=== PATIENT | male | born 1975 | race Hispanic/Latino ===

== ENCOUNTER 2018-12-03 20:07 | Emergency (ER) | payer SELFPAY ==
[2018-12-03 21:04] LABS: Absolute Lymphocytes (CBC) 2.7 K/uL (0.7-4.9); Absolute Monocytes 0.7 K/uL (0.1-1.3); Absolute Neutrophil 2.7 K/uL (1.8-8.0); Basophils % 0.9 % (0-1.3); Eosinophils % 2.9 % (0-4.4); Hematocrit 40.9 % (39.6-49.0); Lymphocytes % 42.3 % (15.3-44.8); MPV 9.8 fL (7.6-11.3); Monocytes % 11.7 % (3.3-12.3); RBC Red Blood Cell Count 4.83 M/uL (4.33-5.43)
[2018-12-03 21:14] LABS: Protime INR 0.94
[2018-12-03 21:22] LABS: ALT/SGPT 93 U/L (12-78); AST/SGOT 44 U/L (15-37); Albumin 3.7 g/dL (3.4-5.0); Alkaline Phosphatase 86 U/L (45-117); BUN Blood Urea Nitrogen 12 mg/dL (7-18); Bicarbonate 27 mmol/L (21-32); Bilirubin Direct < 0.1 mg/dL (0-0.2); Bilirubin Total 0.3 mg/dL (0.2-1.0); Glucose Level 180 mg/dL (74-106); Magnesium 1.7 mg/dL (1.8-2.4); NT PRO-BNP 49 pg/mL (<125); Potassium 4.2 mmol/L (3.5-5.1); Protein, Total 7.3 g/dL (6.4-8.2); Sodium Level 138 mmol/L (136-145); Troponin (Emerg Dept Use Only) < 0.02 ng/mL (0.0-0.045)
--- NOTE | 2018-12-03 22:36 | RAD REPORT ---
EXAM DESCRIPTION: RAD - Chest Single View - 12/03/2018 9:18 pm CLINICAL HISTORY: CHEST PAIN Chest pain. COMPARISON: <Comparisons> FINDINGS: Portable technique limits examination quality. The lungs are grossly clear. The heart is normal in size. No displaced fractures. IMPRESSION: No acute intrathoracic process suspected.
[2018-12-03 23:04] LABS: Troponin (Emerg Dept Use Only) < 0.02 ng/mL (0.0-0.045)
--- NOTE | 2018-12-04 01:54 | EDPHYS ---
Physician Documentation [facility] Name: Brayden Henderson Age: 43 yrs Sex: Male : 1975 Arrival Date: 12/03/2018 Time: 20:12 Bed 17 Private MD: ED Physician Moiz Bustillo HPI: 12/04 01:47 This 43 yrs old Male presents to ER via EMS with complaints of Palpitations. gs 01:47 The patient presents with a history of heart racing. Onset: The symptoms/episode gs began/occurred yesterday. Duration: The patient or guardian reports a single episode, that is now resolved. Modifying factors: The symptoms are aggravated by anxiety, The symptoms are alleviated by nothing. Associated signs and symptoms: Pertinent positives: chest pain, leg pain(left), Pertinent negatives: SOB. Associated signs and symptoms: Pertinent positives: headache, hx same headaches past year no change onset or intensity. Severity of symptoms: At their worst the symptoms were moderate in the emergency department the symptoms have improved moderately. The patient has experienced similar episodes in the past, a few times. Historical: - Allergies: 12/03 20:00 No Known Allergies; cc3 - Home Meds: 21:00 lisinopril 10 mg Oral tab 1 tab once daily [Active]; pioglitazone 30 mg oral tab 1 tab cc3 once daily [Active]; Tradjenta 5 mg oral tab 1 tab once daily [Active]; levothyroxine 50 mcg tab 1 tab once daily [Active]; amitriptyline 10 mg oral tab 1 tab [Active]; cyclobenzaprine 10 mg Oral tab [Active]; - PMHx: 20:00 Hypertension; Diabetes - NIDDM; blood clot right eye; cc3 - PSHx: 20:00 left eye surgery; cc3 - Immunization history:: Adult Immunizations up to date. - Social history:: Smoking status: Patient/guardian denies using tobacco, the patient reports quitting approximately 1 years ago. - Ebola Screening: : No symptoms or risks identified at this time. ROS: 12/04 03:18 Abdomen/GI: Positive for vomiting, diarrhea. gs All other systems are negative. Exam: 01:47 Head/Face: Normocephalic, atraumatic. Eyes: Pupils equal round and reactive to light, gs extra-ocular motions intact. Lids and lashes normal. Conjunctiva and sclera are non-icteric and not injected. Cornea within normal limits. Periorbital areas with no swelling, redness, or edema. ENT: Nares patent. No nasal discharge, no septal abnormalities noted. Tympanic membranes are normal and external auditory canals are clear. Oropharynx with no redness, swelling, or masses, exudates, or evidence of obstruction, uvula midline. Mucous membranes moist. Neck: Trachea midline, no thyromegaly or masses palpated, and no cervical lymphadenopathy. Supple, full range of motion without nuchal rigidity, or vertebral point tenderness. No Meningismus. Chest/axilla: Normal chest wall appearance and motion. Nontender with no deformity. No lesions are appreciated. Cardiovascular: Regular rate and rhythm with a normal S1 and S2. No gallops, murmurs, or rubs. Normal PMI, no JVD. No pulse deficits. Respiratory: Lungs have equal breath sounds bilaterally, clear to auscultation and percussion. No rales, rhonchi or wheezes noted. No increased work of breathing, no retractions or nasal flaring. Abdomen/GI: Soft, non-tender, with normal bowel sounds. No distension or tympany. No guarding or rebound. No evidence of tenderness throughout. Back: No spinal tenderness. No costovertebral tenderness. Full range of motion. Skin: Warm, dry with normal turgor. Normal color with no rashes, no lesions, and no evidence of cellulitis. MS/ Extremity: Pulses equal, no cyanosis. Neurovascular intact. Full, normal range of motion. Neuro: Awake and alert, GCS 15, oriented to person, place, time, and situation. Cranial nerves II-XII grossly intact. Motor strength 5/5 in all extremities. Sensory grossly intact. Cerebellar exam normal. Normal gait. 01:47 Constitutional: The patient appears alert, awake. 01:47 ECG was reviewed by the Attending Physician. Vital Signs: 12/03 20:00 BP 189 / 93; Pulse 112; Resp 20 S; Temp 98.1(O); Pulse Ox 97% on R/A; Weight 90.72 kg cc3 (R); Height 5 ft. 5 in. (165.10 cm) (R); Pain 7/10; 21:01 BP 177 / 93; Pulse 98; Resp 15 S; Temp 98.1(O); Pulse Ox 100% on R/A; cc3 22:22 BP 150 / 83; Pulse 106; Resp 16 S; Temp 98.3(O); Pulse Ox 100% on R/A; cc3 22:45 BP 149 / 85; Pulse 102; Resp 18 S; Pulse Ox 99% on R/A; cc3 23:11 BP 160 / 84; Pulse 113; Resp 24 S; Temp 99.1(O); Pulse Ox 100% on 2 lpm NC; cc3 23:37 BP 147 / 82; Pulse 110; Resp 19 S; Temp 99.1(O); Pulse Ox 100% on 2 lpm NC; cc3 23:45 BP 134 / 91; Pulse 109; Resp 14; Pulse Ox 100% on 2 lpm NC; cc3 12/04 00:45 BP 124 / 85; Pulse 99; Resp 16 S; Pulse Ox 100% on R/A; cc3 01:00 BP 122 / 81; Pulse 99; Resp 20; Pulse Ox 100% on 2 lpm NC; lp1 02:00 BP 121 / 79; Pulse 106; Resp 14; Pulse Ox 100% on R/A; lp1 02:20 BP 133 / 98; Pulse 124; Resp 16; Pulse Ox 100% on R/A; lp1 02:40 BP 132 / 86 Supine; Pulse 116; lp1 02:40 BP 143 / 92 Sitting; Pulse 124; lp1 02:40 BP 114 / 88 Standing; Pulse 130; lp1 03:15 BP 117 / 83; Pulse 114; Resp 16 S; Temp 98.5(O); Pulse Ox 99% on R/A; cc3 04:19 BP 128 / 85; Pulse 109; Resp 18 S; Temp 98.5(O); Pulse Ox 99% on R/A; cc3 12/03 20:00 Body Mass Index 33.28 (90.72 kg, 165.10 cm) cc3 02:40 Patient began vomiting at this time lp1 MDM: 12/03 22:20 Patient medically screened. 12/04 01:47 Differential diagnosis: arrythmia, dehydration, stress disorder, mi,tad,pe. Data reviewed: vital signs, nurses notes, lab test result(s), EKG, radiologic studies. Counseling: I had a detailed discussion with the patient and/or guardian regarding: the historical points, exam findings, and any diagnostic results supporting the discharge/admit diagnosis, lab results, radiology results, the need for outpatient follow up. Response to treatment: the patient's symptoms have markedly improved after treatment, the patient's condition has returned to base line, and as a result, I will discharge patient. 12/03 20:43 Order name: Basic Metabolic Panel; Complete Time: 21:25 12/03 20:43 Order name: CBC with Diff; Complete Time: 21:25 12/03 20:43 Order name: LFT's; Complete Time: 21:25 12/03 20:43 Order name: Magnesium; Complete Time: :25 12/03 20:43 Order name: NT PRO-BNP; Complete Time: :12/03 20:43 Order name: PT-INR; Complete Time: 21:25 12/03 20:43 Order name: Troponin (emerg Dept Use Only); Complete Time: 21:25 12/03 20:43 Order name: XRAY Chest (1 view); Complete Time: 23:12 12/03 20:43 Order name: EKG; Complete Time: 20:46 12/03 20:43 Order name: Cardiac monitoring; Complete Time: 20:50 12/03 22:21 Order name: TSH; Complete Time: 23:12 12/03 22:21 Order name: Troponin (emerg Dept Use Only); Complete Time: 23:12 12/03 23:18 Order name: CT Aorta for Dissection 12/03 20:43 Order name: EKG - Nurse/Tech; Complete Time: 20:50 12/03 20:43 Order name: IV Saline Lock; Complete Time: 20:58 12/03 20:43 Order name: Labs collected and sent; Complete Time: 20:58 12/03 20:43 Order name: O2 Per Protocol; Complete Time: 20:50 12/03 20:43 Order name: O2 Sat Monitoring; Complete Time: 20:50 12/03 23:02 Order name: EKG - Nurse/Tech; Complete Time: 23:10 gs EC:47 Rate is 103 beats/min. Rhythm is regular. OH interval is normal. QRS interval is gs normal. No Q waves. T waves are Normal. No ST changes noted. Clinical impression: Sinus tachycardia. Interpreted by me. Administered Medications: 02:50 Drug: NS 0.9% 1000 ml Route: IV; Rate: 1 bolus; Site: left antecubital; cc3 04:00 Follow up: Response: No adverse reaction; IV Status: Completed infusion; IV Intake: cc3 1000ml Point of Care Testing: Blood Glucose: 02:35 Blood Glucose: 157 mg/dL; lp1 Ranges: Critical Glucose Levels:Adult <50 mg/dl or >400 mg/dl <40 mg/dl or >180 mg/dl Disposition: 12/04/18 04:13 Discharged to Home. Impression: Chest pain, unspecified, Generalized abdominal pain, Palpitations, Pain in left leg, Vomiting, Diarrhea, unspecified. - Condition is Stable. - Discharge Instructions: Nonspecific Chest Pain, Diarrhea, Adult, Nausea and Vomiting, Adult, Palpitations. - Prescriptions for Zofran 4 mg Oral Tablet - take 1 tablet by ORAL route every 12 hours As needed; 6 tablet. - Medication Reconciliation Form, Thank You Letter, Antibiotic Education, Prescription Opioid Use form. - Follow up: Private Physician; When: 1 - 2 days; Reason: Re-evaluation by your physician. Signatures: Dispatcher [employer] EDMS Ashley Dumont RN RN Moiz Campos MD MD gs Cordel, Charlene cc3 Corrections: (The following items were deleted from the chart) 02:57 01:53 12/04/2018 01:53 Discharged to Home. Impression: Tachycardia, unspecified; gs Essential (primary) hypertension; Palpitations. Condition is Stable. Forms are Medication Reconciliation Form, Thank You Letter, Antibiotic Education, Prescription Opioid Use. Follow up: Private Physician; When: 1 - 2 days; Reason: Re-evaluation by your physician. gs 03:18 01:47 All other systems are negative, gs gs 04:35 04:13 12/04/2018 04:13 Discharged to Home. Impression: Chest pain, unspecified; cc3 Generalized abdominal pain; Palpitations; Pain in left leg; Vomiting; Diarrhea, unspecified. Condition is Stable. Forms are Medication Reconciliation Form, Thank You Letter, Antibiotic Education, Prescription Opioid Use. Follow up: Private Physician; When: 1 - 2 days; Reason: Re-evaluation by your physician. gs
--- NOTE | 2018-12-04 01:54 | ER ---
Nurse's Notes [facility] Name: Brayden Henderson Age: 43 yrs Sex: Male : 1975 Arrival Date: 12/03/2018 Time: 20:12 Bed 17 Private MD: Diagnosis: Chest pain, unspecified;Generalized abdominal pain;Palpitations;Pain in left leg;Vomiting;Diarrhea, unspecified Presentation: 12/03 20:00 Presenting complaint: EMS states: "We were toned for palpitations that started an hour cc3 ago, high blood pressure reading, and headache" Patient stated that "I had pain on my left toe first then the pain radiated upwards to my left chest like an electricity then that's when I felt fast heart beat and headache" Patient denies chest pain now but said headache is NRS 7/10. Transition of care: patient was not received from another setting of care. Onset of symptoms was December 03, 2018. Risk Assessment: Do you want to hurt yourself or someone else? Patient reports no desire to harm self or others. Initial Sepsis Screen: Does the patient meet any 2 criteria? HR > 90 bpm. No. Patient's initial sepsis screen is negative. Does the patient have a suspected source of infection? No. Patient's initial sepsis screen is negative. Care prior to arrival: None. 20:00 Method Of Arrival: EMS: [facility] cc3 20:00 Acuity: MARIA E 3 cc3 Triage Assessment: 20:00 General: Appears in no apparent distress. comfortable, Behavior is calm, cooperative, cc3 appropriate for age. Pain: Complains of pain in head Pain currently is 7 out of 10 on a pain scale. Quality of pain is described as aching, Pain began 1 hour ago. EENT: No signs and/or symptoms were reported regarding the EENT system. Neuro: Level of Consciousness is awake, alert, obeys commands, Oriented to person, place, time, situation, Appropriate for age. Cardiovascular: Reports palpitations, since an hour ago Denies chest pain, Patient's skin is warm and dry. Respiratory: Airway is patent Respiratory effort is even, unlabored, Respiratory pattern is regular, symmetrical. GI: Abdomen is round. : No signs and/or symptoms were reported regarding the genitourinary system. Derm: dry wounds all over his bilateral upper and lower extremities, trunk and back. Musculoskeletal: Circulation, motion, and sensation intact. Range of motion: intact in all extremities. Historical: - Allergies: 20:00 No Known Allergies; cc3 - Home Meds: 21:00 lisinopril 10 mg Oral tab 1 tab once daily [Active]; pioglitazone 30 mg oral tab 1 tab cc3 once daily [Active]; Tradjenta 5 mg oral tab 1 tab once daily [Active]; levothyroxine 50 mcg tab 1 tab once daily [Active]; amitriptyline 10 mg oral tab 1 tab [Active]; cyclobenzaprine 10 mg Oral tab [Active]; - PMHx: 20:00 Hypertension; Diabetes - NIDDM; blood clot right eye; cc3 - PSHx: 20:00 left eye surgery; cc3 - Immunization history:: Adult Immunizations up to date. - Social history:: Smoking status: Patient/guardian denies using tobacco, the patient reports quitting approximately 1 years ago. - Ebola Screening: : No symptoms or risks identified at this time. Screenin:00 Abuse screen: Denies threats or abuse. Denies injuries from another. Nutritional cc3 screening: No deficits noted. Tuberculosis screening: No symptoms or risk factors identified. Fall Risk Ambulatory Aid- None/Bed Rest/Nurse Assist (0 pts). Gait- Normal/Bed Rest/Wheelchair (0 pts) Mental Status- Oriented to own ability (0 pts). Assessment: 20:00 General: see triage assessment. cc3 21:18 Reassessment: Patient appears in no apparent distress at this time. Patient and/or cc3 family updated on plan of care and expected duration. Pain level reassessed. Patient is alert, oriented x 3, equal unlabored respirations, skin warm/dry/pink. 22:30 Reassessment: Patient appears in no apparent distress at this time. Patient and/or cc3 family updated on plan of care and expected duration. Pain level reassessed. Patient is alert, oriented x 3, equal unlabored respirations, skin warm/dry/pink. Repeat Troponin taken and sent to laboratory by radiographic technologist Blanca. 22:50 Reassessment: Patient and/or family updated on plan of care and expected duration. Pain cc3 level reassessed. Patient is alert, oriented x 3, equal unlabored respirations, skin warm/dry/pink. Patient said he started to have left sided chest pain now and that he doesn't feel right, informed Dr. Bustillo and he ordered for an ECG. ECG done with sinus tachycardia rhythm and shown to Dr. Bustillo. 23:18 Reassessment: Patient and/or family updated on plan of care and expected duration. Pain cc3 level reassessed. Patient is alert, oriented x 3, equal unlabored respirations, skin warm/dry/pink. Dr. Bustillo ordered for CT aorta for dissection, patient informed. 23:47 Reassessment: Patient appears in no apparent distress at this time. Patient and/or cc3 family updated on plan of care and expected duration. Pain level reassessed. Patient is alert, oriented x 3, equal unlabored respirations, skin warm/dry/pink. Patient verbalized that he feels better now. Patient denies pain at this time. Patient states feeling better. Patient states symptoms have improved. 12/04 00:00 Reassessment: Patient appears in no apparent distress at this time. Patient and/or cc3 family updated on plan of care and expected duration. Pain level reassessed. Patient is alert, oriented x 3, equal unlabored respirations, skin warm/dry/pink. Patient taken to CT scan department by the application technician by nathan. 00:30 Reassessment: Patient appears in no apparent distress at this time. Patient and/or cc3 family updated on plan of care and expected duration. Pain level reassessed. Patient is alert, oriented x 3, equal unlabored respirations, skin warm/dry/pink. Patient came back from CT scan department, awaiting result. 01:12 Reassessment: Patient appears in no apparent distress at this time. Patient and/or cc3 family updated on plan of care and expected duration. Pain level reassessed. Patient is alert, oriented x 3, equal unlabored respirations, skin warm/dry/pink. 02:15 Reassessment: Spoke with Malgorzata, patient's , aware of discharge and will picking machine operator helper lp1 patient for ride home Patient states feeling better. 02:20 Reassessment: On discharge of patient, complaint of heartburn, assisted to sitting up lp1 at side of bed, states burping relieves symptoms; HR to 120's at this time; Patient denies any pain, discomfort to chest. 02:49 Reassessment: Provider notified of orthostatic results. lp1 03:20 Reassessment: Patient and/or family updated on plan of care and expected duration. Pain cc3 level reassessed. Patient is alert, oriented x 3, equal unlabored respirations, skin warm/dry/pink. 04:30 Reassessment: Patient appears in no apparent distress at this time. Patient and/or cc3 family updated on plan of care and expected duration. Pain level reassessed. Patient is alert, oriented x 3, equal unlabored respirations, skin warm/dry/pink. After the IV fluid bolus, patient managed to sit and walk around without headache nor dizziness, informed Dr. Bustillo and he discharged the patient home with prescription given. IV cannula removed and patient left ER vitally stable by wheelchair escorted by radiographic technologist Blanca and the patient's . Patient denies pain at this time. Patient states feeling better. Patient states symptoms have improved. Vital Signs: 12/03 20:00 BP 189 / 93; Pulse 112; Resp 20 S; Temp 98.1(O); Pulse Ox 97% on R/A; Weight 90.72 kg cc3 (R); Height 5 ft. 5 in. (165.10 cm) (R); Pain 7/10; 21:01 BP 177 / 93; Pulse 98; Resp 15 S; Temp 98.1(O); Pulse Ox 100% on R/A; cc3 22:22 BP 150 / 83; Pulse 106; Resp 16 S; Temp 98.3(O); Pulse Ox 100% on R/A; cc3 22:45 BP 149 / 85; Pulse 102; Resp 18 S; Pulse Ox 99% on R/A; cc3 23:11 BP 160 / 84; Pulse 113; Resp 24 S; Temp 99.1(O); Pulse Ox 100% on 2 lpm NC; cc3 23:37 BP 147 / 82; Pulse 110; Resp 19 S; Temp 99.1(O); Pulse Ox 100% on 2 lpm NC; cc3 23:45 BP 134 / 91; Pulse 109; Resp 14; Pulse Ox 100% on 2 lpm NC; cc3 12/04 00:45 BP 124 / 85; Pulse 99; Resp 16 S; Pulse Ox 100% on R/A; cc3 01:00 BP 122 / 81; Pulse 99; Resp 20; Pulse Ox 100% on 2 lpm NC; lp1 02:00 BP 121 / 79; Pulse 106; Resp 14; Pulse Ox 100% on R/A; lp1 02:20 BP 133 / 98; Pulse 124; Resp 16; Pulse Ox 100% on R/A; lp1 02:40 BP 132 / 86 Supine; Pulse 116; lp1 02:40 BP 143 / 92 Sitting; Pulse 124; lp1 02:40 BP 114 / 88 Standing; Pulse 130; lp1 03:15 BP 117 / 83; Pulse 114; Resp 16 S; Temp 98.5(O); Pulse Ox 99% on R/A; cc3 04:19 BP 128 / 85; Pulse 109; Resp 18 S; Temp 98.5(O); Pulse Ox 99% on R/A; cc3 12/03 20:00 Body Mass Index 33.28 (90.72 kg, 165.10 cm) cc3 02:40 Patient began vomiting at this time lp1 ED Course: 12/03 20:00 Patient has correct armband on for positive identification. Placed in gown. Bed in low cc3 position. Call light in reach. Side rails up X2. quality assurance monitor chassis on. Pulse ox on. NIBP on. 20:00 Arm band placed on right wrist. Patient notified of wait time. EKG completed in triage. cc3 Results shown to MD. 20:00 Maintain EMS IV. Dressing intact. Good blood return noted. Site clean \\T\\ dry. Gauge \\T\\ cc 3 site: left ACV gauge 20. 20:12 Patient arrived in ED. ds1 20:12 Blanca Quintero is Primary Nurse. cc3 20:22 Triage completed. cc3 21:19 XRAY Chest (1 view) In Process Unspecified. EDMS 21:25 Moiz Bustillo MD is Attending Physician. gs 06 00:41 CT Aorta for Dissection In Process Unspecified. EDMS 00:46 CT completed. Patient tolerated procedure well. Patient moved to CT via stretcher. Patient moved back from CT. 02:24 No provider procedures requiring assistance completed. lp1 04:30 IV discontinued, intact, bleeding controlled, No redness/swelling at site. Pressure cc3 dressing applied. Administered Medications: 02:50 Drug: NS 0.9% 1000 ml Route: IV; Rate: 1 bolus; Site: left antecubital; cc3 04:00 Follow up: Response: No adverse reaction; IV Status: Completed infusion; IV Intake: cc3 1000ml Point of Care Testing: Blood Glucose: 02:35 Blood Glucose: 157 mg/dL; lp1 Ranges: Intake: 04:00 IV: 1000ml; Total: 1000ml. cc3 Outcome: 01:53 Discharge ordered by . 04:13 Discharge ordered by . 04:30 Discharged to home via wheelchair, with family. cc3 04:30 Condition: stable 04:30 Discharge instructions given to patient, family, Instructed on discharge instructions, follow up and referral plans. medication usage, Demonstrated understanding of instructions, follow-up care, medications, Prescriptions given X 1. 04:35 Patient left the ED. cc3 Signatures: Dispatcher [employer] EDMS Reinier Toscano Demi ds1 Gracy Wesley RN RN lp1 Moiz Bustillo MD MD gs Cordel, Charlene cc3 Corrections: (The following items were deleted from the chart) 12/03 23:21 23:11 BP 160 / 84; Pulse 113bpm; Resp 24bpm; Spontaneous; Pulse Ox 99% RA; cc3 cc3 23:37 23:18 Reassessment: Dr. Bustillo ordered for CT aorta for dissection, patient informed. cc3cc3 23:46 23:11 BP 160 / 84; Pulse 113bpm; Resp 24bpm; Spontaneous; Pulse Ox 99% RA; Temp 99.1F cc3 Oral; cc3 23:46 23:37 BP 147 / 82; Pulse 110bpm; Resp 19bpm; Spontaneous; Pulse Ox 100% RA; Temp 99.1F cc3 Oral; cc3 12/04 02:49 02:00 BP 121 / 79; Pulse 106bpm; Resp 14bpm; Pulse Ox 100% RA; Temp 97.7F Temporal; lp1 lp1 04:42 04:19 BP 128 / 85; Pulse 109bpm; Resp 18bpm; Spontaneous; Pulse Ox 99% RA; cc3 cc3 04:42 03:15 BP 117 / 83; Pulse 114bpm; Resp 16bpm; Spontaneous; Pulse Ox 99% RA; cc3 cc3
[2018-12-04] MEDS ORDERED: NA CHLORIDE 0.9% 1,000 ML ONE (03:09)
--- NOTE | 2018-12-04 07:37 | EKG ---
Test Date: 2018-12-03 Test Time: 20:12:59 Garment Liner: CARMEN MEASUREMENT RESULTS: Intervals: Rate: 103 PA: 134 QRSD: 98 QT: 336 QTc: 440 [place]: P: 34 PA: 134 QRS: -31 T: 32 INTERPRETIVE STATEMENTS: Sinus tachycardia Left axis deviation Abnormal ECG No previous ECG available for comparison Electronically Signed On 12-04-18 07:36:40 CDT by Philipp Veras
--- NOTE | 2018-12-04 09:45 | RAD REPORT ---
EXAM DESCRIPTION: CT Angiography Chest With Intravenous Contrast CT Angiography Abdomen and Pelvis With Intravenous Contrast CLINICAL HISTORY: The patient is 43 years old and is Male; CHEST PAIN TECHNIQUE: Axial computed tomographic angiography images of the chest, abdomen and pelvis with intra venous contrast using CT angiography protocol. Sagittal and coronal reformatted images were created and reviewed. This CT exam was performed using one or more of the following dose reduction techniq ues: automated exposure control, adjustment of the mA and/or kV according to patient size, and/or u se of iterative reconstruction technique. MIP reconstructed images were created and reviewed. COMPARISON: No relevant prior studies available. FINDINGS: VASCULATURE: AORTA: No acute findings. No aortic aneurysm. No dissection. PULMONARY ARTERIES: Unremarkable as visualized. No pulmonary embolism is identified. GREAT VESSELS OF AORTIC ARCH: No acute findings. No dissection. No arterial occlusion or sig nificant stenosis. CELIAC TRUNK AND MESENTERIC ARTERIES: No acute findings. No occlusion or significant stenosis. RENAL ARTERIES: No acute findings. No occlusion or significant stenosis. ILIAC ARTERIES: No acute findings. No occlusion or significant stenosis. CHEST: LUNGS: Minimal dependent densities in the lung bases are present. PLEURAL SPACE: Unremarkable. No significant effusion. No pneumothorax. HEART: Unremarkable. No cardiomegaly. No significant pericardial effusion. ABDOMEN: LIVER: There is a diffuse decrease in hepatic parenchymal density, consistent with fatty infiltr ation. GALLBLADDER AND BILE DUCTS: Unremarkable. No calcified stones. No ductal dilation. PANCREAS: Unremarkable. No ductal dilation. No mass. SPLEEN: Unremarkable. No splenomegaly. ADRENALS: Unremarkable. No mass. KIDNEYS AND URETERS: Unremarkable. No hydronephrosis. No solid mass. STOMACH AND BOWEL: The stomach is minimally distended with food contents. A few small bowel loop s within left upper quadrant are fluid-filled with suggestion of very minimal mucosal thickening. The remainder the small bowel is normal in appearance. Mild to moderate amount stool is present througho ut the colon. There is no bowel obstruction. PELVIS: APPENDIX: No findings to suggest acute appendicitis. BLADDER: The bladder is well distended. REPRODUCTIVE: Unremarkable as visualized. CHEST, ABDOMEN and PELVIS: INTRAPERITONEAL SPACE: Unremarkable. No significant fluid collection. No free air. BONES/JOINTS: No acute fracture. No dislocation. SOFT TISSUES: Unremarkable. LYMPH NODES: Unremarkable. No enlarged lymph nodes. IMPRESSION: 1. No evidence of aortic aneurysm or dissection. 2. Nonspecific fluid-filled small bowel loops with suggestion of minimal mucosal thickening in the left abdomen. Findings may be secondary to a very mild enteritis. No bowel obstruction. Electronically signed by: Regla Baeza MD 12/04/2018 12:53 AM CDT Due to temporary technical issues with the PACS/Fluency reporting system, reports are being signed by the in house radiologist as a courtesy to ensure prompt reporting. The interpreting radiologist is f ully responsible for the content of the report.
--- NOTE | 2018-12-04 15:57 | EKG ---
Test Date: 2018-12-03 Test Time: 23:08:27 Gas Compressor Turbine Operator: JOSUE MEASUREMENT RESULTS: Intervals: Rate: 114 MT: 136 QRSD: 90 QT: 330 QTc: 454 Elsa: P: 30 MT: 136 QRS: -28 T: 35 INTERPRETIVE STATEMENTS: Sinus tachycardia Otherwise normal ECG Compared to ECG 12/03/2018 20:12:59 Left-axis deviation no longer present Electronically Signed On 12-04-18 15:56:20 CDT by Philipp Veras
== END 2018-12-04 04:35 | disposition home or self-care (01) ==
LOC: ER 20:07
DX: R00.2 Palpitations (principal); R10.84 Generalized abdominal pain; R11.10 Vomiting, unspecified; R19.7 Diarrhea, unspecified; M79.605 Pain in left leg; I10 Essential (primary) hypertension; E11.9 Type 2 diabetes mellitus without complications
CPT/HCPCS: 36415; 71045; 71275; 74175; 80048; 80076; 83735; 83880; 84443; 84484; 85025; 85610; 93005; 96360; 99285; J7030; Q9967

== ENCOUNTER 2018-12-11 18:34 | Emergency (ER) | payer SELFPAY ==
--- OUTSIDE RECORDS SUMMARY | 2018-12-11 18:37 | XMS REPORT ---
:1975 [facility] Address [address] [place] [address] Care Team Providers Name Role Phone Unavailable Unavailable Unavailable Problems This patient has no known problems. Allergies, Adverse Reactions, Alerts This patient has no known allergies or adverse reactions. Medications This patient has no known medications.
--- NOTE | 2018-12-11 19:41 | RAD REPORT ---
EXAM DESCRIPTION: CT - Head Brain Wo Cont - 12/11/2018 7:29 pm CLINICAL HISTORY: Headache COMPARISON: None. TECHNIQUE: Axial 5 mm thick images of the head were obtained without IV contrast. All CT scans are performed using dose optimization technique as appropriate and may include automated exposure control or mA/KV adjustment according to patient size. FINDINGS: No intracranial hemorrhage, mass, edema or shift of mid-line structures. No acute infarcti on changes seen. No abnormal extra-axial fluid collections. Ventricles are normal. Mastoid air cells and visualized portions of the paranasal sinuses are clear. No acute bony findings. IMPRESSION: Negative non-contrast CT head examination.
[2018-12-11 19:59] LABS: Absolute Lymphocytes (CBC) 1.4 K/uL (0.7-4.9); Absolute Monocytes 0.7 K/uL (0.1-1.3); Absolute Neutrophil 5.3 K/uL (1.8-8.0); Basophils % 0.4 % (0-1.3); Eosinophils % 0.4 % (0-4.4); Hematocrit 41.3 % (39.6-49.0); Lymphocytes % 18.8 % (15.3-44.8); Monocytes % 9.5 % (3.3-12.3); RBC Red Blood Cell Count 4.88 M/uL (4.33-5.43)
[2018-12-11 20:13] LABS: BUN Blood Urea Nitrogen 8 mg/dL (7-18); Bicarbonate 25 mmol/L (21-32); Glucose Level 140 mg/dL (74-106); Potassium 3.7 mmol/L (3.5-5.1); Sodium Level 139 mmol/L (136-145); Troponin (Emerg Dept Use Only) < 0.02 ng/mL (0.0-0.045)
[2018-12-11] MEDS ORDERED: NA CHLORIDE 0.9% 1,000 ML ONE (21:00)
--- NOTE | 2018-12-11 21:18 | ER ---
Nurse's Notes [facility] Name: Brayden Henderson Age: 43 yrs Sex: Male : 1975 Arrival Date: 12/11/2018 Time: 18:42 Bed 16 Private MD: Diagnosis: Headache;Hypertension;Anxiety disorder, unspecified;Chronic pain, not elsewhere classified Presentation: 12/11 18:45 Presenting complaint: Patient states: Patient states his head feels like someone is [facility] "pushing on it" from behind. Transition of care: patient was not received from another setting of care. Onset of symptoms is unknown. Risk Assessment: Do you want to hurt yourself or someone else? Patient reports no desire to harm self or others. Initial Sepsis Screen: Does the patient meet any 2 criteria? HR > 90 bpm. Does the patient have a suspected source of infection? No. Patient's initial sepsis screen is negative. 18:45 Acuity: MARIA E 3 ae4 18:45 Method Of Arrival: EMS: [facility] 18:49 Care prior to arrival: V/S 160/80 at residence of patient, and upon arrival at [address], 119/70. Triage Assessment: 18:50 Headache History: The patient has had previous headaches and this one is similar to 4 previous episodes. General: Appears uncomfortable, Behavior is cooperative, agitated, anxious, restless. Pain: Complains of pain in head and back of head Pain currently is 9 out of 10 on a pain scale. Pain began gradually, Also complains of inability to concentrate. Neuro: Level of Consciousness is awake, alert, obeys commands, Oriented to person, place, situation. Historical: - Allergies: 18:49 No Known Allergies; ae4 - Home Meds: 18:49 lisinopril 10 mg Oral tab 1 tab once daily [Active]; ae4 - PMHx: 18:49 blood clot right eye; Diabetes - NIDDM; Hypertension; ae4 - PSHx: 22:31 None; ae4 - Immunization history:: Adult Immunizations Patient states he doesn't know if his vaccines are up to date. . - Social history:: Smoking status: Patient/guardian denies using tobacco. - Ebola Screening: : Patient denies travel to an Ebola-affected area in the 21 days before illness onset. - Family history:: not pertinent. - Hospitalizations: : No recent hospitalization is reported. Screenin:49 Abuse screen: Denies threats or abuse. Nutritional screening: No deficits noted. ae4 Tuberculosis screening: No symptoms or risk factors identified. Fall Risk None identified. No fall in past 12 months (0 pts). Assessment: 18:45 General: Appears in no apparent distress. uncomfortable, Behavior is cooperative, ae4 anxious, restless. Neuro: Level of Consciousness is awake, alert, obeys commands, Oriented to person, place, time. Neuro: Reports headache. Cardiovascular: Heart tones S1 S2 present Patient's skin is warm and dry. Rhythm is regular. Respiratory: Airway is patent Respiratory effort is even, unlabored, Respiratory pattern is regular, symmetrical, Breath sounds are clear bilaterally. GI: Abdomen is round Bowel sounds present X 4 quads. : No signs and/or symptoms were reported regarding the genitourinary system. Urine is clear. EENT: No signs and/or symptoms were reported regarding the EENT system. Derm: Skin is pale. Musculoskeletal: No signs and/or symptoms reported regarding the musculoskeletal system. 21:33 Reassessment: No changes from previously documented assessment. Patient and/or family ae4 updated on plan of care and expected duration. Pain level reassessed. Pain: Complains of pain in left leg. 21:50 Reassessment: Provider at bedside discussing plan of care, new orders received for pain ae4 medication. 21:50 Reassessment: Patient taken by wheelchair to use phone in triage to secure ride home. ae4 22:20 Reassessment: Patient's arrived to provide transportation home. ae4 Vital Signs: 18:43 BP 140 / 89; Pulse 99; Resp 21; Temp 99.5(O); Pulse Ox 98% on R/A; Weight 92.08 kg (R); ae4 Pain 9/10; 18:46 BP 141 / 81; Pulse 99; Resp 17; Pulse Ox 99% on R/A; ae4 19:02 BP 138 / 79; Pulse 95; Resp 14; Pulse Ox 100% on R/A; ae4 20:57 BP 174 / 83; Pulse 86; Resp 18; Pulse Ox 100% on R/A; ae4 21:26 BP 162 / 90; Pulse 86; Resp 15; Pulse Ox 100% on R/A; ae4 22:30 BP 144 / 80; Pulse 81; Resp 16; Pulse Ox 100% on R/A; ae4 Octavia Coma Score: 21:15 Eye Response: spontaneous(4). Verbal Response: oriented(5). Motor Response: obeys rn commands(6). Total: 15. ED Course: 18:42 Patient arrived in ED. ae4 18:43 Arm band placed on left wrist. ae4 18:46 Triage completed. ae4 18:48 Placed in gown. Bed in low position. Call light in reach. Side rails up X 1. Cardiac ae4 monitor on. Pulse ox on. NIBP on. 18:59 Fantasma Nieves MD is Attending Physician. rn 19:02 Seth Hurtado RN is Primary Nurse. ae4 19:[address] via wheelchair. nj 19:29 CT completed. Patient tolerated procedure well. Patient moved back from CT. nj 19:30 CT Head Brain wo Cont In Process Unspecified. EDMS 22:31 No provider procedures requiring assistance completed. ae4 22:36 IV discontinued, intact, bleeding controlled, No redness/swelling at site. Pressure ae4 dressing applied. Administered Medications: 20:56 Drug: NS 0.9% 1000 ml Route: IV; Rate: 1000 ml; Site: left antecubital; ae4 22:33 Follow up: IV Status: Completed infusion ae4 21:33 Drug: TORadol 30 mg Route: IVP; Site: left antecubital; ae4 22:00 Follow up: Response: Pain is unchanged, physician notified ae4 21:33 Drug: cloNIDine 0.1 mg Route: PO; ae4 22:28 Follow up: Response: Pain is decreased ae4 22:22 Drug: Zofran 4 mg Route: IVP; Site: left antecubital; ae4 22:32 Follow up: Response: No adverse reaction ae4 22:30 Drug: morphine 4 mg Route: IVP; Site: left antecubital; ae4 22:33 Follow up: Response: Pain is decreased ae4 Outcome: 21:18 Discharge ordered by . rn 22:36 Discharged to home via wheelchair. ae4 22:36 Condition: stable 22:36 Discharge instructions given to patient, significant other, Instructed on discharge instructions, follow up and referral plans. medication usage, Demonstrated understanding of instructions. 22:41 Patient left the ED. ae4 Signatures: Dispatcher [employer] EDFantasma Jiménez MD MD rn Jordan, Nathan nj Elliott, Andrea, RN RN ae4 Corrections: (The following items were deleted from the chart) 22:05 22:01 Reassessment: Provider at bedside discussing plan of care, new orders received ae4 for pain medication. ae4
--- NOTE | 2018-12-11 21:19 | EDPHYS ---
Physician Documentation [facility] Name: Brayden Henderson Age: 43 yrs Sex: Male : 1975 Arrival Date: 12/11/2018 Time: 18:42 Bed 16 Private MD: ED Physician Fantasma Nieves HPI: 12/11 19:52 This 43 yrs old Male presents to ER via EMS with complaints of Headache. rn 19:52 The patient complains of pain to the back of head. The patient describes the headache rn as aching. Onset: The symptoms/episode began/occurred at an unknown time. Associated signs and symptoms: Pertinent positives: dizziness, nausea, vomiting, chest pain, abd pain, leg pain. Severity of symptoms: At its worst the pain was moderate, in the emergency department the pain has improved. The patient has experienced similar episodes in the past. Reports "months" of headaches, chest pain, abd pain, leg pain, fatigue, intermittent, reports worse with BP high, takes his BP med, symptoms improve when BP goes back down. Reports chronic right shoulder pain after arm injury and unable to lift above his head. No new injury. Reports seen here a few days ago, diagnosed with stomach bug, was vomiting at the time, still feels nauseated and weak. . Historical: - Allergies: 18:49 No Known Allergies; ae4 - Home Meds: 18:49 lisinopril 10 mg Oral tab 1 tab once daily [Active]; ae4 - PMHx: 18:49 blood clot right eye; Diabetes - NIDDM; Hypertension; ae4 - PSHx: 22:31 None; ae4 - Immunization history:: Adult Immunizations Patient states he doesn't know if his vaccines are up to date. . - Social history:: Smoking status: Patient/guardian denies using tobacco. - Ebola Screening: : Patient denies travel to an Ebola-affected area in the 21 days before illness onset. - Family history:: not pertinent. - Hospitalizations: : No recent hospitalization is reported. ROS: 19:52 Constitutional: Negative for fever, chills, and weight loss, Eyes: Negative for injury, rn pain, redness, and discharge, Neck: Negative for injury,and swelling, Cardiovascular: Negative for edema, Respiratory: Negative for shortness of breath, wheezing, and pleuritic chest pain, Abdomen/GI: Negative for diarrhea, and constipation, Back: Negative for injury and pain, : Negative for injury, bleeding, discharge, and swelling, MS/Extremity: Negative for injury and deformity, Skin: Negative for injury, rash, and discoloration, Neuro: Negative for numbness, tingling, and seizure. Exam: 19:52 Constitutional: This is a well developed, well nourished patient who is awake, alert, rn appears anxious, barely opens eyes during exam. Head/Face: Normocephalic, atraumatic. Eyes: Pupils equal round and reactive to light, extra-ocular motions intact. Lids and lashes normal. Conjunctiva and sclera are non-icteric and not injected. Cornea within normal limits. Periorbital areas with no swelling, redness, or edema. ENT: MMM Neck: Trachea midline, no thyromegaly or masses palpated, and no cervical lymphadenopathy. Supple, full range of motion without nuchal rigidity, or vertebral point tenderness. No Meningismus. Cardiovascular: Regular rate and rhythm. No pulse deficits. Respiratory: Lungs have equal breath sounds bilaterally, clear to auscultation. No increased work of breathing, no retractions or nasal flaring. Abdomen/GI: Soft, non-tender MS/ Extremity: Pulses equal, no cyanosis. Neurovascular intact. Full, normal range of motion. Equal circumference. Neuro: Awake and alert, GCS 15, oriented to person, place, time, and situation. Cranial nerves II-XII grossly intact. Motor strength 5/5 in all extremities. Sensory grossly intact. Cerebellar exam normal. Vital Signs: 18:43 BP 140 / 89; Pulse 99; Resp 21; Temp 99.5(O); Pulse Ox 98% on R/A; Weight 92.08 kg (R); ae4 Pain 9/10; 18:46 BP 141 / 81; Pulse 99; Resp 17; Pulse Ox 99% on R/A; ae4 19:02 BP 138 / 79; Pulse 95; Resp 14; Pulse Ox 100% on R/A; ae4 20:57 BP 174 / 83; Pulse 86; Resp 18; Pulse Ox 100% on R/A; ae4 21:26 BP 162 / 90; Pulse 86; Resp 15; Pulse Ox 100% on R/A; ae4 22:30 BP 144 / 80; Pulse 81; Resp 16; Pulse Ox 100% on R/A; ae4 Dix Coma Score: 21:15 Eye Response: spontaneous(4). Verbal Response: oriented(5). Motor Response: obeys rn commands(6). Total: 15. MDM: 18:59 Patient medically screened. rn 21:15 Differential diagnosis: hypertensive headache, migraine, tension headache, vasomotor rn headache. Data reviewed: vital signs, nurses notes, lab test result(s), EKG, radiologic studies, CT scan, and as a result, I will discharge patient. Counseling: I had a detailed discussion with the patient and/or guardian regarding: the historical points, exam findings, and any diagnostic results supporting the discharge/admit diagnosis, lab results, radiology results, the need for outpatient follow up, to return to the emergency department if symptoms worsen or persist or if there are any questions or concerns that arise at home. Response to treatment: the patient's symptoms have mildly improved after treatment, and as a result, I will discharge patient. Special discussion: I discussed with the patient/guardian in detail that at this point there is no indication for admission to the hospital. It is understood, however, that if the symptoms persist or worsen the patient needs to return immediately for re-evaluation. ED course: Patient with another negative workup, has been going on for sometime, most likely attributed to hypertension, possible component of stress/anxiety, recommend outpt f/u with pcp, continuation of BP meds, and return precautions. Hd negative w/u last week with neg ct aorta. . 12/11 19:15 Order name: CBC with Diff; Complete Time: 20:10 rn 12/11 19:15 Order name: Basic Metabolic Panel; Complete Time: 20:49 rn 12/11 19:15 Order name: Flu; Complete Time: 20:49 rn 12/11 19:15 Order name: Strep; Complete Time: 20:10 rn 12/11 19:15 Order name: [place] Screen Profile; Complete Time: 21:15 rn 12/11 19:16 Order name: Troponin (emerg Dept Use Only); Complete Time: 20:49 rn 12/11 19:15 Order name: EKG; Complete Time: 19:16 rn 12/11 19:15 Order name: CT Head Brain wo Cont; Complete Time: 20:10 rn 06/12 20:10 Order name: Throat Culture EDMS 12/11 19:15 Order name: IV Start; Complete Time: 20:43 rn 12/11 19:15 Order name: EKG - Nurse/Tech; Complete Time: 20:56 rn Administered Medications: 20:56 Drug: NS 0.9% 1000 ml Route: IV; Rate: 1000 ml; Site: left antecubital; ae4 22:33 Follow up: IV Status: Completed infusion ae4 21:33 Drug: TORadol 30 mg Route: IVP; Site: left antecubital; ae4 22:00 Follow up: Response: Pain is unchanged, physician notified ae4 21:33 Drug: cloNIDine 0.1 mg Route: PO; ae4 22:28 Follow up: Response: Pain is decreased ae4 22:22 Drug: Zofran 4 mg Route: IVP; Site: left antecubital; ae4 22:32 Follow up: Response: No adverse reaction ae4 22:30 Drug: morphine 4 mg Route: IVP; Site: left antecubital; ae4 22:33 Follow up: Response: Pain is decreased ae4 Disposition: 12/11/18 21:18 Discharged to Home. Impression: Headache, Hypertension, Anxiety disorder, unspecified, Chronic pain, not elsewhere classified. - Condition is Stable. - Discharge Instructions: General Headache Without Cause, Hypertension. - Medication Reconciliation Form, Thank You Letter, Antibiotic Education, Prescription Opioid Use form. - Follow up: Private Physician; When: As needed; Reason: Recheck today's complaints, Re-evaluation by your physician. - Problem is new. - Symptoms have improved. Signatures: Dispatcher [employer] [facility] Fantasma Nieves MD MD rn Elliott, Andrea, RN RN ae4 Corrections: (The following items were deleted from the chart) 19:55 19:52 Constitutional: Negative for fever, chills, and weight loss, Eyes: Negative for rn injury, pain, redness, and discharge, Neck: Negative for injury,and swelling, Cardiovascular: Negative for edema, Respiratory: Negative for shortness of breath, wheezing, and pleuritic chest pain, Abdomen/GI: Negative for diarrhea, and constipation, MS/Extremity: Negative for injury and deformity, Skin: Negative for injury, rash, and discoloration, Neuro: Negative for numbness, tingling, and seizure, rn 22:41 21:18 12/11/2018 21:18 Discharged to Home. Impression: Headache; Hypertension; Anxiety ae4 disorder, unspecified; Chronic pain, not elsewhere classified. Condition is Stable. Forms are Medication Reconciliation Form, Thank You Letter, Antibiotic Education, Prescription Opioid Use. Follow up: Private Physician; When: As needed; Reason: Recheck today's complaints, Re-evaluation by your physician. Problem is new. Symptoms have improved. rn
[2018-12-11] MEDS ORDERED: KETOROLAC 30 MG/ML INJ ONE (21:46)
[2018-12-11] MEDS ORDERED: cloNIDine HCl 0.1 MG TAB ONE (21:46)
[2018-12-11] MEDS ORDERED: ONDANSETRON 4 MG/2 ML VIAL ONE (22:42)
[2018-12-11] MEDS ORDERED: MORPHINE 4 MG/ML SYR ONE (22:42)
--- NOTE | 2018-12-12 06:54 | EKG ---
Test Date: 2018-12-11 Test Time: 20:59:09 Lead Housekeeper: JOSE MEASUREMENT RESULTS: Intervals: Rate: 90 MI: 126 QRSD: 100 QT: 366 QTc: 447 [place]: P: 41 MI: 126 QRS: -15 T: 45 INTERPRETIVE STATEMENTS: Normal sinus rhythm Normal ECG Compared to ECG 12/03/2018 23:08:27 Sinus tachycardia no longer present Electronically Signed On 12-12-18 06:53:22 CDT by Philipp Veras
== END 2018-12-11 22:41 | disposition home or self-care (01) ==
LOC: ER 18:34
DX: I10 Essential (primary) hypertension (principal); F41.9 Anxiety disorder, unspecified; G89.29 Other chronic pain; E11.9 Type 2 diabetes mellitus without complications
CPT/HCPCS: 36415; 70450; 80048; 84484; 85025; 86308; 87070; 87081; 87804; 93005; 96361; 96374; 96375; 99285; J2405; J7030

== ENCOUNTER 2018-12-19 06:47 | Emergency (ER) | payer SELFPAY ==
--- OUTSIDE RECORDS SUMMARY | 2018-12-19 06:50 | XMS REPORT ---
:1975 [facility] [address] [place] [address] Care Team Providers Name Role Phone Unavailable Unavailable Unavailable Payers Payer Name Policy Type Policy Number Effective Date Expiration Date Problems This patient has no known problems. Allergies, Adverse Reactions, Alerts Allergy Allergy Status Severity Reaction(s) Onset Inactive Treating Comments Name Type Date Date Clinician No Known DA Active U 2018-11 Allergies -13 00:00:0 0 Medications This patient has no known medications. Results Test Description Test Time Test Comments Text Results Atomic Results Result Comments GLUBED 2018-12-17 06:10:00 Test Item Value Reference Range Comments GLUBED (test code=GLUBED) 157 mg/dL 70-110 [id number] 06:10:00 Test Item Value Reference Range Comments GLUBED (test code=GLUBED) 206 mg/dL 70-110 [id number] 06:10:00 Test Item Value Reference Range Comments GLUBED (test code=GLUBED) 177 mg/dL 70-110 [id number] 06:10:00 Test Item Value Reference Range Comments GLUBED (test code=GLUBED) 235 mg/dL 70-110 - CT ABD PELVIS [id number] 16:33:00 FAX: Jon Kay [place]: St: ADM FAX: Manuela Rhodes [phone] - Name: ANUEL CARR [facility] : 1975 Age/S: 43/M [address] [facility] [address] Unit: [id number] Loc: [address] [place], [place] Phys: Manuela Basurto [address] Acct: [id number] Dis Date: Status: ADM IN PHONE #: [phone] Exam Date: 12/14/2018 1617 FAX #: [phone] Reason: LUQ pain EXAMS: CPT CODE: [id number] CT ABD PELVIS W/CONT 66276 EXAM: CT abdomen and pelvis with contrast INDICATION: 43 years - old Male with LUQ pain LOCATION CODE: C3 TECHNIQUE: Contrast - IV contrast was given, no oral contrast was given . Portal venous phase - abdomen and pelvis Reconstructions - coronal and sagittal planes One or more of the following dose reduction techniques were used: Automated exposure control, adjustment of the mA and/or kV according to patient size, and/or utilization of iterative reconstruction technique. Total Exam DLP : 824 mGy/cm CTDI vol: 15.5 mGy COMPARISON: None FINDINGS: Quality of Exam: Acceptable. Thoracic: Bilateral pleural thickening are seen. The heart is of normal size. Hepatobiliary: The liver is diffusely hypoattenuated compatible with fatty infiltration. The gallbladder is normal. No biliary dilation. The stomach is moderately distended with large amount of food debris. Pancreas : Normal. Spleen: Normal. Adrenals: Normal. Genitourinary: Right kidney : The kidneys are normal. No hydronephrosis. no nephrolithiasis PAGE 1 Signed Report (CONTINUED) FAX: Jon Kay [phone] [place]: St: [facility] FAX: Manuela Rhodes [phone] Name: ANUEL CARR : 1974 Age/S: 43/M [address] [id number] Loc: [address] [place] [address] Phys: Manuela Basurto [address] Acct: [id number] Dis Date: Status:ADM IN PHONE #: [phone] Exam Date: 12/14/2018 1617 FAX #: [phone] Reason : LUQ pain EXAMS: CPT CODE: [id number] CT ABD PELVIS W/CONT 16992 <Continued> Left kidney: The kidneys are normal. No hydronephrosis no nephrolithiasis . Urinary bladder is moderate severely enlarged. Normal wall thickness is seen. No stone or masses seen. Organs of Reproduction: Prostate gland measure approximately 4.5 x 3.1 x 4.5 cm. Gastrointestinal: The majority of the enteric contrast is still in the small bowel. They demonstrate normal size and caliber. The large bowel reveal mild to moderate fecal retention within the ascending, transverse and descending colon. The appendix is normal. Vascular: No evidence of aneurysm or dissection. Lymphatics: No enlarged lymph nodes by CT size criteria. Bones/Soft Tissues: No concerning bony lesion identified. No ventral hernias. Peritoneum/Other: No extraluminal air. No extraluminal fluid. IMPRESSION: 1. Fatty liver. 2. No bowel obstruction. 3. No obstructive uropathy. 4. Severely distended urinary bladder, Champion catheter or urinary bladdercatheterization would be helpful. RECOMMENDATIONS: None. Internal Coding only:B3 PAGE 2 Signed Report (CONTINUED) FAX: Jon Kay [phone] [place]: St: ADM FAX: Manuela Rhodes [phone] -- Name: ANUEL CARR [facility] : 1974 Age/S: 43/M [address] [facility] Unit: [id number] Loc: [address] [place], [place] Phys: Manuela Basurto [address] Acct: [id number] Dis Date: Status: ADM IN PHONE #: [phone] Exam Date: 12/14/2018 1617 FAX #: Reason: LUQ pain EXAMS: CPT CODE: [id number] CT ABD PELVIS W/CONT 31533 <Continued> at 1633 Reported and signed by: Collin Gustafson M.D. CC:Jon Mcgregor MD; Manuela JACOB Technologist: SKYLER ESTRELLA Trnscrd Dt/Tm: (2173) t.[email or web address] Orig Print D/T: S: 12/14/2018 (5602 PAGE 3 Signed [id number] 16:20:00 Test Item Value Reference Range Comments GLUBED (test code=GLUBED) 195 mg/dL 70-110 COMPREHENSIVE METABOLIC [id number] 07:24:00 Test Item Value Reference Range Comments SODIUM (test code=NA) 142 mmol/l 134.0-147.0 POTASSIUM (test code=K) 3.7 mmol/L 3.6-5.2 CHLORIDE (test code=CL) 109 mmol/l 98.0-107.0 CARBON DIOXIDE (test code=CO2) 25.6 mmol/l 21.0-33.0 ANION GAP (test code=GAP) 11.1 0-20 GLUCOSE (test code=GLU) 206 mg/dl 70.0-110.0 BLOOD UREA NITROGEN (test code=BUN) 13 mg/dl 7.0-18.0 CREATININE (test code=CREAT) 0.96 mg/dL 0.60-1.30 GFR NON BLACK (test code=GFRNONBLACK) 91 mL/min 95-105 GFR BLACK (test code=GFRBLACK) 110 mL/min 115-127 TOTAL PROTEIN (test code=PROT) 5.7 GM/DL 6.0-8.1 ALBUMIN (test code=ALB) 2.7 gm/dL 3.2-4.7 CALCIUM (test code=CA) 8.0 mg/dl 8.0-10.5 BILIRUBIN TOTAL (test code=BILT) 0.2 mg/dl 0.0-1.0 SGOT/AST (test code=AST) 23 Units/L 15.0-37.0 SGPT/ALT (test code=ALT) 50 Units/L 12.0-78.0 ALKALINE PHOSPHATASE TOTAL (test code=ALKP) 57 Units/L 50.0-136.0 [id number] 07:24:00 Test Item Value Reference Range Comments MAGNESIUM (test code=MAG) 1.6 mg/dl 1.8-2.4 CBC W/AUTO [id number] 07:06:00 Test Item Value Reference Range Comments WHITE BLOOD CELL (test code=WBC) 7.4 K/mm3 4.5-11.0 RED BLOOD CELL (test code=RBC) 4.26 M/mm3 4.40-5.90 HEMOGLOBIN (test code=HGB) 12.1 gm/dL 13.0-17.0 HEMATOCRIT (test code=HCT) 36.8 % 36.0-48.0 MEAN CELL VOLUME (test code=MCV) 86.4 UM3 80.0-94.0 MEAN CELL HGB (test code=MCH) 28.4 UUG 25.5-32.5 MEAN CELL HGB CONCETRATION (test code=MCHC) 32.9 gm/dL 29.0-35.5 RED CELL DISTRIBUTION WIDTH (test code=RDW) 13.5 % 11.5-15.0 RED CELL DISTRIBUTION WIDTH SD (test 42.5 fL 34.8-50.2 code=RDW-SD) PLATELET COUNT (test code=PLT) 216 K/mm3 150-400 MEAN PLATELET VOLUME (test code=MPV) 11.5 fl 7.4-10.4 NEUTROPHIL % (test code=NT%) 45.1 % 49.0-76.0 IMMATURE GRANULOCYTE % (test code=IG%) 0.3 % 0.0-0.4 LYMPHOCYTE % (test code=LY%) 40.1 % 23.0-38.0 MONOCYTE % (test code=MO%) 9.5 % 1.0-10.0 EOSINOPHIL % (test code=EO%) 3.8 % 1.0-5.0 BASOPHIL % (test code=BA%) 1.2 % 0.0-1.0 NEUTROPHIL # (test code=NT#) 3.3 K/mm3 2.4-6.3 IMMATURE GRANULOCYTE # (test code=IG#) 0.02 x10 3/uL 0.00-0.07 LYMPHOCYTE # (test code=LY#) 3.0 K/mm3 1.2-4.0 MONOCYTE # (test code=MO#) 0.7 K/mm3 0.0-0.6 EOSINOPHIL # (test code=EO#) 0.3 K/MM3 0.0-0.7 BASOPHIL # (test code=BA#) 0.1 K/mm3 0.0-0.2 VITAMIN [id number] 10:49:00 Test Item Value Reference Range Comments VITAMIN B12 (test code=VITB12) 409 pg/mL 193-986 [id number] 10:21:00 Test Item Value Reference Range Comments HGBA1C% (test code=HGBA1C%) 8.8 %A1C 4.8-6.0 ESTIMATED AVERAGE GLUCOSE (test code=EAG) 206 MG/DL [id number] 06:00:00 Test Item Value Reference Range Comments TROPONIN-I (test <0.02 NG/ML 0.00-0.06 REFERENCE RANGE TROPONIN I code=TROPI) HEALTHY INDIVIDUALS: <0.06 ng/mL R/O ISCHEMIA: 0.07 - 0.60 ng/mL CUT-OFF RANGE FOR AMI: 0.60 - 1.5 ng/mL [id number] 01:25:00 Test Item Value Reference Range Comments TROPONIN-I (test <0.02 NG/ML 0.00-0.06 REFERENCE RANGE TROPONIN I code=TROPI) HEALTHY INDIVIDUALS: <0.06 ng/mL R/O ISCHEMIA: 0.07 - 0.60 ng/mL CUT-OFF RANGE FOR AMI: 0.60 - 1.5 ng/mL - XR CHEST 1 [id number] 21:18:00 [place]: St: REG Name: ANUEL CARR [facility] : 1975 Age/S: 43/M [address] [facility] Unit#: [id number] Loc: [address] [place]: [place] [address] Acct: [id number] Dis Date: Status: REG ER PHONE #: [phone] Exam Date: 12/12/20182109 FAX #: [phone] Reason: SOB EXAMS: CPT CODE: [id number] XR CHEST 1 V 54340 REASON FOR EXAM: Shortness of breath and chest pain. COMPARISON: None. Chest, portable single frontal view. The lungs are well-inflated and clear. Heart size is normal. No effusion or pneumothorax can be seen. Osseous structures appear to be intact. IMPRESSION: No acute cardiopulmonary disease. Location: [facility] at 8 Reported and signed by: Humble Simpson M.D. CC: Technologist: NELA Maysrilisa Date/Time/By:12/12/2018 (2117) : By: [facility] PAGE 1 Signed Report [place]: St: REG Name: ANUEL CARR [facility] : 1975 Age/S: 43/M [address] [facility] Unit #: [id number] Loc: E.ERS[address] [place], [place]: [place] [address] Acct: [id number] Dis Date: Status: REG ER PHONE #: [phone] Exam Date: 12/12/20182109 FAX #: [phone] Reason: SOB EXAMS: CPT CODE: [id number] XR CHEST 1V 31467 <Continued> Orig Print D/T: S: (2120) PAGE 2Signed ReportBASIC METABOLIC [id number] 21:03:00 Test Item Value Reference Range Comments SODIUM (test code=NA) 140 mmol/l 134.0-147.0 POTASSIUM (test code=K) 3.4 mmol/L 3.6-5.2 CHLORIDE (test code=CL) 106 mmol/l 98.0-107.0 CARBON DIOXIDE (test code=CO2) 19.6 mmol/l 21.0-33.0 ANION GAP (test code=GAP) 17.8 0-20 GLUCOSE (test code=GLU) 221 mg/dl 70.0-110.0 BLOOD UREA NITROGEN (test code=BUN) 11 mg/dl 7.0-18.0 CREATININE (test code=CREAT) 1.11 mg/dL 0.60-1.30 GFR NON BLACK (test code=GFRNONBLACK) 77 mL/min 95-105 GFR BLACK (test code=GFRBLACK) 93 mL/min 115-127 CALCIUM (test code=CA) 9.0 mg/dl 8.0-10.5 CBC W/AUTO [id number] 21:01:00 Test Item Value Reference Range Comments WHITE BLOOD CELL (test code=WBC) 7.7 K/mm3 4.5-11.0 RED BLOOD CELL (test code=RBC) 4.58 M/mm3 4.40-5.90 HEMOGLOBIN (test code=HGB) 12.9 gm/dL 13.0-17.0 HEMATOCRIT (test code=HCT) 37.0 % 36.0-48.0 MEAN CELL VOLUME (test code=MCV) 80.8 UM3 80.0-94.0 MEAN CELL HGB (test code=MCH) 28.2 UUG 25.5-32.5 MEAN CELL HGB CONCETRATION (test code=MCHC) 34.9 gm/dL 29.0-35.5 RED CELL DISTRIBUTION WIDTH (test code=RDW) 13.2 % 11.5-15.0 RED CELL DISTRIBUTION WIDTH SD (test 38.2 fL 34.8-50.2 code=RDW-SD) PLATELET COUNT (test code=PLT) 273 K/mm3 150-400 MEAN PLATELET VOLUME (test code=MPV) 10.9 fl 7.4-10.4 NEUTROPHIL % (test code=NT%) 65.1 % 49.0-76.0 IMMATURE GRANULOCYTE % (test code=IG%) 0.3 % 0.0-0.4 LYMPHOCYTE % (test code=LY%) 22.8 % 23.0-38.0 MONOCYTE % (test code=MO%) 10.2 % 1.0-10.0 EOSINOPHIL % (test code=EO%) 0.7 % 1.0-5.0 BASOPHIL % (test code=BA%) 0.9 % 0.0-1.0 NEUTROPHIL # (test code=NT#) 5.0 K/mm3 2.4-6.3 IMMATURE GRANULOCYTE # (test code=IG#) 0.02 x10 3/uL 0.00-0.07 LYMPHOCYTE # (test code=LY#) 1.8 K/mm3 1.2-4.0 MONOCYTE # (test code=MO#) 0.8 K/mm3 0.0-0.6 EOSINOPHIL # (test code=EO#) 0.1 K/MM3 0.0-0.7 BASOPHIL # (test code=BA#) 0.1 K/mm3 0.0-0.2 BASIC METABOLIC [id number] 21:01:00 Test Item Value Reference Range Comments SODIUM (test code=NA) 140 mmol/l 134.0-147.0 POTASSIUM (test code=K) 3.4 mmol/L 3.6-5.2 CHLORIDE (test code=CL) 106 mmol/l 98.0-107.0 CARBON DIOXIDE (test code=CO2) 19.6 mmol/l 21.0-33.0 ANION GAP (test code=GAP) 17.8 0-20 GLUCOSE (test code=GLU) mg/dl 70.0-110.0 BLOOD UREA NITROGEN (test code=BUN) mg/dl 7.0-18.0 CREATININE (test code=CREAT) mg/dL 0.60-1.30 GFR NON BLACK (test code=GFRNONBLACK) mL/min 95-105 GFR BLACK (test code=GFRBLACK) mL/min 115-127 CALCIUM (test code=CA) mg/dl 8.0-10.5 TROPONIN I [id number] 20:58:00 Test Item Value Reference Range Comments TROPONIN I RAPID (test 0.01 0.00-0.08 Negative: <=0.08 code=TROPIRAP) Positive: >=0.09An elevated troponin value alone is not sufficient todiagnose a myocardial infarction. Rather, the patient'sclinical presentation (history, physical exam) and ECGshould be used in conjunction with troponin in thediagnostic evaluation of suspected myocardial infarction.A serial sampling protocol is recommended to facilitatethe identification of temporal changes in troponin levelscharacteristic of [place].
[2018-12-19 07:55] LABS: Absolute Lymphocytes (CBC) 2.1 K/uL (0.7-4.9); Eosinophils % 2.8 % (0-4.4); Hematocrit 41.7 % (39.6-49.0); Lymphocytes % 36.3 % (15.3-44.8); MPV 9.4 fL (7.6-11.3); RBC Red Blood Cell Count 4.93 M/uL (4.33-5.43)
[2018-12-19 08:15] LABS: Bilirubin Direct 0.1 mg/dL (0-0.2); Bilirubin Total 0.4 mg/dL (0.2-1.0); Potassium 3.9 mmol/L (3.5-5.1); Protein, Total 7.5 g/dL (6.4-8.2); Troponin (Emerg Dept Use Only) 0.02 ng/mL (0.0-0.045)
--- NOTE | 2018-12-19 08:43 | EDPHYS ---
Physician Documentation [facility] Name: Brayden Henderson Age: 43 yrs Sex: Male : 1975 Arrival Date: 12/19/2018 Time: 06:48 Bed 20 Private MD: ED Physician Satish Adams HPI: 12/19 07:33 This 43 yrs old Male presents to ER via Ambulatory with complaints of pm1 Breathing Difficulty. 07:33 The patient has shortness of breath at rest. Onset: The symptoms/episode began/occurred pm1 1 month(s) ago. Duration: The symptoms are continuous. The patient's shortness of breath has no apparent modifying factors, is aggravated by nothing, is alleviated by nothing. Associated signs and symptoms: Pertinent negatives: chest pain, non-productive cough, productive cough, fever, nausea, vomiting. Severity of symptoms: in the emergency department the symptoms are unchanged. The patient has been recently seen by a physician: the patient's primary care provider, yesterday, with similar presenting complaints, reports failing pulmonary function tests and was prescribed inhalers. Inhalers have not helped with his symptoms, The patient has been recently seen at the [facility] Emergency Department, Seen here on 12/03 and 12/11 for the same complaints. Historical: - Allergies: 07:10 No Known Allergies; bb - Home Meds: 07:10 amitriptyline 10 mg Oral tab 1 tab [Active]; cyclobenzaprine 10 mg Oral tab [Active]; bb levothyroxine 50 mcg tab 1 tab once daily [Active]; lisinopril 10 mg Oral tab 1 tab once daily [Active]; pioglitazone 30 mg Oral tab 1 tab once daily [Active]; Tradjenta 5 mg Oral tab 1 tab once daily [Active]; - PMHx: 07:10 blood clot right eye; Diabetes - NIDDM; Hypertension; bb - PSHx: 07:10 None; bb - Immunization history:: Adult Immunizations up to date. - Social history:: Smoking status: Patient/guardian denies using tobacco. - Ebola Screening: : No symptoms or risks identified at this time. ROS: 07:33 Constitutional: Negative for fever, chills, and weight loss, Eyes: Negative for injury, pm1 pain, redness, and discharge, ENT: Negative for injury, pain, and discharge, Neck: Negative for injury, pain, and swelling, Cardiovascular: Negative for chest pain, palpitations, and edema. 07:33 Abdomen/GI: Negative for abdominal pain, nausea, vomiting, diarrhea, and constipation, Back: Negative for injury and pain, : Negative for injury, bleeding, discharge, and swelling, MS/Extremity: Negative for injury and deformity, Skin: Negative for injury, rash, and discoloration, Neuro: Negative for headache, weakness, numbness, tingling, and seizure. 07:33 Respiratory: Positive for shortness of breath, Negative for cough, sputum production, wheezing. 07:33 MS/extremity: Positive for neuropathy bilateral lower extremities , Negative for decreased range of motion, deformity, swelling. Exam: 07:53 Constitutional: This is a well developed, well nourished patient who is awake, alert, pm1 and in no acute distress. Head/Face: Normocephalic, atraumatic. Eyes: Pupils equal round and reactive to light, extra-ocular motions intact. Lids and lashes normal. Conjunctiva and sclera are non-icteric and not injected. Cornea within normal limits. Periorbital areas with no swelling, redness, or edema. ENT: Nares patent. No nasal discharge, no septal abnormalities noted. Tympanic membranes are normal and external auditory canals are clear. Oropharynx with no redness, swelling, or masses, exudates, or evidence of obstruction, uvula midline. Mucous membranes moist. Neck: Trachea midline, no thyromegaly or masses palpated, and no cervical lymphadenopathy. Supple, full range of motion without nuchal rigidity, or vertebral point tenderness. No Meningismus. Chest/axilla: Normal chest wall appearance and motion. Nontender with no deformity. No lesions are appreciated. Cardiovascular: Regular rate and rhythm with a normal S1 and S2. No gallops, murmurs, or rubs. Normal PMI, no JVD. No pulse deficits. Respiratory: Lungs have equal breath sounds bilaterally, clear to auscultation and percussion. No rales, rhonchi or wheezes noted. No increased work of breathing, no retractions or nasal flaring. Abdomen/GI: Soft, non-tender, with normal bowel sounds. No distension or tympany. No guarding or rebound. No evidence of tenderness throughout. Back: No spinal tenderness. No costovertebral tenderness. Full range of motion. Skin: Warm, dry with normal turgor. Normal color with no rashes, no lesions, and no evidence of cellulitis. MS/ Extremity: Pulses equal, no cyanosis. Neurovascular intact. Full, normal range of motion. 07:53 Neuro: Orientation: is normal, Motor: is normal, Sensation: is normal, no obvious gross deficits. 07:53 Psych: Behavior/mood is anxious, Affect is animated, Oriented to person, place, time, Patient has no thoughts/intents to harm self or others. Delusions/hallucinations are not present. Vital Signs: 07:10 BP 174 / 83; Pulse 94; Resp 22 S; Temp 98.6(O); Pulse Ox 100% on R/A; Weight 88.9 kg bb (R); Height 5 ft. 5 in. (165.10 cm) (R); Pain 10/10; 08:00 BP 151 / 86; Pulse 95; Resp 22; Pulse Ox 100% on R/A; ph 09:14 BP 152 / 83; Pulse 84; Resp 18; Temp 97.9; Pulse Ox 100% on R/A; ph 07:10 Body Mass Index 32.62 (88.90 kg, 165.10 cm) bb MDM: 07:03 Patient medically screened. pm1 07:54 Data reviewed: vital signs. Data interpreted: Pulse oximetry: on room air is 100 %. pm1 Interpretation: normal. 08:39 ED course: Patient refused chest x-ray. He told me that he just wants pain medications pm1 for his bilateral leg pain. Leg pain is likely caused by diabetic neuropathy. 08:41 Counseling: I had a detailed discussion with the patient and/or guardian regarding: the pm1 historical points, exam findings, and any diagnostic results supporting the discharge/admit diagnosis, lab results, the need for outpatient follow up, a family practitioner. Special discussion: I have referred the patient to see his PCP for further evaluation of high blood pressure. 12/19 07:16 Order name: Basic Metabolic Panel pm1 12/19 07:16 Order name: CBC with Diff pm1 12/19 07:16 Order name: LFT's; Complete Time: 08:33 pm1 12/19 07:16 Order name: Troponin (emerg Dept Use Only); Complete Time: 08:33 pm1 12/19 07:16 Order name: Basic Metabolic Panel; Complete Time: 08:33 EDMS 12/19 07:16 Order name: CBC with Automated Diff; Complete Time: 08:07 EDMS 12/19 07:16 Order name: EKG; Complete Time: 07:17 pm1 12/19 07:16 Order name: Cardiac monitoring; Complete Time: 07:47 pm1 12/19 07:16 Order name: EKG - Nurse/Tech; Complete Time: 07:47 pm1 12/19 07:16 Order name: IV Saline Lock; Complete Time: 07:47 pm1 12/19 07:16 Order name: Labs collected and sent; Complete Time: 07:48 pm1 12/19 07:16 Order name: O2 Per Protocol; Complete Time: 07:48 pm1 12/19 07:16 Order name: O2 Sat Monitoring; Complete Time: 07:48 pm1 EC:48 Rate is 91 beats/min. Rhythm is regular. QRS [place] is Normal. No Q waves. T waves are pm1 Normal. No ST changes noted. Clinical impression: Normal ECG. Administered Medications: 08:50 Drug: [place] 10 mg-325 mg 1 tabs Route: PO; ph 08:52 Follow up: Response: No adverse reaction ph Disposition: 10:50 Co-signature as Attending Physician, Satish Adams MD I agree with the assessment and kdr plan of care. Disposition: 12/19/18 08:42 Discharged to Home. Impression: Other chronic pain, Anxiety disorder, unspecified. - Condition is Stable. - Discharge Instructions: Chronic Pain, Diabetic Neuropathy, Generalized Anxiety Disorder. - Medication Reconciliation Form, Thank You Letter, Antibiotic Education, Prescription Opioid Use form. - Follow up: Emergency Department; When: As needed; Reason: Worsening of condition. Follow up: Private Physician; When: 2 - 3 days; Reason: Recheck today's complaints, Continuance of care, Re-evaluation by your physician. - Problem is new. - Symptoms have improved. Signatures: Dispatcher [employer] Satish Brooks MD MD kdr Ballard, Brenda, RN RN bb Lynsey Fink RN RN ph Arian Richard, [facility] ATTENDANT pm1 Corrections: (The following items were deleted from the chart) 08:43 08:42 12/19/2018 08:42 Discharged to Home. Impression: Other chronic pain; Shortness of pm1 breath; Anxiety disorder, unspecified. Condition is Stable. Forms are Medication Reconciliation Form, Thank You Letter, Antibiotic Education, Prescription Opioid Use. Follow up: Emergency Department; When: As needed; Reason: Worsening of condition. Follow up: Private Physician; When: 2 - 3 days; Reason: Recheck today's complaints, Continuance of care, Re-evaluation by your physician. Problem is new. Symptoms have improved. pm1 08:45 07:17 Chest Single View+RAD.RAD.BRZ ordered. EDWI EDMS 09:16 08:43 12/19/2018 08:42 Discharged to Home. Impression: Other chronic pain; Anxiety ph disorder, unspecified. Condition is Stable. Forms are Medication Reconciliation Form, Thank You Letter, Antibiotic Education, Prescription Opioid Use. Follow up: Emergency Department; When: As needed; Reason: Worsening of condition. Follow up: Private Physician; When: 2 - 3 days; Reason: Recheck today's complaints, Continuance of care, Re-evaluation by your physician. Problem is new. Symptoms have improved. pm1
--- NOTE | 2018-12-19 08:43 | ER ---
Nurse's Notes [facility] Name: Brayden Henderson Age: 43 yrs Sex: Male : 1975 Arrival Date: 12/19/2018 Time: 06:48 Bed 20 Private MD: Diagnosis: Other chronic pain;Anxiety disorder, unspecified Presentation: 12/19 07:06 Presenting complaint: Patient states: he has been having difficulty breathing off and bb on for a month has been seen several times for the same symptoms yesterday he saw Devorah Mitchell NP but he has not received an official diagnosis. Transition of care: patient was not received from another setting of care. Onset of symptoms was October 2018. Risk Assessment: Do you want to hurt yourself or someone else? Patient reports no desire to harm self or others. Initial Sepsis Screen: Does the patient meet any 2 criteria? No. Patient's initial sepsis screen is negative. Does the patient have a suspected source of infection? No. Patient's initial sepsis screen is negative. Care prior to arrival: None. 07:06 Method Of Arrival: Ambulatory bb 07:06 Acuity: MARIA E 3 bb Historical: - Allergies: 07:10 No Known Allergies; bb - Home Meds: 07:10 amitriptyline 10 mg Oral tab 1 tab [Active]; cyclobenzaprine 10 mg Oral tab [Active]; bb levothyroxine 50 mcg tab 1 tab once daily [Active]; lisinopril 10 mg Oral tab 1 tab once daily [Active]; pioglitazone 30 mg Oral tab 1 tab once daily [Active]; Tradjenta 5 mg Oral tab 1 tab once daily [Active]; - PMHx: 07:10 blood clot right eye; Diabetes - NIDDM; Hypertension; bb - PSHx: 07:10 None; bb - Immunization history:: Adult Immunizations up to date. - Social history:: Smoking status: Patient/guardian denies using tobacco. - Ebola Screening: : No symptoms or risks identified at this time. Screenin:53 Abuse screen: Denies threats or abuse. Denies injuries from another. Nutritional ph screening: No deficits noted. Tuberculosis screening: No symptoms or risk factors identified. Fall Risk None identified. Assessment: 07:30 General: Appears in no apparent distress. uncomfortable, Behavior is cooperative, ph anxious, Denies fever, feeling ill. Pain: Complains of pain in right leg and left leg Quality of pain is described as sharp, shooting. Neuro: Level of Consciousness is awake, alert, obeys commands, Oriented to person, place, time, situation. Cardiovascular: Reports shortness of breath, Denies chest pain, nausea, vomiting, Capillary refill < 3 seconds in bilateral fingers Patient's skin is warm and dry. Rhythm is sinus rhythm. Respiratory: Reports shortness of breath at rest Airway is patent Respiratory effort is even, unlabored, Respiratory pattern is regular, symmetrical, Breath sounds are clear bilaterally. GI: Abdomen is round non-distended, Reports constipation, Patient currently denies abdominal pain, diarrhea, nausea, vomiting. Derm: Skin is intact, is healthy with good turgor, Skin is pink, warm \\T\\ dry. Musculoskeletal: Circulation, motion, and sensation intact. Range of motion: intact in all extremities. 08:40 Reassessment: Patient appears in no apparent distress at this time. Patient and/or ph family updated on plan of care and expected duration. Pain level reassessed. Patient is alert, oriented x 3, equal unlabored respirations, skin warm/dry/pink. Pt refusing CXR, states to RT, " I don't want that, I am just here for pain medication" ERP notified of pt refusal and request for pain medication. 09:10 Reassessment: Patient appears in no apparent distress at this time. Patient and/or ph family updated on plan of care and expected duration. Pain level reassessed. Patient is alert, oriented x 3, equal unlabored respirations, skin warm/dry/pink. Called pt's to pick him up, pt instructed to follow up w/ PCP and d/c to lobby. Vital Signs: 07:10 BP 174 / 83; Pulse 94; Resp 22 S; Temp 98.6(O); Pulse Ox 100% on R/A; Weight 88.9 kg bb (R); Height 5 ft. 5 in. (165.10 cm) (R); Pain 10/10; 08:00 BP 151 / 86; Pulse 95; Resp 22; Pulse Ox 100% on R/A; ph 09:14 BP 152 / 83; Pulse 84; Resp 18; Temp 97.9; Pulse Ox 100% on R/A; ph 07:10 Body Mass Index 32.62 (88.90 kg, 165.10 cm) bb ED Course: 06:48 Patient arrived in ED. ds1 07:02 Arian Richard NP is PHCP. pm1 07:02 Satish Adams MD is Attending Physician. pm1 07:08 Triage completed. bb 07:10 Arm band placed on Patient placed in an exam room, on a stretcher, on cane splicer, bb on pulse oximetry. Family accompanied patient. 07:16 Lynsey Fink, RN is Primary Nurse. ph 07:30 Inserted saline lock: 22 gauge in right antecubital area, using aseptic technique. ph Blood collected. 07:55 EKG done, by machine set up technician. reviewed by Arian Richard NP. sm3 07:59 Patient has correct armband on for positive identification. Placed in gown. Bed in low ph position. Call light in reach. Side rails up X 1. senior telecommunications engineer on. Pulse ox on. NIBP on. Door closed. Noise minimized. Warm blanket given. Head of bed elevated. 09:13 No provider procedures requiring assistance completed. IV discontinued, intact, ph bleeding controlled, No redness/swelling at site. Pressure dressing applied. Administered Medications: 08:50 Drug: [place] 10 mg-325 mg 1 tabs Route: PO; ph 08:52 Follow up: Response: No adverse reaction ph Outcome: 08:42 Discharge ordered by . pm1 09:13 Discharged to home via wheelchair. ph 09:13 Condition: good 09:13 Discharge instructions given to patient, Instructed on discharge instructions, follow up and referral plans. Demonstrated understanding of instructions, follow-up care. 09:16 Patient left the ED. ph Signatures: Gloria Whalen ds1 Ashley Dumont RN RN bb Lynsey Fink RN RN ph Arian Richard, DAVE MELT SUPERVISOR pm1 Aracelis Velazquez sm3
[2018-12-19] MEDS ORDERED: HYDROCODONE/APAP 10/325 TAB ONE (08:58)
--- NOTE | 2018-12-19 10:42 | EKG ---
Test Date: 2018-12-19 Test Time: 07:43:08 Director Of Housing: JENY MEASUREMENT RESULTS: Intervals: Rate: 91 ND: 132 QRSD: 94 QT: 366 QTc: 450 [place]: P: 31 ND: 132 QRS: -21 T: 34 INTERPRETIVE STATEMENTS: Normal sinus rhythm Normal ECG Compared to ECG 12/11/2018 20:59:09 No significant changes Electronically Signed On 12-19-18 10:41:21 CDT by Espinoza Valenzuela
== END 2018-12-19 09:16 | disposition home or self-care (01) ==
LOC: ER 06:47
DX: F41.9 Anxiety disorder, unspecified (principal); G89.29 Other chronic pain; I10 Essential (primary) hypertension; E11.9 Type 2 diabetes mellitus without complications
CPT/HCPCS: 36415; 80048; 80076; 84484; 85025; 93005; 99284

== ENCOUNTER 2018-12-19 19:43 | Emergency (ER) | payer SELFPAY ==
--- OUTSIDE RECORDS SUMMARY | 2018-12-19 19:46 | XMS REPORT ---
:1975 [facility] Address [address] [place] [address] Care Team Providers Name Role Phone Unavailable [...] Comments GLUBED (test code=GLUBED) 157 mg/dL 70-110 [id number] 06:10:00 Test Item Value Reference Range Comments GLUBED (test code=GLUBED) 206 mg/dL 70-110 [id number] 06:10:00 Test Item Value Reference Range Comments GLUBED (test code=GLUBED) 177 mg/dL 70-110 [id number] 06:10:00 Test Item Value Reference Range Comments GLUBED (test code=GLUBED) 235 mg/dL 70-110 - CT ABD PELVIS [id number] 16:33:00 FAX: Jon Kay [place]: St: ADM FAX: Manuela Rhodes [phone] - Name: ANUEL CARR [facility] : 1975 Age/S: 43/M [address] [facility] [address] Unit: [id number] Loc: [address] [place], [place] Phys: Manuela Basurto [address] Acct: [id number] Dis Date: Status: ADM IN PHONE #: [phone] Exam Date: 12/14/2018 1617 FAX #: [phone] Reason: LUQ pain EXAMS: CPT CODE: [id number] CT ABD PELVIS W/CONT 53740 EXAM: CT abdomen and pelvis with contrast [...] 1 Signed Report (CONTINUED) FAX: Jon Kay [phone] [place]: St: [facility] FAX: Manuela Rhodes [phone] Name: ANUEL CARR : 1974 Age/S: 43/M [address] [id number] Loc: [address] [place] [address] Phys: Manuela Basurto [address] Acct: [id number] Dis Date: Status:ADM IN PHONE #: [phone] Exam Date: 12/14/2018 1617 FAX #: [phone] Reason : LUQ pain EXAMS: CPT CODE: [id number] CT ABD PELVIS W/CONT 72095 <Continued> Left kidney: The kidneys are normal. [...] 2 Signed Report (CONTINUED) FAX: Jon Kay [place]: St: ADM FAX: Manuela Rhodes [phone] -- Name: ANUEL CARR [facility] : 1974 Age/S: 43/M [address] [place] [place] [employer] [facility] Unit: [id number] Loc: [address] [place], [place] Phys: Manuela Basurto [address] Acct: [id number] Dis Date: Status: ADM IN PHONE #: [phone] Exam Date: 12/14/2018 1617 FAX #: Reason: LUQ pain EXAMS: CPT CODE: [id number] CT ABD PELVIS W/CONT 53044 <Continued> at 1633 Reported and signed by: Collin Gustafson M.D. CC:Jon Mcgregor MD; Manuela JACOB Technologist: SKYLER ESTRELLA Trnscrd Dt/Tm: (5883) [email or web address] Orig Print D/T: S: 12/14/2018 (5189 PAGE 3 Signed [id number] 16:20:00 Test Item Value Reference Range Comments GLUBED (test code=GLUBED) 195 mg/dL 70-110 COMPREHENSIVE METABOLIC [id number] 07:24:00 Test Item Value Reference Range Comments [...] PHOSPHATASE TOTAL (test code=ALKP) 57 Units/L 50.0-136.0 [id number] 07:24:00 Test Item Value Reference Range Comments MAGNESIUM (test code=MAG) 1.6 mg/dl 1.8-2.4 CBC W/AUTO [id number] 07:06:00 Test Item Value Reference Range Comments [...] # (test code=BA#) 0.1 K/mm3 0.0-0.2 VITAMIN [id number] 10:49:00 Test Item Value Reference Range Comments VITAMIN B12 (test code=VITB12) 409 pg/mL 193-986 [id number] 10:21:00 Test Item Value Reference Range Comments HGBA1C% (test code=HGBA1C%) 8.8 %A1C 4.8-6.0 ESTIMATED AVERAGE GLUCOSE (test code=EAG) 206 MG/DL [id number] 06:00:00 Test Item Value Reference Range Comments TROPONIN-I (test <0.02 NG/ML 0.00-0.06 REFERENCE RANGE TROPONIN I code=TROPI) HEALTHY INDIVIDUALS: <0.06 ng/mL R/O ISCHEMIA: 0.07 - 0.60 ng/mL CUT-OFF RANGE FOR AMI: 0.60 - 1.5 ng/mL [id number] 01:25:00 Test Item Value Reference Range Comments TROPONIN-I (test <0.02 NG/ML 0.00-0.06 REFERENCE RANGE TROPONIN I code=TROPI) HEALTHY INDIVIDUALS: <0.06 ng/mL R/O ISCHEMIA: 0.07 - 0.60 ng/mL CUT-OFF RANGE FOR AMI: 0.60 - 1.5 ng/mL - XR CHEST 1 [id number] 21:18:00 [place]: St: REG Name: ANUEL CARR [facility] : 1975 Age/S: 43/M [address] [facility] [employer] Unit#: [id number] Loc: [address] Phys: [place] [address] Acct: [id number] Dis Date: Status: REG ER PHONE #: [phone] Exam Date: 12/12/20182109 FAX #: [phone] Reason: SOB EXAMS: CPT CODE: [id number] XR CHEST 1 V 75028 REASON FOR EXAM: Shortness of breath and chest pain. COMPARISON: None. Chest, portable single frontal view. The lungs are well-inflated and clear. Heart size is normal. No effusion or pneumothorax can be seen. Osseous structures appear to be intact. IMPRESSION: No acute cardiopulmonary disease. Location: [facility] at 8 Reported and signed by: Humble Simpson M.D. CC: Technologist: NELA Mayswalisa Date/Time/By:12/12/2018 (2117) : By: [facility] PAGE 1 Signed Report [place]: St: REG Name: ANUEL CARR [facility] : 1975 Age/S: 43/M [address] [facility] Unit #: [id number] Loc: [address] [place], [place]: [place] [address] Acct: [id number] Dis Date: Status: REG ER PHONE #: [phone] Exam Date: 12/12/20182109 FAX #: [phone] Reason: SOB EXAMS: CPT CODE: [id number] XR CHEST 1V 40826 <Continued> Orig Print D/T: S: (2120) PAGE 2Signed ReportBASIC METABOLIC [id number] 21:03:00 Test Item Value Reference Range Comments [...] (test code=CA) 9.0 mg/dl 8.0-10.5 CBC W/AUTO [id number] 21:01:00 Test Item Value Reference Range Comments [...] (test code=BA#) 0.1 K/mm3 0.0-0.2 BASIC METABOLIC [id number] 21:01:00 Test Item Value Reference Range Comments [...] CALCIUM (test code=CA) mg/dl 8.0-10.5 TROPONIN I [id number] 20:58:00 Test Item Value Reference Range Comments [...] of temporal changes in troponin levelscharacteristic of [place].
[2018-12-19] MEDS ORDERED: NA CHLORIDE 0.9% 1,000 ML ONE (20:50)
[2018-12-19 21:10] LABS: Absolute Lymphocytes (CBC) 1.4 K/uL (0.7-4.9); Basophils % 0.7 % (0-1.3); Eosinophils % 2.2 % (0-4.4); Hematocrit 40.9 % (39.6-49.0); Lymphocytes % 21.1 % (15.3-44.8); MPV 9.3 fL (7.6-11.3); Monocytes % 10.1 % (3.3-12.3); RBC Red Blood Cell Count 4.75 M/uL (4.33-5.43)
[2018-12-19 21:26] LABS: ALT/SGPT 55 U/L (12-78); AST/SGOT 31 U/L (15-37); Alkaline Phosphatase 55 U/L (45-117); BUN Blood Urea Nitrogen 12 mg/dL (7-18); Bicarbonate 24 mmol/L (21-32); Bilirubin Direct < 0.1 mg/dL (0-0.2); Bilirubin Total 0.3 mg/dL (0.2-1.0); Glucose Level 250 mg/dL (74-106); Magnesium 2.2 mg/dL (1.8-2.4); NT PRO-BNP 100 pg/mL (<125); Potassium 3.9 mmol/L (3.5-5.1); Protein, Total 7.2 g/dL (6.4-8.2); Sodium Level 143 mmol/L (136-145); Troponin (Emerg Dept Use Only) < 0.02 ng/mL (0.0-0.045)
--- NOTE | 2018-12-19 21:28 | RAD REPORT ---
EXAM DESCRIPTION: RAD - Chest Single View - 12/19/2018 9:14 pm CLINICAL HISTORY: DYSPNEA Chest pain. COMPARISON: Chest Single View dated 08/15/2018; CHEST PA AND LAT 2 VIEW dated 05/14/2015; CHEST PA AN D LAT 2 VIEW dated 05/27/2014; ABDOMEN ACUTE SERIES dated 03/31/2014Chest Single View dated 12/03/2018 FINDINGS: Portable technique limits examination quality. The lungs are grossly clear. The heart is normal in size. No displaced fractures. IMPRESSION: No acute intrathoracic process suspected.
[2018-12-19 21:40] LABS: Arterial Blood Carboxyhemoglob 0.7 % (0-1.5); Blood Gas Oxyhemoglobin 93.6 % (94-97); Blood O2 Saturation 95.2 % (92-98.5)
[2018-12-19 22:19] LABS: Protime INR 0.92
[2018-12-19 22:23] LABS: Urine Blood NEGATIVE (NEG); Urine Glucose 1+ (NEG); Urine Protein NEGATIVE (NEG); Urine pH 6.5 (5.0-7.0)
--- NOTE | 2018-12-19 22:26 | EDPHYS ---
Physician Documentation [facility] Name: Brayden Henderson Age: 43 yrs Sex: Male : 1975 Arrival Date: 12/19/2018 Time: 19:48 Bed 26 Private MD: ED Physician Lorenzo Logan HPI: 12/19 20:26 This 43 yrs old Male presents to ER via Wheelchair with complaints of arvind Shortness Of Breath. 20:26 The patient has shortness of breath at rest, with light activity. Onset: The arvind symptoms/episode began/occurred 3 day(s) ago. Duration: The symptoms are intermittent, with no pattern. The patient's shortness of breath has no apparent modifying factors. Associated signs and symptoms: Pertinent positives: non-productive cough. Severity of symptoms: At their worst the symptoms were moderate in the emergency department the symptoms are unchanged. The patient has not experienced similar symptoms in the past. Historical: - Allergies: 19:51 No Known Allergies; aj1 - Home Meds: 19:51 amitriptyline 10 mg Oral tab 1 tab [Active]; cyclobenzaprine 10 mg Oral tab [Active]; aj1 levothyroxine 50 mcg tab 1 tab once daily [Active]; lisinopril 10 mg Oral tab 1 tab once daily [Active]; pioglitazone 30 mg Oral tab 1 tab once daily [Active]; Tradjenta 5 mg Oral tab 1 tab once daily [Active]; - PMHx: 19:51 blood clot right eye; Diabetes - NIDDM; Hypertension; aj1 - Immunization history:: Flu vaccine is not up to date. - Social history:: Smoking status: Patient/guardian denies using tobacco. - Ebola Screening: : Patient denies travel to an Ebola-affected area in the 21 days before illness onset. - Family history:: not pertinent. ROS: 20:26 Constitutional: Negative for fever, chills, and weight loss, Eyes: Negative for injury, arvind pain, redness, and discharge, ENT: Negative for injury, pain, and discharge, Neck: Negative for injury, pain, and swelling, Cardiovascular: Negative for chest pain, palpitations, and edema, Abdomen/GI: Negative for abdominal pain, nausea, vomiting, diarrhea, and constipation, Back: Negative for injury and pain, : Negative for injury, bleeding, discharge, and swelling, MS/Extremity: Negative for injury and deformity, Skin: Negative for injury, rash, and discoloration, Neuro: Negative for headache, weakness, numbness, tingling, and seizure, Psych: Negative for depression, anxiety, suicide ideation, homicidal ideation, and hallucinations, Allergy/Immunology: Negative for hives, rash, and allergies, Endocrine: Negative for neck swelling, polydipsia, polyuria, polyphagia, and marked weight changes, Hematologic/Lymphatic: Negative for swollen nodes, abnormal bleeding, and unusual bruising. 20:26 Respiratory: Positive for cough, shortness of breath, at rest. Exam: 20:26 Constitutional: This is a well developed, well nourished patient who is awake, alert, arvind and in no acute distress. Head/Face: Normocephalic, atraumatic. Eyes: Pupils equal round and reactive to light, extra-ocular motions intact. Lids and lashes normal. Conjunctiva and sclera are non-icteric and not injected. Cornea within normal limits. Periorbital areas with no swelling, redness, or edema. ENT: Nares patent. No nasal discharge, no septal abnormalities noted. Tympanic membranes are normal and external auditory canals are clear. Oropharynx with no redness, swelling, or masses, exudates, or evidence of obstruction, uvula midline. Mucous membranes moist. Neck: Trachea midline, no thyromegaly or masses palpated, and no cervical lymphadenopathy. Supple, full range of motion without nuchal rigidity, or vertebral point tenderness. No Meningismus. Chest/axilla: Normal chest wall appearance and motion. Nontender with no deformity. No lesions are appreciated. Cardiovascular: Regular rate and rhythm with a normal S1 and S2. No gallops, murmurs, or rubs. Normal PMI, no JVD. No pulse deficits. Abdomen/GI: Soft, non-tender, with normal bowel sounds. No distension or tympany. No guarding or rebound. No evidence of tenderness throughout. Back: No spinal tenderness. No costovertebral tenderness. Full range of motion. Male : Normal genitalia with no discharge or lesions. Skin: Warm, dry with normal turgor. Normal color with no rashes, no lesions, and no evidence of cellulitis. MS/ Extremity: Pulses equal, no cyanosis. Neurovascular intact. Full, normal range of motion. Neuro: Awake and alert, GCS 15, oriented to person, place, time, and situation. Cranial nerves II-XII grossly intact. Motor strength 5/5 in all extremities. Sensory grossly intact. Cerebellar exam normal. Normal gait. Psych: Awake, alert, with orientation to person, place and time. Behavior, mood, and affect are within normal limits. 20:26 Respiratory: the patient does not display signs of respiratory distress, Respirations: normal, Breath sounds: are clear throughout, no bronchial sounds, no decreased breath sounds, no rales, rhonchi, no stridor, no wheezing. 20:27 Musculoskeletal/extremity: Exam is negative for acute changes, DVT Exam: No signs of [facility] deep vein thrombosis. no pain, no swelling, no tenderness, negative Homans' sign noted on exam, no appreciated bluish discoloration, no erythema, no increased warmth. Vital Signs: 19:51 BP 172 / 91; Pulse 100; Resp 20; Temp 98.0; Pulse Ox 99% on R/A; Weight 88.9 kg (R); aj1 Height 5 ft. 5 in. (165.10 cm) (R); Pain 0/10; 21:00 BP 120 / 70; Pulse 80; Resp 20; Temp 98; Pulse Ox 100% on R/A; Pain 0/10; mg2 22:11 BP 116 / 80; Pulse 88; Resp 20; Temp 98; Pulse Ox 100% on R/A; Pain 0/10; mg2 22:48 BP 121 / 70; Pulse 89; Resp 20; Temp 98; Pulse Ox 100% on R/A; Pain 0/10; mg2 19:51 Body Mass Index 32.62 (88.90 kg, 165.10 cm) aj1 MDM: 20:18 Patient medically screened. [facility] 20:27 Data reviewed: vital signs, nurses notes, lab test result(s), EKG, radiologic studies, [facility] CT scan, plain films. 12/19 20:26 Order name: Basic Metabolic Panel; Complete Time: 21:43 arvind 12/19 20:26 Order name: CBC with Diff; Complete Time: 21:23 [facility] 12/19 20:26 Order name: LFT's; Complete Time: 21:43 [facility] 12/19 20:26 Order name: Magnesium; Complete Time: :43 [facility] 12/19 20:26 Order name: NT PRO-BNP; Complete Time: 21:43 [facility] 12/19 20:26 Order name: PT-INR; Complete Time: 22:24 [facility] 12/19 20:26 Order name: Troponin (emerg Dept Use Only); Complete Time: 21:43 [facility] 12/19 20:26 Order name: XRAY Chest (1 view); Complete Time: 21:43 [facility] 12/19 20:26 Order name: EKG; Complete Time: 20:41 [facility] 12/19 20:26 Order name: D-Dimer; Complete Time: 22:24 [facility] 12/19 20:26 Order name: ABG: room air; Complete Time: 21:43 [facility] 12/19 22:10 Order name: Urine Dipstick--Ancillary (enter results); Complete Time: 22:24 [facility] 12/19 20:26 Order name: Cardiac monitoring; Complete Time: 21:18 [facility] 12/19 20:26 Order name: EKG - Nurse/Tech; Complete Time: 21:18 [facility] 12/19 20:26 Order name: IV Saline Lock; Complete Time: 21:19 [facility] 12/19 20:26 Order name: Labs collected and sent; Complete Time: 21:19 [facility] 12/19 20:26 Order name: O2 Per Protocol; Complete Time: 21:19 [facility] 12/19 20:26 Order name: O2 Sat Monitoring; Complete Time: 21:19 [facility] 12/19 20:26 Order name: Urine Dipstick-Ancillary (obtain specimen); Complete Time: 22:11 [facility] Administered Medications: 21:18 Drug: NS 0.9% 500 ml Route: IV; Rate: bolus; Site: right antecubital; mg2 22:46 Follow up: Response: No adverse reaction; IV Status: Completed infusion; IV Intake: mg2 500ml 22:11 Drug: NS 0.9% 1000 ml Route: IV; Rate: 125 ml/hr; Site: right antecubital; mg2 22:47 Follow up: Response: No adverse reaction; IV Status: Order to discontinue infusion; IV mg2 Intake: 150ml Disposition: 12/19/18 22:25 Discharged to Home. Impression: Dyspnea, Type 2 diabetes mellitus, Anxiety disorder, unspecified. - Condition is Stable. - Discharge Instructions: Type 2 Diabetes Mellitus, Diagnosis, Adult, Type 2 Diabetes Mellitus, Diagnosis, Adult, [id number], Generalized Anxiety Disorder. - Prescriptions for Benadryl 25 mg Oral Capsule - take 1 capsule by ORAL route every 6 hours As needed; 30 tablet. Xanax 0.5 mg Oral Tablet - take 1 tablet by ORAL route every 8 hours As needed; 20 tablet. - Medication Reconciliation Form, Thank You Letter, Antibiotic Education, Prescription Opioid Use form. - Follow up: Private Physician; When: 2 - 3 days; Reason: Recheck today's complaints, Continuance of care, Re-evaluation by your physician. Follow up: Chester Jameson MD; When: 2 - 3 days; Reason: Recheck today's complaints, Re-evaluation by your physician. - Problem is new. - Symptoms have improved. Signatures: Dispatcher [employer] EDMS Carmen Feliciano RN RN aj1 Lorenzo Logan MD MD cha Gardose, Michele, RN RN mg2 Corrections: (The following items were deleted from the chart) 22:25 22:25 12/19/2018 22:25 Discharged to Home. Impression: Dyspnea; Type 2 diabetes arvind mellitus; Anxiety disorder, unspecified. Condition is Stable. Discharge Instructions: Type 2 Diabetes Mellitus, Diagnosis, Adult, Type 2 Diabetes Mellitus, Diagnosis, Adult, [id number], Generalized Anxiety Disorder. Prescriptions for Benadryl 25 mg Oral Capsule - take 1 capsule by ORAL route every 6 hours As needed; 30 tablet, Xanax 0.5 mg Oral Tablet - take 1 tablet by ORAL route every 8 hours As needed; 20 tablet. and Forms are Medication Reconciliation Form, Thank You Letter, Antibiotic Education, Prescription Opioid Use. Follow up: Private Physician; When: 2 - 3 days; Reason: Recheck today's complaints, Continuance of care, Re-evaluation by your physician. Problem is new. Symptoms have improved. arvind 22:49 22:25 12/19/2018 22:25 Discharged to Home. Impression: Dyspnea; Type 2 diabetes mg2 mellitus; Anxiety disorder, unspecified. Condition is Stable. Discharge Instructions: Type 2 Diabetes Mellitus, Diagnosis, Adult, Type 2 Diabetes Mellitus, Diagnosis, Adult, [id number], Generalized Anxiety Disorder. Prescriptions for Benadryl 25 mg Oral Capsule - take 1 capsule by ORAL route every 6 hours As needed; 30 tablet, Xanax 0.5 mg Oral Tablet - take 1 tablet by ORAL route every 8 hours As needed; 20 tablet. and Forms are Medication Reconciliation Form, Thank You Letter, Antibiotic Education, Prescription Opioid Use. Follow up: Private Physician; When: 2 - 3 days; Reason: Recheck today's complaints, Continuance of care, Re-evaluation by your physician. Follow up: Chester aJmeson; When: 2 - 3 days; Reason: Recheck today's complaints, Re-evaluation by your physician. Problem is new. Symptoms have improved. arvind
--- NOTE | 2018-12-19 22:26 | ER ---
Nurse's Notes [facility] Name: Brayden Henderson Age: 43 yrs Sex: Male : 1975 Arrival Date: 12/19/2018 Time: 19:48 Bed 26 Private MD: Diagnosis: Dyspnea;Type 2 diabetes mellitus;Anxiety disorder, unspecified Presentation: 12/19 19:49 Presenting complaint: Patient states: Shortness of breath for the past 2 days, patient aj1 was seen in this ER this morning for the same complaint. CXR was ordered, but patient refused because he "has had many X-Rays at the other hospitals" Patient reports that this is the 4th time he has visited this ER for the same complaint. Transition of care: patient was not received from another setting of care. Onset of symptoms is unknown. Risk Assessment: Do you want to hurt yourself or someone else? Patient reports no desire to harm self or others. Initial Sepsis Screen: Does the patient meet any 2 criteria? No. Patient's initial sepsis screen is negative. Does the patient have a suspected source of infection? No. Patient's initial sepsis screen is negative. Care prior to arrival: None. 19:49 Method Of Arrival: Wheelchair aj 19:49 Acuity: MARIA E 3 aj1 Triage Assessment: 19:51 General: Appears in no apparent distress. comfortable, Behavior is calm, cooperative, aj1 appropriate for age. Pain: Denies pain. Neuro: Level of Consciousness is awake, alert, obeys commands, Oriented to person, place, time, situation. Cardiovascular: Patient's skin is warm and dry. Respiratory: Reports shortness of breath Airway is patent Respiratory effort is even, unlabored, Respiratory pattern is regular, symmetrical, Breath sounds are clear bilaterally. Onset: The symptoms/episode began/occurred at an unknown time. 21:20 Respiratory: the patient has mild shortness of breath. mg2 Historical: - Allergies: 19:51 No Known Allergies; aj1 - Home Meds: 19:51 amitriptyline 10 mg Oral tab 1 tab [Active]; cyclobenzaprine 10 mg Oral tab [Active]; aj1 levothyroxine 50 mcg tab 1 tab once daily [Active]; lisinopril 10 mg Oral tab 1 tab once daily [Active]; pioglitazone 30 mg Oral tab 1 tab once daily [Active]; Tradjenta 5 mg Oral tab 1 tab once daily [Active]; - PMHx: 19:51 blood clot right eye; Diabetes - NIDDM; Hypertension; aj1 - Immunization history:: Flu vaccine is not up to date. - Social history:: Smoking status: Patient/guardian denies using tobacco. - Ebola Screening: : Patient denies travel to an Ebola-affected area in the 21 days before illness onset. - Family history:: not pertinent. Screenin:20 Abuse screen: Denies threats or abuse. Denies injuries from another. Nutritional mg2 screening: No deficits noted. Tuberculosis screening: No symptoms or risk factors identified. Fall Risk IV access (20 points). Assessment: 21:19 General: Appears in no apparent distress. comfortable, Behavior is calm, cooperative. mg2 Pain: Denies pain. Neuro: Level of Consciousness is awake, alert, obeys commands, Oriented to person, place, time, situation. Cardiovascular: Rhythm is sinus rhythm. Respiratory: Reports shortness of breath at rest Airway is patent Respiratory effort is even, unlabored, Respiratory pattern is regular, symmetrical. GI: No signs and/or symptoms were reported involving the gastrointestinal system. : No signs and/or symptoms were reported regarding the genitourinary system. EENT: No signs and/or symptoms were reported regarding the EENT system. Derm: Skin is intact, is healthy with good turgor, Skin is pink, warm \\T\\ dry. normal. Musculoskeletal: Circulation, motion, and sensation intact. Capillary refill < 3 seconds. 22:12 Reassessment: Patient denies pain at this time. mg2 22:48 Reassessment: Patient appears in no apparent distress at this time. mg2 Vital Signs: 19:51 BP 172 / 91; Pulse 100; Resp 20; Temp 98.0; Pulse Ox 99% on R/A; Weight 88.9 kg (R); aj1 Height 5 ft. 5 in. (165.10 cm) (R); Pain 0/10; 21:00 BP 120 / 70; Pulse 80; Resp 20; Temp 98; Pulse Ox 100% on R/A; Pain 0/10; mg2 22:11 BP 116 / 80; Pulse 88; Resp 20; Temp 98; Pulse Ox 100% on R/A; Pain 0/10; mg2 22:48 BP 121 / 70; Pulse 89; Resp 20; Temp 98; Pulse Ox 100% on R/A; Pain 0/10; mg2 19:51 Body Mass Index 32.62 (88.90 kg, 165.10 cm) aj1 ED Course: 19:48 Patient arrived in ED. aj1 19:50 Triage completed. aj1 19:51 Arm band placed on Patient placed in waiting room, Patient notified of wait time. aj1 20:07 Terell Shi RN is Primary Nurse. mg2 20:18 Lorenzo Logan MD is Attending Physician. arvind 21:12 XRAY Chest (1 view) In Process Unspecified. EDMS 21:20 Patient has correct armband on for positive identification. mg2 21:20 No provider procedures requiring assistance completed. Inserted saline lock: 20 gauge mg2 in right antecubital area, using aseptic technique. Blood collected. 22:25 Chester Jameson MD is Referral Physician. arvind 22:47 IV discontinued, intact, bleeding controlled, No redness/swelling at site. Pressure mg2 dressing applied. Administered Medications: 21:18 Drug: NS 0.9% 500 ml Route: IV; Rate: bolus; Site: right antecubital; mg2 22:46 Follow up: Response: No adverse reaction; IV Status: Completed infusion; IV Intake: mg2 500ml 22:11 Drug: NS 0.9% 1000 ml Route: IV; Rate: 125 ml/hr; Site: right antecubital; mg2 22:47 Follow up: Response: No adverse reaction; IV Status: Order to discontinue infusion; IV mg2 Intake: 150ml Intake: 22:46 IV: 500ml; Total: 500ml. mg2 22:47 IV: 150ml; Total: 650ml. mg2 Outcome: 22:25 Discharge ordered by . arvind 22:48 Discharged to home via wheelchair. mg2 22:48 Condition: stable 22:48 Discharge instructions given to patient, Instructed on discharge instructions, follow up and referral plans. medication usage, Demonstrated understanding of instructions, follow-up care, medications, Prescriptions given X 2. 22:49 Patient left the ED. mg2 Signatures: Dispatcher [employer] EDMS Carmen Feliciano RN RN aj1 Lorenzo Logan MD MD cha Gardose, Michele, RN RN mg2
--- NOTE | 2018-12-20 10:49 | EKG ---
Test Date: 2018-12-19 Test Time: 21:09:41 Horticulture Worker: JOSE MEASUREMENT RESULTS: Intervals: Rate: 94 LA: 134 QRSD: 94 QT: 368 QTc: 460 [place]: P: 35 LA: 134 QRS: -25 T: 45 INTERPRETIVE STATEMENTS: Normal sinus rhythm Minimal voltage criteria for LVH, may be normal variant Borderline ECG Compared to ECG 12/19/2018 07:43:08 Left ventricular hypertrophy now present Electronically Signed On 12-20-18 10:49:04 CDT by Philipp Veras
== END 2018-12-19 22:49 | disposition home or self-care (01) ==
LOC: ER 19:43
DX: F41.9 Anxiety disorder, unspecified (principal); E11.9 Type 2 diabetes mellitus without complications; I10 Essential (primary) hypertension
CPT/HCPCS: 36415; 71045; 80048; 80076; 81003; 82805; 83735; 83880; 84484; 85025; 85379; 85610; 93005; 96360; 99284; J7030

== ENCOUNTER 2018-12-22 10:03 | Emergency (ER) | payer BC, SELFPAY ==
--- OUTSIDE RECORDS SUMMARY | 2018-12-22 10:06 | XMS REPORT ---
:1975 [facility] Address [address] [place] [address] Care Team Providers Name Role Phone Unavailable [...] Text Results Atomic Results Result Comments GLUBED 2018-12-20 00:41:00 Test Item Value Reference Range Comments GLUBED (test code=GLUBED) 197 mg/dL 70-110 [id number] 00:41:00 Test Item Value Reference Range Comments GLUBED (test code=GLUBED) 184 mg/dL 70-110 [id number] 00:41:00 Test Item Value Reference Range Comments GLUBED (test code=GLUBED) 170 mg/dL 70-110 [id number] 06:10:00 Test Item Value Reference Range Comments GLUBED (test code=GLUBED) 157 mg/dL 70-110 [id number] 06:10:00 Test Item Value Reference Range Comments GLUBED (test code=GLUBED) 206 mg/dL 70-110 [id number] 06:10:00 Test Item Value Reference Range Comments GLUBED (test code=GLUBED) 177 mg/dL 70-110 [id number] 06:10:00 Test Item Value Reference Range Comments GLUBED (test code=GLUBED) 235 mg/dL 70-110 - CT ABD PELVIS [id number] 16:33:00 FAX: Jon Kay [place]: St: [facility] FAX: Manuela Rhodes [phone] - Name: ANUEL CARR [facility] : 1975 Age/S: 43/M [address] [facility] Unit: [id number] Loc: [address] Phys: Manuela Basurto [address] Acct: [id number] Dis Date: Status: ADM IN PHONE #: [phone] Exam Date: 12/14/2018 1617 FAX #: [phone] Reason: LUQ pain EXAMS: CPT CODE: [id number] CT ABD PELVIS W/CONT 97068 EXAM: CT abdomen and pelvis with contrast [...] nephrolithiasis PAGE 1 Signed Report (CONTINUED) FAX: Mian Jon Mcgregorn [phone] [place]: St: [facility] FAX: Manuela Rhodes [phone] Name: ANUEL CARR [facility] : 1974 Age/S: 43/M [address] [facility] [id number] Loc: [address] Phys: Manuela Basurto [address] Acct: [id number] Dis Date: Status:ADM IN PHONE #: Exam Date: 12/14/2018 1617 FAX #: [phone] Reason : LUQ pain EXAMS: CPT CODE: [id number] CT ABD PELVIS W/CONT 46696 <Continued> Left kidney: The kidneys are normal. [...] 2 Signed Report (CONTINUED) FAX: Jon Kay [place]: St: ADM FAX: Manuela Rhodes [phone] -- Name: ANUEL CARR [facility] : 1974 Age/S: 43/M [address] [facility] Unit: [id number] Loc: [address] [place] [address] Phys: Manuela Basurto [address] Acct: [id number] Dis Date: Status: ADM IN PHONE #: Exam Date: 12/14/2018 1617 FAX #: [phone] Reason: LUQ pain EXAMS: CPT CODE: [id number] CT ABD PELVIS W/CONT 22093 <Continued> at 1633 Reported and signed by: Collin Gustafson M.D. CC:Jon Mcgregor MD; Manuela JACOB Technologist: SKYLER Kim Dt/Tm: (1633) t.HPD Orig Print D/T: S: 12/14/2018 (1636 PAGE 3 Signed [id number] 16:20:00 Test Item Value Reference Range Comments GLUBED (test code=GLUBED) 195 mg/dL 70-110 COMPREHENSIVE METABOLIC [id number] 07:24:00 Test Item Value Reference Range Comments [...] PHOSPHATASE TOTAL (test code=ALKP) 57 Units/L 50.0-136.0 [id number] 07:24:00 Test Item Value Reference Range Comments MAGNESIUM (test code=MAG) 1.6 mg/dl 1.8-2.4 CBC W/AUTO [id number] 07:06:00 Test Item Value Reference Range Comments [...] # (test code=BA#) 0.1 K/mm3 0.0-0.2 VITAMIN [id number] 10:49:00 Test Item Value Reference Range Comments VITAMIN B12 (test code=VITB12) 409 pg/mL 193-986 [id number] 10:21:00 Test Item Value Reference Range Comments HGBA1C% (test code=HGBA1C%) 8.8 %A1C 4.8-6.0 ESTIMATED AVERAGE GLUCOSE (test code=EAG) 206 MG/DL [id number] 06:00:00 Test Item Value Reference Range Comments TROPONIN-I (test <0.02 NG/ML 0.00-0.06 REFERENCE RANGE TROPONIN I code=TROPI) HEALTHY INDIVIDUALS: <0.06 ng/mL R/O ISCHEMIA: 0.07 - 0.60 ng/mL CUT-OFF RANGE FOR AMI: 0.60 - 1.5 ng/mL [id number] 01:25:00 Test Item Value Reference Range Comments TROPONIN-I (test <0.02 NG/ML 0.00-0.06 REFERENCE RANGE TROPONIN I code=TROPI) HEALTHY INDIVIDUALS: <0.06 ng/mL R/O ISCHEMIA: 0.07 - 0.60 ng/mL CUT-OFF RANGE FOR AMI: 0.60 - 1.5 ng/mL - XR CHEST 1 [id number] 21:18:00 [place]: St: REG Name: ANUEL CARR [facility] : 1975 Age/S: 43/M [address] [facility] Unit#: [id number] Loc: [address] Phys: [place] [address] Acct: [id number] Dis Date: Status: REG ER PHONE #: [phone] Exam Date: 12/12/20182109 FAX #: [phone] Reason: SOB EXAMS: CPT CODE: [id number] XR CHEST 1 V 41486 REASON FOR EXAM: Shortness of breath and chest pain. COMPARISON: None. Chest, portable single frontal view. The lungs are well-inflated and clear. Heart size is normal. No effusion or pneumothorax can be seen. Osseous structures appear to be intact. IMPRESSION: No acute cardiopulmonary disease. Location: 9 at 8 Reported and signed by: Humble Simpson M.D. CC: Technologist: NELA UREÑA Trnscrd Date/Time/By:12/12/2018 (2117) : By: [facility] PAGE 1 Signed Report [place]: EM St: REG Name: ANUEL CARR [facility] : 1975 Age/S: 43/M [address] [facility] Unit #: [id number] Loc: [address]ERS[address] [place], [place]: [place] [address] Acct: [id number] Dis Date: Status: REG ER PHONE #: [phone] Exam Date: 12/12/20182109 FAX #: [phone] Reason: SOB EXAMS: CPT CODE: [id number] XR CHEST 1V 92706 <Continued> Orig Print D/T: S: (7941) PAGE 2Signed ReportBASIC METABOLIC [id number] 21:03:00 Test Item Value Reference Range Comments [...] (test code=CA) 9.0 mg/dl 8.0-10.5 CBC W/AUTO [id number] 21:01:00 Test Item Value Reference Range Comments [...] (test code=BA#) 0.1 K/mm3 0.0-0.2 BASIC METABOLIC [id number] 21:01:00 Test Item Value Reference Range Comments [...] CALCIUM (test code=CA) mg/dl 8.0-10.5 TROPONIN I [id number] 20:58:00 Test Item Value Reference Range Comments [...] of temporal changes in troponin levelscharacteristic of [place].
[2018-12-22 11:16] LABS: Absolute Lymphocytes (CBC) 1.4 K/uL (0.7-4.9); Basophils % 1.5 % (0-1.3); Eosinophils % 0.8 % (0-4.4); Hematocrit 41.3 % (39.6-49.0); Lymphocytes % 21.3 % (15.3-44.8); MPV 9.5 fL (7.6-11.3); Monocytes % 7.7 % (3.3-12.3); RBC Red Blood Cell Count 4.89 M/uL (4.33-5.43)
[2018-12-22 11:29] LABS: ALT/SGPT 57 U/L (12-78); AST/SGOT 28 U/L (15-37); Albumin 3.8 g/dL (3.4-5.0); Alkaline Phosphatase 57 U/L (45-117); BUN Blood Urea Nitrogen 15 mg/dL (7-18); Bicarbonate 20 mmol/L (21-32); Bilirubin Direct < 0.1 mg/dL (0-0.2); Bilirubin Total 0.4 mg/dL (0.2-1.0); Glucose Level 216 mg/dL (74-106); Lipase 211 U/L (73-393); Potassium 3.8 mmol/L (3.5-5.1); Protein, Total 7.4 g/dL (6.4-8.2); Sodium Level 140 mmol/L (136-145)
[2018-12-22] MEDS ORDERED: LIDOCAINE VISCOUS 2% SOLN 15 ML UDC ONE (11:34)
[2018-12-22] MEDS ORDERED: MAGNE/ALUM HYDROXD 30 ML UCUP ONE (11:34)
--- NOTE | 2018-12-22 11:36 | ER ---
Nurse's Notes [facility] Name: Brayden Henderson Age: 43 yrs Sex: Male : 1975 Arrival Date: 12/22/2018 Time: 10:08 Bed 2 Private MD: Diagnosis: Epigastric pain;Gastritis, unspecified Presentation: 12/22 10:29 Presenting complaint: Patient states: has had a hard time breathing and has been having iw high BP at home for over a month, also c/o burning pain in stomach, was also told he had "lung problems". Transition of care: patient was not received from another setting of care. Onset of symptoms was October 2018. Risk Assessment: Do you want to hurt yourself or someone else? Patient reports no desire to harm self or others. Initial Sepsis Screen: Does the patient meet any 2 criteria? No. Patient's initial sepsis screen is negative. Does the patient have a suspected source of infection? No. Patient's initial sepsis screen is negative. Care prior to arrival: None. 10:29 Method Of Arrival: Wheelchair iw 10:29 Acuity: MARIA E 3 iw Historical: - Allergies: 10:32 NKA; iw - PMHx: 10:32 blood clot right eye; Diabetes - NIDDM; Hypertension; iw - PSHx: 10:32 left eye surgery; iw - Immunization history:: Adult Immunizations not up to date. - Social history:: Smoking status: Patient/guardian denies using tobacco. - Ebola Screening: : Patient negative for fever greater than or equal to 101.5 degrees Fahrenheit, and additional compatible Ebola Virus Disease symptoms Patient denies exposure to infectious person Patient denies travel to an Ebola-affected area in the 21 days before illness onset No symptoms or risks identified at this time. Screenin:00 Abuse screen: Denies threats or abuse. Denies injuries from another. Nutritional iw screening: No deficits noted. Tuberculosis screening: No symptoms or risk factors identified. Fall Risk None identified. Assessment: 10:35 General: Appears in no apparent distress. comfortable. Pain: Complains of pain in iw epigastric area. Neuro: Level of Consciousness is awake, alert, obeys commands, Moves all extremities. Cardiovascular: Denies chest pain, Rhythm is regular. Respiratory: Airway is patent Respiratory effort is even, unlabored, Breath sounds are clear bilaterally. Derm: Skin is intact, is healthy with good turgor. Musculoskeletal: Range of motion: intact in all extremities. Vital Signs: 10:32 BP 161 / 91; Pulse 91; Resp 20 S; Temp 98.9; Pulse Ox 97% on R/A; Pain 10/10; iw ED Course: 10:08 Patient arrived in ED. mr 10:22 Quan Sequeira PA is PHCP. jr8 10:22 Lorenzo Logan MD is Attending Physician. jr8 10:31 Triage completed. iw 10:32 Arm band placed on. iw 10:40 Amy Patino, RN is Primary Nurse. aj 11:34 Ankit Peter MD is Referral Physician. jr8 Administered Medications: 11:22 Drug: GI Cocktail without - (Maalox Suspension 30 ml, Lidocaine Liquid 2 % 15 iw ml) Route: PO; Outcome: 11:35 Discharge ordered by . jr8 12:00 Discharged to home via wheelchair, with family. iw 12:00 Condition: good 12:00 Discharge instructions given to patient, family, Instructed on discharge instructions, follow up and referral plans. Demonstrated understanding of instructions, follow-up care. 12:01 Patient left the ED. iw Signatures: Amy Patino, Ree Pozo RN mr Daniela Stout RN RN Quan Sequeira PA PA jr8
--- NOTE | 2018-12-22 11:36 | EDPHYS ---
Physician Documentation [facility] Name: Brayden Henderson Age: 43 yrs Sex: Male : 1975 Arrival Date: 12/22/2018 Time: 10:08 Bed 2 Private MD: ED Physician Lorenzo Logan HPI: 12/22 11:14 This 43 yrs old Male presents to ER via Wheelchair with complaints of Burning jr8 abdominal pain. 11:14 The patient presents with abdominal pain in the epigastric area, in the upper abdomen. jr8 Onset: The symptoms/episode began/occurred gradually, 1 month(s) ago. The symptoms do not radiate. Associated signs and symptoms: none. The symptoms are described as burning. Modifying factors: The symptoms are alleviated by nothing, the symptoms are aggravated by nothing. Severity of pain: At its worst the pain was moderate in the emergency department the pain is unchanged. The patient has not experienced similar symptoms in the past. The patient has been recently seen by a physician:. Patient has been evaluated extensively in the past month in the ED here for abdominal pain and shortness of breath. Has seen his PCP as well and is set to see GI this upcoming week. Stated that he continues to have burning sensation in stomach. Historical: - Allergies: 10:32 NKA; iw - PMHx: 10:32 blood clot right eye; Diabetes - NIDDM; Hypertension; iw - PSHx: 10:32 left eye surgery; iw - Immunization history:: Adult Immunizations not up to date. - Social history:: Smoking status: Patient/guardian denies using tobacco. - Ebola Screening: : Patient negative for fever greater than or equal to 101.5 degrees Fahrenheit, and additional compatible Ebola Virus Disease symptoms Patient denies exposure to infectious person Patient denies travel to an Ebola-affected area in the 21 days before illness onset No symptoms or risks identified at this time. ROS: 11:14 Eyes: Negative for injury, pain, redness, and discharge, ENT: Negative for injury, jr8 pain, and discharge, Neck: Negative for injury, pain, and swelling, Cardiovascular: Negative for chest pain, palpitations, and edema, Respiratory: Negative for shortness of breath, cough, wheezing, and pleuritic chest pain, Back: Negative for injury and pain, MS/Extremity: Negative for injury and deformity, Skin: Negative for injury, rash, and discoloration, Neuro: Negative for headache, weakness, numbness, tingling, and seizure. 11:14 Abdomen/GI: Positive for abdominal pain, Negative for nausea, vomiting, diarrhea, abdominal distension, anorexia, dysphagia, hematemesis, black/tarry stool, rectal pain, rectal bleeding, bowel incontinence, flatulence. Exam: 11:14 Eyes: Pupils equal round and reactive to light, extra-ocular motions intact. Lids and jr8 lashes normal. Conjunctiva and sclera are non-icteric and not injected. Cornea within normal limits. Periorbital areas with no swelling, redness, or edema. ENT: Nares patent. No nasal discharge, no septal abnormalities noted. Tympanic membranes are normal and external auditory canals are clear. Oropharynx with no redness, swelling, or masses, exudates, or evidence of obstruction, uvula midline. Mucous membranes moist. Neck: Trachea midline, no thyromegaly or masses palpated, and no cervical lymphadenopathy. Supple, full range of motion without nuchal rigidity, or vertebral point tenderness. No Meningismus. Cardiovascular: Regular rate and rhythm with a normal S1 and S2. No gallops, murmurs, or rubs. Normal PMI, no JVD. No pulse deficits. Respiratory: Lungs have equal breath sounds bilaterally, clear to auscultation and percussion. No rales, rhonchi or wheezes noted. No increased work of breathing, no retractions or nasal flaring. Back: No spinal tenderness. No costovertebral tenderness. Full range of motion. Skin: Warm, dry with normal turgor. Normal color with no rashes, no lesions, and no evidence of cellulitis. MS/ Extremity: Pulses equal, no cyanosis. Neurovascular intact. Full, normal range of motion. Neuro: Awake and alert, GCS 15, oriented to person, place, time, and situation. Cranial nerves II-XII grossly intact. Motor strength 5/5 in all extremities. Sensory grossly intact. Cerebellar exam normal. Normal gait. 11:14 Abdomen/GI: Inspection: abdomen appears normal, Bowel sounds: active, all quadrants, Palpation: soft, in all quadrants, mild abdominal tenderness, in the epigastric area, mass, is not appreciated, rebound tenderness, is not appreciated, voluntary guarding, is not appreciated, involuntary guarding, is not appreciated, no appreciated organomegaly, Indicators: McBurney's point is not tender, Chawla's sign is negative, Rovsing's sign is negative, Liver: tenderness, is not appreciated. Vital Signs: 10:32 BP 161 / 91; Pulse 91; Resp 20 S; Temp 98.9; Pulse Ox 97% on R/A; Pain 10/10; iw MDM: 10:22 Patient medically screened. [facility] 11:33 Data reviewed: vital signs, nurses notes, old medical records, lab test result(s), and jr8 as a result, I will discharge patient. Data interpreted: Pulse oximetry: on room air is 97 %. Interpretation: normal. Counseling: I had a detailed discussion with the patient and/or guardian regarding: the historical points, exam findings, and any diagnostic results supporting the discharge/admit diagnosis, lab results, the need for outpatient follow up, a environmental planner, to return to the emergency department if symptoms worsen or persist or if there are any questions or concerns that arise at home. ED course: Counseled patient on need to f/u with GI for definitive care. No acute findings or substantial change since last visits . 12/22 10:49 Order name: Basic Metabolic Panel [facility] 12/22 10:49 Order name: CBC with Diff; Complete Time: 11:18 [facility] 12/22 10:49 Order name: Creatinine for Radiology; Complete Time: 11:29 [facility] 12/22 10:49 Order name: Hepatic Function; Complete Time: 11:33 [facility] 12/22 10:49 Order name: Lipase; Complete Time: 11:33 [facility] 12/22 11:02 Order name: Basic Metabolic Panel; Complete Time: 11:33 [facility] 12/22 10:49 Order name: IV Saline Lock; Complete Time: 11:05 [facility] 12/22 10:49 Order name: Labs collected and sent; Complete Time: 11: Administered Medications: 11:22 Drug: GI Cocktail without - (Maalox Suspension 30 ml, Lidocaine Liquid 2 % 15 iw ml) Route: PO; Disposition: 12/23 09:44 Co-signature as Attending Physician, Lorenzo Logan MD I agree with the assessment and arvind plan of care. Disposition: 12/22/18 11:35 Discharged to Home. Impression: Epigastric pain, Gastritis, unspecified. - Condition is Stable. - Discharge Instructions: Abdominal Pain, Adult, Gastritis, Adult, Peptic Ulcer. - Medication Reconciliation Form, Thank You Letter, Antibiotic Education, Prescription Opioid Use form. - Follow up: Ankit Peter MD; When: 2 - 3 days; Reason: Recheck today's complaints, Continuance of care, Re-evaluation by your physician. - Problem is new. - Symptoms have improved. Signatures: Dispatcher [employer] EDLorenzo Avila MD MD cha Williams, Irene, RN RN iw Quan Sequeira PA PA jr8 Corrections: (The following items were deleted from the chart) 12/22 12:01 11:35 12/22/2018 11:35 Discharged to Home. Impression: Epigastric pain; Gastritis, iw unspecified. Condition is Stable. Forms are Medication Reconciliation Form, Thank You Letter, Antibiotic Education, Prescription Opioid Use. Follow up: Ankit Peter; When: 2 - 3 days; Reason: Recheck today's complaints, Continuance of care, Re-evaluation by your physician. Problem is new. Symptoms have improved. jr8
== END 2018-12-22 12:01 | disposition home or self-care (01) ==
LOC: ER 10:03
DX: K29.70 Gastritis, unspecified, without bleeding (principal); I10 Essential (primary) hypertension
CPT/HCPCS: 36415; 80048; 80076; 83690; 85025; 99283

== ENCOUNTER 2019-08-20 23:36 | Inpatient (IN) | payer BC ==
--- OUTSIDE RECORDS SUMMARY | 2019-08-20 23:38 | XMS REPORT ---
:1975 [facility] Address [address] [place] [address] Care Team Providers Name Role Phone Unavailable [...] Comments GLUBED (test code=GLUBED) 197 mg/dL 70-110 [id number] 00:41:00 Test Item Value Reference Range Comments GLUBED (test code=GLUBED) 184 mg/dL 70-110 [id number] 00:41:00 Test Item Value Reference Range Comments GLUBED (test code=GLUBED) 170 mg/dL 70-110 [id number] 06:10:00 Test Item Value Reference Range Comments GLUBED (test code=GLUBED) 157 mg/dL 70-110 [id number] 06:10:00 Test Item Value Reference Range Comments GLUBED (test code=GLUBED) 206 mg/dL 70-110 [id number] 06:10:00 Test Item Value Reference Range Comments GLUBED (test code=GLUBED) 177 mg/dL 70-110 [id number] 06:10:00 Test Item Value Reference Range Comments REBECCA (test code=GLUBED) 235 mg/dL 70-110 - CT ABD PELVIS [id number] 16:33:00 FAX: Jon Kay [place]: St: ADM FAX: Manuela Rhodes [phone] - Name: AUNEL CARR [facility] : 1975 Age/S: 43/M [address] [facility] Unit: [id number] Loc: [address] Phys: Manuela Basurto [address] Acct: [id number] Dis Date: Status: ADM IN PHONE #: [phone] Exam Date: 12/14/2018 1617 FAX #: [phone] Reason: LUQ pain EXAMS: CPT CODE: [id number] CT ABD PELVIS W/CONT 59784 EXAM: CT abdomen and pelvis with contrast [...] PAGE 1 Signed Report (CONTINUED) FAX: Mian SáncheztessJon Kamila [phone] [place]: St: [facility] FAX: Manuela Rhodes [phone] Name: ANUEL CARR [facility] : 1974 Age/S: 43/M [id number] Loc: [address] Phys: Manuela Basurto [address] Acct: [id number] Dis Date: Status:ADM IN PHONE #: Exam Date: 12/14/2018 1617 FAX #: [phone] Reason : LUQ pain EXAMS: CPT CODE: [id number] CT ABD PELVIS W/CONT 51163 <Continued> Left kidney: The kidneys are normal. [...] 2 Signed Report (CONTINUED) FAX: Jon Kay [place]: St: ADM FAX: Manuela Rhodes [phone] -- Name: ANUEL CARR [facility] : 1974 Age/S: 43/M [address] [email or web address] Unit: [id number] Loc: [address] Phys: Manuela Basurto [address] Acct: [id number] Dis Date: Status: ADM IN PHONE #: Exam Date: 12/14/2018 1617 FAX #: [phone] Reason: LUQ pain EXAMS: CPT CODE: [id number] CT ABD PELVIS W/CONT 52555 <Continued> at 1633 Reported and signed by: Collin Gustafson M.D. CC:Jon Mcgregor MD; Manuela JACOB Technologist: SKYLER Kim Dt/Tm: (1633) tBRIANAHPToni Orig Print D/T: S: 12/14/2018 (1636 PAGE 3 Signed [id number] 16:20:00 Test Item Value Reference Range Comments GLUBED (test code=GLUBED) 195 mg/dL 70-110 COMPREHENSIVE METABOLIC [id number] 07:24:00 Test Item Value Reference Range Comments [...] PHOSPHATASE TOTAL (test code=ALKP) 57 Units/L 50.0-136.0 [id number] 07:24:00 Test Item Value Reference Range Comments MAGNESIUM (test code=MAG) 1.6 mg/dl 1.8-2.4 CBC W/AUTO [id number] 07:06:00 Test Item Value Reference Range Comments [...] # (test code=BA#) 0.1 K/mm3 0.0-0.2 VITAMIN [id number] 10:49:00 Test Item Value Reference Range Comments VITAMIN B12 (test code=VITB12) 409 pg/mL 193-986 [id number] 10:21:00 Test Item Value Reference Range Comments HGBA1C% (test code=HGBA1C%) 8.8 %A1C 4.8-6.0 ESTIMATED AVERAGE GLUCOSE (test code=EAG) 206 MG/DL [id number] 06:00:00 Test Item Value Reference Range Comments TROPONIN-I (test <0.02 NG/ML 0.00-0.06 REFERENCE RANGE TROPONIN I code=TROPI) HEALTHY INDIVIDUALS: <0.06 ng/mL R/O ISCHEMIA: 0.07 - 0.60 ng/mL CUT-OFF RANGE FOR AMI: 0.60 - 1.5 ng/mL [id number] 01:25:00 Test Item Value Reference Range Comments TROPONIN-I (test <0.02 NG/ML 0.00-0.06 REFERENCE RANGE TROPONIN I code=TROPI) HEALTHY INDIVIDUALS: <0.06 ng/mL R/O ISCHEMIA: 0.07 - 0.60 ng/mL CUT-OFF RANGE FOR AMI: 0.60 - 1.5 ng/mL - XR CHEST 1 [id number] 21:18:00 [place]: St: REG Name: ANUEL CARR [facility] : 1975 Age/S: 43/M [address] [facility] Unit#: [id number] Loc: [address] [place], [place]: [place] [address] Acct: [id number] Dis Date: Status: REG ER PHONE #: [phone] Exam Date: 12/12/20182109 FAX #: [phone] Reason: SOB EXAMS: CPT CODE: [id number] XR CHEST 1 V 31543 REASON FOR EXAM: Shortness of breath and chest pain. COMPARISON: None. Chest, portable single frontal view. The lungs are well-inflated and clear. Heart size is normal. No effusion or pneumothorax can be seen. Osseous structures appear to be intact. IMPRESSION: No acute cardiopulmonary disease. Location: [facility] Reported and signed by: Humble Simpson M.D. CC: Technologist: NELA UREÑA Trnscrd Date/Time/By:12/12/2018 (2117) : By: Mary PAGE 1 Signed Report [place]: EM St: REG Name: ANUEL CARR [facility] : 1975 Age/S: 43/M [address] [facility] Unit #: [id number] Loc: [address] [place], [place]: [place] [address] Acct: [id number] Dis Date: Status: REG ER PHONE #: [phone] Exam Date: 12/12/20182109 FAX #: [phone] Reason: SOB EXAMS: CPT CODE: [id number] XR CHEST 1V 29969 <Continued> Orig Print D/T: S: (2120) PAGE 2Signed ReportBASIC METABOLIC [id number] 21:03:00 Test Item Value Reference Range Comments [...] (test code=CA) 9.0 mg/dl 8.0-10.5 CBC W/AUTO [id number] 21:01:00 Test Item Value Reference Range Comments [...] (test code=BA#) 0.1 K/mm3 0.0-0.2 BASIC METABOLIC [id number] 21:01:00 Test Item Value Reference Range Comments [...] CALCIUM (test code=CA) mg/dl 8.0-10.5 TROPONIN I [id number] 20:58:00 Test Item Value Reference Range Comments [...] of temporal changes in troponin levelscharacteristic of MA.
[2019-08-21] MEDS ORDERED: NA CHLORIDE 0.9% 1,000 ML ONE ×2 (00:54→14:28)
[2019-08-21] MEDS ORDERED: PIPER/TAZO/NS 3.375gm 3.375 GM/100 ML BAG ONE (00:55)
[2019-08-21 01:24] LABS: Absolute Lymphocytes (CBC) 2.3 K/uL (0.7-4.9); Basophils % 1.1 % (0-1.3); Hematocrit 37.2 % (39.6-49.0); Lymphocytes % 20.5 % (15.3-44.8); MPV 9.1 fL (7.6-11.3); RBC Red Blood Cell Count 4.31 M/uL (4.33-5.43)
[2019-08-21 01:35] LABS: ALT/SGPT 101 U/L (12-78); AST/SGOT 70 U/L (15-37); Albumin 2.9 g/dL (3.4-5.0); Alkaline Phosphatase 81 U/L (45-117); BUN Blood Urea Nitrogen 12 mg/dL (7-18); Bicarbonate 27 mmol/L (21-32); Bilirubin Direct < 0.1 mg/dL (0-0.2); Bilirubin Total 0.2 mg/dL (0.2-1.0); Glucose Level 288 mg/dL (74-106); Lipase 172 U/L (73-393); Potassium 4.8 mmol/L (3.5-5.1); Protein, Total 7.7 g/dL (6.4-8.2); Sodium Level 132 mmol/L (136-145)
--- NOTE | 2019-08-21 02:38 | ER ---
Nurse's Notes [facility] Name: Brayden Henderson Age: 44 yrs Sex: Male : 1975 Arrival Date: 08/20/2019 Time: 23:40 Bed 20 Private MD: Diagnosis: Acute appendicitis;Diabetes mellitus due to underlying condition with hyperglycemia Presentation: 08/20 23:58 Presenting complaint: Patient states: Abdominal pain with diarrhea for 1 week. Pt tl1 states he is scheduled to have his gallbladder removed next week by Dr Christian. Transition of care: patient was not received from another setting of care. Onset of symptoms is unknown. Risk Assessment: Do you want to hurt yourself or someone else? Patient reports no desire to harm self or others. Initial Sepsis Screen: Does the patient meet any 2 criteria? No. Patient's initial sepsis screen is negative. Does the patient have a suspected source of infection? No. Patient's initial sepsis screen is negative. Care prior to arrival: None. 23:58 Method Of Arrival: Ambulatory tl1 23:58 Acuity: MARIA E 3 tl1 Historical: - Allergies: 08/21 00:03 NKA; tl1 - Home Meds: 00:03 levothyroxine 50 mcg tab 1 tab once daily [Active]; cyclobenzaprine 10 mg Oral tab tl1 [Active]; amitriptyline 10 mg Oral tab 1 tab [Active]; Tradjenta 5 mg Oral tab 1 tab once daily [Active]; pioglitazone 30 mg Oral tab 1 tab once daily [Active]; - PMHx: 00:03 blood clot right eye; Diabetes - NIDDM; Hypertension; Hypothyroidism; tl1 - Immunization history:: Adult Immunizations up to date. - Coronavirus screen:: The patient has NOT traveled to [place] in the past 14 days. The patient has NOT had contact with known/suspected case of Coronavirus?. - Social history:: Smoking status: Patient denies any tobacco usage or history of. - Ebola Screening: : Patient negative for fever greater than or equal to 101.5 degrees Fahrenheit, and additional compatible Ebola Virus Disease symptoms Patient denies exposure to infectious person Patient denies travel to an Ebola-affected area in the 21 days before illness onset. Screenin:00 Abuse screen: Denies threats or abuse. Denies injuries from another. Nutritional wh screening: No deficits noted. Tuberculosis screening: No symptoms or risk factors identified. Fall Risk None identified. Assessment: 00:05 General: Appears in no apparent distress. Behavior is calm, cooperative, appropriate wh for age. Pain: Complains of pain in right upper quadrant Pain does not radiate. Pain currently is 5 out of 10 on a pain scale. Quality of pain is described as sharp, Pain began 2-3 days ago. Neuro: Level of Consciousness is awake, alert, obeys commands, Oriented to person, place, time, situation, Appropriate for age. Cardiovascular: Heart tones S1 S2. Respiratory: Airway is patent Respiratory effort is even, unlabored, Respiratory pattern is regular, symmetrical, Breath sounds are clear bilaterally. GI: Abdomen is distended, Bowel sounds Abd is soft Abdomen is tender to palpation Reports diarrhea, nausea, vomiting. : No signs and/or symptoms were reported regarding the genitourinary system. EENT: No signs and/or symptoms were reported regarding the EENT system. Derm: Skin is intact, is healthy with good turgor, Skin is pink, warm \T\ dry. normal. Musculoskeletal: Circulation, motion, and sensation intact. 01:10 Reassessment: Patient appears in no apparent distress at this time. No changes from previously documented assessment. Patient and/or family updated on plan of care and expected duration. Pain level reassessed. Patient is alert, oriented x 3, equal unlabored respirations, skin warm/dry/pink. 02:19 Reassessment: Patient appears in no apparent distress at this time. No changes from previously documented assessment. Patient and/or family updated on plan of care and expected duration. Pain level reassessed. Patient is alert, oriented x 3, equal unlabored respirations, skin warm/dry/pink. Provider at bedside explaining POC. 03:25 Reassessment: Patient appears in no apparent distress at this time. No changes from previously documented assessment. Patient and/or family updated on plan of care and expected duration. Pain level reassessed. Patient is alert, oriented x 3, equal unlabored respirations, skin warm/dry/pink. 04:27 Reassessment: Patient appears in no apparent distress at this time. No changes from previously documented assessment. Patient and/or family updated on plan of care and expected duration. Pain level reassessed. Patient is alert, oriented x 3, equal unlabored respirations, skin warm/dry/pink. Vital Signs: 00:00 BP 151 / 88; Pulse 88; Resp 16; Temp 98(O); Pulse Ox 99% ; Weight 99.79 kg; Height 5 tl1 ft. 5 in. (165.10 cm); Pain 7/10; 01:00 BP 133 / 90; Pulse 84; Resp 16; Pulse Ox 100% on R/A; wh 02:20 BP 117 / 77; Pulse 86; Resp 16; Pulse Ox 99% on R/A; wh 04:25 BP 117 / 78; Pulse 81; Resp 16; Pulse Ox 99% on R/A; wh 00:00 Body Mass Index 36.61 (99.79 kg, 165.10 cm) tl1 ED Course: 08/20 00:15 Inserted saline lock: 18 gauge in right antecubital area, using aseptic technique. ds4 Blood collected. 23:40 Patient arrived in ED. cl3 23:43 [facility] Balbu[facility]-C [facility] snw 23:43 Juan J Dodd MD is Attending Physician. snw 08/21 00:00 Triage completed. tl1 00:03 Arm band placed on right wrist. tl1 00:05 Patient has correct armband on for positive identification. Placed in gown. Bed in low wh position. Call light in reach. Side rails up X 1. Pulse ox on. NIBP on. 00:09 Bebe Zhao is Primary Nurse. 01:47 CT Abd/Pelvis - Without Contrast In Process Unspecified. EDMS 01:48 CT completed. Patient tolerated procedure well. Patient moved to CT via stretcher. Patient moved back from CT. 02:36 Spencer Teran is Hospitalizing Provider. snw 03:03 Hospitalizing Provider role handed off by Spencer Teran snw 03:03 Elliot Christian MD is Hospitalizing Provider. snw 04:27 No provider procedures requiring assistance completed. Patient admitted, IV remains in place. Administered Medications: 01:03 Drug: NS 0.9% 1000 ml Route: IV; Rate: 125 ml/hr; Site: right antecubital; 04:31 Follow up: Response: No adverse reaction; IV Status: Infusion continued upon admission 01:03 Drug: Zosyn 3.375 grams Route: IVPB; Infused Over: 60 mins; Site: right antecubital; 04:31 Follow up: Response: No adverse reaction; IV Status: Completed infusion Outcome: 02:37 Decision to Hospitalize by Provider. snw 04:28 Admitted to Med/surg accompanied by tech, via wheelchair, room 212, with chart, Report called to Laurent Baker RN 04:28 Condition: stable 04:28 Instructed on the need for admit. 04:37 Patient left the ED. Signatures: Dispatcher [employer] EDMS Constanza Balbuena, TEMPER MILL ROLLER-C TEMPER MILL ROLLER-Csnw Reinier Toscano Donovan ds4 Jennifer Maharaj, RN RN tl1 Pavel, Radha Nieto cl3
--- NOTE | 2019-08-21 02:38 | EDPHYS ---
Physician Documentation [facility] Name: Brayden Henderson Age: 44 yrs Sex: Male : 1975 Arrival Date: 08/20/2019 Time: 23:40 Bed 20 Private MD: ED Physician Juan J Dodd HPI: 08/21 01:56 This 44 yrs old Male presents to ER via Ambulatory with complaints of snw Abdominal Pain. 01:56 The patient presents with abdominal pain abdominal distention. Onset: The snw symptoms/episode began/occurred 1 week(s) ago, and became worse 3 day(s) ago, and became persistent. The symptoms do not radiate. Associated signs and symptoms: Pertinent positives: anorexia, nausea, wt loss, increased blood sugar readings. The symptoms are described as shooting, steady. Severity of pain: At its worst the pain was severe. It is unknown whether or not the patient has had similar symptoms in the past. pt scheduled for cholecystectomy with Dr. Christian next week. Historical: - Allergies: 00:03 NKA; tl1 - Home Meds: 00:03 levothyroxine 50 mcg tab 1 tab once daily [Active]; cyclobenzaprine 10 mg Oral tab tl1 [Active]; amitriptyline 10 mg Oral tab 1 tab [Active]; Tradjenta 5 mg Oral tab 1 tab once daily [Active]; pioglitazone 30 mg Oral tab 1 tab once daily [Active]; - PMHx: 00:03 blood clot right eye; Diabetes - NIDDM; Hypertension; Hypothyroidism; tl1 - Immunization history:: Adult Immunizations up to date. - Coronavirus screen:: The patient has NOT traveled to [place] in the past 14 days. The patient has NOT had contact with known/suspected case of Coronavirus?. - Social history:: Smoking status: Patient denies any tobacco usage or history of. - Ebola Screening: : Patient negative for fever greater than or equal to 101.5 degrees Fahrenheit, and additional compatible Ebola Virus Disease symptoms Patient denies exposure to infectious person Patient denies travel to an Ebola-affected area in the 21 days before illness onset. ROS: 01:55 Constitutional: Negative for fever, chills, and weight loss. snw 01:55 Eyes: Negative for injury, pain, redness, and discharge, ENT: Negative for injury, pain, and discharge, Neck: Negative for injury, pain, and swelling, Cardiovascular: Negative for chest pain, palpitations, and edema, Respiratory: Negative for shortness of breath, cough, wheezing, and pleuritic chest pain. 01:55 Back: Negative for injury and pain, : Negative for injury, bleeding, discharge, and swelling, MS/Extremity: Negative for injury and deformity, Skin: Negative for injury, rash, and discoloration, Neuro: Negative for headache, weakness, numbness, tingling, and seizure. 01:55 Constitutional: Positive for body aches, fever, malaise, poor PO intake. 01:55 Constitutional: Positive for increased blood sugar readings. 01:55 Abdomen/GI: Positive for abdominal pain, nausea, anorexia, wt loss. Exam: 01:55 Constitutional: This is a well developed, well nourished patient who is awake, alert, snw and in no acute distress. Head/Face: Normocephalic, atraumatic. Eyes: Pupils equal round and reactive to light, extra-ocular motions intact. Lids and lashes normal. Conjunctiva and sclera are non-icteric and not injected. Cornea within normal limits. Periorbital areas with no swelling, redness, or edema. ENT: Nares patent. No nasal discharge, no septal abnormalities noted. Tympanic membranes are normal and external auditory canals are clear. Oropharynx with no redness, swelling, or masses, exudates, or evidence of obstruction, uvula midline. Mucous membranes moist. Neck: Trachea midline, no thyromegaly or masses palpated, and no cervical lymphadenopathy. Supple, full range of motion without nuchal rigidity, or vertebral point tenderness. No Meningismus. Chest/axilla: Normal chest wall appearance and motion. Nontender with no deformity. No lesions are appreciated. Cardiovascular: Regular rate and rhythm with a normal S1 and S2. No gallops, murmurs, or rubs. Normal PMI, no JVD. No pulse deficits. Respiratory: Lungs have equal breath sounds bilaterally, clear to auscultation and percussion. No rales, rhonchi or wheezes noted. No increased work of breathing, no retractions or nasal flaring. Back: No spinal tenderness. No costovertebral tenderness. Full range of motion. Skin: Warm, dry with normal turgor. Normal color with no rashes, no lesions, and no evidence of cellulitis. MS/ Extremity: Pulses equal, no cyanosis. Neurovascular intact. Full, normal range of motion. Neuro: Awake and alert, GCS 15, oriented to person, place, time, and situation. Cranial nerves II-XII grossly intact. Motor strength 5/5 in all extremities. Sensory grossly intact. Cerebellar exam normal. Normal gait. Psych: Awake, alert, with orientation to person, place and time. Behavior, mood, and affect are within normal limits. 01:55 Abdomen/GI: Inspection: distension, Bowel sounds: diminished, Palpation: moderate abdominal tenderness, in the right upper quadrant. Vital Signs: 00:00 BP 151 / 88; Pulse 88; Resp 16; Temp 98(O); Pulse Ox 99% ; Weight 99.79 kg; Height 5 tl1 ft. 5 in. (165.10 cm); Pain 7/10; 01:00 BP 133 / 90; Pulse 84; Resp 16; Pulse Ox 100% on R/A; wh 02:20 BP 117 / 77; Pulse 86; Resp 16; Pulse Ox 99% on R/A; wh 04:25 BP 117 / 78; Pulse 81; Resp 16; Pulse Ox 99% on R/A; wh 00:00 Body Mass Index 36.61 (99.79 kg, 165.10 cm) tl1 MDM: 00:29 Patient medically screened. snw 02:37 Data reviewed: vital signs, nurses notes. Data interpreted: Pulse oximetry: on room air snw is 99 %. Interpretation: normal. Counseling: I had a detailed discussion with the patient and/or guardian regarding: the historical points, exam findings, and any diagnostic results supporting the discharge/admit diagnosis, lab results, radiology results, the need for further work-up and treatment in the hospital. Physician consultation: Spencer Teran was called at 02:38, was contacted at 02:38, regarding admission, to the medical/surgical unit. would like consultation with Dr. Dr. Christian, who is not deboning team leader but pt is scheduled to perform Cholecystectomy on this patient next week.. 02:44 ED course: Dr. Gino mao. snw 03:04 Physician consultation: Dr. Teran in with pt for assessment, Dr. Dodd speaking with snw Dr. Christian who states he will take pt primarily. Dr. Teran will gladly be available for consult.. 03:43 ED course: House notified of need to add pt on for surgery. 08/21 00:29 Order name: Basic Metabolic Panel; Complete Time: 01:48 08/21 00:29 Order name: CBC with Diff; Complete Time: 01:32 08/21 00:29 Order name: Creatinine for Radiology; Complete Time: :32 08/21 00:29 Order name: Hepatic Function; Complete Time: :48 08/21 00:29 Order name: Lipase; Complete Time: 01:48 08/21 00:34 Order name: Blood Culture Adult (2) 08/21 00:29 Order name: IV Saline Lock; Complete Time: 00:56 08/21 00:29 Order name: Labs collected and sent; Complete Time: 00:56 08/21 00:34 Order name: FSBS; Complete Time: 00:56 08/21 00:43 Order name: CT Abd/Pelvis - Without Contrast 08/21 01:28 Order name: Glucose, Ancillary Testing; Complete Time: 01:32 EDMS Administered Medications: 01:03 Drug: NS 0.9% 1000 ml Route: IV; Rate: 125 ml/hr; Site: right antecubital; 04:31 Follow up: Response: No adverse reaction; IV Status: Infusion continued upon admission 01:03 Drug: Zosyn 3.375 grams Route: IVPB; Infused Over: 60 mins; Site: right antecubital; 04:31 Follow up: Response: No adverse reaction; IV Status: Completed infusion Disposition: 08:17 Co-signature as Attending Physician, Juan J Dodd MD I agree with the assessment and tw4 plan of care. Disposition: 08/21/19 02:37 Hospitalization ordered by Elliot Christian for Inpatient Admission. Preliminary diagnosis are Acute appendicitis, Diabetes mellitus due to underlying condition with hyperglycemia. - Bed requested for Telemetry/MedSurg (Inpatient). - Status is Inpatient Admission. wh - Condition is Stable. - Problem is new. - Symptoms have worsened. Signatures: Dispatcher [employer] EDMS Constanza Balbuena, SCROLL ASSEMBLER-C SCROLL ASSEMBLER-Csnw Jennifer Maharaj, RN RN tl1 Bebe Zhao Terrence, MD MD tw4 Corrections: (The following items were deleted from the chart) 03:04 02:37 Hospitalization Ordered by Spencer Teran for Inpatient Admission. Preliminary snw diagnosis is Acute appendicitis; Diabetes mellitus due to underlying condition with hyperglycemia. Bed requested for Telemetry/MedSurg (Inpatient). Status is Inpatient Admission. Condition is Stable. Problem is new. Symptoms have worsened. snw 04:05 03:04 08/21/2019 02:37 Hospitalization Ordered by Elliot Christian MD for Inpatient tl1 Admission. Preliminary diagnosis is Acute appendicitis; Diabetes mellitus due to underlying condition with hyperglycemia. Bed requested for Telemetry/MedSurg (Inpatient). Status is Inpatient Admission. Condition is Stable. Problem is new. Symptoms have worsened. snw 04:37 04:05 08/21/2019 02:37 Hospitalization Ordered by Elliot Christian MD for Inpatient Admission. Preliminary diagnosis is Acute appendicitis; Diabetes mellitus due to underlying condition with hyperglycemia. Bed requested for Telemetry/MedSurg (Inpatient). Status is Inpatient Admission. Condition is Stable. Problem is new. Symptoms have worsened. tl1
--- NOTE | 2019-08-21 03:35 | P.HP ---
Certification for Inpatient Patient admitted to: Inpatient With expected LOS: >2 Midnights Practitioner: I am a practitioner with admitting privileges, knowledge of patient current condition, hospital course, and medical plan of care. Services: Services provided to patient in accordance with Admission requirements found in Title 42 Section 412.3 of the Code of Federal Regulations Patient History Date of Service: 08/21/19 Reason for admission: Abdominal pain History of Present Illness: 44-year-old gentleman with a history of diabetes mellitus on insulin therapy presented to the ED with a complaint of abdominal pain that has been present for several months. The patient reports intermittent abdominal pain, much more worse from yesterday. Patient was seeing Dr. Christian and was undergoing preop for laparoscopic cholecystectomy for gallbladder dyskinesia. CT abdomen and pelvis in the ED suggested acute appendicitis with microperforation. He denied fever. He reports episodes of diarrhea. He has mild leukocytosis. Patient is admitted for further management. Allergies dairy products Adverse Reaction (Uncoded 08/21/19 06:37) Nausea/Vomiting Home Medications: Cyclobenzaprine [Flexeril] 10 mg PO BID PRN 08/21/19 Insulin Glargine,Hum.rec.anlog [Lantus] 60 unit SQ DAILY 08/21/19 Levothyroxine [Synthroid] 50 mcg PO [id number] 08/21/19 Linagliptin [Tradjenta] 5 mg PO DAILY 08/21/19 Lisinopril [Zestril] 20 mg PO DAILY 08/21/19 Pioglitazone HCl 30 mg PO DAILY 08/21/19 - Past Medical/Surgical History -: Diabetes mellitus type 2 -: Chronic back pain -: Visual disturbance -: Eye surgery - Family History Mother -: Diabetes Father -: Diabetes - Social History Smoking Status: Never smoker Alcohol use: No CD- Drugs: No Place of Residence: Home Review of Systems Other: Except as documented, all other systems reviewed and negative. Physical Examination - Physical Exam General: Alert, In no apparent distress, Oriented x3 HEENT: Mucous membr. moist/pink, Sclerae nonicteric Neck: Supple, JVD not distended Respiratory: Clear to auscultation bilaterally, Normal air movement Cardiovascular: No edema, Regular rate/rhythm, Normal S1 S2 Capillary refill: <2 Seconds Gastrointestinal: Normal bowel sounds, Soft and benign, Non-distended, No rebound, No guarding, Tenderness (Mid abdominal area) Musculoskeletal: No swelling, No erythema Integumentary: No rashes, No erythema Neurological: Normal speech, Normal strength at 5/5 x4 extr, Cranial nerves 3- 12 intact - Studies Laboratory Data (last 24 hrs) 08/21/19 01:00: Creatinine 1.01 08/21/19 01:00: WBC 11.3 H, Hgb 12.3 L, Hct 37.2 L, Plt Count 337 08/21/19 01:00: Sodium 132 L, Potassium 4.8, BUN 12, Creatinine 1.05, Glucose 288 H, Total Bilirubin 0.2, AST 70 H, ALT 101 H, Alkaline Phosphatase 81, Lipase 172 Assessment and Plan - Problems (Diagnosis) (1) Acute appendicitis Current Visit: Yes Status: Acute (2) DM type 2 (diabetes mellitus, type 2) Current Visit: Yes Status: Chronic (3) Dyskinesia of gallbladder Current Visit: Yes Status: Acute (4) Chronic abdominal pain Current Visit: Yes Status: Chronic - Plan Admit to the medical floor. Start IV Zosyn IV morphine p.r.n. for pain General surgery-Dr. Christian to see patient Glucose management with insulin sliding scale. IV hydration. - Advance Directives Does patient have a Living Will: No Does patient have a Durable POA for Healthcare: No
[2019-08-21] MEDS ORDERED: D50W 25 GM/50 ML SYRINGE/VIAL IV PRN (04:30)
[2019-08-21] MEDS: NA CHLORIDE 0.9% 1,000 ML IV SCH ×4 (04:30→23:53)
[2019-08-21] MEDS ORDERED: GLUCAGON 1 MG/VIAL IM PRN (04:30)
[2019-08-21] MEDS: INSULIN -REGULAR HUMAN 50 UNIT/0.5 ML ML IV SCH ×4 (05:11→23:57)
[2019-08-21] MEDS: MORPHINE 4 MG/ML SYR IV PRN ×3 (05:32→21:20)
[2019-08-21 08:21] LABS: Urine Appearance CLEAR; Urine Bilirubin NEGATIVE (NEG); Urine Blood NEGATIVE (NEG); Urine Color YELLOW; Urine Glucose NEGATIVE (NEG); Urine Protein NEGATIVE (NEG); Urine Specific Gravity <=1.005 (1.005-1.030); Urine Urobilinogen 0.2 mg/dL (0.2-1.0); Urine pH 7.5 (5.0-7.0)
[2019-08-21 08:29] LABS: Urine Microscopic Reflex NO UMIC
--- NOTE | 2019-08-21 08:55 | RAD REPORT ---
EXAM DESCRIPTION: CT - Abdomen Pelvis Wo Contrast - 08/21/2019 6:52 am CLINICAL HISTORY: ABD PAIN COMPARISON: 12/03/2018 TECHNIQUE: CT of the abdomen and pelvis without IV contrast. Evaluation of the solid organs and vasc ulature is suboptimal due to lack of IV contrast. FINDINGS: Lung Bases: The visualized lung bases are clear. Bones: Degenerative change spine. Abdomen: Liver: The liver has normal size and decreased density. Gallbladder: No calcified gallstones. Spleen, Pancreas, and Adrenal Glands: The spleen, pancreas, and adrenal glands are unremarkable. Kidneys: The kidneys have normal size without evidence of hydronephrosis. No obstructing ureteral lamar culi. Vasculature: The aorta and IVC have normal caliber and position. Stomach: The stomach and duodenum have normal course. Other: No free intraperitoneal air. No free fluid or lymphadenopathy. Pelvis: Bladder: Urinary bladder is unremarkable. Bowel: No dilated loops of large or small bowel. Appendix: Significant dilation of the appendix measuring up to 3.2 cm in greatest dimension with si gnificant adjacent inflammatory change. Wall thickening of the appendix. No well-circumscribed absces s formation. Pelvis: Prostate is not enlarged. IMPRESSION: 1. Findings compatible with acute appendicitis. Significant enlargement and wall thicken ing of the appendix with likely microperforation. 2. Hepatic steatosis. Urgent finding reported to nurse practitioner ANNIE whitney 08/21/2019 2: 00 AM RESIDENTIAL GAS HEAT TECHNICIAN This exam was performed according to our departmental dose-optimization program, which includes autom ated exposure control, adjustment of the mA and/or kV according to patient size and/or use of iterati ve reconstruction technique. Electronically signed by: Reggie Garg 08/21/2019 2:04 AM RESIDENTIAL GAS HEAT TECHNICIAN Due to temporary technical issues with the PACS/Fluency reporting system, reports are being signed by the in house radiologist as a courtesy to ensure prompt reporting. The interpreting radiologist is f ully responsible for the content of the report.
[2019-08-21] MEDS: PIPER/TAZO/NS 3.375gm 3.375 GM/100 ML BAG IVPB SCH ×2 (09:49→17:28)
[2019-08-21] MEDS ORDERED: MIDAZOLAM HCL 2 MG/2 ML INJ ONE (10:04)
[2019-08-21] MEDS ORDERED: FENTANYL CITR 100 MCG/2 ML ONE (10:04)
[2019-08-21] MEDS ORDERED: LIDOCAINE 1% MPF 5 ML VIAL ONE (10:04)
[2019-08-21] MEDS ORDERED: propofoL 200 MG/20 ML VIAL IV ONE (10:04)
[2019-08-21] MEDS ORDERED: ROCURONIUM 50 MG/5 ML VIAL IV ONE (10:05)
[2019-08-21] MEDS ORDERED: KETOROLAC 30 MG/ML INJ ONE (11:48)
[2019-08-21] MEDS ORDERED: GLYCOPYRROLATE 0.2 MG/ML SYR ONE ×2 (11:48)
[2019-08-21] MEDS ORDERED: NEOSTIGMINE 1 MG/ML -5 ML ONE (12:19)
[2019-08-21] MEDS ORDERED: ONDANSETRON 4 MG/2 ML VIAL ONE (12:19)
[2019-08-21] MEDS ORDERED: MEPERIDINE HCL 25 MG/0.5 ML ONE (12:22)
[2019-08-21] MEDS ORDERED: NS 0.9% VIAL 10 ML ONE (12:49)
[2019-08-21] MEDS ORDERED: EPHEDRINE SULF 50 MG/ML VIAL ONE (12:49)
--- NOTE | 2019-08-21 12:58 | P.BOP ---
Preoperative diagnosis: acute abdominal pain Postoperative diagnosis: Acute perforated appendicitis with intrabdominal abscess Primary procedure: 1. Emergent laparoscopic appendectomy for perforated appendix Secondary procedure: 2. Evacuation of intrabdominal abscess Other procedure(s): 3. Cecum mobilization Estimated blood loss: <75cc Specimen: chelsea, culture Findings: intrabdominal abscess, necrotic appendix Anesthesia: General (absces) Complications: None Drain(s): MIGUEL drain (x2) Transferred to: Recovery Room Condition: Good
[2019-08-21] MEDS ORDERED: PROMETHAZINE INJ 25 MG/ML AMP ONE (13:18)
[2019-08-21] MEDS: HYDROMORPHONE HCL 1 MG/ML INJ ONE ×4 (13:18→14:10)
[2019-08-21] MEDS ORDERED: SUCCINYLCHOLINE 20 MG/ML (10 ML) IV ONE (13:28)
[2019-08-21] MEDS ORDERED: Levofloxacin 750mg IV 750 MG/150 ML BAG IV SCH (15:00)
--- NOTE | 2019-08-21 15:55 | P.PN ---
Subjective Date of Service: 08/21/19 Chief Complaint: Abdominal pain Subjective: Other (Patient was seen and examined . He was found to be in hypotensive Drowsy possibly due to post op Denies any chest pain or SOB) Review of Systems is unable to be obtained Physical Examination - Vital Signs Temperature: 99.6 F Blood Pressure: 100/52 Pulse: 114 Respirations: 15 Pulse Ox (%): 99 - Physical Exam General: Other (drowsy ) HEENT: Atraumatic, Normocephalic Neck: Supple Respiratory: Clear to auscultation bilaterally Cardiovascular: Other (Tachycardia) Capillary refill: <2 Seconds Gastrointestinal: No masses, Tenderness, Guarding Musculoskeletal: No clubbing, No swelling Integumentary: No rashes Neurological: Other (Moves all the limbs) Lymphatics: No axilla or inguinal lymphadenopathy External genitalia: Deferred Rectal: Deferred - Studies Laboratory Data (last 24 hrs) 08/21/19 01:00: Creatinine 1.01 08/21/19 01:00: WBC 11.3 H, Hgb 12.3 L, Hct 37.2 L, Plt Count 337 08/21/19 01:00: Sodium 132 L, Potassium 4.8, BUN 12, Creatinine 1.05, Glucose 288 H, Total Bilirubin 0.2, AST 70 H, ALT 101 H, Alkaline Phosphatase 81, Lipase 172 Assessment & Plan - Problems (Diagnosis) (1) Ruptured suppurative appendicitis Current Visit: Yes Status: Acute (2) Acute appendicitis Current Visit: Yes Status: Acute (3) DM type 2 (diabetes mellitus, type 2) Current Visit: Yes Status: Chronic Plan: Acute perforated appendicitis with intrabdominal abscess s/p Emergent laparoscopic appendectomy for perforated appendix and Evacuation of intrabdominal abscess Diabetes Hypotension Plan Admit to ICU Agrressive Fluid resuscitation Broad-spectrum IV antibiotics Serial lactic acid levels may need to start on pressors if needed Appreciate help from Surgery Will consult ID GI/DVT prophylaxis Time Spent Managing Pts Care (In Minutes): 45
[2019-08-21] MEDS ORDERED: VANCOMYCIN/NS 1 gm 1 GM/250 ML BAG IVPB SCH (16:00)
[2019-08-21] MEDS ORDERED: NA CHLORIDE 0.9% 1,000 ML IV ONE (17:38)
[2019-08-21] MEDS: METRONIDAZOLE 500mg IVPB 500 MG/100 ML BAG IV SCH (18:18)
[2019-08-21] MEDS: VANCOMYCIN 1.75 GM in NA CHLORIDE 0.9% 500 ML IVPB SCH (18:38)
[2019-08-21] MEDS ORDERED: NOREPINEPHRINE 4 MG in D5W 250 ML IV PRN (18:49)
--- NOTE | 2019-08-21 21:09 | HP ---
Date of Admission: 08/21/2019 History Of Present Illness: Mr. Henderson is a 44-year-old patient comes to us complaining of right lo wer quadrant tenderness associated with nausea and vomiting since last night. The pain is in the rig ht lower quadrant. He has a history of biliary dyskinesia. He is even scheduled and not too far fro m now for cholecystectomy. This pain now is in a different location, happened suddenly, diagnosed wi th acute appendicitis. A possible perforation and a surgical consult was obtained. He denies any dy suria, hematuria, hematochezia, or melena. Denies any recent travelling out of the country. Denies any family member sick at home. Past Medical History: Diabetes, biliary dyskinesia. Surgeries: Include an eye surgery. Family History: Diabetes. Social History: He does not smoke. He does not drink alcohol. Review of Systems: Ten points otherwise remarkable. Physical Examination: General: Patient is awake and alert. HEENT: Pupils are equal and reactive, anicteric. Neck: Supple. Chest: Clear. Abdomen: Soft and depressible. There is right lower quadrant tenderness with Rovsing sign and psoas signs positive. Patient has peritonitis. Extremities: Good capillary refill. Good peripheral pulses. Laboratory Data: Blood work shows WBC count of 11.3, hemoglobin of 12.3, sodium is 132, glucose 288. Imaging Procedure: CAT scan of the abdomen and pelvis interpreted by Dr. Brennan today as finding co mpatible with acute appendicitis with may be perforation, fatty liver. Assessment And Plan: This is a 44-year-old patient with acute appendicitis, possible perforation. A n emergent laparoscopic, possible open appendectomy offered to the patient with benefits, alternative s, and risks including, but not limited to infection, bleeding, damage to adjacent structures, anesth esia complications, nonhealing wound, abscess, myocardial infarction, and even . He also unders tands this may not relieve any symptoms, he might need more than one surgical intervention. He under stood, signed the consent. The patient was immediately booked in OR. JAZZY/JESENIA Voice ID: [id number]
--- NOTE | 2019-08-21 23:54 | OP ---
Date of Procedure: 08/21/2019 Surgeon: Elliot Christian MD Preoperative Diagnosis: Acute abdominal pain, peritonitis. Postoperative Diagnosis: Acute perforated appendicitis with intraabdominal abscess. Procedures: 1.Emergent laparoscopic appendectomy with removal of perforated gangrenous appendix. 2.Evacuation of intraabdominal abscess. 3.Cecal mobilization. Specimen: Appendix and culture of the intraabdominal abscess. Findings: Patient has abdominal abscess with a ruptured appendix, necrotic with stools coming out of the appendix. The patient has the sigmoid colon already walling off his abscess. We had profuse ir rigation with 9 L of saline to be able to clean the abdomen completely and we were able to do so. Indications: This is the case of a 44-year-old patient, who comes today with acute abdominal pain, d iagnosed with acute appendicitis, taken emergently to the OR. He was fully explained the benefits, a lternatives, and risks of laparoscopic, possible open appendectomy, which include, but are not limite d to infection, bleeding, damage to adjacent structures, anesthesia complications, negative appendix, intraabdominal abscess, MA, and even . He also understands this may not relieve any symptoms. He might need more than one surgical intervention. He was explained the importance of losing weight and controlling his diabetes. Description Of Procedure: The patient was brought to the operating room, placed in the supine positi on, anesthesia was given without complication. Abdominal area was prepped and draped in sterile fash ion. Local anesthetic was applied followed by incision in the infraumbilical region. Incision was c arried down to fascia, which was opened under direct vision. Peritoneum was encountered, opened unde r direct vision. Vicryl #1 placed inside the fascia. Sheila trocar was carefully introduced. Pneum operitoneum was obtained. Immediately, when we put the cameras, we noticed that there was severe inf lammatory disease in the right lower quadrant. We already had an intraabdominal abscess present, so we put 2 more trocars, 5 mm each one of them, in the suprapubic and left lower quadrant. This allowe d me to visualize the area better, we noticed the patient to have a ruptured appendix with gangrenous changes, stools coming out from the appendix already, but we noticed the base of appendix to be spar ed, but in order for me to do this laparoscopically and/or even open, we have mobilize the cecum part ially to be able to go right at the base of the appendix. We did profuse irrigation of the area, we drained the abscess and immediately was seen ottoniel pus. We cultured the area. Sacrum was already tr kathleen to wall off this abscess, we mobilized the cecum and the sigmoid colon to the side to be able to again access to the base of the appendix. We were able to, with the help of LigaSure, identify the base of the appendix. The cecum was mobilized always protecting the ureters. Once we have the base of the appendix clear of disease, we transected that with an Endo ELIAS 45 mm 3.5, and the mesoappendix with an Endo ELIAS 45 mm 2.5. Appendix was removed from the abdominal cavity and piece of stool, some fecaliths from the appendix and an EndoCatch through the umbilical incision. The area was profusely irrigated with 9 L of fluid, all abdomen, until we have clear fluid. At that moment, we proceeded t o place 2 MIGUEL drains coming from the trocars sites connected to bulb suction and secured that with 3-0 nylon. We put that one in the cul-de-sac, another one in the right lower quadrant. We looked at e area of the appendectomy once again, no bleeding. No bowel leak. At that moment, I proceeded to r emove the trocars under direct vision, deflated the pneumoperitoneum, closed the fascia with #1 Vicry l, irrigated subcu tissue, closed that with 3-0 chromic and the skin and umbilical area with dilma. Sponge count and instrument counts were correct. Patient tolerated the procedure well. Patient wa s sent to recovery in stable condition. I talked to the medical doctors and the primary doctor in is case and we will keep the patient here at least for 7 days of antibiotics. We are going to consult Infectious Disease. He may require more than one surgical intervention if the absce ss redevelop again. JAZZY/JESENIA Voice ID: [id number] Report ID: [id number]
[2019-08-22] MEDS: PIPER/TAZO/NS 3.375gm 3.375 GM/100 ML BAG IVPB SCH ×3 (00:24→16:37)
[2019-08-22] MEDS: METRONIDAZOLE 500mg IVPB 500 MG/100 ML BAG IV SCH ×3 (00:36→16:24)
[2019-08-22] MEDS: MORPHINE 4 MG/ML SYR IV PRN ×5 (02:54→20:49)
[2019-08-22] MEDS: NA CHLORIDE 0.9% 1,000 ML IV SCH ×3 (04:20→16:30)
[2019-08-22 05:27] LABS: Absolute Lymphocytes (CBC) 1.1 K/uL (0.7-4.9); Basophils % 0.1 % (0-1.3); Hematocrit 33.2 % (39.6-49.0); MPV 9.1 fL (7.6-11.3); RBC Red Blood Cell Count 3.74 M/uL (4.33-5.43)
[2019-08-22] MEDS: INSULIN -REGULAR HUMAN 50 UNIT/0.5 ML ML IV SCH ×3 (06:00→19:30)
[2019-08-22] MEDS: ONDANSETRON 4 MG/2 ML VIAL IV PRN ×3 (07:25→20:49)
[2019-08-22 07:34] LABS: Magnesium 1.7 mg/dL (1.8-2.4); Phosphorus 2.6 mg/dL (2.5-4.9)
[2019-08-22] MEDS ORDERED: INSULIN -REGULAR HUMAN 50 UNIT/0.5 ML ML IV ONE (08:17)
[2019-08-22] MEDS ORDERED: D50W 25 GM/50 ML SYRINGE/VIAL IV PRN (08:17)
[2019-08-22] MEDS ORDERED: D50W 25 GM/50 ML SYRINGE/VIAL IV ONE (08:17)
[2019-08-22] MEDS ORDERED: GLUCAGON 1 MG/VIAL IM PRN (08:17)
[2019-08-22 08:18] LABS: Blood Morphology Comment NOT SEEN (NOT SEEN); Platelet Estimate ADEQ
[2019-08-22] MEDS ORDERED: CALCIUM GLUC 10% INJ 4.65 MEQ in NA CHLORIDE 0.9% 100 ML IV ONE (08:30)
[2019-08-22] MEDS ORDERED: MAGNESIUM SULFATE 1 gm IVPB 1 GM/100 ML BAG IV ONE (08:49)
[2019-08-22] MEDS ORDERED: FUROSEMIDE 20 MG/ 2ML VIAL IV ONE (10:03)
[2019-08-22] MEDS ORDERED: ALBUTEROL 2.5 MG/3 ML NEB SOL NEB ONE (10:03)
[2019-08-22] MEDS ORDERED: ALBUTEROL 2.5 MG/3 ML NEB SOL ONE (10:16)
--- NOTE | 2019-08-22 10:22 | P.CNS ---
Date of Consult: 08/22/19 Reason for Consult: TRAV , hyperkalemia Chief Complaint: Abdominal pain History of Present Illness: A 44-year-old man with PMHx of DM on insulin presented with abdominal pain , found to have perforated appendix went for lap appendectomy and adhesion lysis hospital course complicated by Trav and hyperkalmeia, K of 6.0 non oliguric denied , fever , chills , chest pain or palpitation No NSAID or contrast exposure Physical exam general: AAOX3, in mild distress Neck; Supple, No elevated JVD hear: RRR, normal S1,2 no murmur or rub Chest: CTAB, no rlaes or wheezes Abdomen: Soft , mildly tender, with drainage tubes Extremities No edema or ulcer A/P TRAV possibly due septic ATN cont IVF non oliguric will order US renal dose meds Hyperkalmeia due to TRAV and anesthesia monitoring and evaluation advisor change fluid to bicarb drip , will give lasix X1 and albuterol cant give kaeyxalate if K cont to be elevated then pt might need duarte dialysis DM as per primary perforated apeendix S/P lap appendectomy and adhesion lysis Allergies dairy products Adverse Reaction (Uncoded 08/21/19 06:37) Nausea/Vomiting Home Medications: Cyclobenzaprine [Flexeril] 10 mg PO BID PRN 08/21/19 Insulin Glargine,Hum.rec.anlog [Lantus] 60 unit SQ DAILY 08/21/19 Levothyroxine [Synthroid] 50 mcg PO [id number] 08/21/19 Linagliptin [Tradjenta] 5 mg PO DAILY 08/21/19 Lisinopril [Zestril] 20 mg PO DAILY 08/21/19 Pioglitazone HCl 30 mg PO DAILY 08/21/19 - Past Medical/Surgical History Diabetic: Yes -: Diabetes mellitus type 2 -: Chronic back pain -: Visual disturbance -: Eye surgery - Family History Mother Medical History: Diabetes Father Medical History: Diabetes - Social History Alcohol use: No CD- Drugs: No Caffeine use: No Place of Residence: Home Physical Examination Temp Pulse Resp BP Pulse Ox 98.1 F 113 H 26 H 106/65 99 08/22/19 04:00 08/22/19 09:00 08/22/19 09:00 08/22/19 09:00 08/22/19 09:00
[2019-08-22] MEDS ORDERED: NACHLORIDE 0.45% 1,000 ML with NA BICARB 8.4% 75 MEQ IV SCH ×2 (11:00)
[2019-08-22] MEDS: VANCOMYCIN 1.75 GM in NA CHLORIDE 0.9% 500 ML IVPB SCH ×2 (11:00→16:37)
--- NOTE | 2019-08-22 11:25 | P.PN ---
Subjective Date of Service: 08/22/19 Chief Complaint: Abdominal pain Subjective: No new changes, Other (Feeling better pain controlled) Review of Systems 10-point ROS is otherwise unremarkable Physical Examination - Vital Signs Temperature: 98.1 F Blood Pressure: 111/66 Pulse: 129 Respirations: 100 Pulse Ox (%): 98 - Physical Exam General: Alert, In no apparent distress HEENT: Atraumatic, Normocephalic Neck: Supple, 2+ carotid pulse no bruit Respiratory: Clear to auscultation bilaterally Cardiovascular: Normal pulses, Regular rate/rhythm Capillary refill: <2 Seconds Gastrointestinal: Other (Decreased bowel sounds), Tenderness Musculoskeletal: No swelling Integumentary: No rashes, No breakdown Neurological: Normal speech, Normal strength at 5/5 x4 extr Lymphatics: No axilla or inguinal lymphadenopathy External genitalia: Deferred Rectal: Deferred Assessment & Plan - Problems (Diagnosis) (1) Ruptured suppurative appendicitis Current Visit: Yes Status: Acute (2) Acute appendicitis Current Visit: Yes Status: Acute (3) DM type 2 (diabetes mellitus, type 2) Current Visit: Yes Status: Chronic (4) Acute kidney injury Current Visit: Yes Status: Acute (5) Hyperkalemia Current Visit: Yes Status: Acute Plan: Acute perforated appendicitis with intrabdominal abscess s/p Emergent laparoscopic appendectomy for perforated appendix and Evacuation of intrabdominal abscess Diabetes Acute kidney injury Hyperkalemia Plan Admit to ICU Agrressive Fluid resuscitation Broad-spectrum IV antibiotics Serial lactic acid levels may need to start on pressors if needed Appreciate help from Surgery Appreciated from ID and nephrology IV hydration Antihyperkalemic measures Monitori renal parameters GI/DVT prophylaxis Time Spent Managing Pts Care (In Minutes): 43
[2019-08-22 11:30] LABS: Magnesium 2.2 mg/dL (1.8-2.4); Potassium 4.1 mmol/L (3.5-5.1)
--- NOTE | 2019-08-22 12:33 | CON ---
History Of Present Illness: This is a 44-year-old gentleman coming in with appendix rupture. The jose angel thomson already had surgical intervention done. Patient on CT scan initially showed has acute appendic itis with thickening of appendix with likely microperforation. Patient also has hepatic steatosis. His initial white blood cell was 11.3, now it is 22.4. Patient is currently being treated with Flagy l, which was started yesterday and he is also on Zosyn 3.375 g IV q.8 hours and vancomycin 1.75 g erika ry 18 hours. Patient has significant history of diabetes mellitus. Denies any history of cancer or any kind of chemical exposures. The patient was seen by surgical team yesterday and found out that o n surgical intervention, the patient had ottoniel pus in the lower quadrant, cleaned the wound in the ab domen with 9 L of normal saline and pus was also noted. The patient right now has 2 MIGUEL drains, not o n any vasopressors at this time. Currently being treated with vancomycin, Zosyn and Flagyl. Past Medical History: Diabetes mellitus, hypertension, and hypothyroidism. No history of any immuno suppression or cancer or chemotherapy. Social History: Nonsmoker, nondrinker. Family History: Noncontributory. Medications: Vancomycin, Zosyn, and Flagyl. See MAR for other medications. Allergies: NO ANTIBIOTIC ALLERGIES NOTED. Review of Systems: A 10-point review was performed. Physical Examination: General/Vital Signs: This is a 44-year-old male, lying in bed, not in any acute distress at this samuel e except heart rate of 113, respirations 24. No fevers. Blood pressure 106/65 without any vasopress ors. Abdomen: Shows surgical wounds with dilma in place and 2 MIGUEL drains, 1 in left quadrant, 1 in his s uprapubic region, both draining well with serosanguineous fluid in them. Abdomen soft, nontender. B owel sounds present. Genitourinary: Patient also has a Champion catheter, which has normal color urine. HEENT: Unremarkable. Neck: Supple. Lungs: Clear to auscultation. Heart: S1, S2. Regular. Extremities: No edema. Laboratory Data: Shows WBC 22,400, hemoglobin 10.7, platelets are 284. Chemistry shows sodium 143, potassium 6, chloride 114, bicarb 23, BUN 13, creatinine 1.5, glucose is 230, total bilirubin is 1.7. Cultures are showing no growth in the last 24 hours for blood and abdominal wound cultures are pend ing. CT of abdomen as discussed in the H and P. Assessment And Plan: Status post ruptured appendix and appendicitis. Patient with leukocytosis in a 44-year-old male with significant history of diabetes mellitus and possible neuropathy. The patient remained under the criteria of sepsis. We will continue empiric treatment with vancomycin, Flagyl, and Zosyn pending culture results. Continue supportive care. Repeat CT scan if not improved. We wi ll follow the patient closely. Thank you, Dr. Christian and Dr. Salcido, for consult. NF/MODL Voice ID: [id number] Report ID: [id number]
[2019-08-22 15:05] LABS: Potassium 4.7 mmol/L (3.5-5.1)
[2019-08-23] MEDS: METRONIDAZOLE 500mg IVPB 500 MG/100 ML BAG IV SCH ×2 (00:05→09:37)
[2019-08-23] MEDS: PIPER/TAZO/NS 3.375gm 3.375 GM/100 ML BAG IVPB SCH ×3 (00:06→17:14)
[2019-08-23] MEDS: NA CHLORIDE 0.9% 1,000 ML IV SCH ×4 (00:40→21:19)
[2019-08-23] MEDS: MORPHINE 4 MG/ML SYR IV PRN ×5 (00:41→21:18)
[2019-08-23] MEDS: ONDANSETRON 4 MG/2 ML VIAL IV PRN ×4 (00:41→21:19)
--- NOTE | 2019-08-23 02:44 | DS ---
Diagnoses: Diabetes and morbid obesity, perforated appendicitis with intraabdominal abscess, periton itis. Physical Examination: Vital Signs: Reviewed. General: The patient is awake and alert, communicative. Chest: Bilateral breath sounds. Abdomen: Intact surgical site. Bowel sounds negative. MIGUEL drain serosanguineous. Extremities: Good capillary refill. Laboratory Data: WBC count of 22.4, hemoglobin of 10.7 with a potassium of 4.1, creatinine is 1.6. Cultures still pending. Plan: We expect this patient to be septic that is why we have a close followup in intensive care [facility]. We discussed that with the primary doctor and also his Infectious Disease doctor. The next 3 day s will be some important days and we hope he just can make through all this one without any other pro blems. We encouraged ambulation, incentive spirometry. We are going to follow up the cultures from the abdomen, hydration. We are going to hold diet. We should not be using antacids at this moment. It is okay with medications by mouth and probably a sip of water, but we should not overwhelm the sy stem too much. We are going to continue with the MIGUEL drain. DVT and GI prophylaxis. HM/MODL Voice ID: [id number] Report ID: [id number]
[2019-08-23] MEDS: INSULIN -REGULAR HUMAN 50 UNIT/0.5 ML ML IV SCH ×5 (05:41→23:54)
[2019-08-23 06:22] VITALS: BMI 37.4
[2019-08-23 07:00] LABS: Absolute Lymphocytes (CBC) 0.9 K/uL (0.7-4.9); Basophils % 0.3 % (0-1.3); Hematocrit 33.6 % (39.6-49.0); Lymphocytes % 4.4 % (15.3-44.8); MPV 8.8 fL (7.6-11.3); RBC Red Blood Cell Count 3.79 M/uL (4.33-5.43)
[2019-08-23 09:22] LABS: Albumin 2.2 g/dL (3.4-5.0); Bilirubin Total 0.4 mg/dL (0.2-1.0); Potassium 4.5 mmol/L (3.5-5.1); Protein, Total 6.6 g/dL (6.4-8.2)
--- NOTE | 2019-08-23 10:24 | P.PN ---
Subjective Date of Service: 08/23/19 Chief Complaint: Abdominal pain Subjective: Improving (Pain is controlled well ambulating) Review of Systems 10-point ROS is otherwise unremarkable Physical Examination - Vital Signs Temperature: 98.2 F Blood Pressure: 134/71 Pulse: 120 Respirations: 18 Pulse Ox (%): 92 - Physical Exam General: Alert, In no apparent distress, Oriented x3 HEENT: Atraumatic, Normocephalic Neck: Supple Respiratory: Clear to auscultation bilaterally, Normal air movement Cardiovascular: Other (Tachycardia) Capillary refill: <2 Seconds Gastrointestinal: Other (Dressing intact), Distended, Tenderness Musculoskeletal: No clubbing, No swelling Integumentary: No rashes Neurological: Normal speech, Normal strength at 5/5 x4 extr Lymphatics: No axilla or inguinal lymphadenopathy External genitalia: Deferred Rectal: Deferred - Studies Laboratory Last Values WBC 20.9 K/uL (4.3-10.9) H* 08/23/19 06:12 RBC 3.79 M/uL (4.33-5.43) L 08/23/19 06:12 Hgb 11.1 g/dL (13.6-17.9) L 08/23/19 06:12 Hct 33.6 % (39.6-49.0) L 08/23/19 06:12 MCV 88.8 fL (80-100) 08/23/19 06:12 MCH 29.3 pg (27.0-35.0) 08/23/19 06:12 MCHC 33.0 g/dL (32.0-36.0) 08/23/19 06:12 RDW 14.5 % (12.1-15.2) 08/23/19 06:12 Plt Count 273 K/uL (152-406) 08/23/19 06:12 MPV 8.8 fL (7.6-11.3) 08/23/19 06:12 Neutrophils % 91.2 % (41.7-73.7) H 08/23/19 06:12 Lymphocytes % 4.4 % (15.3-44.8) L 08/23/19 06:12 Monocytes % 4.0 % (3.3-12.3) 08/23/19 06:12 Eosinophils % 0.1 % (0-4.4) 08/23/19 06:12 Basophils % 0.3 % (0-1.3) 08/23/19 06:12 Absolute Neutrophils 19.0 K/uL (1.8-8.0) H 08/23/19 06:12 Segmented Neutrophils 88 % (40-80) H 08/22/19 04:28 Band Neutrophils 4 % (0-1) H 08/22/19 04:28 Absolute Lymphocytes 0.9 K/uL (0.7-4.9) 08/23/19 06:12 Lymphocytes 6 % (15-42) L 08/22/19 04:28 Monocytes 2 % (0-10) 08/22/19 04:28 Absolute Monocytes 0.8 K/uL (0.1-1.3) 08/23/19 06:12 Absolute Eosinophils 0.0 K/uL (0-0.5) 08/23/19 06:12 Absolute Basophils 0.1 K/uL (0-0.5) 08/23/19 06:12 Morphology Comment Not seen (NOT SEEN) 08/22/19 04:28 Sodium 140 mmol/L (136-145) 08/23/19 08:57 Potassium 4.5 mmol/L (3.5-5.1) 08/23/19 08:57 Chloride 111 mmol/L (98-107) H 08/23/19 08:57 Carbon Dioxide 21 mmol/L (21-32) 08/23/19 08:57 BUN 11 mg/dL (7-18) 08/23/19 08:57 Creatinine 1.22 mg/dL (0.55-1.3) 08/23/19 08:57 Estimated GFR 65 mL/min (=/>90) L 08/23/19 08:57 Glucose 204 mg/dL (74-106) H 08/23/19 08:57 POC Glucose 196 mg/dl (65-120) H 08/23/19 07:45 Lactic Acid 1.3 mmol/L (0.4-2.0) 08/23/19 08:57 Calcium 8.6 mg/dL (8.5-10.1) 08/23/19 08:57 Phosphorus 2.6 mg/dL (2.5-4.9) 08/22/19 06:45 Magnesium 2.0 mg/dL (1.8-2.4) 08/22/19 14:38 Total Bilirubin 0.4 mg/dL (0.2-1.0) 08/23/19 08:57 Direct Bilirubin < 0.1 mg/dL (0-0.2) 08/21/19 01:00 AST 20 U/L (15-37) 08/23/19 08:57 ALT 51 U/L (12-78) 08/23/19 08:57 Alkaline Phosphatase 67 U/L (45-117) 08/23/19 08:57 Lactate Dehydrogenase Cancelled 08/22/19 10:28 Serum Total Protein 6.6 g/dL (6.4-8.2) 08/23/19 08:57 Albumin 2.2 g/dL (3.4-5.0) L 08/23/19 08:57 Globulin 4.4 g/dL (2.3-3.5) H 08/23/19 08:57 Albumin/Globulin Ratio 0.5 (1.1-1.8) L 08/23/19 08:57 Lipase 172 U/L (73-393) 08/21/19 01:00 Procalcitonin 13.23 ng/mL (<0.50) H 08/22/19 10:44 Urine Color Yellow 08/21/19 07:25 Urine Appearance Clear 08/21/19 07:25 Urine pH 7.5 (5.0-7.0) H 08/21/19 07:25 Ur Specific [place] <=1.005 (1.005-1.030) 08/21/19 07:25 Glucose (UA)(Auto) Negative (NEG) 08/21/19 07:25 Urine Ketones Negative (NEG) 08/21/19 07:25 Urine Blood Negative (NEG) 08/21/19 07:25 Urine Nitrite Negative (NEG) 08/21/19 07:25 Urine Bilirubin Negative (NEG) 08/21/19 07:25 Urine Urobilinogen 0.2 mg/dL (0.2-1.0) 08/21/19 07:25 Ur Leukocyte Esterase Negative (NEG) 08/21/19 07:25 Urine Total Protein Negative (NEG) 08/21/19 07:25 Assessment & Plan - Problems (Diagnosis) (1) Ruptured suppurative appendicitis Current Visit: Yes Status: Acute (2) Acute appendicitis Current Visit: Yes Status: Acute (3) DM type 2 (diabetes mellitus, type 2) Current Visit: Yes Status: Chronic Qualifiers: Diabetes mellitus complication status: with other specified complication (4) Acute kidney injury Current Visit: Yes Status: Acute (5) Hyperkalemia Current Visit: Yes Status: Acute Plan: Acute perforated appendicitis with intrabdominal abscess s/p Emergent laparoscopic appendectomy for perforated appendix and Evacuation of intrabdominal abscess Diabetes Acute kidney injury Hyperkalemia Plan Getting better Not on any pressors NPO status IV fluids continue Agrressive Fluid resuscitation Broad-spectrum IV antibiotics Serial lactic acid levels Appreciate help from Surgery Appreciated from ID and nephrology Monitor electrolytes and replace as needed Monitori renal parameters Advice ambulation Incentive spirometry GI/DVT prophylaxis Time Spent Managing Pts Care (In Minutes): 42
[2019-08-23] MEDS ORDERED: ALBUMIN HUMAN 25% 200 ML IV ONE ×2 (14:00→15:00)
--- NOTE | 2019-08-23 14:12 | P.PN ---
Subjective Date of Service: 08/23/19 Chief Complaint: Abdominal pain Subjective A 44-year-old man with PMHx of DM on insulin found to have perforated appendix Nephrology consulted for Trav and hyperkalmeia, K of 6.0 today tachycardic good UO cr near normal , K normalized Cont IVF Allergies dairy products Adverse Reaction (Uncoded 08/21/19 06:37) Nausea/Vomiting - Past Medical/Surgical History Diabetic: Yes -: Diabetes mellitus type 2 -: Chronic back pain -: Visual disturbance -: Eye surgery - Family History Mother Medical History: Diabetes Father Medical History: Diabetes - Social History Alcohol use: No CD- Drugs: No Caffeine use: No Place of Residence: Home Physical exam general: AAOX3, in mild distress Neck; Supple, No elevated JVD hear: tachycardia , normal S1,2 no murmur or rub Chest: CTAB, no rlaes or wheezes Abdomen: Soft , mildly tender, with drainage tubes Extremities No edema or ulcer A/P TRAV resolved Due to dehydration and ATN cont IVF non oliguric renal dose meds Hyperkalmeia due to TRAV and anesthesia resolved DM as per primary perforated appendix S/P lap appendectomy and adhesion lysis pain control Physical Examination - Vital Signs Temperature: 98.4 F Blood Pressure: 130/72 Pulse: 112 Respirations: 18 Pulse Ox (%): 92
--- NOTE | 2019-08-23 15:47 | PN ---
Subjective: Patient is lying in bed. It is day 2 status post surgical intervention for ruptured appendicitis. Patient with no fevers. Heart rate is slightly better 110 to 115. No vasopressors. Objective: Vital Signs: Temperature 98.2, pulse 115, blood pressure 134/71, respirations 18. GI: Abdominal wound shows no discharge. MIGUEL drains in place. Continue to drain. Champion catheter in place. Right-sided peripheral line in place. Patient is able to tolerate medication well and passing gas. Laboratory Data: Shows WBC 20,900, hemoglobin 9.1, platelets 273. Chemistry shows sodium 140, potassium 4.5, chloride 111, bicarb 21, BUN is 11, creatinine 1.22, glucose is 204, albumin is 2.2. Assessment And Plan: Status post appendix rupture and surgical intervention. Patient is doing better. Continue to have leukocytosis. We will deescalate antibiotic to Zosyn and vancomycin as patient's cultures are growing Escherichia coli, possibly discontinue vancomycin if the patient continued to improve. Consider IV nutrition while waiting for GI tract to start working as patient's albumin levels are 2.2. We will follow the patient closely. NF/MODL Voice ID: [id number] Report ID: [id number]
[2019-08-23] MEDS: VANCOMYCIN 1.75 GM in NA CHLORIDE 0.9% 500 ML IVPB SCH (17:50)
[2019-08-24] MEDS: FAMOTIDINE 20 MG/2 ML VIAL IV SCH ×3 (00:04→20:22)
[2019-08-24] MEDS: PIPER/TAZO/NS 3.375gm 3.375 GM/100 ML BAG IVPB SCH ×3 (00:10→18:16)
[2019-08-24] MEDS: MORPHINE 4 MG/ML SYR IV PRN ×4 (01:17→16:44)
[2019-08-24] MEDS ORDERED: VANCOMYCIN 1.75 GM in NA CHLORIDE 0.9% 500 ML IVPB SCH (05:00)
[2019-08-24] MEDS: NA CHLORIDE 0.9% 1,000 ML IV SCH ×4 (05:06→23:35)
[2019-08-24] MEDS: ONDANSETRON 4 MG/2 ML VIAL IV PRN ×2 (05:07→11:56)
[2019-08-24] MEDS: INSULIN -REGULAR HUMAN 50 UNIT/0.5 ML ML IV SCH ×2 (05:29→11:59)
[2019-08-24 05:59] LABS: Absolute Lymphocytes (CBC) 1.5 K/uL (0.7-4.9); Basophils % 0.5 % (0-1.3); Hematocrit 30.5 % (39.6-49.0); Lymphocytes % 7.9 % (15.3-44.8)
[2019-08-24 07:17] LABS: Blood Morphology Comment NOT SEEN (NOT SEEN); Platelet Estimate ADEQ; Urine White Blood Cell Casts OK
--- NOTE | 2019-08-24 10:16 | P.PN ---
Subjective Date of Service: 08/24/19 Chief Complaint: Abdominal pain Subjective: Improving (Denies nausea / vomiting) Review of Systems 10-point ROS is otherwise unremarkable Physical Examination - Vital Signs Temperature: 97.3 F Blood Pressure: 157/90 Pulse: 101 Respirations: 21 Pulse Ox (%): 93 - Physical Exam General: Alert, In no apparent distress HEENT: Atraumatic, Normocephalic Neck: Supple Respiratory: Clear to auscultation bilaterally Cardiovascular: No edema, Regular rate/rhythm Capillary refill: <2 Seconds Gastrointestinal: Tenderness Musculoskeletal: No clubbing, No swelling Integumentary: No rashes Neurological: Normal speech, Normal strength at 5/5 x4 extr Lymphatics: No axilla or inguinal lymphadenopathy External genitalia: Deferred Rectal: Deferred - Studies Laboratory Last Values WBC 19.2 K/uL (4.3-10.9) H 08/24/19 05:26 RBC 3.50 M/uL (4.33-5.43) L 08/24/19 05:26 Hgb 9.9 g/dL (13.6-17.9) L 08/24/19 05:26 Hct 30.5 % (39.6-49.0) L 08/24/19 05:26 MCV 87.0 fL (80-100) 08/24/19 05:26 MCH 28.3 pg (27.0-35.0) 08/24/19 05:26 MCHC 32.6 g/dL (32.0-36.0) 08/24/19 05:26 RDW 14.5 % (12.1-15.2) 08/24/19 05:26 Plt Count 288 K/uL (152-406) 08/24/19 05:26 MPV 9.0 fL (7.6-11.3) 08/24/19 05:26 Neutrophils % 85.9 % (41.7-73.7) H 08/24/19 05:26 Lymphocytes % 7.9 % (15.3-44.8) L 08/24/19 05:26 Monocytes % 4.9 % (3.3-12.3) 08/24/19 05:26 Eosinophils % 0.8 % (0-4.4) 08/24/19 05:26 Basophils % 0.5 % (0-1.3) 08/24/19 05:26 Absolute Neutrophils 16.5 K/uL (1.8-8.0) H 08/24/19 05:26 Segmented Neutrophils 88 % (40-80) H 08/22/19 04:28 Band Neutrophils 4 % (0-1) H 08/22/19 04:28 Absolute Lymphocytes 1.5 K/uL (0.7-4.9) 08/24/19 05:26 Lymphocytes 6 % (15-42) L 08/22/19 04:28 Monocytes 2 % (0-10) 08/22/19 04:28 Absolute Monocytes 0.9 K/uL (0.1-1.3) 08/24/19 05:26 Absolute Eosinophils 0.1 K/uL (0-0.5) 08/24/19 05:26 Absolute Basophils 0.1 K/uL (0-0.5) 08/24/19 05:26 Morphology Comment Not seen (NOT SEEN) 08/24/19 05:26 Sodium 142 mmol/L (136-145) 08/24/19 05:20 Potassium 4.0 mmol/L (3.5-5.1) 08/24/19 05:20 Chloride 112 mmol/L (98-107) H 08/24/19 05:20 Carbon Dioxide 21 mmol/L (21-32) 08/24/19 05:20 BUN 11 mg/dL (7-18) 08/24/19 05:20 Creatinine 1.06 mg/dL (0.55-1.3) 08/24/19 05:20 Estimated GFR 76 mL/min (=/>90) L 08/24/19 05:20 Glucose 166 mg/dL (74-106) H 08/24/19 05:20 POC Glucose 167 mg/dl (65-120) H 08/24/19 11:09 Lactic Acid 0.9 mmol/L (0.4-2.0) 08/24/19 07:36 Calcium 8.2 mg/dL (8.5-10.1) L 08/24/19 05:20 Phosphorus 2.6 mg/dL (2.5-4.9) 08/22/19 06:45 Magnesium 2.0 mg/dL (1.8-2.4) 08/22/19 14:38 Total Bilirubin 0.4 mg/dL (0.2-1.0) 08/23/19 08:57 Direct Bilirubin < 0.1 mg/dL (0-0.2) 08/21/19 01:00 AST 20 U/L (15-37) 08/23/19 08:57 ALT 51 U/L (12-78) 08/23/19 08:57 Alkaline Phosphatase 67 U/L (45-117) 08/23/19 08:57 Lactate Dehydrogenase Cancelled 08/22/19 10:28 Serum Total Protein 6.6 g/dL (6.4-8.2) 08/23/19 08:57 Albumin 2.2 g/dL (3.4-5.0) L 08/23/19 08:57 Globulin 4.4 g/dL (2.3-3.5) H 08/23/19 08:57 Albumin/Globulin Ratio 0.5 (1.1-1.8) L 08/23/19 08:57 Lipase 172 U/L (73-393) 08/21/19 01:00 Procalcitonin 13.23 ng/mL (<0.50) H 08/22/19 10:44 Urine Color Yellow 08/21/19 07:25 Urine Appearance Clear 08/21/19 07:25 Urine pH 7.5 (5.0-7.0) H 08/21/19 07:25 Ur Specific [place] <=1.005 (1.005-1.030) 08/21/19 07:25 Glucose (UA)(Auto) Negative (NEG) 08/21/19 07:25 Urine Ketones Negative (NEG) 08/21/19 07:25 Urine Blood Negative (NEG) 08/21/19 07:25 Urine Nitrite Negative (NEG) 08/21/19 07:25 Urine Bilirubin Negative (NEG) 08/21/19 07:25 Urine Urobilinogen 0.2 mg/dL (0.2-1.0) 08/21/19 07:25 Ur Leukocyte Esterase Negative (NEG) 08/21/19 07:25 Urine Total Protein Negative (NEG) 08/21/19 07:25 Vancomycin Trough 6.6 ug/mL (5.0-20.0) 08/23/19 16:00 Assessment & Plan - Problems (Diagnosis) (1) Ruptured suppurative appendicitis Current Visit: Yes Status: Acute (2) Acute appendicitis Current Visit: Yes Status: Acute (3) DM type 2 (diabetes mellitus, type 2) Current Visit: Yes Status: Chronic Plan: Acute perforated appendicitis with intrabdominal abscess s/p Emergent laparoscopic appendectomy for perforated appendix and Evacuation of intrabdominal abscess Diabetes Hypotension Plan On Broad-spectrum IV antibiotics Appreciate help from surgery and ID Advised ambulation Culture positive for E. coli GI/DVT prophylaxis Will start on clear liquid diet if okay with surgery Incentive spirometry Qualifiers: Diabetes mellitus complication status: with other specified complication (4) Acute kidney injury Current Visit: Yes Status: Acute (5) Hyperkalemia Current Visit: Yes Status: Acute Plan: Acute perforated appendicitis with intrabdominal abscess s/p Emergent laparoscopic appendectomy for perforated appendix and Evacuation of intrabdominal abscess Diabetes Acute kidney injury Hyperkalemia Plan Getting better Not on any pressors NPO status IV fluids continue Agrressive Fluid resuscitation Broad-spectrum IV antibiotics Serial lactic acid levels Appreciate help from Surgery Appreciated from ID and nephrology Monitor electrolytes and replace as needed Monitori renal parameters Advice ambulation Incentive spirometry GI/DVT prophylaxis Time Spent Managing Pts Care (In Minutes): 42
--- NOTE | 2019-08-24 12:57 | P.PN ---
Subjective Date of Service: 08/24/19 Chief Complaint: Abdominal pain Subjective A 44-year-old man with PMHx of DM on insulin found to have perforated appendix Nephrology consulted for Trav and hyperkalmeia, K of 6.0 today still tachycardic good UO , will remove wilkes Cont IVF diet advanced Allergies dairy products Adverse Reaction (Uncoded 08/21/19 06:37) Nausea/Vomiting - Past Medical/Surgical History Diabetic: Yes -: Diabetes mellitus type 2 -: Chronic back pain -: Visual disturbance -: Eye surgery - Family History Mother Medical History: Diabetes Father Medical History: Diabetes - Social History Alcohol use: No CD- Drugs: No Caffeine use: No Place of Residence: Home Physical exam general: AAOX3, in mild distress Neck; Supple, No elevated JVD hear: tachycardia , normal S1,2 no murmur or rub Chest: CTAB, no rlaes or wheezes Abdomen: Soft , mildly tender, with drainage tubes Extremities No edema or ulcer A/P TRAV resolved Due to dehydration and ATN cont IVF non oliguric renal dose meds Hyperkalmeia due to TRAV and anesthesia resolved DM as per primary perforated appendix S/P lap appendectomy and adhesion lysis pain control Physical Examination - Vital Signs Temperature: 97.3 F Blood Pressure: 157/90 Pulse: 101 Respirations: 21 Pulse Ox (%): 93
[2019-08-24] MEDS: VANCOMYCIN 1.75 GM in NA CHLORIDE 0.9% 500 ML IVPB SCH (14:08)
[2019-08-24] MEDS ORDERED: GLUCAGON 1 MG/VIAL IM PRN (16:26)
[2019-08-24] MEDS ORDERED: D50W 25 GM/50 ML SYRINGE/VIAL IV PRN (16:26)
[2019-08-24] MEDS: INSULIN -REGULAR HUMAN 50 UNIT/0.5 ML ML SQ SCH ×2 (16:32→20:22)
[2019-08-25] MEDS: PIPER/TAZO/NS 3.375gm 3.375 GM/100 ML BAG IVPB SCH ×3 (00:24→16:01)
[2019-08-25] MEDS: MORPHINE 4 MG/ML SYR IV PRN ×3 (00:24→23:27)
[2019-08-25] MEDS: ONDANSETRON 4 MG/2 ML VIAL IV PRN ×3 (00:38→23:27)
[2019-08-25] MEDS: VANCOMYCIN 1.75 GM in NA CHLORIDE 0.9% 500 ML IVPB SCH (04:21)
[2019-08-25] MEDS: NA CHLORIDE 0.9% 1,000 ML IV SCH (05:40)
[2019-08-25 06:44] LABS: Magnesium 1.6 mg/dL (1.8-2.4); Phosphorus 1.8 mg/dL (2.5-4.9); Potassium 3.5 mmol/L (3.5-5.1)
[2019-08-25] MEDS ORDERED: MAGNESIUM SULFATE 1 gm IVPB 1 GM/100 ML BAG IV ONE (08:00)
[2019-08-25] MEDS: INSULIN -REGULAR HUMAN 50 UNIT/0.5 ML ML SQ SCH ×4 (08:03→20:18)
[2019-08-25] MEDS: FAMOTIDINE 20 MG/2 ML VIAL IV SCH ×2 (08:03→20:18)
[2019-08-25] MEDS: POTASS/SODIUM PHOSPHATE 1 PKT POWD.PACK PO SCH ×3 (08:03→10:18)
[2019-08-25] MEDS ORDERED: POTASSIUM CL SA 10 MEQ TAB PO ONE (09:00)
[2019-08-25] MEDS: NACHLORIDE 0.45% 1,000 ML IV SCH ×3 (10:17→22:45)
[2019-08-25 11:24] LABS: Potassium 3.6 mmol/L (3.5-5.1)
--- NOTE | 2019-08-25 12:00 | P.PN ---
Subjective Date of Service: 08/25/19 Chief Complaint: Abdominal pain No major changes from yesterday. He reports less abdomen. He reports passing gas but no bowel movement. He is ambulatory. No recorded fever. Physical Examination - Vital Signs Temperature: 97.9 F Blood Pressure: 155/77 Pulse: 87 Respirations: 15 Pulse Ox (%): 96 - Physical Exam General: Alert, In no apparent distress, Oriented x3 HEENT: Mucous membr. moist/pink, Sclerae nonicteric Neck: Supple Respiratory: Clear to auscultation bilaterally, Normal air movement Cardiovascular: No edema, Regular rate/rhythm, Normal S1 S2 Gastrointestinal: Normal bowel sounds, Tenderness Musculoskeletal: No swelling, No erythema Integumentary: No rashes Neurological: Normal speech, Normal strength at 5/5 x4 extr, Cranial nerves 3- 12 intact Assessment And Plan - Current Problems (Diagnosis) (1) Acute appendicitis Current Visit: Yes Status: Acute (2) DM type 2 (diabetes mellitus, type 2) Current Visit: Yes Status: Chronic Qualifiers: Diabetes mellitus complication status: with other specified complication (3) Dyskinesia of gallbladder Current Visit: Yes Status: Acute (4) Chronic abdominal pain Current Visit: Yes Status: Chronic (5) Intra-abdominal abscess Current Visit: Yes Status: Acute (6) Ruptured suppurative appendicitis Current Visit: Yes Status: Acute - Plan Status post laparoscopic appendectomy, removal of gangrenous appendix and he had a question of intra-abdominal abscess. Pansensitive E. coli isolated from the abdomen. Leukocytosis persists. Continue IV Zosyn. Patient will need at least 1 week of IV antibiotics. He is tolerating liquid diet. IV morphine p.r.n. for pain General surgery-Dr. Christian is following. Glucose management with insulin sliding scale. Continue IV hydration. Follow CBC and renal function.
--- NOTE | 2019-08-25 18:46 | PN ---
Subjective: Patient is lying in bed. No new complaints. Denies any headache, nausea, vomiting, b[address] st pain, abdominal pain, constipation, or diarrhea. Objective: Vital Signs: Temperature 97.9, pulse 87, respirations 15, blood pressure 103/57. Lungs: Basal crackles. Heart: S1, S2. Regular. Abdomen: Bowel sounds present. Extremities: No edema. Laboratory Data: Shows WBC 19.3, hemoglobin 9.9, platelets are 288. Chemistry shows sodium 140, pot assium 3.6, chloride 111, bicarb 23, BUN 9, creatinine 1, glucose 276. Micro data, E coli from the u rine cultures. Patient is currently on Zosyn. Assessment And Plan: Status post appendectomy for appendicitis and appendix rupture. Patient is doi ng better. Continue current antibiotic. Consider long-term acute care. MIGUEL drains in place. Contin ue supportive care and wound care. We will follow the patient as needed. NF/MODL Voice ID: [id number] Report ID: [id number]
--- NOTE | 2019-08-25 23:25 | PN ---
Date of Progress Note: 08/25/2019 Chief Complaint: Diabetes mellitus with renal manifestation, acute kidney injury with hyperkalemia. History: Patient came to the hospital because of generalized weakness. Patient has a Champion catheter . Patient was found to have hyperkalemia and potassium of 6.0. He was treated medically for hyperka lemia. Patient has a urine output and is on IV fluids. Review of Systems: Denies fevers, chills. Physical Examination: Lungs: Clear to auscultation bilaterally. Heart: S1-S2. Abdomen: Soft, benign. Extremities: Slight edema. Impression And Plan: 1.Acute kidney, renal function has improved. Patient developed volume depletion and dehydration and patient was found to have nonoliguric acute tubular necrosis. Continue IV fluids. Adjust medicatio n to renal dose. 2.Hyperkalemia due to acute kidney injury, resolved. Monitor potassium level and magnesium level. 3.Diabetes mellitus. Continue insulin. 4.Perforated appendix status post appendectomy. Management by primary team and surgical team. CANDI/JESENIA Voice ID: [id number] Report ID: [id number]
[2019-08-26] MEDS: PIPER/TAZO/NS 3.375gm 3.375 GM/100 ML BAG IVPB SCH ×3 (00:35→18:44)
[2019-08-26] MEDS: ONDANSETRON 4 MG/2 ML VIAL IV PRN (05:21)
[2019-08-26] MEDS: MORPHINE 4 MG/ML SYR IV PRN ×3 (05:22→21:34)
[2019-08-26 05:45] LABS: Absolute Lymphocytes (CBC) 1.4 K/uL (0.7-4.9); Basophils % 0.9 % (0-1.3); Hematocrit 29.2 % (39.6-49.0); Lymphocytes % 13.8 % (15.3-44.8); MPV 8.8 fL (7.6-11.3); RBC Red Blood Cell Count 3.39 M/uL (4.33-5.43)
[2019-08-26 05:54] LABS: Magnesium 1.8 mg/dL (1.8-2.4); Potassium 3.2 mmol/L (3.5-5.1)
[2019-08-26] MEDS: NACHLORIDE 0.45% 1,000 ML IV SCH (06:00)
[2019-08-26] MEDS ORDERED: MAGNESIUM SULFATE 1 gm IVPB 1 GM/100 ML BAG IV ONE (07:30)
[2019-08-26] MEDS: INSULIN -REGULAR HUMAN 50 UNIT/0.5 ML ML SQ SCH ×4 (07:30→21:27)
[2019-08-26] MEDS ORDERED: POTASSIUM CL SA 10 MEQ TAB PO ONE (08:00)
[2019-08-26] MEDS: POTASS/SODIUM PHOSPHATE 1 PKT POWD.PACK PO SCH ×3 (09:07→11:32)
[2019-08-26] MEDS: FAMOTIDINE 20 MG/2 ML VIAL IV SCH ×2 (11:33→21:27)
[2019-08-26] MEDS ORDERED: FUROSEMIDE 40 MG/4 ML VIAL IV ONE (13:13)
--- NOTE | 2019-08-26 13:30 | P.PN ---
Subjective Date of Service: 08/26/19 Chief Complaint: Abdominal pain Patient reports abdominal pain and nausea to today. He reports vomiting this morning. He has been passing gas but no bowel movement. Physical Examination - Vital Signs Temperature: 97.4 F Blood Pressure: 167/87 Pulse: 78 Respirations: 20 Pulse Ox (%): 97 - Physical Exam General: Alert, In no apparent distress, Oriented x3 HEENT: Mucous membr. moist/pink, Sclerae nonicteric Neck: Supple, JVD not distended Respiratory: Clear to auscultation bilaterally, Normal air movement Cardiovascular: Regular rate/rhythm, Normal S1 S2, Edema (Bilateral upper extremities) Capillary refill: <2 Seconds Gastrointestinal: Hypoactive, Soft and benign, Distended (Mild), Tenderness ( Moderate tenderness on deep palpation.) Musculoskeletal: No swelling, No erythema Integumentary: No rashes Neurological: Normal speech, Normal strength at 5/5 x4 extr - Studies Microbiology Data (last 24 hrs): 08/21/19 01:00 Blood - Blood Aerobic Blood Culture - Final No growth in 5 days. 08/21/19 01:00 Blood - Blood Anaerobic Blood Culture - Final No growth in 5 days. 08/21/19 01:00 Blood - Blood Aerobic Blood Culture - Final No growth in 5 days. 08/21/19 01:00 Blood - Blood Anaerobic Blood Culture - Final No growth in 5 days. Assessment And Plan - Current Problems (Diagnosis) (1) Acute appendicitis Current Visit: Yes Status: Acute (2) DM type 2 (diabetes mellitus, type 2) Current Visit: Yes Status: Chronic Qualifiers: Diabetes mellitus complication status: with other specified complication (3) Dyskinesia of gallbladder Current Visit: Yes Status: Acute (4) Chronic abdominal pain Current Visit: Yes Status: Chronic (5) Intra-abdominal abscess Current Visit: Yes Status: Acute (6) Ruptured suppurative appendicitis Current Visit: Yes Status: Acute - Plan Status post laparoscopic appendectomy, removal of gangrenous appendix, and intra -abdominal abscess. Pansensitive E. coli isolated from the abdomen. Leukocytosis resolved. Continue IV Zosyn. Patient seen and followed by infectious disease. Obtain KUB due to an episode of vomiting IV morphine p.r.n. for pain General surgery-Dr. Christian is following. Glucose management with insulin sliding scale. Discontinue IV fluid given peripheral edema. Nephrology input appreciated. Follow CBC and renal function.
--- NOTE | 2019-08-26 13:46 | RAD REPORT ---
EXAM DESCRIPTION: RAD - Abdomen 1 View (KUB) - 08/26/2019 1:39 pm CLINICAL HISTORY: Ileus Pain COMPARISON: Abdomen Pelvis Wo Contrast dated 08/21/2019 FINDINGS: Multiple mildly prominent small bowel loops are seen in the upper abdomen. Large surgical drains are seen in the inferior abdomen. Skin dilma are present. Findings favor adynamic ileus over developing SBO, however consider followup radiographs in 24 hours for continued surveillance.
[2019-08-26] MEDS: D5 0.45 NS 1,000 ML IV SCH (14:23)
[2019-08-26] MEDS ORDERED: POTASSIUM PHOS IN 0.9 % NACL 15 MMOL/250 ML BAG IV ONE (15:00)
--- NOTE | 2019-08-26 15:38 | PN ---
Date of Progress Note: 08/26/2019 Subjective: Patient was admitted with acute kidney injury secondary to prerenal, patient complaining of swelling, both upper extremities. Physical Examination: Vital Signs: Blood pressure 167/87, pulse of 78, afebrile. The patient had good urine output of 200 0. Chest: Decreased air entry bilateral base. Heart: S1, S2. Regular. Abdomen: Soft, mild tenderness. Extremities: Plus edema more prominent on the upper extremity. Neurologic: Alert and oriented x3. Laboratory Data: WBC 10.4, H and H 9.8/29.2, platelets 341. Sodium 141, potassium 3.2, bicarb 25, B UN 6, creatinine 0.9, calcium 7.7, phosphorus of 2, magnesium 1.8. Current Medications: The patient on Zosyn, Pepcid, Zofran, Carafate. Assessment And Plan: 1.Acute kidney injury secondary to prerenal, recovered, resolved. I am going to decrease IV fluid t o 50 per hour. 2.Hypertension, not controlled. Decrease IV fluid. Start the patient on amlodipine and carvedilol. We will give the patient a single dose of Lasix. Plan to discontinue IV fluid completely tomorrow if the patient fully eating. 3.Appendicitis. Follow up with primary. ANY/JESENIA Voice ID: [id number] Report ID: [id number]
[2019-08-26] MEDS: AMLODIPINE 10 MG TAB PO SCH (16:15)
[2019-08-26] MEDS: SUCRALFATE 1 GM TABLET PO SCH ×2 (16:15→21:27)
[2019-08-26] MEDS: carvediloL 6.25 MG TAB PO SCH (21:27)
--- NOTE | 2019-08-26 22:29 | DS ---
Diagnoses: Peritonitis, acute perforated appendicitis, with intraabdominal abscess. History: The patient is doing better, still has an ileus. We have not been able to advance diet yet . He is ambulatory. WBC count is coming down from 22 to 10.4 with a hemoglobin of 9.8. Microbiolog y shows E coli resistant to Bactrim. Physical Examination: Chest: Clear. Abdomen: Soft and depressible. MIGUEL drain clear. Plan: From the surgical standpoint, we continue with the MIGUEL drains and slowly advance diet. We susp ect an ileus on him because of his peritonitis. Once he can take his diet, then we are also going to check with Dr. Santa to see the length of the antibiotics intravenously, that at least have to be c ompleted in a week and that will be probably by . Not sure, I have to discuss that with spec ialty of Infectious Disease to see if the second week of antibiotics will be given IV or by mouth. JAZZY/JESENIA Voice ID: [id number] Report ID: [id number]
[2019-08-27] MEDS: PIPER/TAZO/NS 3.375gm 3.375 GM/100 ML BAG IVPB SCH ×3 (01:12→16:25)
[2019-08-27] MEDS: MORPHINE 4 MG/ML SYR IV PRN ×4 (02:00→21:07)
[2019-08-27 05:55] LABS: Absolute Lymphocytes (CBC) 1.4 K/uL (0.7-4.9); Basophils % 0.8 % (0-1.3); Hematocrit 30.7 % (39.6-49.0); Lymphocytes % 10.7 % (15.3-44.8); MPV 8.6 fL (7.6-11.3); RBC Red Blood Cell Count 3.59 M/uL (4.33-5.43)
[2019-08-27 06:14] LABS: Magnesium 1.7 mg/dL (1.8-2.4); Potassium 3.6 mmol/L (3.5-5.1)
[2019-08-27] MEDS: ONDANSETRON 4 MG/2 ML VIAL IV PRN (06:14)
[2019-08-27] MEDS ORDERED: MAGNESIUM SULFATE 1 gm IVPB 1 GM/100 ML BAG IV ONE ×2 (08:00→11:01)
[2019-08-27] MEDS: carvediloL 6.25 MG TAB PO SCH ×2 (08:05→21:08)
[2019-08-27] MEDS: AMLODIPINE 10 MG TAB PO SCH (08:06)
[2019-08-27] MEDS: SUCRALFATE 1 GM TABLET PO SCH ×4 (08:06→21:08)
[2019-08-27] MEDS: FAMOTIDINE 20 MG/2 ML VIAL IV SCH ×2 (08:07→21:08)
[2019-08-27] MEDS: INSULIN -REGULAR HUMAN 50 UNIT/0.5 ML ML SQ SCH ×4 (08:08→21:09)
[2019-08-27] MEDS ORDERED: POTASSIUM CL SA 10 MEQ TAB PO ONE (09:00)
[2019-08-27] MEDS: D5 0.45 NS 1,000 ML IV SCH (09:55)
[2019-08-27] MEDS ORDERED: FUROSEMIDE 20 MG TABLET PO ONE (11:00)
--- NOTE | 2019-08-27 12:51 | P.PN ---
Subjective Date of Service: 08/27/19 Chief Complaint: Abdominal pain Patient states the abdominal pain and nausea are better today and pain has been intermittent. He has not vomited today. KUB done yesterday suggesting ileus. Patient reports passing several flatus today. No bowel movement yet. He has been afebrile. Physical Examination - Vital Signs Temperature: 97.7 F Blood Pressure: 113/58 Pulse: 68 Respirations: 18 Pulse Ox (%): 97 - Physical Exam General: Alert, In no apparent distress, Oriented x3 HEENT: Mucous membr. moist/pink, Sclerae nonicteric Neck: Supple, JVD not distended Respiratory: Clear to auscultation bilaterally, Normal air movement Cardiovascular: Regular rate/rhythm, Normal S1 S2, No murmurs, Edema (Bilateral upper extremity edema) Capillary refill: <2 Seconds Gastrointestinal: Hypoactive, No rebound, No guarding, Distended (Mildly distended), Tenderness (Moderate tenderness on deep palpation.) Musculoskeletal: No swelling, No erythema Integumentary: No rashes Neurological: Normal speech, Normal strength at 5/5 x4 extr, Cranial nerves 3- 12 intact Assessment And Plan - Current Problems (Diagnosis) (1) Acute appendicitis Current Visit: Yes Status: Acute (2) DM type 2 (diabetes mellitus, type 2) Current Visit: Yes Status: Chronic Qualifiers: Diabetes mellitus complication status: with other specified complication (3) Dyskinesia of gallbladder Current Visit: Yes Status: Acute (4) Chronic abdominal pain Current Visit: Yes Status: Chronic (5) Intra-abdominal abscess Current Visit: Yes Status: Acute (6) Ruptured suppurative appendicitis Current Visit: Yes Status: Acute - Plan Status post laparoscopic appendectomy, removal of gangrenous appendix, and intra -abdominal abscess. Pansensitive E. coli isolated from the abdomen. Leukocytosis resolved. Continue IV Zosyn. Infectious disease is following. Patient is slated for 7 days of IV antibiotics as inpatient. IV morphine p.r.n. for pain General surgery-Dr. Christian is following. Glucose management with insulin sliding scale. Nephrology input appreciated. Acute renal failure has resolved.
--- NOTE | 2019-08-27 15:09 | PN ---
Date of Progress Note: 08/27/2019 Subjective: The patient was admitted with perforated appendix, status post treatment. Patient had a cute kidney injury secondary to prerenal, toxic ATN, recovered. Yesterday, we had to decrease IV flu id. Patient received Lasix. His swelling has been subsided, feeling better. Physical Examination: Vital Signs: Blood pressure 136/67, pulse of 73. The patient had significant urine output of 4300, negative of 2 L. Chest : Decreased air entry, bilateral bases. Heart: S1, S2, regular. Abdomen: Soft, nontender. No guarding or rebound. Extremities: +1 edema on the lower extremities, +2 on the uppers. Laboratory Data: WBC 12.8, H and H 10.1/30.7, platelets 368. Sodium 138, potassium 3.6, bicarb 25, BUN 7, creatinine 1.1, calcium 7.6, magnesium 1.7, phosphorus of 3. Medications: Current medications the patient is on include, Zosyn, amlodipine 10 mg, carvedilol 6.25 b.i.d., Lasix, Pepcid, Carafate, IV fluid. Assessment And Plan: 1.Acute kidney injury secondary to prerenal, resolved, still has significant peripheral edema. I am going to go ahead and discontinue intravenous fluid. We will give the patient another dose of Lasix . 2.Hypertension, controlled, optimal. Given the peripheral edema, I am going to discontinue amlodipi ne and we will give extra dose of Lasix and discontinue intravenous fluid. 3.Hypokalemia and hypomagnesemia. We will supplement. 4.Appendicitis. Follow up with the primary and Surgery. ANY/JESENIA Voice ID: [id number] Report ID: [id number]
--- NOTE | 2019-08-27 15:48 | PN ---
Subjective: Patient is lying in bed. is at the bedside. Not in any acute distress. Complains of some abdominal pain. Thinks it might be coming from his gallbladder. Does not have any history of stones or any problems with the gallbladder in the past. Able to pass gas, but not had any bowel movements. Able to eat some foods at this time without any challenges. No problem in urination. Objective: Vital Signs: Temperature 97.5, pulse 73, respirations 18, blood pressure 136/67. Lungs: Basal crackles. Heart: S1, S2. Regular. Abdomen: Soft. Bowel sounds present. Wound sites without any drainage. 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 No pus in the MIGUEL drain, only serosanguineous fluid noted. Laboratory Data: Shows WBC 12.8, is slightly elevated from yesterday, which was 10.4; hemoglobin is 10.1; platelets 368, with a neutrophil count of 75%. Chemistry shows sodium 138, potassium 3.6, chlo ride 106, bicarb 25, BUN 7, creatinine 1.11, glucose is 258. Assessment And Plan: Status post appendectomy for appendix rupture. Patient is doing better. Leuko cytosis is improving. Currently, patient is on Zosyn IV q.8 hours. Escherichia coli from the wound cultures, which was sensitive to Zosyn. We will continue that for now and if needed, repeat a CT sca n of abdomen to evaluate for any hidden abscesses or any other inflammatory process. We will continu e current antibiotic total course of 2 to 3 weeks depending on how patient performs and awaiting GI i nput. We will follow the patient as needed. NF/MODL Voice ID: [id number] Report ID: [id number]
[2019-08-28] MEDS: PIPER/TAZO/NS 3.375gm 3.375 GM/100 ML BAG IVPB SCH ×3 (00:09→16:30)
[2019-08-28] MEDS: MORPHINE 4 MG/ML SYR IV PRN ×4 (00:45→20:38)
[2019-08-28 04:29] LABS: Absolute Lymphocytes (CBC) 1.8 K/uL (0.7-4.9); Basophils % 1.5 % (0-1.3); Hematocrit 29.5 % (39.6-49.0); Lymphocytes % 14.2 % (15.3-44.8); MPV 8.3 fL (7.6-11.3); RBC Red Blood Cell Count 3.44 M/uL (4.33-5.43)
[2019-08-28 04:42] LABS: Magnesium 1.9 mg/dL (1.8-2.4); Potassium 3.6 mmol/L (3.5-5.1)
[2019-08-28] MEDS: SUCRALFATE 1 GM TABLET PO SCH ×4 (08:20→20:39)
[2019-08-28] MEDS: INSULIN -REGULAR HUMAN 50 UNIT/0.5 ML ML SQ SCH ×4 (08:20→20:39)
[2019-08-28] MEDS: FAMOTIDINE 20 MG/2 ML VIAL IV SCH ×2 (08:20→20:38)
[2019-08-28] MEDS ORDERED: POTASSIUM CL SA 10 MEQ TAB PO ONE (09:00)
[2019-08-28] MEDS ORDERED: POTASSIUM 25 MEQ EFFERV TAB PO ONE (09:35)
[2019-08-28] MEDS ORDERED: MAGNESIUM SULFATE 1 gm IVPB 1 GM/100 ML BAG IV ONE (09:35)
[2019-08-28] MEDS: carvediloL 6.25 MG TAB PO SCH ×2 (09:53→20:40)
[2019-08-28] MEDS ORDERED: FUROSEMIDE 20 MG TABLET PO ONE (10:04)
--- NOTE | 2019-08-28 11:34 | P.PN ---
Subjective Date of Service: 08/28/19 Chief Complaint: Abdominal pain Subjective: Ambulating Review of Systems 10-point ROS is otherwise unremarkable Physical Examination - Vital Signs Temperature: 97.3 F Blood Pressure: 135/56 Pulse: 74 Respirations: 16 Pulse Ox (%): 95 - Physical Exam General: Alert, In no apparent distress HEENT: Atraumatic, Normocephalic Neck: Supple Respiratory: Clear to auscultation bilaterally Cardiovascular: No edema, Regular rate/rhythm Capillary refill: <2 Seconds Gastrointestinal: Hypoactive, Distended, Tenderness Musculoskeletal: No clubbing, No swelling Integumentary: No rashes Neurological: Normal gait, Normal speech, Normal strength at 5/5 x4 extr Lymphatics: No axilla or inguinal lymphadenopathy External genitalia: Deferred Rectal: Deferred - Studies Laboratory Last Values WBC 12.7 K/uL (4.3-10.9) H 08/28/19 04:08 RBC 3.44 M/uL (4.33-5.43) L 08/28/19 04:08 Hgb 9.9 g/dL (13.6-17.9) L 08/28/19 04:08 Hct 29.5 % (39.6-49.0) L 08/28/19 04:08 MCV 85.8 fL (80-100) 08/28/19 04:08 MCH 28.9 pg (27.0-35.0) 08/28/19 04:08 MCHC 33.7 g/dL (32.0-36.0) 08/28/19 04:08 RDW 14.1 % (12.1-15.2) 08/28/19 04:08 Plt Count 368 K/uL (152-406) 08/28/19 04:08 MPV 8.3 fL (7.6-11.3) 08/28/19 04:08 Neutrophils % 72.1 % (41.7-73.7) 08/28/19 04:08 Lymphocytes % 14.2 % (15.3-44.8) L 08/28/19 04:08 Monocytes % 9.2 % (3.3-12.3) 08/28/19 04:08 Eosinophils % 3.0 % (0-4.4) 08/28/19 04:08 Basophils % 1.5 % (0-1.3) H 08/28/19 04:08 Absolute Neutrophils 9.2 K/uL (1.8-8.0) H 08/28/19 04:08 Segmented Neutrophils 88 % (40-80) H 08/22/19 04:28 Band Neutrophils 4 % (0-1) H 08/22/19 04:28 Absolute Lymphocytes 1.8 K/uL (0.7-4.9) 08/28/19 04:08 Lymphocytes 6 % (15-42) L 08/22/19 04:28 Monocytes 2 % (0-10) 08/22/19 04:28 Absolute Monocytes 1.2 K/uL (0.1-1.3) 08/28/19 04:08 Absolute Eosinophils 0.4 K/uL (0-0.5) 08/28/19 04:08 Absolute Basophils 0.2 K/uL (0-0.5) 08/28/19 04:08 Morphology Comment Not seen (NOT SEEN) 08/24/19 05:26 Sodium 136 mmol/L (136-145) 08/28/19 04:08 Potassium 3.6 mmol/L (3.5-5.1) 08/28/19 04:08 Chloride 106 mmol/L (98-107) 08/28/19 04:08 Carbon Dioxide 26 mmol/L (21-32) 08/28/19 04:08 BUN 9 mg/dL (7-18) 08/28/19 04:08 Creatinine 1.07 mg/dL (0.55-1.3) 08/28/19 04:08 Estimated GFR 75 mL/min (=/>90) L 08/28/19 04:08 Glucose 229 mg/dL (74-106) H 08/28/19 04:08 POC Glucose 230 mg/dl (65-120) H 08/28/19 07:25 Hemoglobin A1c 9.7 % (4.2-6.3) H 08/27/19 12:15 Lactic Acid 0.9 mmol/L (0.4-2.0) 08/24/19 07:36 Calcium 7.8 mg/dL (8.5-10.1) L 08/28/19 04:08 Phosphorus 3.0 mg/dL (2.5-4.9) 08/27/19 05:22 Magnesium 1.9 mg/dL (1.8-2.4) 08/28/19 04:08 Total Bilirubin 0.4 mg/dL (0.2-1.0) 08/23/19 08:57 Direct Bilirubin < 0.1 mg/dL (0-0.2) 08/21/19 01:00 AST 20 U/L (15-37) 08/23/19 08:57 ALT 51 U/L (12-78) 08/23/19 08:57 Alkaline Phosphatase 67 U/L (45-117) 08/23/19 08:57 Lactate Dehydrogenase Cancelled 08/22/19 10:28 Serum Total Protein 6.6 g/dL (6.4-8.2) 08/23/19 08:57 Albumin 2.2 g/dL (3.4-5.0) L 08/23/19 08:57 Globulin 4.4 g/dL (2.3-3.5) H 08/23/19 08:57 Albumin/Globulin Ratio 0.5 (1.1-1.8) L 08/23/19 08:57 Lipase 172 U/L (73-393) 08/21/19 01:00 Procalcitonin 0.81 ng/mL (<0.50) H 08/27/19 12:15 Urine Color Yellow 08/21/19 07:25 Urine Appearance Clear 08/21/19 07:25 Urine pH 7.5 (5.0-7.0) H 08/21/19 07:25 Ur Specific [place] <=1.005 (1.005-1.030) 08/21/19 07:25 Glucose (UA)(Auto) Negative (NEG) 08/21/19 07:25 Urine Ketones Negative (NEG) 08/21/19 07:25 Urine Blood Negative (NEG) 08/21/19 07:25 Urine Nitrite Negative (NEG) 08/21/19 07:25 Urine Bilirubin Negative (NEG) 08/21/19 07:25 Urine Urobilinogen 0.2 mg/dL (0.2-1.0) 08/21/19 07:25 Ur Leukocyte Esterase Negative (NEG) 08/21/19 07:25 Urine Total Protein Negative (NEG) 08/21/19 07:25 Vancomycin Trough 10.6 ug/mL (5.0-20.0) 08/25/19 21:58 Assessment & Plan - Problems (Diagnosis) (1) Ruptured suppurative appendicitis Current Visit: Yes Status: Acute (2) Acute appendicitis Current Visit: Yes Status: Acute (3) DM type 2 (diabetes mellitus, type 2) Current Visit: Yes Status: Chronic Qualifiers: Diabetes mellitus complication status: with other specified complication (4) Acute kidney injury Current Visit: Yes Status: Acute (5) Hyperkalemia Current Visit: Yes Status: Acute Plan: Acute perforated appendicitis with intrabdominal abscess s/p Emergent laparoscopic appendectomy for perforated appendix and Evacuation of intrabdominal abscess Diabetes Acute kidney injury Hyperkalemia Plan Status post laparoscopic appendectomy, removal of gangrenous appendix, and intra -abdominal abscess. Pansensitive E. coli isolated from the abdomen. Leukocytosis resolved. Continue IV Zosyn. Infectious disease is following. Patient is slated for 7 days of IV antibiotics as inpatient. IV morphine p.r.n. for pain General surgery-Dr. Christian is following. Glucose management with insulin sliding scale. Nephrology input appreciated. Acute renal failure has resolved. Discussed with Nephrology and Surgery Cleared for discharge from them Awaiting recommendations from ID Possibly Dc home tomorrow Time Spent Managing Pts Care (In Minutes): 42
--- NOTE | 2019-08-28 15:01 | PN ---
Date of Progress Note: 08/28/2019 Subjective: Patient is doing better. Swelling in the upper extremity has been subsided significantl y. Physical Examination: Vital Signs: Blood pressure 135/56, pulse of 74. Patient had good urine output of 4300, negative of 2 L. Chest: Clear to auscultation. Heart: S1, S2. Regular. Abdomen: Soft, nontender. Extremities: +1 edema on the lower. Resolved edema on the upper. Laboratory Data: WBC 12.7, H and H are 9.9/29.5, platelets of 368. Sodium 136, potassium 3.6, bicar b 26, BUN 9, creatinine 1, GFR 75, calcium 7.8. Magnesium 1.9. Current Medications: The patient on include Zosyn, carvedilol 6.25, Lasix 20 daily, Carafate, Pepcid , Zofran. Assessment And Plan: 1.Acute kidney injury secondary to prerenal, recovered, resolved. 2.Anasarca secondary to overhydration. We will give extra dose of Lasix today. We will continue to monitor. 3.Hypokalemia, resolved. 4.Hypomagnesemia. We will supplement. 5.Edema secondary to overhydration. We will give extra dose of Lasix. 6.Hypertension, controlled, optimal. Keep holding calcium channel mauricio. Continue Lasix and beta -mauricio. 7.Appendicitis. Follow up with primary and Surgery. KARMEN Voice ID: [id number] Report ID: [id number]
[2019-08-28] MEDS ORDERED: GLUCAGON 1 MG/VIAL IM PRN (18:31)
[2019-08-28] MEDS ORDERED: D50W 25 GM/50 ML SYRINGE/VIAL IV PRN (18:31)
[2019-08-28] MEDS: INSULIN GLARGINE 100 UNITS/ML SQ SCH (20:38)
[2019-08-29] MEDS: ACETAMINOPHEN 325 MG TABLET PO PRN (01:29)
[2019-08-29] MEDS: MORPHINE 4 MG/ML SYR IV PRN ×3 (01:29→22:29)
[2019-08-29] MEDS: PIPER/TAZO/NS 3.375gm 3.375 GM/100 ML BAG IVPB SCH ×3 (01:30→16:46)
[2019-08-29] MEDS: ONDANSETRON 4 MG/2 ML VIAL IV PRN (06:26)
[2019-08-29 06:52] LABS: Absolute Lymphocytes (CBC) 1.8 K/uL (0.7-4.9); Basophils % 1.4 % (0-1.3); Hematocrit 30.7 % (39.6-49.0); Lymphocytes % 17.6 % (15.3-44.8); MPV 8.9 fL (7.6-11.3); RBC Red Blood Cell Count 3.59 M/uL (4.33-5.43)
[2019-08-29 07:06] LABS: Potassium 3.6 mmol/L (3.5-5.1)
[2019-08-29] MEDS: INSULIN -REGULAR HUMAN 50 UNIT/0.5 ML ML SQ SCH ×4 (07:30→21:38)
[2019-08-29] MEDS ORDERED: PROMETHAZINE INJ 25 MG/ML AMP IV PRN (07:46)
[2019-08-29] MEDS: SUCRALFATE 1 GM TABLET PO SCH ×4 (08:55→21:37)
[2019-08-29] MEDS: FAMOTIDINE 20 MG/2 ML VIAL IV SCH ×2 (08:55→21:37)
[2019-08-29] MEDS: carvediloL 6.25 MG TAB PO SCH ×2 (08:56→21:39)
--- NOTE | 2019-08-29 11:45 | P.PN ---
Subjective Date of Service: 08/29/19 Chief Complaint: Abdominal pain Subjective: Improving (has nausea and 2 episodes of vomiting) Review of Systems 10-point ROS is otherwise unremarkable Physical Examination - Vital Signs Temperature: 97.3 F Blood Pressure: 157/75 Pulse: 75 Respirations: 18 Pulse Ox (%): 95 - Physical Exam General: Alert, In no apparent distress HEENT: Atraumatic, Normocephalic Neck: Supple Respiratory: Clear to auscultation bilaterally Cardiovascular: Normal pulses, Regular rate/rhythm Capillary refill: <2 Seconds Gastrointestinal: Soft and benign, W/out hepatosplenomegaly, Tenderness Musculoskeletal: No clubbing, No swelling Integumentary: No rashes Neurological: Normal gait, Normal strength at 5/5 x4 extr Lymphatics: No axilla or inguinal lymphadenopathy External genitalia: Deferred Rectal: Deferred Assessment & Plan - Problems (Diagnosis) (1) Ruptured suppurative appendicitis Current Visit: Yes Status: Acute (2) Acute appendicitis Current Visit: Yes Status: Acute (3) DM type 2 (diabetes mellitus, type 2) Current Visit: Yes Status: Chronic Plan: Acute perforated appendicitis with intrabdominal abscess s/p Emergent laparoscopic appendectomy for perforated appendix and Evacuation of intrabdominal abscess Diabetes Hypotension Plan On Broad-spectrum IV antibiotics Appreciate help from surgery and ID Advised ambulation Culture positive for E. coli GI/DVT prophylaxis Will start on clear liquid diet if okay with surgery Incentive spirometry Qualifiers: Diabetes mellitus complication status: with other specified complication (4) Acute kidney injury Current Visit: Yes Status: Acute (5) Hyperkalemia Current Visit: Yes Status: Acute Plan: Acute perforated appendicitis with intrabdominal abscess s/p Emergent laparoscopic appendectomy for perforated appendix and Evacuation of intrabdominal abscess Diabetes Acute kidney injury Hyperkalemia Plan Status post laparoscopic appendectomy, removal of gangrenous appendix, and intra -abdominal abscess. Pansensitive E. coli isolated from the abdomen. Leukocytosis resolved. Continue IV Zosyn. Infectious disease is following. Patient is slated for 7 days of IV antibiotics as inpatient. IV morphine p.r.n. for pain General surgery-Dr. Christian is following. Glucose management with insulin sliding scale. Nephrology input appreciated. Acute renal failure has resolved. Discussed with Nephrology and Surgery Cleared for discharge from them Awaiting recommendations from ID Patient had 2 episodes of vomiting Will change diet to soft Monitor closely Possible Dc home once tolerates p.o. Time Spent Managing Pts Care (In Minutes): 42
--- NOTE | 2019-08-29 11:50 | RAD REPORT ---
EXAM DESCRIPTION: RAD - Abdomen 1 View (KUB) - 08/29/2019 11:44 am CLINICAL HISTORY: vomiting Pain COMPARISON: Abdomen 1 View (KUB) dated 08/26/2019; Abdomen Pelvis Wo Contrast dated 08/21/2019 FINDINGS: Moderate stool is retained throughout the colon. No bowel obstruction seen. Previously not ed dilated small bowel loops are no longer evident. Multiple surgical drains are present inferiorly. Postsurgical pneumoperitoneum is present.
--- NOTE | 2019-08-29 15:29 | PN ---
Subjective: Patient is lying in bed, continuing to have abdominal discomfort, but has improved signi ficantly. No fevers. Had couple of episodes of slight vomiting earlier. Objective: Vital Signs: Temperature 97, pulse 75, respirations 18, blood pressure 157/75. Lungs: Clear to auscultation. Heart: S1, S2. Regular. Abdomen: Soft. Bowel sounds present. Surgical wounds noted. Laboratory Data: Showed WBC has gone down to 10.5, hemoglobin 10.3, platelets are 411. Chemistry sh ows sodium 138, potassium 3.6, chloride 105, bicarb 27, creatinine is 1, BUN is 7, glucose levels are 250. Assessment And Plan: Status post appendectomy. Patient's leukocytosis is subsiding. Currently, pat ient is on Zosyn. Consider getting KUB to evaluate vomiting. If the patient is stable, can be switc hed to Flagyl and Levaquin orally. If no vomiting, I will consider transferring patient to long-term acute care for further management. We will follow the patient closely. NF/MODL Voice ID: [id number] Report ID: [id number]
[2019-08-29] MEDS: INSULIN GLARGINE 100 UNITS/ML SQ SCH (16:47)
[2019-08-29] MEDS ORDERED: POTASSIUM CL SA 10 MEQ TAB PO ONE (17:00)
[2019-08-30] MEDS: PIPER/TAZO/NS 3.375gm 3.375 GM/100 ML BAG IVPB SCH ×3 (01:19→16:30)
--- NOTE | 2019-08-30 02:24 | PN ---
Date of Progress Note: 08/29/2019 Chief Complaint: Acute on chronic kidney injury. History Of Present Illness: Renal function has improved. Patient has anasarca, fluid overload, and received Lasix. Urine output is adequate. Review of Systems: Denies fever, chills. Physical Examination: Lungs: Clear to auscultation bilaterally. Heart: S1, S2. Abdomen: Soft, benign. Extremities: Edema present in both legs. Impression And Plan: 1.Acute kidney injury secondary to prerenal azotemia. Renal hypoperfusion. Renal function have imp roved. 2.Anasarca. The patient will continue Lasix and plan is to continue low-sodium diet. 3.Edema secondary to over hydration. Continue Lasix. Appendicitis per primary team. 4.Hypokalemia and hypomagnesemia. Monitor electrolytes closely and adjust supplementation as needed . CANDI/MODL Voice ID: [id number] Report ID: [id number]
[2019-08-30] MEDS: MORPHINE 4 MG/ML SYR IV PRN ×5 (03:07→21:56)
[2019-08-30 06:27] LABS: Magnesium 1.8 mg/dL (1.8-2.4); Phosphorus 3.2 mg/dL (2.5-4.9); Potassium 3.7 mmol/L (3.5-5.1)
[2019-08-30] MEDS: INSULIN -REGULAR HUMAN 50 UNIT/0.5 ML ML SQ SCH ×4 (07:30→20:28)
[2019-08-30] MEDS: SUCRALFATE 1 GM TABLET PO SCH ×4 (08:05→20:28)
[2019-08-30] MEDS: FAMOTIDINE 20 MG/2 ML VIAL IV SCH ×2 (08:05→20:28)
[2019-08-30] MEDS: carvediloL 6.25 MG TAB PO SCH ×2 (08:05→20:28)
[2019-08-30] MEDS ORDERED: MAGNESIUM SULFATE 1 gm IVPB 1 GM/100 ML BAG IV ONE (09:00)
[2019-08-30] MEDS ORDERED: POTASSIUM CL SA 10 MEQ TAB PO ONE (09:00)
--- NOTE | 2019-08-30 11:16 | P.PN ---
Subjective Date of Service: 08/30/19 Chief Complaint: Abdominal pain Subjective: Improving Review of Systems 10-point ROS is otherwise unremarkable Physical Examination - Vital Signs Temperature: 97.3 F Blood Pressure: 151/56 Pulse: 74 Respirations: 18 Pulse Ox (%): 98 - Physical Exam General: Alert, In no apparent distress HEENT: Atraumatic, Normocephalic Neck: Supple Respiratory: Clear to auscultation bilaterally Cardiovascular: No edema, Regular rate/rhythm Capillary refill: <2 Seconds Gastrointestinal: Soft and benign, W/out hepatosplenomegaly Musculoskeletal: No clubbing, No swelling Integumentary: No rashes Neurological: Normal speech, Normal strength at 5/5 x4 extr Lymphatics: No axilla or inguinal lymphadenopathy External genitalia: Deferred Rectal: Deferred Assessment & Plan - Problems (Diagnosis) (1) Ruptured suppurative appendicitis Current Visit: Yes Status: Acute (2) Acute appendicitis Current Visit: Yes Status: Acute (3) DM type 2 (diabetes mellitus, type 2) Current Visit: Yes Status: Chronic Qualifiers: Diabetes mellitus complication status: with other specified complication (4) Acute kidney injury Current Visit: Yes Status: Acute (5) Hyperkalemia Current Visit: Yes Status: Acute Plan: Acute perforated appendicitis with intrabdominal abscess s/p Emergent laparoscopic appendectomy for perforated appendix and Evacuation of intrabdominal abscess Diabetes Acute kidney injury Hyperkalemia Plan Status post laparoscopic appendectomy, removal of gangrenous appendix, and intra -abdominal abscess. Pansensitive E. coli isolated from the abdomen. Leukocytosis resolved. Continue IV Zosyn. Infectious disease is following. Patient is slated for 7 days of IV antibiotics as inpatient. IV morphine p.r.n. for pain General surgery-Dr. Christian is following. Glucose management with insulin sliding scale. Nephrology input appreciated. Acute renal failure has resolved. Discussed with Nephrology and Surgery Cleared for discharge from them Awaiting recommendations from ID Patient had 2 episodes of vomiting Will change diet to soft Monitor closely Possible Dc home once tolerates p.o. ID recommended LTAC Patient wanted go home Change antibiotics to p.o. once he tolerates Time Spent Managing Pts Care (In Minutes): 41
[2019-08-30] MEDS: INSULIN GLARGINE 100 UNITS/ML SQ SCH (16:30)
[2019-08-31] MEDS: PIPER/TAZO/NS 3.375gm 3.375 GM/100 ML BAG IVPB SCH ×3 (00:34→16:30)
--- NOTE | 2019-08-31 01:36 | PN ---
Date of Progress Note: 08/30/2019 Chief Complaint: Acute on chronic kidney injury. Patient has history of hypokalemia and hypomagnesemia, received replacement. Patient has anasarca, f luid overload and is treated with diuretic. Urine output is adequate. Review of Systems: Denies complaints. No fever, no chills. Physical Examination: Lungs: Clear to auscultation bilaterally. Heart: S1, S2. Abdomen: Soft, benign. EXTREMITIES: Edema in both legs. Impression And Plan: 1.Acute kidney injury secondary to prerenal azotemia, nonoliguric acute tubular necrosis. Renal fun ction has improved. Avoid nephrotoxic medication. 2.Anasarca. Continue Lasix and adjust the dose according to fluid balance. 3.Edema due to over hydration. Continue Lasix. 4.Appendicitis per primary team. 5.Electrolytes abnormalities, hypokalemia, hypomagnesemia, replacement will be ordered according to lab results. Continue diuretic and monitor electrolytes closely. EB/MODL Voice ID: [id number] Report ID: [id number]
[2019-08-31] MEDS: MORPHINE 4 MG/ML SYR IV PRN ×2 (01:45→05:39)
[2019-08-31] MEDS: ACETAMINOPHEN 325 MG TABLET PO PRN (02:30)
[2019-08-31 05:55] LABS: Absolute Lymphocytes (CBC) 2.2 K/uL (0.7-4.9); Basophils % 1.3 % (0-1.3); Hematocrit 29.9 % (39.6-49.0); Lymphocytes % 20.8 % (15.3-44.8); MPV 8.7 fL (7.6-11.3); RBC Red Blood Cell Count 3.52 M/uL (4.33-5.43)
[2019-08-31 05:58] LABS: Magnesium 1.8 mg/dL (1.8-2.4); Potassium 3.6 mmol/L (3.5-5.1)
[2019-08-31] MEDS ORDERED: MAGNESIUM SULFATE 1 gm IVPB 1 GM/100 ML BAG IV ONE (06:21)
[2019-08-31] MEDS: MAGNES/ALUMIN/SIMET 30ML UCUP PO PRN ×3 (06:27→20:58)
[2019-08-31] MEDS: FAMOTIDINE 20 MG/2 ML VIAL IV SCH ×2 (08:27→20:58)
[2019-08-31] MEDS: SUCRALFATE 1 GM TABLET PO SCH ×4 (08:27→20:58)
[2019-08-31] MEDS: carvediloL 6.25 MG TAB PO SCH ×2 (08:27→20:58)
[2019-08-31] MEDS: INSULIN -REGULAR HUMAN 50 UNIT/0.5 ML ML SQ SCH ×4 (08:28→20:57)
[2019-08-31] MEDS ORDERED: POTASSIUM CL SA 10 MEQ TAB PO ONE (09:00)
--- NOTE | 2019-08-31 12:47 | P.PN ---
Subjective Date of Service: 08/31/19 Chief Complaint: Abdominal pain Patient reports feeling better today. No vomiting with meals today. He reports small bowel movement and feels he will have more. Patient reports passing several flatus. Physical Examination - Vital Signs Temperature: 97 F Blood Pressure: 131/63 Pulse: 66 Respirations: 18 Pulse Ox (%): 97 - Physical Exam General: Alert, In no apparent distress, Oriented x3 HEENT: Mucous membr. moist/pink Neck: JVD not distended Respiratory: Clear to auscultation bilaterally, Normal air movement Cardiovascular: Regular rate/rhythm, Normal S1 S2, Edema (Peripheral edema have improved.) Capillary refill: <2 Seconds Gastrointestinal: Normal bowel sounds, Soft and benign, Distended (Mildly distended) Musculoskeletal: No erythema Integumentary: No rashes Neurological: Normal strength at 5/5 x4 extr Assessment And Plan - Current Problems (Diagnosis) (1) Acute appendicitis Current Visit: Yes Status: Acute (2) DM type 2 (diabetes mellitus, type 2) Current Visit: Yes Status: Chronic Qualifiers: Diabetes mellitus complication status: with other specified complication (3) Dyskinesia of gallbladder Current Visit: Yes Status: Acute (4) Chronic abdominal pain Current Visit: Yes Status: Chronic (5) Intra-abdominal abscess Current Visit: Yes Status: Acute (6) Ruptured suppurative appendicitis Current Visit: Yes Status: Acute - Plan Pansensitive E. coli isolated from the abdomen. Leukocytosis resolved. Antibiotics day 10 today. Continue IV Zosyn. Infectious disease is following. Maypearl p.r.n. for pain. Glucose management with insulin sliding scale. Acute renal failure has resolved. Optimize electrolytes. Laxatives p.r.n. Infectious disease is following.
[2019-08-31] MEDS: HYDROCODONE/APAP 5/325 MG TAB PO PRN ×2 (15:26→20:58)
[2019-08-31] MEDS: INSULIN GLARGINE 100 UNITS/ML SQ SCH (16:30)
--- NOTE | 2019-09-01 00:19 | PN ---
Date of Progress Note: 08/31/2019 Chief Complaint: Acute on chronic kidney injury. History Of Present Illness: The patient has nonoliguric urine output. Renal function has improved. Patient has anasarca and fluid overload. This has been treated with diuretic. Urine output is adeq uately enhanced. Review of Systems: Denies PND or orthopnea. Physical Examination: Lungs: Clear to auscultation bilaterally. Heart: S1-S2. Abdomen: Soft, benign. Extremities: Edema in both legs, mild. Impression And Plan: 1.Acute on chronic kidney injury, prerenal azotemia, nonoliguric acute tubular necrosis. Renal func tion has improved. Continue to monitor fluid balance and electrolytes with renal panel. Avoid nephr otoxic medication. 2.Anasarca. Continue Lasix, adjust dose according to diuretic effect. 3.Edema due to over-hydration. Patient is on Lasix. 4.Appendicitis per primary team. 5.Electrolyte abnormalities, hypokalemia, hypomagnesemia. Replacement was ordered and lab work will be reevaluated. CANDI/JESENIA Voice ID: [id number] Report ID: [id number]
[2019-09-01] MEDS: PIPER/TAZO/NS 3.375gm 3.375 GM/100 ML BAG IVPB SCH ×2 (00:21→07:58)
[2019-09-01] MEDS: HYDROCODONE/APAP 5/325 MG TAB PO PRN ×2 (02:02→07:55)
[2019-09-01] MEDS: MAGNES/ALUMIN/SIMET 30ML UCUP PO PRN ×2 (04:12→09:08)
[2019-09-01 04:40] LABS: Magnesium 2.1 mg/dL (1.8-2.4); Potassium 3.7 mmol/L (3.5-5.1)
[2019-09-01] MEDS ORDERED: POTASSIUM CL SA 10 MEQ TAB PO ONE (04:52)
[2019-09-01] MEDS: SUCRALFATE 1 GM TABLET PO SCH ×2 (07:56→11:01)
[2019-09-01] MEDS: carvediloL 6.25 MG TAB PO SCH (07:56)
[2019-09-01] MEDS: FAMOTIDINE 20 MG/2 ML VIAL IV SCH (07:56)
[2019-09-01] MEDS: INSULIN -REGULAR HUMAN 50 UNIT/0.5 ML ML SQ SCH ×2 (07:57→11:04)
[2019-09-01 08:06] VITALS: O2SAT 97
[2019-09-01 11:00] VITALS: BP 113/58; TEMP 97.6
--- NOTE | 2019-09-01 14:10 | P.PN ---
Date of Service: 09/01/19 Patients WATER CHEMIST checked. His score is 200. Low risk for overdose. Given 72 hrs worth of tramadol for pain. Patient had appendectomy and drainage of abd abscess.
--- NOTE | 2019-09-01 23:32 | PN ---
Date of Progress Note: 09/01/2019 Chief Complaint: Acute on chronic kidney injury. Subjective: Patient has nonoliguric urine output. Renal function has improved to baseline. Electro lytes stable. Patient is advancing with p.o. intake. Review of Systems: Denies fevers, chills. Denies PND or orthopnea. Physical Examination: Lungs: Clear to auscultation bilaterally. Heart: S1-S2. Abdomen: Soft, benign. Extremities: Slight edema. Impression And Plan: 1.Acute on chronic kidney injury. Prerenal azotemia, nonoliguric acute tubular necrosis in recovery phase. Avoid nephrotoxic medication. Continue adequate hydration. 2.Anasarca. Continue Lasix. Adjust dose according to diuretic affect. 3.Edema due to over hydration and fluid overload. Patient is on Lasix. Monitor electrolytes. 4.Electrolyte abnormalities, hypokalemia, hypomagnesemia. Replacement was ordered and lab work is i enrrique. CANDI/JESENIA Voice ID: [id number] Report ID: [id number]
--- NOTE | 2019-09-02 00:23 | DS ---
Date of Discharge: 09/01/2019 Consultants: 1.Dr. Christian, General Surgery. 2.Dr. Forrest, Dr. Escudero, and Dr. Rm with Nephrology. 3.Dr. Santa with Infectious Disease. Procedures: On 08/21/2019, acute perforated appendicitis with intraabdominal abscess. Emergent lapa roscopic appendectomy with removal of perforated gangrenous appendix, evacuation of intraabdominal ab scess and cecal mobilization. Admitting Diagnoses: 1.Acute appendicitis with perforation and abscess. 2.Diabetes mellitus type 2, sxj-oeyexwh-ihtttxpui with hyperglycemia. 3.Dyskinesia of the gallbladder. 4.Chronic abdominal pain. Discharge Diagnoses: 1.Acute appendicitis with perforation and abscess, status post laparoscopic appendectomy. 2.Dyskinesia of the gallbladder. 3.Chronic abdominal pain. 4.Intraabdominal abscess. 5.Ruptured suppurative appendicitis. 6.Diabetes mellitus type 2 with hyperglycemia, non-insulin requiring. 7.Essential hypertension, not well controlled. 8.Obesity, BMI 35. Hospital Course: Patient is a 44-year-old male with past medical history of diabetes, comes in with abdominal pain for several months, had been getting worse the day prior to admission. Patient was go ing under preoperative workup for laparoscopic cholecystectomy for gallbladder dyskinesia, however ca me into the ER, his CT scan showed acute appendicitis with microperforation. He had leukocytosis and he was admitted for further evaluation. He was started on IV antibiotics and was found to have an a bscess. He was taken for emergent laparoscopic appendectomy by Dr. Christian. Patient did well posto peratively. His blood cultures were negative. His abscess culture did grow out E coli, which was pa nsensitive except to Bactrim. Patient's white blood cell count normalized. He was afebrile. He was continued on his insulin dose. Blood pressure was not well controlled and Coreg was added. The pat ient's blood glucose level was also not well controlled. His insulin was adjusted. Patient was coun seled regarding his diabetes management. He understands the risks of chronic uncontrolled diabetes i ncluding neuropathy, nephropathy, retinopathy amongst other complications. ID was also consulted and recommended switching to oral antibiotics upon discharge as cultures now showed E coli. Patient did have some acute kidney injury likely related to dehydration and acute and prerenal azotemia, improve d with IV fluids, was seen by Nephrology. Patient was then cleared for discharge and was sent home i n a stable condition. Activity: As tolerated. Wound care instructions per Dr. Christian. No lifting more than 10 pounds. Diet: Diabetic. Followup: Follow up with primary care physician in 2-3 days. Follow up with surgeon, Dr. Christian, in 1 week to have the MIGUEL drain removed. Follow up with ID, Infectious Disease, Dr. Santa in 2 weeks . Follow up with teletype installer, Dr. Escudero, in 2 weeks. Return to ER for worsening condition. Physical Examination: General: Awake, alert, and oriented x3, obese male, not in any acute distress. CV: S1, S2. Respiratory: Moving air well bilaterally. Abdomen: Abdomen is soft, nontender, nondistended. Positive bowel sounds. MIGUEL drain in place. No p ustular drainage seen. Extremities: No clubbing, cyanosis, or edema. Neurologic: Nonfocal. Total time spent discharging patient was 38 minutes. /JESENIA Voice ID: [id number] Report ID: [id number]
== END 2019-09-01 13:20 | disposition home or self-care (01) | DRG 853 ==
LOC: ER 23:36 → ERHOLD 08-21 03:32 → 2ND 08-21 04:26 → 3RD-ICU 08-21 16:19 → 4TH 08-24 10:07
PROVIDERS: ADMIT Internal Medicine; ATTEND Family Medicine
PROC: 0WJG4ZZ Inspection of Peritoneal Cavity, Percutaneous Endoscopic Approach (ICD-10-PCS; 2019-08-21)
PROC: 0DTJ0ZZ Resection of Appendix, Open Approach (ICD-10-PCS; principal; 2019-08-21 11:15)
DX: A41.9 Sepsis, unspecified organism (principal); K35.33 Acute appendicitis with perforation, localized peritonitis, and gangrene, with abscess; N17.0 Acute kidney failure with tubular necrosis; E11.9 Type 2 diabetes mellitus without complications; K82.8 Other specified diseases of gallbladder; E87.5 Hyperkalemia; E66.01 Morbid (severe) obesity due to excess calories; E87.6 Hypokalemia; E83.42 Hypomagnesemia; E11.65 Type 2 diabetes mellitus with hyperglycemia; I12.9 Hypertensive chronic kidney disease with stage 1 through stage 4 chronic kidney disease, or unspecified chronic kidney disease; N18.9 Chronic kidney disease, unspecified; Z68.35 Body mass index [BMI] 35.0-35.9, adult
CPT/HCPCS: 36415; 74018; 74176; 80048; 80053; 80076; 80202; 81003; 82565; 82947; 83036; 83605; 83690; 83735; 84100; 84132; 84145; 85025; 87040; 87070; 87075; 87077; 87186; 87205; 88304; 94640; 96365; 96366; 97116; 97161; 97530; 99285; J0330; J0610; J1170; J1815; J1940; J2175; J2250; J2405; J2543; J2550; J2704; J2710; J3010; J3475; J7030; J7040; J7799; P9047

== ENCOUNTER 2019-11-03 08:48 | Day surgery (SDC) | payer BC ==
[2019-11-03 08:57] LABS: Absolute Lymphocytes (CBC) 2.7 K/uL (0.7-4.9); Basophils % 1.5 % (0-1.3); Hematocrit 41.3 % (39.6-49.0); Lymphocytes % 29.6 % (15.3-44.8); MPV 9.6 fL (7.6-11.3); RBC Red Blood Cell Count 4.92 M/uL (4.33-5.43)
[2019-11-03 09:15] LABS: Albumin 3.4 g/dL (3.4-5.0); Bilirubin Direct 0.1 mg/dL (0-0.2); Bilirubin Total 0.3 mg/dL (0.2-1.0); Protein, Total 8.2 g/dL (6.4-8.2)
[2019-11-03] MEDS ORDERED: NA CHLORIDE 0.9% 1,000 ML ONE ×2 (09:22→12:50)
[2019-11-03] MEDS ORDERED: CEFOXITIN/SWI 1gm 1 GM/10 ML SYR ONE (09:22)
--- NOTE | 2019-11-03 09:23 | RAD REPORT ---
EXAM DESCRIPTION: Pete Mccoy (2 Views)11/03/2019 8:47 am CLINICAL HISTORY: 2019 preop for cholecystectomy. Hypertension COMPARISON: 2019 FINDINGS: The lungs appear clear of acute infiltrate. The heart is normal size IMPRESSION: No acute abnormalities displayed
--- OUTSIDE RECORDS SUMMARY | 2019-11-03 10:24 | XMS REPORT ---
:1975 Author Organization [facility] t Address [address] [place] [address] Care Team Providers Name Role Phone Unavailable Unavailable Unavailable Payers Payer Name Policy Type Policy Number Effective Date Expiration D ate Problems This patient has no known problems. Allergies, Adverse Reactions, Alerts Allergy Allergy Status Severity Reaction(s) Onset Inactive Treating C omments Name Type Date Date Clinician No Known DA Active U 2018-11 Allergies -13 00:00:0 0 Medications This patient has no known medications. Results Test Description Test Time Test Comments Text Results Atomic Results Result Comments GLUBED 2018-12-20 00:41:00 Test Item Value Reference Range Comments GLUBED (test code = GLUBED) 197 mg/dL 70-110 [id number] 00:41:00 Test Item Value Reference Range Comments GLUBED (test code = GLUBED) 184 mg/dL 70-110 [id number] 00:41:00 Test Item Value Reference Range Comments GLUBED (test code = GLUBED) 170 mg/dL 70-110 [id number] 06:10:00 Test Item Value Reference Range Comments GLUBED (test code = GLUBED) 157 mg/dL 70-110 [id number] 06:10:00 Test Item Value Reference Range Comments GLUBED (test code = GLUBED) 206 mg/dL 70-110 [id number] 06:10:00 Test Item Value Reference Range Comments GLUBED (test code = GLUBED) 177 mg/dL 70-110 [id number] 06:10:00 Test Item Value Reference Range Comments GLUBED (test code = GLUBED) 235 mg/dL 70-110 - CT ABD PELVIS [id number] 16:33:00 FAX: Donta Kayin Kamila [phone] Re[place]: St: [facility] FAX: Manuela Rhodes [phone] Name: ANUEL CARR [facility] : 1975 Age/S: 43/M [address] [facility] Unit: [id number] Loc: [address] Phys: Manuela Basurto [address] Acct: [id number] Dis Date: Status: ADM IN PHONE #: [phone] Exam Date: 12/14/2018 1617 FAX #: [phone] Reason: LUQ pain EXAMS: CPT CODE: [id number] CT ABD PELVIS W/CONT 87941 EXAM: CT abdomen and pelvis with contrast INDICATION: 43 years -old Male with LUQ pain LOCATION CODE: C3 [...] distended with large amount of food debris. Pancreas: Normal. Spleen: Normal. Adrenals: Normal. Genitourinary: Right kidney : The kidneys are normal. No hydronephrosis. no nephrolithiasis PAGE 1 Signed Report (CONTINUED) FAX: Mian Jon Mcgregor [phone] Reeder: St: [facility] FAX: Manuela Rhodes [phone] Name: ANUEL CARR [facility] : 1975 Age/S: 43/M [address] [facility] [address]: [id number] Loc: [address] Phys: Manuela Basurto [address] Acct: [id number] Dis Date: Status: ADM IN PHONE #: [phone] Exam Date: 12/14/2018 1617 FAX #: [phone] Reason: LUQ pain EXAMS: CPT CODE: [id number] CT ABD PELVIS W/CONT 66739 <Continued> Left kidney: The kidneys are normal. [...] 2 Signed Report (CONTINUED) FAX: Jon Kay [phone] Reeder: St: ADM FAX: Manuela Rhodes [phone] --------- Name: ANUEL CARR [facility] : 1975 Age/S: 43/M [address] [facility] [id number] Loc: [address] Phys: Manuela Basurto [address] Acct: [id number] Dis Date: Status: ADM IN PHONE #: [phone] Exam Date: 12/14/2018 1617 FAX #: [phone] Reason: LUQ pain EXAMS: CPT CODE: [id number] CT ABD PELVIS W/CONT 99180 <Continued> at 1633 Reported and signed by: Collin Gustafson M.D. CC:Jon Mcgregor MD; Manuela JACOB Technologist: SKYLER Kim Dt/Tm: 12/14/2018 (1633) t.HPD Orig Print D/T: S: 12/14/2018(1636 PAGE 3 Signed [id number] 16:20:00 Test Item Value Reference Range Comments GLUBED (test code = GLUBED) 195 mg/dL 70-110 COMPREHENSIVE METABOLIC [id number] 07:24:00 Test Item Value Reference Range Comments SODIUM (test code = NA) 142 mmol/l 134.0-147.0 POTASSIUM (test code = K) 3.7 mmol/L 3.6-5.2 CHLORIDE (test code = CL) 109 mmol/l 98.0-107.0 CARBON DIOXIDE (test code = CO2) 25.6 mmol/l 21.0-33.0 ANION GAP (test code = GAP) 11.1 0-20 GLUCOSE (test code = GLU) 206 mg/dl 70.0-110.0 BLOOD UREA NITROGEN (test code = BUN) 13 mg/dl 7.0-18.0 CREATININE (test code = CREAT) 0.96 mg/dL 0.60-1.30 GFR NON BLACK (test code = GFRNONBLACK) 91 mL/min 95-105 GFR BLACK (test code = GFRBLACK) 110 mL/min 115-127 TOTAL PROTEIN (test code = PROT) 5.7 GM/DL 6.0-8.1 ALBUMIN (test code = ALB) 2.7 gm/dL 3.2-4.7 CALCIUM (test code = CA) 8.0 mg/dl 8.0-10.5 BILIRUBIN TOTAL (test code = BILT) 0.2 mg/dl 0.0-1.0 SGOT/AST (test code = AST) 23 Units/L 15.0-37.0 SGPT/ALT (test code = ALT) 50 Units/L 12.0-78.0 ALKALINE PHOSPHATASE TOTAL (test code = ALKP) 57 Units/L 50 .0-136.0 [id number] 07:24:00 Test Item Value Reference Range Comments MAGNESIUM (test code = MAG) 1.6 mg/dl 1.8-2.4 CBC W/AUTO [id number] 07:06:00 Test Item Value Reference Range Comments WHITE BLOOD CELL (test code = WBC) 7.4 K/mm3 4.5-11.0 RED BLOOD CELL (test code = RBC) 4.26 M/mm3 4.40-5.90 HEMOGLOBIN (test code = HGB) 12.1 gm/dL 13.0-17.0 HEMATOCRIT (test code = HCT) 36.8 % 36.0-48.0 MEAN CELL VOLUME (test code = MCV) 86.4 UM3 80.0-94.0 MEAN CELL HGB (test code = MCH) 28.4 UUG 25.5-32.5 MEAN CELL HGB CONCETRATION (test code = MCHC) 32.9 gm/dL 29 .0-35.5 RED CELL DISTRIBUTION WIDTH (test code = RDW) 13.5 % 11 .5-15.0 RED CELL DISTRIBUTION WIDTH SD (test code = 42.5 fL 34.8 -50.2 RDW-SD) PLATELET COUNT (test code = PLT) 216 K/mm3 150-400 MEAN PLATELET VOLUME (test code = MPV) 11.5 fl 7.4-10.4 NEUTROPHIL % (test code = NT%) 45.1 % 49.0-76.0 IMMATURE GRANULOCYTE % (test code = IG%) 0.3 % 0.0-0.4 LYMPHOCYTE % (test code = LY%) 40.1 % 23.0-38.0 MONOCYTE % (test code = MO%) 9.5 % 1.0-10.0 EOSINOPHIL % (test code = EO%) 3.8 % 1.0-5.0 BASOPHIL % (test code = BA%) 1.2 % 0.0-1.0 NEUTROPHIL # (test code = NT#) 3.3 K/mm3 2.4-6.3 IMMATURE GRANULOCYTE # (test code = IG#) 0.02 x10 3/uL 0.00-0. 07 LYMPHOCYTE # (test code = LY#) 3.0 K/mm3 1.2-4.0 MONOCYTE # (test code = MO#) 0.7 K/mm3 0.0-0.6 EOSINOPHIL # (test code = EO#) 0.3 K/MM3 0.0-0.7 BASOPHIL # (test code = BA#) 0.1 K/mm3 0.0-0.2 VITAMIN [id number] 10:49:00 Test Item Value Reference Range Comments VITAMIN B12 (test code = VITB12) 409 pg/mL 193-986 [id number] 10:21:00 Test Item Value Reference Range Comments HGBA1C% (test code = HGBA1C%) 8.8 %A1C 4.8-6.0 ESTIMATED AVERAGE GLUCOSE (test code = EAG) 206 MG/DL [id number] 06:00:00 Test Item Value Reference Range Comments TROPONIN-I (test code = <0.02 NG/ML 0.00-0.06 REFERENC E RANGE TROPONIN I TROPI) HEALTHY INDIVIDU ALS: <0.06 ng/mL R/O ISCHEM IA: 0.07 - 0.60 ng/mL CUT-O FF RANGE FOR AMI: 0.60 - 1.5 ng/mL [id number] 01:25:00 Test Item Value Reference Range Comments TROPONIN-I (test code = <0.02 NG/ML 0.00-0.06 REFERENC E RANGE TROPONIN I TROPI) HEALTHY INDIVIDU ALS: <0.06 ng/mL R/O ISCHEM IA: 0.07 - 0.60 ng/mL CUT-O FF RANGE FOR AMI: 0.60 - 1.5 ng/mL - XR CHEST 1 [id number] 21:18:00 Re[place]: St: REG Name: ANUEL CARR [facility] : 1975 Age/S: 43/M [address] [facility] Unit#: [id number] Loc: [address] Phys: [place] [id number] Acct: [id number] Dis Date: Status: REG ER PHONE #: [phone] Exam Date: 12/12/20182109 FAX #: [phone] Reason: SOB EXAMS: CPT CODE: [id number] XR CHEST 1 V 86477 REASON FOR EXAM: Shortness of breath and chest pain. COMPARISON: None. Chest, portable single frontal view. The lungs are well- inflated and clear. Heart size is normal. No effusion or pneumothorax can be seen. Osseous structures appear to be intact. IMPRESSION: No acute cardiopulmonary disease. Location: [facility] at 8 Re ported and signed by: Humble Simpson M.D. CC: Technologist: NELA UREÑA Trnscrd Date/Time/By:12/12/2018 (2117) : By: Sukhwinder PAGE 1 Signed Report Reeder: St: REG Name: ANUEL CARR [facility] : 1975 Age/S: 43/M [address] [facility] Unit #: [id number] Loc: E.ERS[address] [place], [place]: [place] [id number] Acct: [id number] Dis Date: Status: REG ER PHONE #: [phone] Exam Date: 12/12/20182109 FAX #: [phone] Reason: SOB EXAMS: CPT CODE: [id number] XR CHEST 1V 02642 <Continued> Orig Print D/T: S: 12/12/2018 (2120) PAGE 2Signed ReportBASIC METABOLIC PANEL 2018-12-12 21:03:00 Test Item Value Reference Range Comments SODIUM (test code = NA) 140 mmol/l 134.0-147.0 POTASSIUM (test code = K) 3.4 mmol/L 3.6-5.2 CHLORIDE (test code = CL) 106 mmol/l 98.0-107.0 CARBON DIOXIDE (test code = CO2) 19.6 mmol/l 21.0-33.0 ANION GAP (test code = GAP) 17.8 0-20 GLUCOSE (test code = GLU) 221 mg/dl 70.0-110.0 BLOOD UREA NITROGEN (test code = BUN) 11 mg/dl 7.0-18.0 CREATININE (test code = CREAT) 1.11 mg/dL 0.60-1.30 GFR NON BLACK (test code = GFRNONBLACK) 77 mL/min 95-105 GFR BLACK (test code = GFRBLACK) 93 mL/min 115-127 CALCIUM (test code = CA) 9.0 mg/dl 8.0-10.5 CBC W/AUTO [id number] 21:01:00 Test Item Value Reference Range Comments WHITE BLOOD CELL (test code = WBC) 7.7 K/mm3 4.5-11.0 RED BLOOD CELL (test code = RBC) 4.58 M/mm3 4.40-5.90 HEMOGLOBIN (test code = HGB) 12.9 gm/dL 13.0-17.0 HEMATOCRIT (test code = HCT) 37.0 % 36.0-48.0 MEAN CELL VOLUME (test code = MCV) 80.8 UM3 80.0-94.0 MEAN CELL HGB (test code = MCH) 28.2 UUG 25.5-32.5 MEAN CELL HGB CONCETRATION (test code = MCHC) 34.9 gm/dL 29 .0-35.5 RED CELL DISTRIBUTION WIDTH (test code = RDW) 13.2 % 11 .5-15.0 RED CELL DISTRIBUTION WIDTH SD (test code = 38.2 fL 34.8 -50.2 RDW-SD) PLATELET COUNT (test code = PLT) 273 K/mm3 150-400 MEAN PLATELET VOLUME (test code = MPV) 10.9 fl 7.4-10.4 NEUTROPHIL % (test code = NT%) 65.1 % 49.0-76.0 IMMATURE GRANULOCYTE % (test code = IG%) 0.3 % 0.0-0.4 LYMPHOCYTE % (test code = LY%) 22.8 % 23.0-38.0 MONOCYTE % (test code = MO%) 10.2 % 1.0-10.0 EOSINOPHIL % (test code = EO%) 0.7 % 1.0-5.0 BASOPHIL % (test code = BA%) 0.9 % 0.0-1.0 NEUTROPHIL # (test code = NT#) 5.0 K/mm3 2.4-6.3 IMMATURE GRANULOCYTE # (test code = IG#) 0.02 x10 3/uL 0.00-0. 07 LYMPHOCYTE # (test code = LY#) 1.8 K/mm3 1.2-4.0 MONOCYTE # (test code = MO#) 0.8 K/mm3 0.0-0.6 EOSINOPHIL # (test code = EO#) 0.1 K/MM3 0.0-0.7 BASOPHIL # (test code = BA#) 0.1 K/mm3 0.0-0.2 BASIC METABOLIC [id number] 21:01:00 Test Item Value Reference Range Comments SODIUM (test code = NA) 140 mmol/l 134.0-147.0 POTASSIUM (test code = K) 3.4 mmol/L 3.6-5.2 CHLORIDE (test code = CL) 106 mmol/l 98.0-107.0 CARBON DIOXIDE (test code = CO2) 19.6 mmol/l 21.0-33.0 ANION GAP (test code = GAP) 17.8 0-20 GLUCOSE (test code = GLU) mg/dl 70.0-110.0 BLOOD UREA NITROGEN (test code = BUN) mg/dl 7.0-18.0 CREATININE (test code = CREAT) mg/dL 0.60-1.30 GFR NON BLACK (test code = GFRNONBLACK) mL/min 95-105 GFR BLACK (test code = GFRBLACK) mL/min 115-127 CALCIUM (test code = CA) mg/dl 8.0-10.5 TROPONIN I [id number] 20:58:00 Test Item Value Reference Range Comments TROPONIN I RAPID (test 0.01 0.00-0.08 Nega tive: <= 0.08 code = TROPIRAP) Positive: > = 0.09An elevated troponin value a lone is not sufficient todia gnose a myocardial infarction. [facility] er, the patient'gabo l presentation (history, physic al exam) and ECGshould be use d in conjunction with troponin in thed iagnostic evaluation of suspected yemi cardial infarction.A serial sampling protocol is recommended to f acilitatethe identification o f temporal changes in troponin levelsc haracteristic of ME.
[2019-11-03] MEDS ORDERED: LIDOCAINE 2% MPF 5 ML VIAL ONE (10:42)
[2019-11-03] MEDS ORDERED: FENTANYL CITR 100 MCG/2 ML ONE (10:42)
[2019-11-03] MEDS ORDERED: ONDANSETRON 4 MG/2 ML VIAL ONE (10:42)
[2019-11-03] MEDS ORDERED: dexAMETHasone 4 MG/ML VIAL ONE (10:42)
[2019-11-03] MEDS ORDERED: propofoL 200 MG/20 ML VIAL IV ONE (10:42)
[2019-11-03] MEDS ORDERED: MIDAZOLAM HCL 2 MG/2 ML INJ ONE (10:42)
[2019-11-03] MEDS ORDERED: ROCURONIUM 50 MG/5 ML VIAL IV ONE (10:42)
--- NOTE | 2019-11-03 10:49 | EKG ---
Test Date: 2019-11-03 Test Time: 07:27:47 Staff Field Engineer: INDERJIT MEASUREMENT RESULTS: Intervals: Rate: 73 [place]: 132 QRSD: 96 QT: 372 QTc: 409 [place]: P: 30 [place]: 132 QRS: -29 T: 29 INTERPRETIVE STATEMENTS: Normal sinus rhythm Normal ECG Compared to ECG 12/19/2018 21:09:41 Left ventricular hypertrophy no longer present Electronically Signed On 11-03-19 10:48:56 CDT by Espinoza Valenzuela
[2019-11-03] MEDS ORDERED: CISATRACURIUM INJECTION 2 MG/ML (10 ML Vial) IV ONE (11:41)
--- NOTE | 2019-11-03 12:27 | P.BOP ---
Preoperative diagnosis: intractable RUQ abd pain, acute cholecystitis, biliary dyskinesia Postoperative diagnosis: same plus extensive intrabdominal adhesions Primary procedure: 1. Laparoscopic cholecystectomy Secondary procedure: 2. Laparoscopic lysis of adhesions Estimated blood loss: <10cc Specimen: gb Findings: see dictation Anesthesia: General Complications: None Drain(s): MIGUEL drain Transferred to: Recovery Room Condition: Good
[2019-11-03] MEDS ORDERED: GLYCOPYRROLATE 0.2 MG/ML SYR ONE (12:34)
[2019-11-03] MEDS ORDERED: NEOSTIGMINE 1 MG/ML -5 ML ONE (12:41)
[2019-11-03] MEDS: HYDROMORPHONE HCL 2 MG/ML inj ONE ×2 (12:50→12:55)
[2019-11-03] MEDS ORDERED: PROMETHAZINE INJ 25 MG/ML AMP ONE (12:56)
[2019-11-03 13:58] VITALS: TEMP 98.3
[2019-11-03 14:41] VITALS: BP 138/64; O2SAT 98
--- NOTE | 2019-11-04 22:20 | OP ---
Date of Procedure: 11/03/2019 Surgeon: Elliot Christian MD Preoperative Diagnoses: Intractable right upper quadrant abdominal pain, acute cholecystitis, biliar y dyskinesia. Postoperative Diagnoses: Intractable right upper quadrant abdominal pain, acute cholecystitis, bilia ry dyskinesia, and extensive intraabdominal adhesions. Procedure: 1.Laparoscopic cholecystectomy. 2.Laparoscopic lysis of adhesions. Estimated Blood Loss: Less than 10 mL. Anesthesia: General plus local. Drains: MIGUEL #10. Indications: This is the case of a male, who comes to us with acute abdominal pain, acute cholecysti tis. He was scheduled little bit more than a month ago for gallbladder disease surgery, cholecystect ciera, but then he came to the hospital with a ruptured perforated appendix that will require long-term antibiotics. Immediate emergent care with intraabdominal abscess that is resolved at this moment. We were holding the procedure due to the natural emergency with coronavirus, but the patient stated t he pain is just getting worse. He is taking pain medication every day. So now as the restrictions i n the [place] are little bit released, I believe he qualify for an urgent case with all this intractabl e abdominal pain. He wants to have it done at this moment. He understands the risks with infection, bleeding, damage to adjacent structures, anesthesia complication, cholelithiasis, bile leak, pancrea titis, MT, and even . He also understands the risk of kelly coronavirus at this moment. He still wants surgery to be done. He was booked as an urgent case due to this abdominal pain. Description Of Procedure: The patient was brought to the operating room, placed in supine position. Anesthesia was done without complication. Abdominal area was prepped and draped in a sterile fashio n. Marcaine 0.5% was injected for local anesthetic, followed by sharp incision of the skin in the núñez praumbilical region. Incision was carried down to fascia, which was opened under direct vision. Per itoneum was encountered, opened under direct vision. Vicryl #1 placed inside the fascia. Sheila tro car was carefully introduced. No bleeding was obtained. As we expected, patient has multiple intraa bdominal adhesions. We have to remember he has intraabdominal abscesses from a perforated appendix a nd that created inflammatory reaction in his body creating this adhesions. So in order for us to con tinue, we have to put an Endo Sania and proceeded to do lysis of adhesions. Before that, we found a space in the epigastric area, where we could put a 5 mm trocar and after that, we proceeded with an Endo Shear and the Bovie cauterizer to do lysis of adhesions and we have to clear the right upper abdiel drant area. We noticed the patient's gallbladder to be inflamed and adhesions attached to it. So, w e put a grasper in the fundus of the gallbladder, retracted the gallbladder in the inferolateral fash ion after putting another grasper in the infundibulum, retracted the gallbladder in the inferolateral fashion exposing the triangle of Calot obtaining critical view of safety. Cystic duct and cystic ar michael were clearly isolated, freed circumferentially and a connection between those and the gallbladde r were clearly identified. I proceeded to ligate those by using at least 3 clips proximal, 1 clip di stal, and ligation in middle. Same was done with the cystic artery. No bile leak. No bleeding. Th e gallbladder was removed from liver using Bovie cauterizer and removed from abdominal cavity using a n EndoCatch through the umbilical incision. After that, we inspected the area once again after profu se irrigation and suction. We looked at the area of lysis of adhesions with no bleeding at this mome nt. We looked at the area of the gallbladder fossa. No bleeding. At that moment, I proceeded to re move the trocars under direct vision. Deflated the pneumoperitoneum. Closed the fascia with #1 Vicr yl. Irrigated subcutaneous tissue, closed that with 3-0 chromic. Since the patient has so much infl ammation in the right upper quadrant, I proceeded to leave a MIGUEL drain exiting through 1 of the trocar sites and secured in place with 3-0 nylon. Alexy were used for the skin. Patient tolerated the procedure well. Patient was sent to recovery in stable condition. JAZZY/NICOLAL Voice ID: [id number] Report ID: [id number]
--- NOTE | 2019-11-04 22:33 | DS ---
Date of Discharge: 11/03/2019 Diagnoses: Intractable right upper quadrant abdominal pain, acute cholecystitis, biliary dyskinesia, intraabdominal adhesions. Procedure: Laparoscopic cholecystectomy, laparoscopic lysis of adhesions. Disposition: Home. Activity: As tolerated, no heavy lifting. Followup: Followup in my office in 1 week. Call for appointment on [phone]. Keep area dry for 48 hours, then may shower. MIGUEL drain q.24 hours. Medication: See orders. JAZZY/JESENIA Voice ID: [id number] Report ID: [id number]
== END 2019-11-03 14:44 | disposition home or self-care (01) ==
LOC: OR 08:48
PROVIDERS: ATTEND Surgery
PROC: 0DNW4ZZ Release Peritoneum, Percutaneous Endoscopic Approach (ICD-10-PCS; 2019-11-03)
PROC: 0FT44ZZ Resection of Gallbladder, Percutaneous Endoscopic Approach (ICD-10-PCS; principal; 2019-11-03 11:00)
DX: K81.2 Acute cholecystitis with chronic cholecystitis (principal); Z11.59 Encounter for screening for other viral diseases; K82.8 Other specified diseases of gallbladder; K66.0 Peritoneal adhesions (postprocedural) (postinfection); E11.9 Type 2 diabetes mellitus without complications; I10 Essential (primary) hypertension; K21.9 Gastro-esophageal reflux disease without esophagitis; E66.9 Obesity, unspecified; Z68.33 Body mass index [BMI] 33.0-33.9, adult; Z83.3 Family history of diabetes mellitus; Z82.49 Family history of ischemic heart disease and other diseases of the circulatory system
CPT/HCPCS: 47562; 49329; 93005; 85025; 80048; 36415; 82150; 82947; 80076; 88304; 83690; 71046; J2704; J2550; J2250; J1170; J3010; J2710; J7030 ×2; J2405

== ENCOUNTER 2020-02-19 18:53 | Emergency (ER) | payer BC ==
--- OUTSIDE RECORDS SUMMARY | 2020-02-19 18:55 | XMS REPORT | Continuity of Care Document ---
:1975 Author Organization [facility] t Address [address] [place] [address] Care Team Providers Name Role Phone Unavailable Unavailable Unavailable Payers Payer Name Policy Type Policy Number Effective Date Expiration Date S ource Problems This patient has no known problems. Allergies, Adverse Reactions, Alerts Allergy Allergy Status Severity Reaction(s) Onset Inactive Treating Comm ents Source Name Type Date Date Clinician No Known DA Active [facility] 12[facility] [facility] 00:00: d 00 [facility] [place] Medications This patient has no known medications. Procedures This patient has no known procedures. Results Test Description Test Time Test Comments Results Result Comments Source GLUBED 2018-12-20 00:41:00 Test Item Value Reference Range Interpretation Comme nts GLUBED (test code = GLUBED) 197 mg/dL 70-110 H [id number] 00:41:00 Test Item Value Reference Range Interpretation Comments GLUBED (test code = GLUBED) 184 mg/dL 70-110 H [id number] 00:41:00 Test Item Value Reference Range Interpretation Comments GLUBED (test code = GLUBED) 170 mg/dL 70-110 H [id number] 06:10:00 Test Item Value Reference Range Interpretation Comments GLUBED (test code = GLUBED) 157 mg/dL 70-110 H [id number] 06:10:00 Test Item Value Reference Range Interpretation Comments GLUBED (test code = GLUBED) 206 mg/dL 70-110 H [id number] 06:10:00 Test Item Value Reference Range Interpretation Comments GLUBED (test code = GLUBED) 177 mg/dL 70-110 H [id number] 06:10:00 Test Item Value Reference Range Interpretation Comments GLUBED (test code = GLUBED) 235 mg/dL 70-110 H - CT ABD PELVIS [id number] 16:33:00 FAX: Donta Kayin Kamila [phone] Bells: St: [facility] FAX: Manuela Rhodes [phone] Name: ANUEL CARR [facility] : 1975 Age/S: 43/M [address] [facility] Unit: [id number] Loc: [address] Phys: Manuela Basurto [address] Acct: [id number] Dis Date: Status: ADM IN PHONE #: [phone] Exam Date: 12/14/2018 1617 FAX #: [phone] Reason: LUQ pain EXAMS: CPT CODE: [id number] CT ABD PELVIS W/CONT 40021 EXAM: CT abdomen and pelvis with contrast [...] PAGE 1 Signed Report (CONTINUED) FAX: Mian DraperMcgregorJon arriaga [phone] Bells: St: ADM FAX: Manuela Rhodes [phone] Name: ANUEL CARR [facility] : 1975 Age/S: 43/M [address] [id number] Loc: [address] Phys: Manuela Basurto [address] Acct: [id number] Dis Date: Status: ADM IN PHONE #: [phone] Exam Date: 12/14/2018 1617 FAX #: [phone] Reason: LUQ pain EXAMS: CPT CODE: [id number] CT ABD PELVIS W/CONT 77252 <Continued> Left kidney: The kidneys are normal. [...] 2 Signed Report (CONTINUED) FAX: Jon Kay [phone] Bells: St: ADM FAX: Manuela Rhodes [phone] --------- Name: ANUEL CARR [facility] : 1975 Age/S: 43/M [address] [facility] Unit: [id number] Loc: [address] Phys: Manuela Basurto [address] Acct: [id number] Dis Date: Status: ADM IN PHONE #: [phone] Exam Date: 12/14/2018 1617 FAX #: [phone] Reason: LUQ pain EXAMS: CPT CODE: [id number] CT ABD PELVIS W/CONT 42836 <Continued> at 1633 Reported and signed by: Collin Gustafson M.D. CC:Jon Mcgregor MD; Manuela JACOB Technologist: SKYLER Kim Dt/Tm: 12/14/2018 (1633) Zee Orig Print D/T: S: 12/14/2018(1636 PAGE 3 Signed [id number] 16:20:00 Test Item Value Reference Range Interpretation Comments GLUBED (test code = GLUBED) 195 mg/dL 70-110 H COMPREHENSIVE METABOLIC [id number] 07:24:00 Test Item Value Reference Range Interpretation Comments SODIUM (test code = NA) 142 mmol/l 134.0-147.0 N POTASSIUM (test code = K) 3.7 mmol/L 3.6-5.2 N CHLORIDE (test code = CL) 109 mmol/l 98.0-107.0 H CARBON DIOXIDE (test code = CO2) 25.6 mmol/l 21.0-33.0 N ANION GAP (test code = GAP) 11.1 0-20 N GLUCOSE (test code = GLU) 206 mg/dl 70.0-110.0 H BLOOD UREA NITROGEN (test code = 13 mg/dl 7.0-18.0 N BUN) CREATININE (test code = CREAT) 0.96 mg/dL 0.60-1.30 N GFR NON BLACK (test code = 91 mL/min 95-105 L GFRNONBLACK) GFR BLACK (test code = GFRBLACK) 110 mL/min 115-127 L TOTAL PROTEIN (test code = PROT) 5.7 GM/DL 6.0-8.1 L ALBUMIN (test code = ALB) 2.7 gm/dL 3.2-4.7 L CALCIUM (test code = CA) 8.0 mg/dl 8.0-10.5 N BILIRUBIN TOTAL (test code = 0.2 mg/dl 0.0-1.0 N BILT) SGOT/AST (test code = AST) 23 Units/L 15.0-37.0 N SGPT/ALT (test code = ALT) 50 Units/L 12.0-78.0 N ALKALINE PHOSPHATASE TOTAL (test 57 Units/L 50.0-136.0 N code = ALKP) [id number] 07:24:00 Test Item Value Reference Range Interpretation Comments MAGNESIUM (test code = MAG) 1.6 mg/dl 1.8-2.4 L CBC W/AUTO [id number] 07:06:00 Test Item Value Reference Range Interpretation Comments WHITE BLOOD CELL (test code = 7.4 K/mm3 4.5-11.0 N WBC) RED BLOOD CELL (test code = 4.26 M/mm3 4.40-5.90 L RBC) HEMOGLOBIN (test code = HGB) 12.1 gm/dL 13.0-17.0 L HEMATOCRIT (test code = HCT) 36.8 % 36.0-48.0 N MEAN CELL VOLUME (test code = 86.4 UM3 80.0-94.0 MCV) MEAN CELL HGB (test code = MCH) 28.4 UUG 25.5-32.5 N MEAN CELL HGB CONCETRATION 32.9 gm/dL 29.0-35.5 N (test code = MCHC) RED CELL DISTRIBUTION WIDTH 13.5 % 11.5-15.0 N (test code = RDW) RED CELL DISTRIBUTION WIDTH SD 42.5 fL 34.8-50.2 N (test code = RDW-SD) PLATELET COUNT (test code = 216 K/mm3 150-400 N PLT) MEAN PLATELET VOLUME (test code 11.5 fl 7.4-10.4 H = MPV) NEUTROPHIL % (test code = NT%) 45.1 % 49.0-76.0 L IMMATURE GRANULOCYTE % (test 0.3 % 0.0-0.4 N code = IG%) LYMPHOCYTE % (test code = LY%) 40.1 % 23.0-38.0 H MONOCYTE % (test code = MO%) 9.5 % 1.0-10.0 N EOSINOPHIL % (test code = EO%) 3.8 % 1.0-5.0 N BASOPHIL % (test code = BA%) 1.2 % 0.0-1.0 H NEUTROPHIL # (test code = NT#) 3.3 K/mm3 2.4-6.3 N IMMATURE GRANULOCYTE # (test 0.02 x10 3/uL 0.00-0.07 N code = IG#) LYMPHOCYTE # (test code = LY#) 3.0 K/mm3 1.2-4.0 N MONOCYTE # (test code = MO#) 0.7 K/mm3 0.0-0.6 H EOSINOPHIL # (test code = EO#) 0.3 K/MM3 0.0-0.7 N BASOPHIL # (test code = BA#) 0.1 K/mm3 0.0-0.2 N VITAMIN [id number] 10:49:00 Test Item Value Reference Range Interpretation Comments VITAMIN B12 (test code = VITB12) 409 pg/mL 193-986 N [id number] 10:21:00 Test Item Value Reference Range Interpretation Comments HGBA1C% (test code = HGBA1C%) 8.8 %A1C 4.8-6.0 H ESTIMATED AVERAGE GLUCOSE (test 206 MG/DL code = EAG) [id number] 06:00:00 Test Item Value Reference Range Interpretation Comments TROPONIN-I (test <0.02 NG/ML 0.00-0.06 N REFERENCE R ANNIE code = TROPI) TROPONIN I HEA LTHY INDIVIDUALS: < 0.06 ng/mL R/O ISCHE SAVANA: 0.07 - 0.60 ng/ mL CUT-OFF RANGE F OR AMI: 0.60 - 1.5 ng/m L [id number] 01:25:00 Test Item Value Reference Range Interpretation Comments TROPONIN-I (test <0.02 NG/ML 0.00-0.06 N REFERENCE R ANNIE code = TROPI) TROPONIN I HEA LTHY INDIVIDUALS: < 0.06 ng/mL R/O ISCHE SAVANA: 0.07 - 0.60 ng/ mL CUT-OFF RANGE F OR AMI: 0.60 - 1.5 ng/m L - XR CHEST 1 [id number] 21:18:00 Bells: St: REG Name: ANUEL CARR [facility] : 1975 Age/S: 43/M [address] [facility] Unit#: [id number] Loc: [address] [place], [place]: [place] [address] Acct: [id number] Dis Date: Status: REG ER PHONE #: [phone] Exam Date: 12/12/20182109 FAX #: [phone] Reason: SOB EXAMS: CPT CODE: [id number] XR CHEST 1 V 77765 REASON FOR EXAM: Shortness of breath and chest pain. COMPARISON: None. Chest, portable single frontal view. The lungs are well- inflated and clear. Heart size is normal. No effusion or pneumothorax can be seen. Osseous structures appear to be intact. IMPRESSION: No acute cardiopulmonary disease. Location: U19 at 2117 Re ported and signed by: Humble Simpson M.D. CC: Technologist: NELA UREÑA Trnscrd Date/Time/By:12/12/2018 (2117) : By: [facility] PAGE 1 Signed Report Bells: St: REG Name: ANUEL CARR [facility] : 1975 Age/S: 43/M [address] [facility] Unit #: [id number] Loc: [address] [place], [place]: [place] [address] Acct: [id number] Dis Date: Status: REG ER PHONE #: [phone] Exam Date: 12/12/20182109 FAX #: [phone] Reason: SOB EXAMS: CPT CODE: [id number] XR CHEST 1V 36063 <Continued> Orig Print D/T: S: 12/12/2018 (2120) PAGE 2Signed ReportBASIC METABOLIC PANEL 2018-12-12 21:03:00 Test Item Value Reference Range Interpretation Comments SODIUM (test code = NA) 140 mmol/l 134.0-147.0 N POTASSIUM (test code = K) 3.4 mmol/L 3.6-5.2 L CHLORIDE (test code = CL) 106 mmol/l 98.0-107.0 N CARBON DIOXIDE (test code = CO2) 19.6 mmol/l 21.0-33.0 L ANION GAP (test code = GAP) 17.8 0-20 N GLUCOSE (test code = GLU) 221 mg/dl 70.0-110.0 H BLOOD UREA NITROGEN (test code = 11 mg/dl 7.0-18.0 N BUN) CREATININE (test code = CREAT) 1.11 mg/dL 0.60-1.30 N GFR NON BLACK (test code = 77 mL/min 95-105 L GFRNONBLACK) GFR BLACK (test code = GFRBLACK) 93 mL/min 115-127 L CALCIUM (test code = CA) 9.0 mg/dl 8.0-10.5 N CBC W/AUTO [id number] 21:01:00 Test Item Value Reference Range Interpretation Comments WHITE BLOOD CELL (test code = 7.7 K/mm3 4.5-11.0 N WBC) RED BLOOD CELL (test code = 4.58 M/mm3 4.40-5.90 N RBC) HEMOGLOBIN (test code = HGB) 12.9 gm/dL 13.0-17.0 L HEMATOCRIT (test code = HCT) 37.0 % 36.0-48.0 N MEAN CELL VOLUME (test code = 80.8 UM3 80.0-94.0 N MCV) MEAN CELL HGB (test code = MCH) 28.2 UUG 25.5-32.5 N MEAN CELL HGB CONCETRATION 34.9 gm/dL 29.0-35.5 N (test code = MCHC) RED CELL DISTRIBUTION WIDTH 13.2 % 11.5-15.0 N (test code = RDW) RED CELL DISTRIBUTION WIDTH SD 38.2 fL 34.8-50.2 N (test code = RDW-SD) PLATELET COUNT (test code = 273 K/mm3 150-400 N PLT) MEAN PLATELET VOLUME (test code 10.9 fl 7.4-10.4 H = MPV) NEUTROPHIL % (test code = NT%) 65.1 % 49.0-76.0 N IMMATURE GRANULOCYTE % (test 0.3 % 0.0-0.4 N code = IG%) LYMPHOCYTE % (test code = LY%) 22.8 % 23.0-38.0 L MONOCYTE % (test code = MO%) 10.2 % 1.0-10.0 H EOSINOPHIL % (test code = EO%) 0.7 % 1.0-5.0 L BASOPHIL % (test code = BA%) 0.9 % 0.0-1.0 N NEUTROPHIL # (test code = NT#) 5.0 K/mm3 2.4-6.3 N IMMATURE GRANULOCYTE # (test 0.02 x10 3/uL 0.00-0.07 N code = IG#) LYMPHOCYTE # (test code = LY#) 1.8 K/mm3 1.2-4.0 N MONOCYTE # (test code = MO#) 0.8 K/mm3 0.0-0.6 H EOSINOPHIL # (test code = EO#) 0.1 K/MM3 0.0-0.7 N BASOPHIL # (test code = BA#) 0.1 K/mm3 0.0-0.2 N BASIC METABOLIC [id number] 21:01:00 Test Item Value Reference Range Interpretation Comments SODIUM (test code = NA) 140 mmol/l 134.0-147.0 N POTASSIUM (test code = K) 3.4 mmol/L 3.6-5.2 L CHLORIDE (test code = CL) 106 mmol/l 98.0-107.0 N CARBON DIOXIDE (test code = CO2) 19.6 mmol/l 21.0-33.0 L ANION GAP (test code = GAP) 17.8 0-20 N GLUCOSE (test code = GLU) mg/dl 70.0-110.0 BLOOD UREA NITROGEN (test code = mg/dl 7.0-18.0 BUN) CREATININE (test code = CREAT) mg/dL 0.60-1.30 GFR NON BLACK (test code = mL/min 95-105 GFRNONBLACK) GFR BLACK (test code = GFRBLACK) mL/min 115-127 CALCIUM (test code = CA) mg/dl 8.0-10.5 TROPONIN I [id number] 20:58:00 Test Item Value Reference Range Interpretation Comments TROPONIN I RAPID 0.01 0.00-0.08 N Negati ve: <= 0.08 (test code = Positive: > = 0.09An TROPIRAP) elevated tropon in value alone is not sufficie nt todiagnose a myocardial infa rction. Rather, the patient'scl inical presentation (h istory, physical exam) and ECGshould be used in conj unction with troponin in the diagnostic evaluation of s uspected myocardial infa rction.A serial sampling protoc ol is recommended to facilitatethe identification of temporal changes in trop onin levelscharacter istic of PA.
[2020-02-19 19:58] LABS: Absolute Lymphocytes (CBC) 1.9 K/uL (0.7-4.9); Basophils % 0.5 % (0-1.3); Hematocrit 39.6 % (39.6-49.0); Lymphocytes % 16.1 % (15.3-44.8); MPV 9.8 fL (7.6-11.3); RBC Red Blood Cell Count 4.84 M/uL (4.33-5.43)
[2020-02-19 20:06] LABS: Protime INR 0.93
[2020-02-19] MEDS ORDERED: MORPHINE 4 MG/ML SYR ONE (20:15)
[2020-02-19] MEDS ORDERED: NA CHLORIDE 0.9% 1,000 ML ONE (20:15)
[2020-02-19] MEDS ORDERED: ONDANSETRON 4 MG/2 ML VIAL ONE (20:15)
[2020-02-19 20:16] LABS: Albumin 3.1 g/dL (3.4-5.0); Bilirubin Direct 0.1 mg/dL (0-0.2); Bilirubin Total 0.3 mg/dL (0.2-1.0); Potassium 4.6 mmol/L (3.5-5.1); Protein, Total 7.7 g/dL (6.4-8.2)
[2020-02-19 20:42] LABS: Urine Blood NEGATIVE (NEG); Urine Glucose 2+ (NEG); Urine Protein NEGATIVE (NEG); Urine Specific Gravity 1.015 (1.005-1.030)
--- NOTE | 2020-02-19 21:31 | EDPHYS ---
Physician Documentation [facility] Name: Brayden Hendreson Age: 44 yrs Sex: Male : 1975 Arrival Date: 02/19/2020 Time: 18:55 Bed 20 Private MD: ED Physician Heber Costa HPI: 02/18 19:27 This 44 yrs old Male presents to ER via Ambulatory with complaints of Abscess. mh7 19:27 the patient presents with a swollen area of the left posterior aspect of neck. mh7 Description: swollen. Onset: The symptoms/episode began/occurred 1 week(s) ago. Possible cause(s): unknown. 19:28 Associated signs and symptoms: Pertinent positives: nausea, swelling, Pertinent mh7 negatives: discharge, drainage, foreign body sensation, fever, headache, shortness of breath, vomiting. Modifying factors: the symptoms are alleviated by nothing, the symptoms are aggravated by touching. Severity of symptoms: At their worst the symptoms were moderate, earlier today, in the emergency department the symptoms are unchanged. The patient has been recently seen by a physician: Dr. Dr. Christian yesterday. Historical: - Allergies: 19:06 NKA; ls4 - Home Meds: 19:24 pantoprazole 40 mg oral TbEC 1 tab once daily [Active]; Bactrim DS 800-160 mg Oral tab vc 1 tab 2 times per day [Active]; diclofenac sodium 75 mg oral TbEC 1 tab 2 times per day [Active]; carvedilol 6.25 mg oral tab 1 tab 2 times per day [Active]; ibuprofen 600 mg Oral tab 1 tab 3 times per day [Active]; levothyroxine 50 mcg tab 1 tab once daily [Active]; cyclobenzaprine 10 mg Oral tab [Active]; - PMHx: 19:06 blood clot right eye; Diabetes - NIDDM; Hypertension; Hypothyroidism; ls4 - Immunization history:: Adult Immunizations up to date. - Social history:: Smoking status: unknown. ROS: 19:28 Constitutional: Negative for fever, chills, and weight loss, Eyes: Negative for injury, mh7 pain, redness, and discharge, ENT: Negative for injury, pain, and discharge, Cardiovascular: Negative for chest pain, palpitations, and edema, Respiratory: Negative for shortness of breath, cough, wheezing, and pleuritic chest pain, Back: Negative for injury and pain, : Negative for injury, bleeding, discharge, and swelling, MS/Extremity: Negative for injury and deformity, Neuro: Negative for headache, weakness, numbness, tingling, and seizure, Psych: Negative for depression, anxiety, suicide ideation, homicidal ideation, and hallucinations, Allergy/Immunology: Negative for hives, rash, and allergies, Hematologic/Lymphatic: Negative for swollen nodes, abnormal bleeding, and unusual bruising. Exam: 19:28 Head/Face: Normocephalic, atraumatic. mh7 19:28 Constitutional: The patient appears in no acute distress, alert, awake, uncomfortable. 19:46 Chest/axilla: Normal chest wall appearance and motion. Nontender with no deformity. mh7 No lesions are appreciated. Cardiovascular: Regular rate and rhythm with a normal S1 and S2. No gallops, murmurs, or rubs. Normal PMI, no JVD. No pulse deficits. Respiratory: Lungs have equal breath sounds bilaterally, clear to auscultation and percussion. No rales, rhonchi or wheezes noted. No increased work of breathing, no retractions or nasal flaring. Abdomen/GI: Soft, non-tender, with normal bowel sounds. No distension or tympany. No guarding or rebound. No evidence of tenderness throughout. 19:46 MS/ Extremity: Pulses equal, no cyanosis. Neurovascular intact. Full, normal range of motion. Neuro: Awake and alert, GCS 15, oriented to person, place, time, and situation. Cranial nerves II-XII grossly intact. Motor strength 5/5 in all extremities. Sensory grossly intact. Cerebellar exam normal. Normal gait. Psych: Awake, alert, with orientation to person, place and time. Behavior, mood, and affect are within normal limits. 19:46 Neck: External neck: mass, that is moderate-sized, of the left posterior aspect of neck, that is tender to palpation, swelling, that is moderate, of the left posterior aspect of neck, tenderness, that is mild, C-spine: appears grossly normal, Thyroid: appears normal, Trachea: is midline with no obvious abnormalities, ROM/movement: is normal, Lymph nodes: no appreciated lymphadenopathy. 19:46 Skin: lesion(s), Dark macular areas of trunk and legs that appear chronic. No petechiae or purpura.. Vital Signs: 19:00 BP 159 / 84; Pulse 87; Resp 16; Pulse Ox 100% on R/A; vc 19:03 BP 158 / 84; Pulse 88; Resp 16; Temp 99.5(O); Pulse Ox 99% on R/A; Weight 93.89 kg; ls4 Height 5 ft. 5 in. (165.10 cm); Pain 10/10; 20:00 BP 146 / 73; Pulse 79; Resp 16; Pulse Ox 96% ; vc 20:45 BP 150 / 69; Pulse 77; Resp 16; Pulse Ox 99% on R/A; vc 21:45 BP 135 / 73; Pulse 72; Resp 16; Temp 98.3(O); Pulse Ox 97% on R/A; vc 19:03 Body Mass Index 34.45 (93.89 kg, 165.10 cm) ls4 MDM: 19:16 Patient medically screened. 7 21:27 Differential diagnosis: abscess, cellulitis, Sebaceous Cyst. Data reviewed: vital 7 signs, nurses notes, lab test result(s), CBC, electrolytes, urinalysis. Data interpreted: Pulse oximetry: on room air is 99 %. Interpretation: normal. Counseling: I had a detailed discussion with the patient and/or guardian regarding: the historical points, exam findings, and any diagnostic results supporting the discharge/admit diagnosis, the presence of at least one elevated blood pressure reading (>120/80) during this emergency department visit, lab results, the need for outpatient follow up, to return to the emergency department if symptoms worsen or persist or if there are any questions or concerns that arise at home. Response to treatment: the patient's symptoms have markedly improved after treatment. Physician consultation: Elliot Christian MD regarding patient's condition, and will see patient in office, tomorrow. 02/19 06:01 Medical screen evaluation completed. EMTALA emergency medical condition absent. ED mh7 course: Feels better, NAD, VSS, no focal neurological deficits. No nausea, vomiting, or other complaints. Discussed with Dr. Christian who stated that patient has a sebaceous cyst . He wants patient to follow up in his office in the morning. This was relayed to the patient who is agreeable with the plan.. 02/18 19:20 Order name: CBC with Diff; Complete Time: 20:13 7 02/18 19:20 Order name: Basic Metabolic Panel; Complete Time: 20:50 mh7 02/18 19:20 Order name: LFT's; Complete Time: 20:50 7 02/18 19:21 Order name: Protime (+inr); Complete Time: 20:13 mh7 02/18 19:21 Order name: Ptt, Activated; Complete Time: 20:13 7 02/18 19:31 Order name: Glucose, Ancillary Testing; Complete Time: 19:34 EDMS 02/18 19:20 Order name: Urine Dipstick-Ancillary (obtain specimen); Complete Time: 20:14 mh7 02/18 19:22 Order name: Accucheck Blood Glucose; Complete Time: 19:25 7 02/18 20:07 Order name: Urine Dipstick--Ancillary (enter results); Complete Time: 20:50 tt3 02/18 21:37 Order name: Glucose, Ancillary Testing EDMS Administered Medications: 02/18 20:14 Drug: NS 0.9% 1000 ml Route: IV; Rate: 1000 ml; Site: left antecubital; vc 22:01 Follow up: IV Status: Completed infusion; IV Intake: 1000ml vc 20:14 Drug: Zofran (Ondansetron) 4 mg Route: IVP; Site: left antecubital; vc 22:01 Follow up: Response: No adverse reaction; Nausea is decreased vc 20:14 Drug: morphine 4 mg Route: IVP; Site: left antecubital; vc 22:00 Follow up: Response: No adverse reaction; Nausea is decreased vc 22:01 Follow up: Response: No adverse reaction; Pain is decreased vc Disposition: 02/19 06:25 Co-signature as Attending Physician, Heber Costa MD. [facility] Disposition: 02/19/20 21:30 Discharged to Home. Impression: Sebaceous cyst, Hyperglycemia. - Condition is Stable. - Discharge Instructions: Epidermal Cyst, Gvlo-dx-Fmrf, Hyperglycemia, Efgi-uo-Pvtj. - Prescriptions for Zofran ODT 4 mg Oral tablet,disintegrating - place 1 tablet by TRANSLINGUAL route every 8 hours As needed; 6 tablet. Tylenol- Codeine #3 300-30 mg Oral Tablet - take 2 tablets by ORAL route every 6 hours As needed; 12 tablet. - Medication Reconciliation Form, Thank You Letter, Antibiotic Education, Prescription Opioid Use form. - Follow up: Elliot Christian MD; When: Tomorrow; Reason: Worsening of condition, Recheck today's complaints, Continuance of care, Re-evaluation by your physician. - Problem is an ongoing problem. - Symptoms have improved. Signatures: Dispatcher [employer] EDMS Jazmine Kendall RN RN ls4 Gabi Villalba RN RN vc Heber Costa MD MD mh7 Corrections: (The following items were deleted from the chart) 02/18 22:01 21:30 02/19/2020 21:30 Discharged to Home. Impression: Sebaceous cyst; Hyperglycemia. vc Condition is Stable. Forms are Medication Reconciliation Form, Thank You Letter, Antibiotic Education, Prescription Opioid Use. Follow up: Elliot Christian; When: Tomorrow; Reason: Worsening of condition, Recheck today's complaints, Continuance of care, Re-evaluation by your physician. Problem is an ongoing problem. Symptoms have improved. mh7
--- NOTE | 2020-02-19 21:31 | ER ---
Nurse's Notes [facility] Name: Brayden Henderson Age: 44 yrs Sex: Male : 1975 Arrival Date: 02/19/2020 Time: 18:55 Bed 20 Private MD: Diagnosis: Sebaceous cyst;Hyperglycemia Presentation: 02/18 19:03 Chief complaint: Patient states: abscess on my neck is keeping me up at night ls4 Medications that Dr Christian gave me are not working. I have surgery scheduled for next week but the pain is too much. Coronavirus screen: At this time, the client does not indicate any symptoms associated with coronavirus-19. Ebola Screen: No symptoms or risks identified at this time. Initial Sepsis Screen: Does the patient meet any 2 criteria? No. Patient's initial sepsis screen is negative. Does the patient have a suspected source of infection? Yes: Skin breakdown/wound. Risk Assessment: Do you want to hurt yourself or someone else? Patient reports no desire to harm self or others. Onset of symptoms is unknown. 19:03 Method Of Arrival: Ambulatory ls4 19:03 Acuity: MARIA E 4 ls4 Triage Assessment: 19:24 General: Appears in no apparent distress. uncomfortable, obese, Behavior is calm, vc cooperative, appropriate for age. Pain: Complains of pain in left posterior aspect of neck Pain does not radiate. Pain currently is 8 out of 10 on a pain scale. at worst was 10 out of 10 on a pain scale. Historical: - Allergies: 19:06 NKA; ls4 - Home Meds: 19:24 pantoprazole 40 mg oral TbEC 1 tab once daily [Active]; Bactrim DS 800-160 mg Oral tab vc 1 tab 2 times per day [Active]; diclofenac sodium 75 mg oral TbEC 1 tab 2 times per day [Active]; carvedilol 6.25 mg oral tab 1 tab 2 times per day [Active]; ibuprofen 600 mg Oral tab 1 tab 3 times per day [Active]; levothyroxine 50 mcg tab 1 tab once daily [Active]; cyclobenzaprine 10 mg Oral tab [Active]; - PMHx: 19:06 blood clot right eye; Diabetes - NIDDM; Hypertension; Hypothyroidism; ls4 - Immunization history:: Adult Immunizations up to date. - Social history:: Smoking status: unknown. Screenin:05 Abuse screen: Denies threats or abuse. Nutritional screening: No deficits noted. vc Tuberculosis screening: No symptoms or risk factors identified. Fall Risk None identified. Assessment: 19:00 General: Appears in no apparent distress. uncomfortable, obese, Behavior is calm, vc cooperative, appropriate for age. Pain: Complains of pain in left posterior aspect of neck Pain does not radiate. Pain currently is 8 out of 10 on a pain scale. Quality of pain is described as pressure, sharp. Neuro: Level of Consciousness is awake, alert, obeys commands, Oriented to person, place, time, situation, Appropriate for age. Cardiovascular: Capillary refill < 3 seconds Patient's skin is warm and dry. Respiratory: Airway is patent Respiratory effort is even, unlabored, Respiratory pattern is regular, symmetrical. GI: Reports nausea. : No signs and/or symptoms were reported regarding the genitourinary system. Derm: Swelling to left side of neck. 19:00 Musculoskeletal: Circulation, motion, and sensation intact. Range of motion: limited in vc neck Swelling present in left posterior aspect of neck. 20:00 Reassessment: Patient appears in no apparent distress at this time. Patient and/or vc family updated on plan of care and expected duration. Pain level reassessed. 20:58 Reassessment: Patient appears in no apparent distress at this time. Patient and/or vc family updated on plan of care and expected duration. Pain level reassessed. 21:54 Reassessment: Patient appears in no apparent distress at this time. Patient and/or vc family updated on plan of care and expected duration. Pain level reassessed. Patient is alert, oriented x 3, equal unlabored respirations, skin warm/dry/pink. Patient states symptoms have improved. Vital Signs: 19:00 BP 159 / 84; Pulse 87; Resp 16; Pulse Ox 100% on R/A; vc 19:03 BP 158 / 84; Pulse 88; Resp 16; Temp 99.5(O); Pulse Ox 99% on R/A; Weight 93.89 kg; ls4 Height 5 ft. 5 in. (165.10 cm); Pain 10/10; 20:00 BP 146 / 73; Pulse 79; Resp 16; Pulse Ox 96% ; vc 20:45 BP 150 / 69; Pulse 77; Resp 16; Pulse Ox 99% on R/A; vc 21:45 BP 135 / 73; Pulse 72; Resp 16; Temp 98.3(O); Pulse Ox 97% on R/A; vc 19:03 Body Mass Index 34.45 (93.89 kg, 165.10 cm) ls4 ED Course: 18:55 Patient arrived in ED. mr 19:05 Heber Costa MD is Attending Physician. [facility] 19:05 Triage completed. ls4 19:05 Arm band placed on. vc 19:05 Patient has correct armband on for positive identification. Bed in low position. Call vc light in reach. Pulse ox on. NIBP on. 19:08 Mariangel Ott, DANILO is Primary Nurse. ll1 21:29 Elliot Christian MD is Referral Physician. [facility] 22:00 No provider procedures requiring assistance completed. IV discontinued, intact, vc bleeding controlled, No redness/swelling at site. Pressure dressing applied. Administered Medications: 20:14 Drug: NS 0.9% 1000 ml Route: IV; Rate: 1000 ml; Site: left antecubital; vc 22:01 Follow up: IV Status: Completed infusion; IV Intake: 1000ml vc 20:14 Drug: Zofran (Ondansetron) 4 mg Route: IVP; Site: left antecubital; vc 22:01 Follow up: Response: No adverse reaction; Nausea is decreased vc 20:14 Drug: morphine 4 mg Route: IVP; Site: left antecubital; vc 22:00 Follow up: Response: No adverse reaction; Nausea is decreased vc 22:01 Follow up: Response: No adverse reaction; Pain is decreased vc Intake: 22:01 IV: 1000ml; Total: 1000ml. vc Outcome: 21:30 Discharge ordered by . [facility] 22:00 Discharged to home ambulatory. vc 22:00 Condition: good 22:00 Discharge instructions given to patient, Instructed on discharge instructions, follow up and referral plans. medication usage, Demonstrated understanding of instructions, follow-up care, medications, Prescriptions given X 2. 22:01 Patient left the ED. vc Signatures: Ree Vo Jazmine Kendall RN RN ls4 Gabi Villalba RN RN vc Mariangel Ott RN RN ll1 Heber Costa MD MD [facility]
[2020-02-19 22:13] VITALS: BP 135/73; TEMP 98.3; O2SAT 97
== END 2020-02-19 22:01 | disposition home or self-care (01) ==
LOC: ER 18:53
DX: L72.3 Sebaceous cyst (principal); E11.65 Type 2 diabetes mellitus with hyperglycemia; I10 Essential (primary) hypertension; E03.9 Hypothyroidism, unspecified
CPT/HCPCS: 96361; 85025; 80048; 36415; 85610; 82947 ×2; 80076; 85730; 81003; 96375; 96374; 99283; J7030; J2405

== ENCOUNTER 2020-02-20 11:47 | Day surgery (SDC) | payer BC ==
--- OUTSIDE RECORDS SUMMARY | 2020-02-20 11:49 | XMS REPORT | Continuity of Care Document ---
:1975 Author Organization [facility] t Address [address] [place] [address] Care Team Providers Name Role Phone Unavailable Unavailable Unavailable Payers Payer Name Policy Type Policy Number Effective Date Expiration Date S ource Problems This patient has no known problems. Allergies, Adverse Reactions, Alerts Allergy Allergy Status Severity Reaction(s) Onset Inactive Treating Comm ents Source Name Type Date Date Clinician No Known DA Active U [facility] 6 [facility] s 00:00: d 00 [facility] Medications This patient has no known medications. Procedures This patient has no known procedures. Results Test Description Test Time Test Comments Results Result Comments Source GLUBED 2018-12-20 00:41:00 Test Item Value Reference Range Interpretation Comme nts GLUBED (test code = GLUBED) 197 mg/dL 70-110 H [id number] 00:41:00 Test Item Value Reference Range Interpretation Comments GLUBED (test code = GLUBED) 184 mg/dL 70-110 H [id number] 00:41:00 Test Item Value Reference Range Interpretation Comments GLUBED (test code = GLUBED) 170 mg/dL 70-110 H [id number] 06:10:00 Test Item Value Reference Range Interpretation Comments GLUBED (test code = GLUBED) 157 mg/dL 70-110 H [id number] 06:10:00 Test Item Value Reference Range Interpretation Comments GLUBED (test code = GLUBED) 206 mg/dL 70-110 H [id number] 06:10:00 Test Item Value Reference Range Interpretation Comments GLUBED (test code = GLUBED) 177 mg/dL 70-110 H [id number] 06:10:00 Test Item Value Reference Range Interpretation Comments GLUBED (test code = GLUBED) 235 mg/dL 70-110 H - CT ABD PELVIS [id number] 16:33:00 FAX: Donta Kayin Kamila [phone] [place]: St: [facility] FAX: Manuela Rhodes [phone] Name: ANUEL CARR [facility] : 1975 Age/S: 43/M [address] [facility] Unit: [id number] Loc: [address] Phys: Manuela Basurto [address] Acct: [id number] Dis Date: Status: ADM IN PHONE #: [phone] Exam Date: 12/14/2018 1617 FAX #: [phone] Reason: LUQ pain EXAMS: CPT CODE: [id number] CT ABD PELVIS W/CONT 28016 EXAM: CT abdomen and pelvis with contrast [...] Signed Report (CONTINUED) FAX: Mian DraperMcgregorJon arriaga [phone] [place]: St: ADM FAX: Manuela Rhodes [phone] Name: ANUEL CARR [facility] : 1975 Age/S: 43/M [address] [facility] [address] [id number] Loc: [address] Phys: Manuela Basurto [address] Acct: [id number] Dis Date: Status: ADM IN PHONE #: [phone] Exam Date: 12/14/2018 1617 FAX #: [phone] Reason: LUQ pain EXAMS: CPT CODE: [id number] CT ABD PELVIS W/CONT 39386 <Continued> Left kidney: The kidneys are normal. [...] 2 Signed Report (CONTINUED) FAX: Jon Kay [phone] [place]: St: ADM FAX: Manuela Rhodes [phone] --------- Name: ANUEL CARR [facility] : 1975 Age/S: 43/M [address] [facility] Unit: [id number] Loc: [address] Phys: Manuela Basurto [address] Acct: [id number] Dis Date: Status: ADM IN PHONE #: [phone] Exam Date: 12/14/2018 1617 FAX #: [phone] Reason: LUQ pain EXAMS: CPT CODE: [id number] CT ABD PELVIS W/CONT 05309 <Continued> at 1633 Reported and signed by: Collin Gustafson M.D. CC:Jon Mcgregor MD; Manuela JACOB Technologist: SKYLER Kim Dt/Tm: 12/14/2018 (1633) Zee Orig Print D/T: S: 12/14/2018(1636 PAGE 3 Signed [id number] 16:20:00 Test Item Value Reference Range Interpretation Comments GLUBED (test code = GLUBED) 195 mg/dL 70-110 H COMPREHENSIVE METABOLIC [id number] 07:24:00 Test Item Value Reference Range Interpretation [...] 57 Units/L 50.0-136.0 N code = ALKP) [id number] 07:24:00 Test Item Value Reference Range Interpretation Comments MAGNESIUM (test code = MAG) 1.6 mg/dl 1.8-2.4 L CBC W/AUTO [id number] 07:06:00 Test Item Value Reference Range Interpretation [...] = BA#) 0.1 K/mm3 0.0-0.2 N VITAMIN [id number] 10:49:00 Test Item Value Reference Range Interpretation Comments VITAMIN B12 (test code = VITB12) 409 pg/mL 193-986 N [id number] 10:21:00 Test Item Value Reference Range Interpretation Comments HGBA1C% (test code = HGBA1C%) 8.8 %A1C 4.8-6.0 H ESTIMATED AVERAGE GLUCOSE (test 206 MG/DL code = EAG) [id number] 06:00:00 Test Item Value Reference Range Interpretation Comments TROPONIN-I (test <0.02 NG/ML 0.00-0.06 N REFERENCE R ANNIE code = TROPI) TROPONIN I HEA LTHY INDIVIDUALS: < 0.06 ng/mL R/O ISCHE SAVANA: 0.07 - 0.60 ng/ mL CUT-OFF RANGE F OR AMI: 0.60 - 1.5 ng/m L [id number] 01:25:00 Test Item Value Reference Range Interpretation Comments TROPONIN-I (test <0.02 NG/ML 0.00-0.06 N REFERENCE R ANNIE code = TROPI) TROPONIN I HEA LTHY INDIVIDUALS: < 0.06 ng/mL R/O ISCHE SAVANA: 0.07 - 0.60 ng/ mL CUT-OFF RANGE F OR AMI: 0.60 - 1.5 ng/m L - XR CHEST 1 [id number] 21:18:00 [place]: St: REG Name: ANUEL CARR [facility] : 1975 Age/S: 43/M [address] [facility] Unit#: [id number] Loc: E.ERS[address] [place], [place]: [place] [address] Acct: [id number] Dis Date: Status: REG ER PHONE #: [phone] Exam Date: 12/12/20182109 FAX #: [phone] Reason: SOB EXAMS: CPT CODE: [id number] XR CHEST 1 V 52078 REASON FOR EXAM: Shortness of breath and [...] NELA UREÑA Trnscrd Date/Time/By:12/12/2018 (2117) : By: [facility] PAGE 1 Signed Report [place]: St: REG Name: ANUEL CARR [facility] : 1975 Age/S: 43/M [address] [facility] Unit #: [id number] Loc: E.ERS[address] [place], [place]: [place] [address] Acct: [id number] Dis Date: Status: REG ER PHONE #: [phone] Exam Date: 12/12/20182109 FAX #: [phone] Reason: SOB EXAMS: CPT CODE: [id number] XR CHEST 1V 34161 <Continued> Orig Print D/T: S: 12/12/2018 (2120) [...] CA) 9.0 mg/dl 8.0-10.5 N CBC W/AUTO [id number] 21:01:00 Test Item Value Reference Range Interpretation [...] BA#) 0.1 K/mm3 0.0-0.2 N BASIC METABOLIC [id number] 21:01:00 Test Item Value Reference Range Interpretation [...] code = CA) mg/dl 8.0-10.5 TROPONIN I [id number] 20:58:00 Test Item Value Reference Range Interpretation [...] changes in trop onin levelscharacter istic of [place].
[2020-02-20] MEDS ORDERED: NA CHLORIDE 0.9% 1,000 ML ONE (12:37)
[2020-02-20] MEDS ORDERED: LIDOCAINE 1% MPF 5 ML VIAL ONE (12:44)
[2020-02-20] MEDS ORDERED: MIDAZOLAM HCL 2 MG/2 ML INJ ONE (12:44)
[2020-02-20] MEDS ORDERED: propofoL 200 MG/20 ML VIAL IV ONE (12:44)
[2020-02-20] MEDS ORDERED: FENTANYL CITR 100 MCG/2 ML ONE (12:44)
[2020-02-20] MEDS ORDERED: ROCURONIUM 50 MG/5 ML VIAL IV ONE (12:45)
[2020-02-20] MEDS: CEFAZOLIN/SWI 1gm 1 GM/10 ML SYR ONE ×2 (13:43→14:00)
[2020-02-20] MEDS ORDERED: KETOROLAC 30 MG/ML INJ ONE (14:27)
[2020-02-20] MEDS ORDERED: dexAMETHasone 10 MG/ML VIAL ONE (14:27)
--- NOTE | 2020-02-20 14:30 | P.BOP ---
Preoperative diagnosis: infected post neck sub mass with abscess Postoperative diagnosis: same Primary procedure: Excision of infected post neck sub mass with abscess drainage 7 x 7 cm Estimated blood loss: <10cc Specimen: mass with abscess Findings: see dicta Anesthesia: General Complications: None Transferred to: Recovery Room Condition: Good
[2020-02-20] MEDS ORDERED: ONDANSETRON 4 MG/2 ML VIAL ONE (14:31)
[2020-02-20] MEDS ORDERED: SUCCINYLCHOLINE 20 MG/ML (10 ML) IV ONE (14:52)
[2020-02-20 15:06] VITALS: TEMP 97.2
[2020-02-20 15:21] VITALS: BP 119/64; O2SAT 96
--- NOTE | 2020-02-21 00:10 | OP ---
Date of Procedure: 02/20/2020 Surgeon: Elliot Christian MD Preoperative Diagnosis: Infected posterior neck subcutaneous mass with abscess. Postoperative Diagnosis: Infected posterior neck subcutaneous mass with abscess. Procedure: Excision of infected posterior neck subcutaneous mass with abscess drainage, 7 x 7 x 2 cm . Estimated Blood Loss: Less than 10 cc. Specimen: Mass with abscess. Findings: Mass with purulent discharge. Anesthesia: General plus local. Indications: This is a case of a 44-year-old patient with a mass in the posterior neck, increasing i n size. It was scheduled for next week to have removed. Last night, it got red, started purulent di scharge to the point he even come to the ER. Today, even worse, so he was seen in the office few addis rs ago and we had to schedule him for surgery locally. He was eat since last night. The benefits, alternatives, and risks of excisional biopsy of posterior neck mass were fully explained, w hich include, but not limited to infection, bleeding, damage to adjacent structures, anesthesia compl ication, nonhealing wound, PA, and even . He also understands this may not relieve his symptoms . He might need more than one surgical intervention. He understood, signed a consent. Area was mar ked by me and the patient in the holding room. Description Of Procedure: The patient was brought to the operating room, placed in supine position. Anesthesia was induced without complication. The patient was placed in lateral decubitus position w ith proper protection. Time-out was called. Local anesthesia was applied, followed by wedge incisio n of the skin to include the devitalized skin. This led us into a larger cavity with an abscess pres ent and a big mass and this mass was excised and the abscess was cultured. Area was irrigated. Hemo stasis was obtained and the area was packed with wet-to-dry dressing. The patient tolerated the proc edure well. The patient was sent to recovery in stable condition. JAZZY/JESENIA Voice ID: [id number] Report ID: [id number]
--- NOTE | 2020-02-21 00:10 | DS ---
Date of Discharge: 02/20/2020 Diagnosis: Infected posterior neck subcutaneous mass with abscess. Procedure: Excisional biopsy of posterior neck mass with abscess drainage. Disposition: Home. Activity: As tolerated. No heavy lifting. Plan: Follow up in my office in 1 week, call for appointment [phone]. Keep area dry for 48 hours a nd then may shower. Remove dressings and do wet-to-dry dressing in saline. The patient already taki ng antibiotics. Continue with the same antibiotics. JAZZY/JESENIA Voice ID: [id number] Report ID: [id number]
== END 2020-02-20 16:00 | disposition home or self-care (01) ==
LOC: OR 11:47
PROVIDERS: ATTEND Surgery
PROC: 0JB40ZZ Excision of Right Neck Subcutaneous Tissue and Fascia, Open Approach (ICD-10-PCS; 2020-02-20)
PROC: 0JB50ZZ Excision of Left Neck Subcutaneous Tissue and Fascia, Open Approach (ICD-10-PCS; principal; 2020-02-20 14:30)
DX: L02.11 Cutaneous abscess of neck (principal); L03.221 Cellulitis of neck; U07.1 COVID-19; E11.9 Type 2 diabetes mellitus without complications; I10 Essential (primary) hypertension; Z79.4 Long term (current) use of insulin; Z79.899 Other long term (current) drug therapy
CPT/HCPCS: 87070; 87205; 82947; 88305; 87075; 87077; 87186; 11426; U0002; J2704; J0330; J2250; J3010; J1100; J0690; J7030; J2405; 88304

== ENCOUNTER 2022-07-26 07:23 | Emergency (ER) | payer BC ==
--- OUTSIDE RECORDS SUMMARY | 2022-07-26 07:27 | XMS REPORT | Continuity of Care Document ---
:1975 Author Organization [facility] t Address [address] [place] [address] Care Team Providers Name Role Phone LEANNE BRYANT Primary Care Physician Unavailable HIRAM TATE Attending Clinician Unavailable Hiram Tate MD Attending Clinician CARLTON SANTACRUZ Attending Clinician Unavailable Carlton Murry Attending Clinician Doctor Unassigned, [place] Attending Clinician Unavailable Lisette Lawrence MD Attending Clinician HIRAM TATE Admitting Clinician Unavailable Payers Payer Name Policy Type Policy Number Effective Date Expiration Date Bernadette cruz [facility] [id number] 2016 00:00:00 Problems Condition Condition Condition Status Onset Resolution Last Treating Co mments Source Name Details Category Date Date Treatment Clinician Date 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 sophia sophia Added retinopath retinopath automatic y and y and ally from combined combined request traction traction for and and surgery rhegmatoge rhegmatoge [id number] nous nous retinal retinal detachment detachment , without , without long-term long-term current current use of use of insulin insulin Vitreous Vitreous Disease Active Overview: Un mikel hemorrhage hemorrhage 01-25 Formattin ity of of left of left 00:00: g of this [place] eye eye 00 note Medical might be Branch different from the original. Added automatic ally from request for surgery [id number] Allergies, Adverse Reactions, Alerts Allergy Allergy Status Severity Reaction(s) Onset Inactive Treating Comm ents Source Name Type Date Date Clinician No Known DA Active [facility] 6-13 [place] [facility] NO KNOWN Drug Active Univers ALLERGIE Class ity of S [facility] Social History Social Habit Start Date Stop Date Quantity Comments Source History of tobacco Cigarette Smoker University of use [facility] Exposure to 2022-07-10 2022-07-20 Not sure [facility] SARS-CoV-2 (event) 00:00:00 17:14:00 [facility] Alcohol intake 2018-12-09 2018-12-09 Current University of 00:00:00 00:00:00 non-drinker of [facility] alcohol Branch (finding) Cigarettes smoked 2018-01-01 2018-01-01 Univers ity of current (pack per 00:00:00 00:00:00 ) - Reported Branch Cigarette 2018-01-01 2018-01-01 University of pack-years 00:00:00 00:00:00 [facility] Tobacco use and 2018-01-01 2018-01-01 Smokeless Universit y of exposure 00:00:00 00:00:00 tobacco non-user [facility]ly [facility] dical [place] Sex Ass[birth year] At [birth year] Universit y of 00:00:00 00:00:00 [facility] Smoking Status Start Date Stop Date Source Ex-smoker 2018-01-01 00:00:00 2018-01-01 00:00:00 Universi ty [facility] Medications Ordered Filled Start Stop Current Ordering Indication Dosage Frequency Signature Comments Components Source Medication Medication Date Date Medication? Clinician (SIG) Name Name NaCl 0.9% 500mL at 999 Univ ers (NS) bolus 1-20 01-20 mL/hr, 500 it y of infusion 05:00: 04:41 mL, IV [place] 500 mL 00 :00 Piggyback, Medical ONCE, 1 Branch dose, On [place] 07/20/22 at 2300, STAT iopamidol 2022- No [id number] 83mL 83 mL, Univers (ISOVUE 07-21 Intravenou ity o f 370-500 mL) 03:30: 03:30 s, ONCE, 1 [place] injection 00 :00 dose, On Medica l 83 mL [place] Branch 07/20/22 at 2130, Routine ketorolac No 30mg 30 mg, Unive rs (TORADOL) 07-21 Slow IV ity of injection 02:45: 01:55 Push, [place] 30 mg 00 :00 ONCE, 1 Medical dose, On Branch [place] 07/20/22 at 2045, Routine ketorolac No 30mg 30 mg, Unive rs (TORADOL) 10-07 04 Slow IV ity of injection 04:00: 02:59 Push, [place] 30 mg 00 :00 ONCE, 1 Medical dose, Wed Branch 10/06/20 at 2300, Routine
produce team member approving Restricted medication : LISETTE LAWRENCE traMADoL Yes [id number] 50mg Take 1 Univers (ULTRAM) 50 4-07 tablet by ity of mg tablet 00:00: mouth [place] 00 every 6 Medical (six) Branch hours as needed for Pain (scale 7-10). Indication s: acute pain traMADoL Yes [id number] 50mg Take 1 Univers (ULTRAM) 50 4-07 tablet by ity of mg tablet 00:00: mouth [place] 00 every 6 Medical (six) Branch hours as needed for Pain (scale 7-10). Indication s: acute pain traMADoL Yes [id number] 50mg Take 1 Univers (ULTRAM) 50 4-07 tablet by ity of mg tablet 00:00: mouth [place] 00 every 6 Medical (six) Branch hours as needed for Pain (scale 7-10). Indication s: acute pain traMADoL Yes [id number] 50mg Take 1 Univers (ULTRAM) 50 4-07 tablet by ity of mg tablet 00:00: mouth [place] 00 every 6 Medical (six) Branch hours as needed for Pain (scale 7-10). Indication s: acute pain Butalbital- 2018- Yes [id number] 1{capsu Take 1 Univers Acetaminoph 6-10 le} capsule by it y of en-Caff 00:00: mouth [place] (FIORICET) 00 every 6 Medica l 50-300-40 (six) Branch mg per hours as capsule needed for Pain (scale 4-6). ondansetron 2018- Yes [id number] 4mg Take 1 Univers 4 mg 6-10 tablet by ity of disintegrat 00:00: mouth [place] ing tablet 00 every 4 Medica l (four) Branch hours as needed for Nausea and Vomiting (N/V). ibuprofen 2018- Yes [id number] 800mg Take 1 U nivers 800 mg 6-10 tablet by ity of tablet 00:00: mouth [place] 00 every 8 Medical (eight) Branch hours. Butalbital- Yes [id number] 1{capsu Take 1 Univers Acetaminoph 6-10 le} capsule by it y of en-Caff 00:00: mouth [place] (FIORICET) 00 every 6 Medica l 50-300-40 (six) Branch mg per hours as capsule needed for Pain (scale 4-6). ondansetron 2018- Yes [id number] 4mg Take 1 Univers 4 mg 6-10 tablet by ity of disintegrat 00:00: mouth [place] ing tablet 00 every 4 Medica l (four) Branch hours as needed for Nausea and Vomiting (N/V). ibuprofen 2018-0 Yes [id number] 800mg Take 1 U nivers 800 mg 6-10 tablet by ity of tablet 00:00: mouth [place] 00 every 8 Medical (eight) Branch hours. Butalbital- 2018- Yes [id number] 1{capsu Take 1 Univers Acetaminoph 6-10 le} capsule by it y of en-Caff 00:00: mouth [place] (FIORICET) 00 every 6 Medica l 50-300-40 (six) Branch mg per hours as capsule needed for Pain (scale 4-6). ondansetron 2018-0 Yes [id number] 4mg Take 1 Univers 4 mg 6-10 tablet by ity of disintegrat 00:00: mouth [place] ing tablet 00 every 4 Medica l (four) Branch hours as needed for Nausea and Vomiting (N/V). ibuprofen 2019-0 Yes [id number] 800mg Take 1 U nivers 800 mg 6-10 tablet by ity of tablet 00:00: mouth [place] 00 every 8 Medical (eight) Branch hours. Butalbital- Yes [id number] 1{capsu Take 1 Univers Acetaminoph 6-10 le} capsule by it y of en-Caff 00:00: mouth [place] (FIORICET) 00 every 6 Medica l 50-300-40 (six) Branch mg per hours as capsule needed for Pain (scale 4-6). ondansetron Yes [id number] 4mg Take 1 Univers 4 mg 6-10 tablet by ity of disintegrat 00:00: mouth [place] ing tablet 00 every 4 Medica l (four) Branch hours as needed for Nausea and Vomiting (N/V). ibuprofen Yes [id number] 800mg Take 1 U nivers 800 mg 6-10 tablet by ity of tablet 00:00: mouth [place] 00 every 8 Medical (eight) Branch hours. acetaminoph 2017-07 Yes TOME ZOYA Un mikel en-codeine 2-04 (1) ity of 300-30 mg 00:00: TABLETA(S) [place] tablet 00 POR LA Medical BOCA MARV Branch VECES AL BONIFACIO. acetaminoph 2017-07 Yes TOME ZOYA Un mikel en-codeine 2-04 (1) ity of 300-30 mg 00:00: TABLETA(S) [place] tablet 00 POR [place] Medical BOCA MARV Branch VECES AL BONIFACIO. acetaminoph 2017-07 Yes TOME ZOYA Un mikel en-codeine 2-04 (1) ity of 300-30 mg 00:00: TABLETA(S) [place] tablet 00 POR [place] Medical BOCA MARV Branch VECES AL BONIFACIO. acetaminoph 2017-07 Yes TOME ZOYA Un mikel en-codeine 2-04 (1) ity of 300-30 mg 00:00: TABLETA(S) [place] tablet 00 POR [place] Medical BOCA MARV Branch VECES AL BONIFACIO. LANTUS 2017-07 Yes INJECT 30 Univer s SOLOSTAR 1-02 UNITS ity of U-100 00:00: UNDER THE [place] INSULIN 100 00 SKIN TWICE Me dical unit/mL (3 A DAY. Branch mL) injection LANTUS 2017-07 Yes INJECT 30 Univer s SOLOSTAR 1-02 UNITS ity of U-100 00:00: UNDER THE [place] INSULIN 100 00 SKIN TWICE Me dical unit/mL (3 A DAY. Branch mL) injection LANTUS 2018- Yes INJECT 30 Univer s SOLOSTAR 1-02 UNITS ity of U-100 00:00: UNDER THE [place] INSULIN 100 00 SKIN TWICE Me dical unit/mL (3 A DAY. Branch mL) injection LANTUS 2018- Yes INJECT 30 Univer s SOLOSTAR 1-02 UNITS ity of U-100 00:00: UNDER THE [place] INSULIN 100 00 SKIN TWICE Me dical unit/mL (3 A DAY. Branch mL) injection glipiZIDE 2018-0 Yes 10mg Take 10 mg Un mikel 10 mg 7-31 by mouth 2 ity of tablet 13:11: (two) [place] times Medical daily Branch before breakfast and dinner. metFORMIN 2018-0 Yes 1000mg Take 1,000 Univers 1,000 mg 7-31 mg by ity of tablet 13:11: mouth 2 [place] (two) Medical times Branch daily with meals. glipiZIDE 2018-0 Yes 10mg Take 10 mg Un mikel 10 mg 7-31 by mouth 2 ity of tablet 08:11: (two) [place] 07 times Medical daily Branch before breakfast and dinner. glipiZIDE 2018-0 Yes 10mg Take 10 mg Un mikel 10 mg 7-31 by mouth 2 ity of tablet 08:11: (two) [place] 07 times Medical daily Branch before breakfast and dinner. glipiZIDE 2018-0 Yes 10mg Take 10 mg Un mikel 10 mg 7-31 by mouth 2 ity of tablet 08:11: (two) 07 times Medical daily Branch before breakfast and dinner. metFORMIN 2018-0 Yes 1000mg Take 1,000 Univers 1,000 mg 7-31 mg by ity of tablet 08:11: mouth 2 [place] (two) Medical times Branch daily with meals. metFORMIN 2018-0 Yes 1000mg Take 1,000 Univers 1,000 mg 7-31 mg by ity of tablet 08:11: mouth 2 [place] (two) Medical times Branch daily with meals. metFORMIN 2018-0 Yes 1000mg Take 1,000 Univers 1,000 mg 7-31 mg by ity of tablet 08:11: mouth 2 [place] 06 (two) Medical times Branch daily with meals. prednisoLON 2017-0 Yes 1[drp] Place 1 U nivers E acetate 1 7-06 Drop in ity o f % 00:00: left eye 4 [place] ophthalmic 00 (four) Medical suspension times Branch drops daily. prednisoLON 2017-0 Yes 1[drp] Place 1 U nivers E acetate 1 7-06 Drop in ity o f % 00:00: left eye 4 [place] ophthalmic 00 (four) Medical suspension times Branch drops daily. prednisoLON 2017-0 Yes 1[drp] Place 1 U nivers E acetate 1 7-06 Drop in ity o f % 00:00: left eye 4 [place] ophthalmic 00 (four) Medical suspension times Branch drops daily. prednisoLON 2017-0 Yes 1[drp] Place 1 U nivers E acetate 1 7-06 Drop in ity o f % 00:00: left eye 4 [place] ophthalmic 00 (four) Medical suspension times Branch drops daily. bacitracin- 2017-0 Yes .5[in_u Place 0.5 Univers polymyxin B 6-19 s] Inches in ity of oph 00:00: left eye 4 [place] 500-10,000 00 (four) Medical unit/gram times Branch ophthalmic daily. ointment bacitracin- 2017-0 Yes .5[in_u Place 0.5 Univers polymyxin B 6-19 s] Inches in ity of oph 00:00: left eye 4 [place] 500-10,000 00 (four) Medical unit/gram times Branch ophthalmic daily. ointment bacitracin- 2017-0 Yes .5[in_u Place 0.5 Univers polymyxin B 6-19 s] Inches in ity of oph 00:00: left eye 4 [place] 500-10,000 00 (four) Medical unit/gram times Branch ophthalmic daily. ointment bacitracin- 2017-0 Yes .5[in_u Place 0.5 Univers polymyxin B 6-19 s] Inches in ity of oph 00:00: left eye 4 [place] 500-10,000 00 (four) Medical unit/gram times Branch ophthalmic daily. ointment Vital Signs Vital Name Observation Time Observation Value Comments Source Systolic blood 2022-07-21 04:30:00 138 mm[facility]Hg[facility] [place] [facility] Diastolic blood 2022-07-21 04:30:00 78 mm[Hg] Unive rsity of pressure [place] [facility] Heart rate 2022-07-21 04:30:00 69 /min Universi ty of [place] [facility] Respiratory rate 2022-07-21 04:30:00 14 /min Univ ersity of [place] [facility] Oxygen saturation in 2022-07-21 04:30:00 96 /min University of Arterial blood by [place] [employer] lamar Pulse oximetry Branch Body temperature 2022-07-20 23:17:00 37.39 Sarah Univ ersity of [place] [facility] Body height 2022-07-20 23:17:00 165.1 cm Universi ty of [place] [facility] Body weight 2022-07-20 23:17:00 104.327 kg Universi ty of [place] [facility] BMI 2022-07-20 23:17:00 38.27 kg/m2 Universi ty of [place] [facility] Systolic blood 2021-12-01 02:20:00 170 mm[Hg] Univer sity of pressure [place] [facility] Diastolic blood 2021-12-01 02:20:00 89 mm[Hg] Unive rsity of pressure [place] [facility] Heart rate 2021-12-01 02:20:00 68 /min Universi ty of [place] [facility] Respiratory rate 2021-12-01 02:20:00 18 /min Univ ersity of [place] [facility] Oxygen saturation in 2021-12-01 02:20:00 98 /min University of Arterial blood by [place] [employer] lamar Pulse oximetry Branch Body temperature 2021-11-30 21:08:00 37.67 Sarah Univ ersity of [place] [facility] Body height 2021-11-30 21:08:00 165.1 cm Universi ty [facility] [place] [facility] Body weight 2021-11-30 21:08:00 99.791 kg [facility]i ty [facility] [place] [facility] BMI 2021-11-30 21:08:00 36.61 kg/m2 Universi ty [facility] [place] [facility] Systolic blood 2020-10-07 02:00:00 143 mm[Hg] Univer sity of pressure [place] [facility] Diastolic blood 2020-10-07 02:00:00 82 mm[Hg] Unive rsity of pressure [place] [facility] Heart rate 2020-10-07 02:00:00 67 /min [facility]i ty [facility] [place] [facility] Respiratory rate 2020-10-07 02:00:00 17 /min [facility] Oxygen saturation in 2020-10-07 02:00:00 97 /min [facility] Arterial blood by [facility] Pulse oximetry [place] Body temperature 2020-10-07 01:23:00 37.22 Sarah [facility] Body height 2020-10-07 01:23:00 165.1 cm [facility] Body weight 2020-10-07 01:23:00 99.791 kg [facility] BMI 2020-10-07 01:23:00 36.61 kg/m2 [facility] Procedures Procedure Date / Time Performing Clinician Source Performed EKG-12 LEAD 2022-07-21 03:31:51 Hiram Tate [facility] CT CHEST PULMONARY 2022-07-21 02:34:27 Hiram Tate [facility] ANGIOGRAM [facility] Branch D-DIMER 2022-07-21 00:53:00 Hiram Tate [facility] LIPASE 2022-07-20 23:44:00 Hiram Tate [facility] TROPONIN I 2022-07-20 23:44:00 Hiram Tate [facility] HEPATIC FUNCTION PANEL 2022-07-20 23:44:00 Hiram Tate [facility] ([id number]) (ALB,T.PRO,BILI [facility] T,BU/BC,ALT,AST,ALK PHOS) BASIC METABOLIC PANEL 2022-07-20 23:44:00 Hiram Tate [facility] (NA, K, CL, CO2, Medical Branch GLUCOSE, BUN, CREATININE, CA) CBC WITH DIFF 2022-07-20 23:44:00 Hiram Tate [facility] CONSENT/REFUSAL FOR 2022-07-20 23:05:59 [facility] Name Medical Branch RAPID STREP SCREEN FOR 2021-12-01 02:09:00 Carlton Santacruz [facility] GROUP A [facility] COMP. METABOLIC PANEL 2021-12-01 00:19:00 Carlton Santacruz [facility] ([id number]) Medical Branch CBC WITH DIFF 2021-12-01 00:19:00 Carlton Santacruz [facility] URINALYSIS 2021-12-01 00:09:00 Carlton Santacruz [facility] NOTICE OF PRIVACY 2021-11-30 20:58:23 Doctor Unassigned, No [facility] PRACTICES Name Medical Branch LIPASE 2020-10-07 01:36:00 Lisette Lawrence [facility] TROPONIN I 2020-10-07 01:36:00 Lisette Lawrence [facility] COMP. METABOLIC PANEL 2020-10-07 01:36:00 Lisette Lawrence [facility] ([id number]) Medical Branch CBC WITH DIFF 2020-10-07 01:36:00 Lisette Lawrence [facility] PROTHROMBIN TIME / INR 2020-10-07 01:36:00 Lisette Lawrence [facility] ACTIVATED PARTIAL 2020-10-07 01:36:00 Lsiette Lawrence [facility] THRLAS DOMINIC [facility] Branch COVID-19 (ID NOW RAPID 2020-10-07 01:36:00 Lisette Lawrence [facility] TESTING) Medical [place] NOTICE OF PRIVACY 2020-10-07 01:15:22 Doctor Unassigned, No [facility] PRACTICES Name Medical Branch CONSENT/REFUSAL FOR 2020-10-07 01:14:20 [facility] Name [facility] Encounters Start End Encounter Admission Attending Care Care Encounter Source Date/Time Date/Time Type Type Clinicians Facility Department ID 2021-05-01 Emergency [facility] [id number] Univers 11:27:02 [facility] 2022-07-20 2022-07-20 Emergency X LEA [facility] ERT [id number] Univers 17:24:00 23:59:00 HIRAM [facility] 2022-07-20 2022-07-20 [facility] [id number] Univers 17:24:00 23:59:00 Hiram Melendez E[facility] [id number] i ty of [place] [id number] [facility] [id number] [place] [id number] Branch 2021-11-30 2021-11-30 Emergency X [facility] ERT [id number] Univers 16:10:00 21:27:00 CARLTON ity of [facility] 2021-11-30 2021-11-30 Emergency [facility] [id number] Univers 16:10:00 21:27:00 Carlton S EILEEN [id number] i ty of [place] [id number] [facility] [id number] [place] [id number] [place] 2021-11-30 2021-11-30 Orders Doctor LUIS ALBERTO [id number] Univers 00:00:00 00:00:00 Only Unassigned, FREDY [id number] ity of [place] [facility] [id number] [facility] [id number] [place] [address] Branch 2020-10-06 2020-10-06 Emergency [facility] [id number] Univers 20:27:00 22:12:00 Lisette Bernadette CunninghamMaize [id number] ity of [place] [id number] [facility] [id number] [address] Results Test Description Test Time Test Comments Results Result Comments Source D-DIMER 2022-07-21 01:51:05 Test Item Value Reference Range Interpretation Comme nts D-DIMER (test code = See_Comment H [Autom ated message] The [id number]) system which ge nerated this result tra nsmitted reference range : <0.41 ?g/mL (). Th e reference range was not used to interpr et this result as normal/abnormal . YINKA (test code = YINKA) This test may be used in conjunction with a clinical pretest probability (PTP) assessment model to exclude venous thromboembolism (VTE) in patients suspected of deep venous thrombosis (DVT) and pulmonary embolism (PE) A D-Dimer value less than 0.50 ?g/ml (FEU) has a negative predicative value of 96 to 100% (95% CI)and 97 to 100% (95% CI) as an aid in the diagnosis of deep vein thrombosis (DVT) and pulmonary embolism when there is low or moderate pretest probability of PE or DVT. D-Dimer values are expressed in initial fibrinogen equivalent units (FEU)" The assay results should be used with other information, including the clinical context, in forming a diagnosis. Lab Interpretation Abnormal (test code = 01509-3) [facility]. METABOLIC PANEL ([id number])2021-12-01 00:48:17 Test Item Value Reference Range Interpretation Comments NA (test code = 138 mmol/L 135-145 6822417036) K (test code = 4.4 mmol/L 3.5-5.0 4261439506) CL (test code = 102 mmol/L 98-108 9322024086) CO2 TOTAL (test code = 26 mmol/L 23-31 6553785609) AGAP (test code = 2-16 7830275367) BUN (test code = 16 mg/dL 7-23 9422143713) GLUCOSE (test code = 121 mg/dL 70-110 H 5630535635) CREATININE (test code = 0.92 mg/dL 0.60-1.25 5536550335) TOTAL BILI (test code = 0.3 mg/dL 0.1-1.5 4405871172) CALCIUM (test code = 10.1 mg/dL 8.6-10.6 3170714325) T PROTEIN (test code = 7.3 g/dL 6.3-8.2 5106973182) ALBUMIN (test code = 4.1 g/dL 3.5-5.0 0944364203) ALK PHOS (test code = 80 U/L 34-122 4207187494) ALTv (test code = 37 U/L 5-50 1742-6) AST(SGOT) (test code = 36 U/L 13-40 5413466538) eGFR (test code = mL/min/1.73m2 6634207268) YINKA (test code = YINKA) Association of Glomerular Filtration Rate (GFR) and Staging of Kidney Disease* + --+ --+ ------+| GFR (mL/min/1.73 m2) ?| With Kidney Damage ?| ?Without Kidney Damage+ --------+ --------+ +| ?>90 ?| ?Stage one ?| ? Normal ?+ ---+ ---+ -------+| ?60-89 ?| ?Stage two ?| ? Decreased GFR ? + --+ --+ ------+| ?30-59 ?| ?Stage three ?| ? Stage three ? + --+ --+ ------+| ?15-29 ?| ?Stage four ? | ? Stage four ?+ ---+ ---+ -------+| ?<15 (or dialysis) ? ?| ?Stage five ? | ? Stage five ?+ ---+ ---+ -------+ *Each stage assumes the associated GFR level has been in effect for at least three months. ?Stages 1 to 5, with or without kidney disease, indicate chronic kidney disease. Notes: Determination of stages one and two (with eGFR >59mL/min/1.73 m2) requires estimation of kidney damage for at least three months as defined by structural or functional abnormalities of the kidney, manifested by either:Pathological abnormalities or Markers of kidney damage (including abnormalities in the composition of the blood or urine or abnormalities in imaging tests). Lab Interpretation Abnormal (test code = 83543-8) [facility] WITH [id number] 00:28:56 Test Item Value Reference Range Interpretation Comments WBC (test code = See_Comment [Automated 3607-2) message] The sy stem which generated this result transmitted reference range : 4.20 - 10.70 10*3/?L. The reference range was not used to interpret this result as normal/abnormal . RBC (test code = See_Comment [Automated 776-8) message] The sy stem which generated this result transmitted reference range : 4.26 - 5.52 10*6/?L. The reference range was not used to interpret this result as normal/abnormal . HGB (test code = 13.8 g/dL 12.2-16.4 718-7) HCT (test code = 42.4 % 38.4-49.3 4544-3) MCV (test code = 79.5 fL 81.7-95.6 L 787-2) MCH (test code = 25.9 pg 26.1-32.7 L 785-6) MCHC (test code = 32.5 g/dL 31.2-35.0 786-4) RDW-SD (test code = 39.8 fL 38.5-51.6 85633-4) RDW-CV (test code = 13.9 % 12.1-15.4 788-0) PLT (test code = See_Comment [Automated 777-3) message] The sy stem which generated this result transmitted reference range : 150 - 328 10*3/ ?L. The reference r annie was not used to interpret this result as normal/abnormal . MPV (test code = 11.5 fL 9.8-13.0 08261-5) NRBC/100 WBC (test See_Comment [Automat ed code = 5776195956) message] The system which generated this result transmitted reference range : 0.0 - 10.0 /100 WBCs. The refer ence range was not u sed to interpret th is result as normal/abnormal . NRBC x10^3 (test code <0.01 See_Comment [Auto mated = 5657379366) message] The s ystem which generated this result transmitted reference range : 10*3/?L. The reference range was not used to interpret this result as normal/abnormal . GRAN MAT (NEUT) % 50.6 % (test code = 770-8) IMM GRAN % (test code 0.20 % = 6854658257) LYMPH % (test code = 35.7 % 736-9) MONO % (test code = 8.0 % 5905-5) EOS % (test code = 4.4 % 713-8) BASO % (test code = 1.1 % 706-2) GRAN MAT x10^3(ANC) 5.31 10*3/uL 1.99-6.95 (test code = 2717584438) IMM GRAN x10^3 (test <0.03 0.00-0.06 code = 1678150196) LYMPH x10^3 (test code 3.74 10*3/uL 1.09-3.23 H = 731-0) MONO x10^3 (test code 0.84 10*3/uL 0.36-1.02 = 742-7) EOS x10^3 (test code = 0.46 10*3/uL 0.06-0.53 711-2) BASO x10^3 (test code 0.12 10*3/uL 0.01-0.09 H = 704-7) Lab Interpretation Abnormal (test code = 57642-3) [id number] 02:10:04 Test Item Value Reference Range Interpretation Comments TROPONIN I (test 0.002 ng/mL See_Comment [Automated code = 4756058329) message] The system which generated this result transmitted reference range : <=0.034. The reference range was not used to interpret this result as normal/abnormal . YINKA (test code = Equal or Less than YINKA) 0.034 ng/ml---Normal ?Note: Cardiac troponin begins to rise 3-4 hours after the onset of ischemia. Repeat in 4-6 hours if the sample was drawn within 3-4 hours of the onset of the symptom and found normal. Between 0.035 and 0.120 ng/mL--- Borderline. Questionable myocardial injury or necrosis ? ?Note: Serial measurement may be necessary to confirm or exclude the diagnosis of myocardial injury or necrosis; Clinical correlation (symptoms, EKGs, imaging studies, and others) required; Repeat in 4-6 hours if clinically indicated. ? Equal or Higher than 0.121 ng/mL---Abnormal. Myocardial Injury or Necrosis Likely ? Biotin has been reported to cause a negative bias, interpret results relative to patient's use of biotin. ? Lab Interpretation Normal (test code = 30369-2) [facility]:07:25 Test Item Value Reference Range Interpretation Comments APTT Patient (test See_Comment [Automat ed code = 3173-2) message] The system which generated this result transmitted reference range : 23 - 38 Seconds . The reference range was not used to interpr et this result as normal/abnormal . YINKA (test code = YINKA) The [facility] patient population mean normal value for aPTT is 30 seconds. Lab Interpretation Normal (test code = 56305-0) [facility] [place] / [id number] 02:05:22 Test Item Value Reference Range Interpretation Comments PROTIME PATIENT (test See_Comment [Auto mated message] code = 5964-2) The system [employer] generated this result transmitted ref erence range: 12.0 - 1 4.7 Seconds. The re ference range was not u sed to interpret this result as normal/abnor mal. INR (test code = 6301-6) Nor mal INR <1.1; Warfarin Therap eutic range 2.0 to 3. 0 or 2.5 to 3.5, dep ending upon the indica tions. Lab Interpretation (test Normal code = 65351-2) [facility] (ID NOW RAPID TESTING)2020-10-07 02:00:21 Test Item Value Reference Range Interpretation Comments SARS-CoV-2 Rapid ID NOW Not Detected Not Detected (test code = 38441-1) YINKA (test code = YINKA) ID NOW COVID-19 Assay is an isothermal nucleic acid amplification test intended for the qualitative detection of nucleic acid from SARS-CoV-2 viral RNA in nasopharyngeal ([employer]) specimens. It is used under Emergency Use Authorization (EUA) by FDA. The limit of detection (LOD) of the assay is 125 Genome Equivalents/mL. A positive result is indicative of the presence of SARS-CoV-2 RNA. ?Clinical correlation with patient history and other diagnostic information is necessary to determine patient infection status. A negative (Not Detected) result does not preclude SARS-CoV-2 infection. In patients with clinical symptoms and other tests that are consistent with SARS-CoV-2 infection, negative results should be treated as presumptive negative and a new specimen should be tested with alternative PCR molecular test. Invalid: Please collect a new specimen for repeat patient testing if clinically indicated. Lab Interpretation Normal (test code = 19361-2) [facility] [place]. METABOLIC PANEL (36865)2020-10-07 01:59:04 Test Item Value Reference Range Interpretation Comments NA (test code = 135 mmol/L 135-145 8783907478) K (test code = 4.1 mmol/L 3.5-5.0 8787627365) CL (test code = 103 mmol/L 98-108 3048535726) CO2 TOTAL (test code = 25 mmol/L 23-31 0682866327) AGAP (test code = 2-16 2698706846) BUN (test code = 12 mg/dL 7-23 7896074557) GLUCOSE (test code = 130 mg/dL 70-110 H 8273810905) CREATININE (test code = 0.92 mg/dL 0.60-1.25 6778439930) TOTAL BILI (test code = 0.4 mg/dL 0.1-1.8 9954467364) CALCIUM (test code = 9.1 mg/dL 8.6-10.6 1907902439) T PROTEIN (test code = 6.9 g/dL 6.3-8.2 2656059890) ALBUMIN (test code = 4.1 g/dL 3.5-5.0 2646005250) ALK PHOS (test code = 87 U/L 34-122 6678746815) ALTv (test code = 109 U/L 5-50 H 1742-6) AST(SGOT) (test code = 74 U/L 13-40 H 4431431767) eGFR (test code = mL/min/1.73m2 6353035286) YINKA (test code = YINKA) Association of Glomerular Filtration Rate (GFR) and Staging of Kidney Disease* + --+ --+ ------+| GFR (mL/min/1.73 m2) ?| With Kidney Damage ?| ?Without Kidney Damage+ --------+ --------+ +| ?>90 ?| ?Stage one ?| ? Normal ?+ ---+ ---+ -------+| ?60-89 ?| ?Stage two ?| ? Decreased GFR ? + --+ --+ ------+| ?30-59 ?| ?Stage three ?| ? Stage three ? + --+ --+ ------+| ?15-29 ?| ?Stage four ? | ? Stage four ?+ ---+ ---+ -------+| ?<15 (or dialysis) ? ?| ?Stage five ? | ? Stage five ?+ ---+ ---+ -------+ *Each stage assumes the associated GFR level has been in effect for at least three months. ?Stages 1 to 5, with or without kidney disease, indicate chronic kidney disease. Notes: Determination of stages one and two (with eGFR >59mL/min/1.73 m2) requires estimation of kidney damage for at least three months as defined by structural or functional abnormalities of the kidney, manifested by either:Pathological abnormalities or Markers of kidney damage (including abnormalities in the composition of the blood or urine or abnormalities in imaging tests). Lab Interpretation Abnormal (test code = 86423-1) [facility] [place]IP[facility], [id number] 01:58:23 Test Item Value Reference Range Interpretation Comments LIPASE (test code = 2158315644) 124 U/L 0-220 Lab Interpretation (test code = Normal 19246-2) [facility] TylerCB WITH [id number] 01:48:58 Test Item Value Reference Range Interpretation Comments WBC (test code = See_Comment [Automated message] 5590-2) The system [employer] generated this result transmitted ref erence range: 4.20 - 1 0.70 10*3/?L. The re ference range was not u sed to interpret this result as normal/abnor mal. RBC (test code = See_Comment [Automated message] 739-8) The system [employer] generated this result transmitted ref erence range: 4.26 - 5 .52 10*6/?L. The re ference range was not u sed to interpret this result as normal/abnor mal. HGB (test code = 13.7 g/dL 12.2-16.4 718-7) HCT (test code = 40.7 % 38.4-49.3 4544-3) MCV (test code = 83.1 fL 81.7-95.6 787-2) MCH (test code = 28.0 pg 26.1-32.7 785-6) MCHC (test code = 33.7 g/dL 31.2-35.0 786-4) RDW-SD (test code 39.4 fL 38.5-51.6 = 15712-5) RDW-CV (test code 13.0 % 12.1-15.4 = 788-0) PLT (test code = See_Comment [Automated message] 717-3) The system [employer] generated this result transmitted ref erence range: 150 - 32 8 10*3/?L. The re ference range was not u sed to interpret this result as normal/abnor mal. MPV (test code = 11.2 fL 9.8-13.0 54065-3) NRBC/100 WBC (test See_Comment [Automat ed message] code = 4734204818) The syste m which generated this result transmitted ref erence range: 0.0 - 10 .0 /100 WBCs. The refer ence range was not u sed to interpret this result as normal/abnor mal. NRBC x10^3 (test <0.01 See_Comment [Automated message] code = 0470384700) The syste m which generated this result transmitted ref erence range: 10*3/?L. The reference range was not used to interpr et this result as normal/abnormal . GRAN MAT (NEUT) % 50.2 % (test code = 770-8) IMM GRAN % (test 0.30 % code = 8449607691) LYMPH % (test code 35.3 % = 736-9) MONO % (test code 9.9 % = 5905-5) EOS % (test code = 3.0 % 713-8) BASO % (test code 1.3 % = 706-2) GRAN MAT 3.49 10*3/uL 1.99-6.95 x10^3(ANC) (test code = 6800153414) IMM GRAN x10^3 <0.03 0.00-0.06 (test code = 8662615374) LYMPH x10^3 (test 2.45 10*3/uL 1.09-3.23 code = 731-0) MONO x10^3 (test 0.69 10*3/uL 0.36-1.02 code = 742-7) EOS x10^3 (test 0.21 10*3/uL 0.06-0.53 code = 711-2) BASO x10^3 (test 0.09 10*3/uL 0.01-0.09 code = 704-7) [facility] TylerGLUBED2019-06-21 00:41:00 Test Item Value Reference Range Interpretation Comments GLUBED (test code = GLUBED) 197 mg/dL 70-110 H [id number] 00:41:00 Test Item Value Reference Range Interpretation Comments GLUBED (test code = GLUBED) 184 mg/dL 70-110 H [id number] 00:41:00 Test Item Value Reference Range Interpretation Comments GLUBED (test code = GLUBED) 170 mg/dL 70-110 H [id number] 06:10:00 Test Item Value Reference Range Interpretation Comments GLUBED (test code = GLUBED) 157 mg/dL 70-110 H [id number] 06:10:00 Test Item Value Reference Range Interpretation Comments GLUBED (test code = GLUBED) 206 mg/dL 70-110 H [id number] 06:10:00 Test Item Value Reference Range Interpretation Comments GLUBED (test code = GLUBED) 177 mg/dL 70-110 H [id number] 06:10:00 Test Item Value Reference Range Interpretation Comments GLUBED (test code = GLUBED) 235 mg/dL 70-110 H - CT ABD PELVIS [id number] 16:33:00 FAX: Jon Kay [phone] [place]: St: [facility] FAX: Manuela Rhodes [phone] - Name: LONNIE CARR [facility] : 1975 Age/S: 43/M [address] [facility] Unit: [id number] Loc: [address] [place], [place] Phys: Manuela Basurto [address] Acct: [id number] Dis Date: Status: ADM IN PHONE #: [phone] Exam Date: 12/14/2018 1617 FAX #: [phone] Reason: LUQ pain EXAMS: CPT CODE: [id number] CT ABD PELVIS W/CONT 74906 EXAM: CT abdomen and pelvis with contrast INDICATION: 43 years -old Male with LUQ pain LOCATION CODE: C3 TECHNIQUE: Contrast - IV contrast was given, no oral contrast was given . Portal venous phase - abdomen and pelvis Reconstructions - coronal and sagittal planes One or more of the following dose reduction techniques were used: Automated exposure control, adjustment ofthe mA and/or kV according to patient size, and/or utilization of iterative reconstruction technique. Total Exam DLP : 824 mGy/cm CTDI vol: 15.5 mGy COMPARISON: None FINDINGS: Quality of Exam: Acceptable. Thoracic: Bilateral pleural thickening are seen. The heart is of normal size. Hepatobiliary: Theliver is diffusely hypoattenuated compatible with fatty infiltration. The gallbladder is normal. No biliary dilation. The stomach is moderately distended with large amount of food debris. Pancreas: Normal. Spleen: Normal. Adrenals: Normal. Genitourinary: Right kidney : The kidneys are normal. No hydronephrosis. no nephrolithiasis PAGE 1 Signed Report (CONTINUED) FAX: Jon Kay [phone] Diamond: St: [facility] FAX: Manuela Rhodes [phone] Name: ANUEL CARR [facility] : 1975 Age/S: 43/M [address] [facility] Unit: [id number] Loc: [address] Phys: Manuela Basurto [address] Acct: [id number] Dis Date: Status: ADM IN PHONE #: [phone] Exam Date: 12/14/2018 1617 FAX #: [phone] Reason: LUQ pain EXAMS: CPT CODE: [id number] CT ABD PELVIS W/CONT 28762 (Continued) Left kidney: The kidneys are normal. No [...] obstructive uropathy. 4. Severely distended urinary bladder, Santacruz catheteror urinary bladder catheterization would be helpful. RECOMMENDATIONS: None. Internal Coding only:B3 PAGE 2 Signed Report (CONTINUED) FAX: Jon Kay [phone] Diamond: St: [facility] FAX: Manuela Rhodes [phone] Name: ANUEL CARR [facility] : 1975 Age/S: 43/M [address] [facility] Unit: [id number] Loc: [address] [place], [place] Phys: Manuela Basurto [address] Acct: [id number] Dis Date: Status: ADM IN PHONE #: [phone] Exam Date: 12/14/2018 1617 FAX #: [phone] Reason: LUQ pain EXAMS: CPT CODE: [id number] CT ABD PELVIS W/CONT 01565 (Continued) at 1633 Reported and signed by: Collin Gustafson M.D. CC: Jon Mcgregor MD; Manuela JACOB Technologist: SKYLER Aguilerard Dt/Tm: 12/14/2018 (9973) Zee Orig Print D/T: S: 12/14/2018 (5266 PAGE 3 Signed [id number] 16:20:00 Test Item Value Reference Range Interpretation Comments GLUBED (test code = GLUBED) 195 mg/dL 70-110 H COMPREHENSIVE METABOLIC [id number] 07:24:00 Test Item Value Reference Range Interpretation [...] 57 Units/L 50.0-136.0 N code = ALKP) [id number] 07:24:00 Test Item Value Reference Range Interpretation Comments MAGNESIUM (test code = MAG) 1.6 mg/dl 1.8-2.4 L CBC W/AUTO [id number] 07:06:00 Test Item Value Reference Range Interpretation [...] = BA#) 0.1 K/mm3 0.0-0.2 N VITAMIN [id number] 10:49:00 Test Item Value Reference Range Interpretation Comments VITAMIN B12 (test code = VITB12) 409 pg/mL 193-986 N [id number] 10:21:00 Test Item Value Reference Range Interpretation Comments HGBA1C% (test code = HGBA1C%) 8.8 %A1C 4.8-6.0 H ESTIMATED AVERAGE GLUCOSE (test 206 MG/DL code = EAG) [id number] 06:00:00 Test Item Value Reference Range Interpretation Comments TROPONIN-I (test <0.02 NG/ML 0.00-0.06 N REFERENCE R ANNIE code = TROPI) TROPONIN I HEA LTHY INDIVIDUALS: <0 .06 ng/mL R/O ISCHE SAVANA: 0.07 - 0.60 ng/ mL CUT-OFF RANGE F OR AMI: 0.60 - 1.5 ng/m L [id number] 01:25:00 Test Item Value Reference Range Interpretation Comments TROPONIN-I (test <0.02 NG/ML 0.00-0.06 N REFERENCE R ANNIE code = TROPI) TROPONIN I HEA LTHY INDIVIDUALS: <0 .06 ng/mL R/O ISCHE SAVANA: 0.07 - 0.60 ng/ mL CUT-OFF RANGE F OR AMI: 0.60 - 1.5 ng/m L - XR CHEST 1 [id number] 21:18:00 Diamond: EM St: REG -- Name: CARRANUEL [facility] : 1975 Age/S: 43/M [address] [facility] Unit #: [id number] Loc: [address] [place], [place]: [place] [address] Acct: [id number] Dis Date: Status: REG ER PHONE #: [phone] Exam Date: 12/12/20182109 FAX #: [phone] Reason: SOB EXAMS: CPT CODE: [id number] XR CHEST 1 V 76090 REASON FOR EXAM: Shortness of breath and chest pain. COMPARISON: None. Chest, portable single frontal view. The lungs are well-inflated and clear. Heart size isnormal. No effusion or pneumothorax can be seen. Osseous structures appear to be intact. IMPRESSION:No acute cardiopulmonary disease. Location: [facility] at 8 Reported and signed by: Humble Simpson M.D. CC: Technologist: NELA Maysndlisa Date/Time/By: 12/12/2018 (2117) : By: [facility] PAGE 1 Signed Report Diamond: St: REG -- Name: ANUEL CARR [facility] : 1975 Age/S: 43/M [address] [facility] Unit #: [id number] Loc: [address] [place], [place]: [place] [address] Acct: [id number] Dis Date: Status: REG ER PHONE #: [phone] Exam Date: 12/12/20182109 FAX #: [phone] Reason: SOB EXAMS: CPT CODE: [id number] XR CHEST 1 V 46662 () Orig Print D/T: S: 12/12/2018 (2120) PAGE 2 Signed ReportBASIC METABOLIC [id number] 21:03:00 Test Item Value Reference Range Interpretation [...] CA) 9.0 mg/dl 8.0-10.5 N CBC W/AUTO [id number] 21:01:00 Test Item Value Reference Range Interpretation [...] BA#) 0.1 K/mm3 0.0-0.2 N BASIC METABOLIC [id number] 21:01:00 Test Item Value Reference Range Interpretation [...] code = CA) mg/dl 8.0-10.5 TROPONIN I [id number] 20:58:00 Test Item Value Reference Range Interpretation Comments TROPONIN I RAPID 0.01 0.00-0.08 N Negative: <= 0.08 Positive: (test code = >= 0.09An eleva marcos troponin TROPIRAP) value alone is not sufficient todiagnose a my ocardial infarction. Rat her, the patient'sclinic al presentation (history, physi lamar exam) and ECGshould be us ed in conjunction wit h troponin in thediagnostic e valuation of suspected myoca rdial infarction.A se rial sampling protocol is rec ommended to facilitatethe i dentification of temporal arvind nges in troponin levels characteristic of AL.
[2022-07-26 07:44] LABS: Absolute Lymphocytes (CBC) 3.4 K/uL (0.7-4.9); Hematocrit 45.9 % (39.6-49.0); Lymphocytes % 38.9 % (15.3-44.8); MCV 82.7 fL (80-100); MPV 8.8 fL (7.6-11.3); RBC Red Blood Cell Count 5.55 M/uL (4.33-5.43)
[2022-07-26] MEDS ORDERED: METOCLOPRAMIDE 10 MG/2mL INJ ONE (07:53)
[2022-07-26] MEDS ORDERED: DIPHENHYDRAMINE 50 MG/ML VIAL ONE (07:53)
[2022-07-26] MEDS ORDERED: NA CHLORIDE 0.9% 1,000 ML ONE (07:54)
[2022-07-26] MEDS ORDERED: ACETAMINOPHEN 500 MG TAB ONE (07:54)
[2022-07-26] MEDS ORDERED: Magnesium Sulfate 2gm IVPB 2 G/50 ML BAG IV ONE (07:54)
[2022-07-26 08:00] LABS: Potassium 3.8 mmol/L (3.5-5.1); Troponin High Sensitivity 51.7 pg/mL (<58.9)
--- NOTE | 2022-07-26 08:24 | RAD REPORT ---
EXAM DESCRIPTION: CT - Head Brain Wo Cont - 07/26/2022 8:01 am CLINICAL HISTORY: Headache COMPARISON: 2001 TECHNIQUE: Computed axial tomography of the head was obtained. IV contrast was not requested. All CT scans are performed using dose optimization technique as appropriate and may include automated exposure control or mA/KV adjustment according to patient size. FINDINGS: An intracranial bleed is not seen . The ventricles are normal in caliber. No significant hypodense areas within the brain visualized No extra-axial fluid collection is noted. Fluid within the sinuses/ mastoids is not seen. IMPRESSION: No acute intracranial abnormality is seen. If patient's symptoms persist MRI of the bra in would be recommended.
--- NOTE | 2022-07-26 08:27 | RAD REPORT ---
EXAM DESCRIPTION: Pete Single View07/26/2022 8:01 am CLINICAL HISTORY: Chest pain COMPARISON: 2019 FINDINGS: Patient is rotated. Mediastinum mildly prominent. The lungs appear clear of acute infiltrate. The heart is normal size IMPRESSION: The patient is rotated. This results in the mediastinum being mildly prominent. It is re commended that the patient have a PA and lateral chest series for further evaluation
[2022-07-26] MEDS ORDERED: NA CHLORIDE 0.9% 500 ML ONE (09:35)
--- NOTE | 2022-07-26 10:15 | RAD REPORT ---
EXAM DESCRIPTION: Pete Pa And Lat (2 Views)07/26/2022 9:55 am CLINICAL HISTORY: Chest pain COMPARISON: X-ray July 22, 2022 FINDINGS: The lower right paratracheal region/right hilum is mildly prominent. Mild chronic appearing lung interstitial opacities. Heart is normal size IMPRESSION: The lower right paratracheal region/right hilum is mildly prominent. Of this may be vasc ular or represent lymphadenopathy. CT chest with contrast is recommended.
--- NOTE | 2022-07-26 10:35 | EDPHYS ---
Physician Documentation [facility] Name: Brayden Henderson Age: 47 yrs Sex: Male : 1975 Arrival Date: 07/26/2022 Time: 07:24 Bed 20 Private MD: ED Physician Abner Cardozo HPI: 07/26 09:44 This 47 yrs old Male presents to ER via Ambulatory with complaints of Chest rt Pain, High Blood Pressure, Headache. 09:44 Patient presents to the ED with a headache, generally starting since last night. Is rt progressively worsened. It is nonradiating. Patient states that he had an elevated blood pressure to about 170 at that time, took an extra lisinopril this morning. He reported a mild chest pain, none currently. Patient denies shortness of breath, other symptoms. Symptoms are moderate in severity, no other aggravating or alleviating factors.. Historical: - Allergies: 07:32 NKA; jl7 - Home Meds: 07:32 lisinopril 10 mg Oral tab 1 tab once daily [Active]; carvedilol 6.25 mg Oral tab 1 tab jl7 2 times per day [Active]; Farxiga oral [Active]; Insulin: Regular Sub-Q [Active]; - PMHx: 07:32 blood clot right eye; Diabetes - NIDDM; Hypertension; Hypothyroidism; jl7 - Immunization history:: Client reports receiving the 2nd dose of the Covid vaccine. - Social history:: Smoking status: Patient denies any tobacco usage or history of. - Family history:: not pertinent. ROS: 09:44 Constitutional: Negative for fever, chills, and weight loss, Eyes: Negative for injury, rt pain, redness, and discharge, Respiratory: Negative for shortness of breath, cough, wheezing, and pleuritic chest pain. 09:44 Cardiovascular: Positive for chest pain, Negative for edema. 09:44 Neuro: Positive for headache, Negative for altered mental status, syncope. Exam: 08:05 ECG was reviewed by the Attending Physician. rt Vital Signs: 07:30 BP 183 / 85; Pulse 63; Resp 17; Temp 98.5; Pulse Ox 99% ; Weight 108.86 kg; Height 5 jl7 ft. 5 in. (165.10 cm); Pain 8/10; 07:36 BP 183 / 85; Pulse 61; Resp 8; Temp 98.5(O); Pulse Ox 100% on R/A; Pain 9/10; jl7 08:16 BP 150 / 75; Pulse 62; Resp 19; Pulse Ox 94% on R/A; ld1 08:30 BP 94 / 54; Pulse 60; Resp 18; Pulse Ox 92% on R/A; ld1 09:00 BP 93 / 58; Pulse 60; Resp 17; Pulse Ox 92% on R/A; ld1 09:08 BP 87 / 53; Pulse 59; Resp 19; Pulse Ox 93% on R/A; ld1 09:58 BP 90 / 46; Pulse 55; Resp 18; Pulse Ox 97% on R/A; ld1 10:50 BP 100 / 58; Pulse 61; Resp 18; Pulse Ox 99% on R/A; ld1 07:30 Body Mass Index 39.94 (108.86 kg, 165.10 cm) jl7 MDM: 07:29 Patient medically screened. rt 11:50 Differential diagnosis: Hypertension, headache, intracranial hemorrhage, acute coronary rt syndrome. HEART Score: History: Slightly Suspicious (0), ECG: Non specific repolarization disturbance / LBTB / PM (1), Age: > 45 and < 65 years (1), Risk Factors: 1 or 2 risk factors (1), Troponin: < or = 1 x Normal Limit (0), Total Score = 3. Data reviewed: vital signs, nurses notes, lab test result(s), EKG, radiologic studies. I considered the following discharge prescriptions or medication management in the emergency department Medications were administered in the Emergency Department. See MAR. Independent interpretation of the following test(s) in the Emergency Department X-Ray: My interpretation is No obvious infiltrates. Test considered but Not performed: CT: Patient was informed of recommendations regarding CT scan of the chest. I feel that these findings are chronic, nonemergent. Patient was instructed to follow-up as an outpatient to obtain CT scan. Patient verbalized understanding.. Response to treatment: the patient's symptoms have resolved after treatment. 07/26 07:27 Order name: Basic Metabolic Panel; Complete Time: 08:02 07/26 07:27 Order name: CBC with Diff; Complete Time: 08:02 07/26 07:27 Order name: Troponin HS; Complete Time: 08:02 07/26 07:27 Order name: XRAY Chest (1 view); Complete Time: 08:40 07/26 07:39 Order name: CT Head Brain wo Cont; Complete Time: 08:40 rt 07/26 08:49 Order name: Chest Pa And Lat (2 Views) XRAY; Complete Time: 10:18 rt 07/26 07:27 Order name: EKG; Complete Time: 07:28 07/26 07:27 Order name: Cardiac monitoring; Complete Time: 07:35 07/26 07:27 Order name: EKG - Nurse/Tech; Complete Time: 07:35 07/26 07:27 Order name: IV Saline Lock; Complete Time: 07:36 07/26 07:27 Order name: Labs collected and sent; Complete Time: 07:36 07/26 07:27 Order name: O2 Per Protocol; Complete Time: 07:35 07/26 07:27 Order name: O2 Sat Monitoring; Complete Time: 07:35 EC:05 Rate is 63 beats/min. Rhythm is regular, Normal Sinus Rhythm with No ectopy. Left axis rt deviation noted. OK interval is normal. QRS interval is normal. QT interval is normal. No Q waves. T waves are Normal. No ST changes noted. Interpreted by me. Administered Medications: 07:55 Drug: Reglan (metoCLOPramide) 10 mg Route: IVP; Site: right antecubital; jl7 07:55 Drug: Benadryl (diphenhydrAMINE) 25 mg Route: IVP; Site: right antecubital; jl7 07:55 Drug: Tylenol 1000 mg Route: PO; jl7 08:08 Drug: NS 0.9% 1000 ml Route: IV; Rate: 1 bolus; Site: right antecubital; ld1 08:08 Drug: Magnesium Sulfate 2 grams Route: IVPB; Infused Over: 2 hrs; Site: right ld1 antecubital; Disposition Summary: 07/26/22 10:35 Discharge Ordered Location: Home rt Problem: new rt Symptoms: have improved rt Condition: Stable rt Diagnosis - Headache rt Followup: rt - With: Private Physician - When: 2 - 3 days - Reason: Discharge Instructions: - Discharge Summary Sheet rt - General Headache Without Cause rt Forms: - Medication Reconciliation Form rt - Thank You Letter rt - Antibiotic Education rt - Prescription Opioid Use rt Signatures: Dispatcher [employer] Ryan Mccabe RN RN jl7 Griselda Gary RN RN ld1 Abner Cardozo MD MD rt Corrections: (The following items were deleted from the chart) 07:33 07:32 PMHx: Diabetes mellitus; carolyn jl7
--- NOTE | 2022-07-26 10:35 | ER ---
Nurse's Notes [facility] Name: Brayden Henderson Age: 47 yrs Sex: Male : 1975 Arrival Date: 07/26/2022 Time: 07:24 Bed 20 Private MD: Diagnosis: Headache Presentation: 07/26 07:30 Chief complaint: Patient states: Left sided CP started this morning, high BP 182/102 jl7 and pounding RICHARD. Coronavirus screen: Vaccine status: Patient reports receiving the 2nd dose of the covid vaccine. At this time, the client does not indicate any symptoms associated with coronavirus-19. Ebola Screen: No symptoms or risks identified at this time. Initial Sepsis Screen: Does the patient meet any 2 criteria? No. Patient's initial sepsis screen is negative. Does the patient have a suspected source of infection? No. Patient's initial sepsis screen is negative. Risk Assessment: Do you want to hurt yourself or someone else? Patient reports no desire to harm self or others. Onset of symptoms was July 26, 2022. 07:30 Method Of Arrival: Ambulatory jl7 07:30 Acuity: MARIA E 2 jl7 Triage Assessment: 07:32 General: Appears in no apparent distress. uncomfortable, Behavior is calm, cooperative, jl7 appropriate for age. Pain: Complains of pain in anterior aspect of left upper chest and RICHARD Pain currently is 8 out of 10 on a pain scale. Cardiovascular: Patient's skin is warm and dry. Historical: - Allergies: 07:32 NKA; jl7 - Home Meds: 07:32 lisinopril 10 mg Oral tab 1 tab once daily [Active]; carvedilol 6.25 mg Oral tab 1 tab jl7 2 times per day [Active]; Farxiga oral [Active]; Insulin: Regular Sub-Q [Active]; - PMHx: 07:32 blood clot right eye; Diabetes - NIDDM; Hypertension; Hypothyroidism; jl7 - Immunization history:: Client reports receiving the 2nd dose of the Covid vaccine. - Social history:: Smoking status: Patient denies any tobacco usage or history of. - Family history:: not pertinent. Screenin:36 [facility] ED Fall Risk Assessment (Adult) History of falling in the last 3 months, jl7 including since admission No falls in past 3 months (0 pts). Abuse screen: Denies threats or abuse. Denies injuries from another. Nutritional screening: No deficits noted. Tuberculosis screening: No symptoms or risk factors identified. Assessment: 07:28 Reassessment: Dr. Cardozo at bedside assessing pt. jl7 07:36 Reassessment:. General: Appears in no apparent distress. comfortable, Behavior is calm, jl7 cooperative, appropriate for age. Pain: Complains of pain in chest and anterior aspect of left upper chest Pain does not radiate. Pain currently is 9 out of 10 on a pain scale. Quality of pain is described as pressure, sharp, Pain began suddenly. Neuro: Level of Consciousness is awake, alert, obeys commands, Oriented to person, place, time, situation, Reports headache. Cardiovascular: Capillary refill < 3 seconds Patient's skin is warm and dry. Rhythm is sinus rhythm. Respiratory: Airway is patent Respiratory effort is even, unlabored. GI: Abdomen is round non-distended, Reports nausea. : No signs and/or symptoms were reported regarding the genitourinary system. EENT: No signs and/or symptoms were reported regarding the EENT system. Derm: No signs and/or symptoms reported regarding the dermatologic system. Musculoskeletal: No signs and/or symptoms reported regarding the musculoskeletal system. 09:29 Reassessment: Notified ERP of BP. ld1 09:58 Reassessment: Patient appears in no apparent distress at this time. Patient and/or ld1 family updated on plan of care and expected duration. Pain level reassessed. Patient is alert, oriented x 3, equal unlabored respirations, skin warm/dry/pink. 10:50 Reassessment: Patient appears in no apparent distress at this time. No changes from ld1 previously documented assessment. Patient and/or family updated on plan of care and expected duration. Pain level reassessed. Vital Signs: 07:30 BP 183 / 85; Pulse 63; Resp 17; Temp 98.5; Pulse Ox 99% ; Weight 108.86 kg; Height 5 jl7 ft. 5 in. (165.10 cm); Pain 8/10; 07:36 BP 183 / 85; Pulse 61; Resp 8; Temp 98.5(O); Pulse Ox 100% on R/A; Pain 9/10; jl7 08:16 BP 150 / 75; Pulse 62; Resp 19; Pulse Ox 94% on R/A; ld1 08:30 BP 94 / 54; Pulse 60; Resp 18; Pulse Ox 92% on R/A; ld1 09:00 BP 93 / 58; Pulse 60; Resp 17; Pulse Ox 92% on R/A; ld1 09:08 BP 87 / 53; Pulse 59; Resp 19; Pulse Ox 93% on R/A; ld1 09:58 BP 90 / 46; Pulse 55; Resp 18; Pulse Ox 97% on R/A; ld1 10:50 BP 100 / 58; Pulse 61; Resp 18; Pulse Ox 99% on R/A; ld1 07:30 Body Mass Index 39.94 (108.86 kg, 165.10 cm) jl7 ED Course: 07:24 Patient arrived in ED. am2 07:27 Griselda Gary, RN is Primary Nurse. ld1 07:27 Abner Cardozo MD is Attending Physician. rt 07:32 Triage completed. jl7 07:32 Arm band placed on right wrist. jl7 07:35 Inserted saline lock: 20 gauge in right antecubital area, using aseptic technique. jl7 Blood collected. 07:36 Patient has correct armband on for positive identification. Placed in gown. Bed in low jl7 position. Call light in reach. Side rails up X2. lunchroom monitor on. Pulse ox on. NIBP on. Door closed. Noise minimized. Warm blanket given. 07:36 No provider procedures requiring assistance completed. Patient maintains SpO2 jl7 saturation greater than 95% on room air. 08:02 CT Head Brain wo Cont In Process Unspecified. EDMS 08:03 XRAY Chest (1 view) In Process Unspecified. EDMS 09:51 Chest Pa And Lat (2 Views) XRAY In Process Unspecified. EDMS 10:51 IV discontinued, intact, bleeding controlled, No redness/swelling at site. ld1 Administered Medications: 07:55 Drug: Reglan (metoCLOPramide) 10 mg Route: IVP; Site: right antecubital; jl7 07:55 Drug: Benadryl (diphenhydrAMINE) 25 mg Route: IVP; Site: right antecubital; jl7 07:55 Drug: Tylenol 1000 mg Route: PO; jl7 08:08 Drug: NS 0.9% 1000 ml Route: IV; Rate: 1 bolus; Site: right antecubital; ld1 08:08 Drug: Magnesium Sulfate 2 grams Route: IVPB; Infused Over: 2 hrs; Site: right ld1 antecubital; Medication: 07:36 VIS not applicable for this client. jl7 Outcome: 10:35 Discharge ordered by . rt 10:50 Discharged to home ambulatory, with family. ld1 10:50 Condition: stable 10:50 Discharge instructions given to patient, family, Instructed on discharge instructions, follow up and referral plans. Demonstrated understanding of instructions, follow-up care. 10:51 Patient left the ED. ld1 Signatures: Dispatcher [employer] EDRyan Sue RN RN jl7 Amy Grossman Lauren, RN RN ld1 Abner Cardozo MD MD rt Corrections: (The following items were deleted from the chart) 07:33 07:32 PMHx: Diabetes mellitus; jl7 jl7
[2022-07-26 11:09] VITALS: TEMP 98.5
[2022-07-26 11:21] VITALS: BP 100/58; O2SAT 99
== END 2022-07-26 10:51 | disposition home or self-care (01) ==
LOC: ER 07:23
DX: R51.9 Headache, unspecified (principal); R07.89 Other chest pain; E11.9 Type 2 diabetes mellitus without complications; Z79.4 Long term (current) use of insulin; I10 Essential (primary) hypertension; E03.9 Hypothyroidism, unspecified
CPT/HCPCS: 85025; 80048; 36415; 84484; 70450; 71045; 71046; J2765; J1200; J3475; J7040; J7030

== ENCOUNTER 2022-08-03 17:04 | Emergency (ER) | payer BC ==
--- OUTSIDE RECORDS SUMMARY | 2022-08-03 17:09 | XMS REPORT | Continuity of Care Document ---
:1975 Author Organization [facility] [place] [facility] t Address [address] [place] [address] Care Team Providers Name Role Phone MANNYDANIELALEANNE C Primary Care Physician Unavailable HIRAM TATE Attending Clinician Unavailable Hiram Tate MD Attending Clinician CARLTON SANTACRUZ Attending Clinician Unavailable Carlton Murry Attending Clinician Doctor Unassigned, [place] Attending Clinician Unavailable Lisette Lawrence MD Attending Clinician HIRAM TATE Admitting Clinician Unavailable Payers Payer Name Policy Type Policy Number Effective Date Expiration Date Bernadette cruz [facility] [id number] 2016 00:00:00 Problems Condition Condition Condition Status [...] traction for and and surgery rhegmatoge rhegmatoge [id number] nous nous retinal retinal detachment detachment , without , without long-term long-term current current use of use of insulin insulin Vitreous Vitreous Disease Active Overview: Un mikel hemorrhage hemorrhage 01-25 Formattin ity of of left of left 00:00: g of this [place] [facility] eye 00 note Medical might be Branch different from the original. Added automatic ally from request for surgery [id number] Allergies, Adverse Reactions, Alerts Allergy Allergy Status Severity Reaction(s) Onset Inactive Treating Comm ents Source Name Type Date Date Clinician No Known DA Active U [facility] All[facility]ie 6-13 [place] [facility] d [facility] NO KNOWN Drug Active Univers ALLERGIE Class ity of S [facility] Social History Social Habit Start Date Stop Date Quantity Comments Source History of tobacco Cigarette Smoker University of use [facility] Exposure to 2022-07-10 2022-07-20 Not sure [facility] SARS-CoV-2 (event) 00:00:00 17:14:00 [facility] Alcohol intake 2018-12-09 2018-12-09 Current University of 00:00:00 00:00:00 non-drinker of [facility] alcohol Branch (finding) Cigarettes smoked 2018-01-01 2018-01-01 Univers ity of current (pack per 00:00:00 00:00:00 [facility] ) - Reported Branch Cigarette 2018-01-01 2018-01-01 University of pack-years 00:00:00 00:00:00 [facility] Tobacco use and 2018-01-01 2018-01-01 Smokeless Universit y of exposure 00:00:00 00:00:00 tobacco non-user [facility] dical Branch Sex Ass[birth year] Universit y of 00:00:00 00:00:00 [facility] Smoking Status Start Date Stop Date Source Ex-smoker 2018-01-01 00:00:00 2018-01-01 00:00:00 Universi ty of [facility] Medications Ordered Filled Start Stop Current Ordering Indication Dosage Frequency Signature Comments Components Source Medication Medication Date Date Medication? Clinician (SIG) Name Name NaCl 0.9% 2022- No 500mL at 999 Univ ers (NS) bolus -20 01-20 mL/hr, 500 it y of infusion 05:00: 04:41 mL, IV [place] 500 mL 00 :00 Piggyback, Medical ONCE, 1 Branch dose, On [place] 1/19/23 at 2300, STAT iopamidol 2022- No [id number] 83mL 83 mL, Univers (ISOVUE 07-21 Intravenou ity o f 370-500 mL) 03:30: 03:30 s, ONCE, 1 [place] injection 00 :00 dose, On Medica l 83 mL [place] Branch 07/20/22 at 2130, Routine ketorolac 2022- No 30mg 30 mg, Unive rs (TORADOL) 07-21 Slow IV ity of injection 02:45: 01:55 Push, [place] 30 mg 00 :00 ONCE, 1 Medical dose, On Branch [place] 07/20/22 at 2045, Routine ketorolac 2020- No 30mg 30 mg, Unive rs (TORADOL) 10-07 Slow IV ity of injection 04:00: 02:59 Push, [place] 30 mg 00 :00 ONCE, 1 Medical dose, Wed Branch 10/06/20 at 2300, Routine
infantry indirect fire crewmember approving Restricted medication : LISETTE LAWRENCE traMADoL [...] (scale 7-10). Indication s: acute pain Butalbital- Yes [id number] 1{capsu Take 1 Univers Acetaminoph 6-10 le} capsule by it y of en-Caff 00:00: mouth [place] (FIORICET) 00 every 6 Medica l 50-300-40 (six) Branch mg per hours as capsule needed for Pain (scale 4-6). ondansetron 2019-0 Yes [id number] 4mg Take 1 Univers 4 mg 6-10 tablet by ity of disintegrat 00:00: mouth [place] ing tablet 00 every 4 Medica l (four) Branch hours as needed for Nausea and Vomiting (N/V). ibuprofen 2019-0 Yes [id number] 800mg Take 1 U nivers 800 mg 6-10 tablet by ity of tablet 00:00: mouth [place] 00 every 8 Medical (eight) Branch hours. Butalbital- Yes [id number] 1{capsu Take 1 Univers Acetaminoph 6-10 le} capsule by it y of en-Caff 00:00: mouth [place] (FIORICET) 00 every 6 Medica l 50-300-40 (six) Branch mg per hours as capsule needed for Pain (scale 4-6). ondansetron 0 Yes [id number] 4mg Take 1 Univers 4 mg 6-10 tablet by ity of disintegrat 00:00: mouth [place] ing tablet 00 every 4 Medica l (four) Branch hours as needed for Nausea and Vomiting (N/V). ibuprofen 0 Yes [id number] 800mg Take 1 U nivers 800 mg 6-10 tablet by ity of tablet 00:00: mouth [place] 00 every 8 Medical (eight) Branch hours. Butalbital- Yes [id number] 1{capsu Take 1 Univers Acetaminoph 6-10 le} capsule by it y of en-Caff 00:00: mouth [place] (FIORICET) 00 every 6 Medica l 50-300-40 (six) Branch mg per hours as capsule needed for Pain (scale 4-6). ondansetron 2019-0 Yes [id number] 4mg Take 1 Univers 4 mg 6-10 tablet by ity of disintegrat 00:00: mouth [place] ing tablet 00 every 4 Medica l (four) Branch hours as needed for Nausea and Vomiting (N/V). ibuprofen 2018-0 Yes [id number] 800mg Take 1 U nivers 800 mg 6-10 tablet by ity of tablet 00:00: mouth [place] 00 every 8 Medical (eight) Branch hours. Butalbital- Yes [id number] 1{capsu Take 1 Univers Acetaminoph 6-10 le} capsule by it y of en-Caff 00:00: mouth [place] (FIORICET) 00 every 6 Medica l 50-300-40 (six) Branch mg per hours as capsule needed for Pain (scale 4-6). ondansetron Yes [id number] 4mg Take 1 Univers 4 mg 6-10 tablet by ity of disintegrat 00:00: mouth [place] ing tablet 00 every 4 Medica l (four) Branch hours as needed for Nausea and Vomiting (N/V). ibuprofen Yes [id number] 800mg Take 1 U nivers 800 mg [...] ity of U-100 00:00: UNDER THE [place] INSULIN 100 00 SKIN TWICE Me dical unit/mL (3 A DAY. Branch mL) injection LANTUS 2017-07 Yes INJECT 30 Univer s SOLOSTAR 1-02 UNITS ity of U-100 00:00: UNDER THE [place] INSULIN 100 00 SKIN TWICE Me dical unit/mL (3 A DAY. Branch mL) injection LANTUS 2018-1 Yes INJECT 30 Univer s SOLOSTAR 1-02 UNITS ity of U-100 00:00: UNDER THE [place] INSULIN 100 00 SKIN TWICE Me dical unit/mL (3 A DAY. Branch mL) injection LANTUS 2018-1 Yes INJECT 30 Univer s SOLOSTAR 1-02 UNITS ity of U-100 00:00: UNDER THE [place] INSULIN 100 00 SKIN TWICE Me dical unit/mL (3 A DAY. Branch mL) injection glipiZIDE 2018-0 Yes 10mg Take 10 mg Un mikel 10 mg 7-31 by mouth 2 ity of tablet 13:11: (two) [place] 07 times Medical daily Branch before breakfast and dinner. metFORMIN 2018-0 Yes 1000mg Take 1,000 Univers 1,000 mg 7-31 mg by ity of tablet 13:11: mouth 2 [place] (two) Medical times Branch daily with meals. glipiZIDE 2018-0 Yes 10mg Take 10 mg Un mikel 10 mg 7-31 by mouth 2 ity of tablet 08:11: (two) [place] 07 times Medical daily Branch before breakfast and dinner. glipiZIDE 2018-0 Yes 10mg Take 10 mg Un mikel 10 mg 7-31 by mouth 2 ity of tablet 08:11: (two) [place] 07 times Medical daily Branch before breakfast and dinner. glipiZIDE 2018-0 Yes 10mg Take 10 mg Un mikel 10 mg 7-31 by mouth 2 ity of tablet 08:11: (two) [place] 07 times Medical daily Branch before breakfast and dinner. metFORMIN 2018-0 Yes 1000mg Take 1,000 Univers 1,000 mg 7-31 mg by ity of tablet 08:11: mouth 2 [place] (two) Medical times Branch daily with meals. metFORMIN 2018-0 Yes 1000mg Take 1,000 Univers 1,000 mg 7-31 mg by ity of tablet 08:11: mouth 2 [place] (two) Medical times Branch daily with meals. metFORMIN 2018-0 Yes 1000mg Take 1,000 Univers 1,000 mg 7-31 mg by ity of tablet 08:11: mouth 2 [place] (two) Medical times Branch daily with meals. prednisoLON 2017-0 Yes 1[drp] Place 1 U nivers E acetate 1 7-06 Drop in ity o f % 00:00: left eye 4 [place] ophthalmic 00 (four) Medical suspension times Branch drops daily. prednisoLON 2017-0 Yes 1[drp] Place 1 U nivers E acetate 1 7-06 Drop in ity o f % 00:00: left eye 4 [place] ophthalmic 00 (four) Medical suspension times Branch drops daily. prednisoLON 2017-0 Yes 1[drp] Place 1 U nivers E acetate 1 7-06 Drop in ity o f % 00:00: left eye 4 [place] ophthalmic 00 (four) Medical suspension times Branch drops daily. prednisoLON 2017-0 Yes 1[drp] Place 1 U nivers E acetate 1 7-06 Drop in ity o f % 00:00: left eye 4 [place] ophthalmic 00 (four) Medical suspension times Branch drops daily. bacitracin- 2017-0 Yes .5[in_u Place 0.5 Univers polymyxin B 6-19 s] Inches in ity of oph 00:00: left eye 4 [place] 500-10,000 00 (four) Medical unit/gram times Branch ophthalmic daily. ointment bacitracin- 2017-0 Yes .5[in_u Place 0.5 Univers polymyxin B 6-19 s] Inches in ity of oph 00:00: left eye 4 [place] 500-10,000 00 (four) Medical unit/gram times Branch ophthalmic daily. ointment bacitracin- 2017-0 Yes .5[in_u Place 0.5 Univers polymyxin B 6-19 s] Inches in ity of oph 00:00: left eye 4 [place] 500-10,000 00 (four) Medical unit/gram times Branch ophthalmic daily. ointment bacitracin- 2017-0 Yes .5[in_u Place 0.5 Univers polymyxin B 6-19 s] Inches in ity of oph 00:00: left eye 4 [place] 500-10,000 00 (four) Medical unit/gram times Branch ophthalmic daily. ointment Vital Signs Vital Name Observation Time Observation Value Comments Source Systolic blood 2022-07-21 04:30:00 138 mm[Hg] Univer sity of pressure [facility] Diastolic blood 2022-07-21 04:30:00 78 mm[facility]Hg] [facility] Heart rate 2022-07-21 04:30:00 69 /min Universi ty [facility] [place] [facility] Respiratory rate 2022-07-21 04:30:00 14 /min Univ ersity of [place] [facility] Oxygen saturation in 2022-07-21 04:30:00 96 /min University of Arterial blood by [facility] Pulse oximetry Branch Body temperature 2022-07-20 23:17:00 37.39 Sarah Univ ersity of [place] [facility] Body height 2022-07-20 23:17:00 165.1 cm [facility]i ty [facility] [place] [facility] Body weight 2022-07-20 23:17:00 104.327 kg [facility]i ty [facility] [place] [facility] BMI 2022-07-20 23:17:00 38.27 kg/m2 [facility] ty [facility] [place] [facility] Systolic blood 2021-12-01 02:20:00 170 mm[Hg] Univer sity of pressure [place] [facility] Diastolic blood 2021-12-01 02:20:00 89 mm[Hg] Unive rsity of pressure [place] [facility] Heart rate 2021-12-01 02:20:00 68 /min [facility]i ty [facility] [place] [facility] Respiratory rate 2021-12-01 02:20:00 18 /min Univ ersity of [place] [facility] Oxygen saturation in 2021-12-01 02:20:00 98 /min University of Arterial blood by [facility] Pulse oximetry Branch Body temperature 2021-11-30 21:08:00 37.67 Sarah Univ ersity [facility] [place] [facility] Body height 2021-11-30 21:08:00 165.1 [...] Branch Respiratory rate 2020-10-07 02:00:00 17 /min Univ ersity [facility] [place] [facility] Oxygen saturation in 2020-10-07 02:00:00 97 /min [facility] Arterial blood by [facility] Pulse oximetry Branch Body temperature 2020-10-07 01:23:00 37.22 Sarah Univ [facility] Body height 2020-10-07 01:23:00 165.1 cm [facility] Body weight 2020-10-07 01:23:00 99.791 kg [facility] BMI 2020-10-07 01:23:00 36.61 kg/m2 [facility] Procedures Procedure Date / Time Performing Clinician Source Performed EKG-12 LEAD 2022-07-21 03:31:51 Hiram Tate [facility] CT CHEST PULMONARY 2022-07-21 02:34:27 Hiram Tate [facility] ANGIOGRAM Medical Branch D-DIMER 2022-07-21 00:53:00 Hiram Tate [facility] LIPASE 2022-07-20 23:44:00 Hiram Tate [facility] TROPONIN I 2022-07-20 23:44:00 Hiram Tate [facility] HEPATIC FUNCTION PANEL 2022-07-20 23:44:00 Hiram Tate [facility] ([id number]) (ALB,T.PRO,BILI [facility] T,BU/BC,ALT,AST,ALK PHOS) BASIC METABOLIC PANEL 2022-07-20 23:44:[address] [facility] (NA, K, CL, CO2, Medical Branch GLUCOSE, BUN, CREATININE, CA) CBC WITH DIFF 2022-07-20 23:44:00 Hiram Tate [facility] CONSENT/REFUSAL FOR 2022-07-20 23:05:59 Doctor Unassigned, No Un [facility] DIAGNOSIS AND TREATMENT Name Medical Branch RAPID STREP SCREEN FOR 2021-12-01 02:09:00 Carlton Santacruz [facility] GROUP A Medical [place] COMP. METABOLIC PANEL 2021-12-01 00:19:[address] [facility] ([id number]) Medical Branch CBC WITH DIFF 2021-12-01 00:19:00 Carlton Santacruz [place] [facility] URINALYSIS 2021-12-01 00:09:00 Carlton Santacruz [facility] NOTICE OF PRIVACY 2021-11-30 20:58:23 Doctor Unassigned, No [facility] PRACTICES Name Medical Branch LIPASE 2020-10-07 01:36:00 Lisette Lawrence [facility] TROPONIN I 2020-10-07 01:36:00 Lisette Lawrence [facility] COMP. METABOLIC PANEL 2020-10-07 01:36:00 Lisette Lawrence [facility] ([id number]) Medical Branch CBC WITH DIFF 2020-10-07 01:36:00 Lisette Lawrence [facility] PROTHROMBIN TIME / INR 2020-10-07 01:36:00 Lisette Lawrence [facility] ACTIVATED PARTIAL 2020-10-07 01:36:00 Lisette Lawrence [facility] (ID NOW RAPID 2020-10-07 01:36:00 Lisette Lawrence [facility] TESTING) Medical Branch NOTICE OF PRIVACY 2020-10-07 01:15:22 Doctor Unassigned, No [facility] PRACTICES Name [facility] CONSENT/REFUSAL FOR 2020-10-07 01:14:20 [facility]AT[facility] Name [facility] Encounters Start End Encounter Admission Attending Care Care Encounter Source Date/Time Date/Time Type Type Clinicians Facility Department ID 2021-05-01 Emergency [facility] [id number] [facility]22-07-20 2022-07-20 Emergency X [facility] ERT [id number] Univers 17:24:00 23:59:00 [facility] 2022-07-20 2022-07-20 [facility] [id number] Univers 17:24:00 23:59:00 Hiram ARELLANO 350.1.13.10 i ty of [place] 4.2.7.2.686 [facility] [id number] [place] [address] Branch 2021-11-30 2021-11-30 Emergency X [facility] ERT [id number] Univers 16:10:00 21:27:00 CARLTON ity of [facility] 2021-11-30 2021-11-30 Emergency [facility] [id number] Univers 16:10:00 21:27:00 Carlton ARELLANO 350.1.13.10 i ty of [place] 4.2.7.2.686 [facility] [id number] [address] 2021-11-30 2021-11-30 Orders Doctor LUIS ALBERTO [id number] Univers 00:00:00 00:00:00 Only Unassigned, FREDY 350.1.13.10 ity of [place] [facility] 4.2.7.2.686 [facility] [id number] [place] [address] Branch 2020-10-06 2020-10-06 Emergency [facility] [id number] Univers 20:27:00 22:12:00 Lisette Bernadette CunninghamGraettinger 350.1.13.10 ity of [place] 4.2.7.2.686 [facility] [id number] [address] Results Test Description Test Time Test Comments Results Result Comments Source D-DIMER 2022-07-21 01:51:05 Test Item Value Reference Range Interpretation Comme nts D-DIMER (test code = See_Comment H [Autom ated message] The [id number]) system which ge nerated this result tra nsmitted reference range : <0.41 ?g/mL (FEU). Th e reference range was not used [...] diagnosis. Lab Interpretation Abnormal (test code = 66088-2) [facility] METABOLIC PANEL ([id number])2021-12-01 00:48:17 Test Item Value Reference Range Interpretation Comments NA (test code = 138 mmol/L 135-145 2148871250) K (test code = 4.4 mmol/L 3.5-5.0 9080669839) CL (test code = 102 mmol/L 98-108 3511850661) CO2 TOTAL (test code = 26 mmol/L 23-31 1743519829) AGAP (test code = 2-16 4204829939) BUN (test code = 16 mg/dL 7-23 8206068447) GLUCOSE (test code = 121 mg/dL 70-110 H 0127865677) CREATININE (test code = 0.92 mg/dL 0.60-1.25 9635957627) TOTAL BILI (test code = 0.3 mg/dL 0.1-1.7 6970224056) CALCIUM (test code = 10.1 mg/dL 8.6-10.6 6593080050) T PROTEIN (test code = 7.3 g/dL 6.3-8.2 0016107789) ALBUMIN (test code = 4.1 g/dL 3.5-5.0 5186789658) ALK PHOS (test code = 80 U/L 34-122 5947551555) ALTv (test code = 37 U/L 5-50 1742-6) AST(SGOT) (test code = 36 U/L 13-40 1066498137) eGFR (test code = mL/min/1.73m2 7848739936) YINKA (test code = YINKA) Association of [...] tests). Lab Interpretation Abnormal (test code = 73734-7) [facility] WITH [id number] 00:28:56 Test Item Value Reference Range Interpretation Comments WBC (test code = See_Comment [Automated 4927-2) message] The sy stem which generated this result transmitted reference range : 4.20 - 10.70 10*3/?L. The reference range was not used to interpret this result as normal/abnormal . RBC (test code = See_Comment [Automated 674-8) message] The sy stem which generated this [...] RDW-SD (test code = 39.8 fL 38.5-51.6 47262-2) RDW-CV (test code = 13.9 % 12.1-15.4 788-0) PLT (test code = See_Comment [Automated 777-3) message] The sy stem which generated this result transmitted reference range : 150 - 328 10*3/ ?L. The reference r annie was not used to interpret this result as normal/abnormal . MPV (test code = 11.5 fL 9.8-13.0 15994-6) NRBC/100 WBC (test See_Comment [Automat ed code = 6197508575) message] The system which generated this result transmitted reference range : 0.0 - 10.0 /100 WBCs. The refer ence range was not u sed to interpret th is result as normal/abnormal . NRBC x10^3 (test code <0.01 See_Comment [Auto mated = 0669363974) message] The s ystem which generated this result transmitted reference range : 10*3/?L. The reference range was not used to interpret this result as normal/abnormal . GRAN MAT (NEUT) % 50.6 % (test code = 770-8) IMM GRAN % (test code 0.20 % = 0705840336) LYMPH % (test code = 35.7 % 736-9) MONO % (test code = 8.0 % 5905-5) EOS % (test code = 4.4 % 713-8) BASO % (test code = 1.1 % 706-2) GRAN MAT x10^3(ANC) 5.31 10*3/uL 1.99-6.95 (test code = 2005418311) IMM GRAN x10^3 (test <0.03 0.00-0.06 code = 6584438501) LYMPH x10^3 (test code 3.74 10*3/uL 1.09-3.23 H = 731-0) MONO x10^3 (test code 0.84 10*3/uL 0.36-1.02 = 742-7) EOS x10^3 (test code = 0.46 10*3/uL 0.06-0.53 711-2) BASO x10^3 (test code 0.12 10*3/uL 0.01-0.09 H = 704-7) Lab Interpretation Abnormal (test code = 60828-3) [facility] [id number] 02:10:04 Test Item Value Reference Range Interpretation Comments TROPONIN I (test 0.002 ng/mL See_Comment [Automated code = 7302877129) message] The system which generated this result [...] ? Lab Interpretation Normal (test code = 93683-2) [facility] 02:07:25 Test Item Value Reference Range Interpretation Comments APTT Patient (test See_Comment [Automat ed code = 3173-2) message] The system which generated this result transmitted reference range : 23 - 38 Seconds . The reference range was not used to interpr et this result as normal/abnormal . YINKA (test code = YINKA) The [facility] patient population mean normal value for aPTT is 30 seconds. Lab Interpretation Normal (test code = 31124-7) [facility] / [id number] 02:05:22 Test Item Value Reference Range Interpretation Comments PROTIME PATIENT (test See_Comment [Auto mated message] code = 5964-2) The system [employer] generated this result transmitted ref erence range: 12.0 - 1 4.7 Seconds. The re ference range was not u sed to interpret this result as normal/abnor mal. INR (test code = 6301-6) Nor mal INR <1.1; Warfarin Therap eutic range 2.0 to 3. 0 or 2.5 to 3.5, dep ending upon the indica tions. Lab Interpretation (test Normal code = 07680-4) [facility]ID NOW RAPID TESTING)2020-10-07 02:00:21 Test Item Value Reference Range Interpretation Comments SARS-CoV-2 Rapid ID NOW Not Detected Not Detected (test code = 65700-2) YINKA (test code = YINKA) ID NOW COVID-19 Assay is an isothermal nucleic acid amplification test intended for the qualitative detection of nucleic acid from SARS-CoV-2 viral RNA in nasopharyngeal (LAUNDRY CLERK) specimens. It is used under Emergency Use [...] indicated. Lab Interpretation Normal (test code = 17508-8) [facility]OL[facility] PAN[facility] ([id number])2020-10-07 01:59:04 Test Item Value Reference Range Interpretation Comments NA (test code = 135 mmol/L 135-145 3373408853) K (test code = 4.1 mmol/L 3.5-5.0 1093098586) CL (test code = 103 mmol/L 98-108 2791257389) CO2 TOTAL (test code = 25 mmol/L 23-31 5532032946) AGAP (test code = 2-16 0473412033) BUN (test code = 12 mg/dL 7-23 0859417015) GLUCOSE (test code = 130 mg/dL 70-110 H 4356541380) CREATININE (test code = 0.92 mg/dL 0.60-1.25 1931197265) TOTAL BILI (test code = 0.4 mg/dL 0.1-1.0 4135774540) CALCIUM (test code = 9.1 mg/dL 8.6-10.6 4823626540) T PROTEIN (test code = 6.9 g/dL 6.3-8.2 5420264704) ALBUMIN (test code = 4.1 g/dL 3.5-5.0 4139820892) ALK PHOS (test code = 87 U/L 34-122 5491017456) ALTv (test code = 109 U/L 5-50 H 1742-6) AST(SGOT) (test code = 74 U/L 13-40 H 0865073785) eGFR (test code = mL/min/1.73m2 1620492954) YINKA (test code = YINKA) Association of [...] tests). Lab Interpretation Abnormal (test code = 99929-2) [facility] [id number] 01:58:23 Test Item Value Reference Range Interpretation Comments LIPASE (test code = 3071281150) 124 U/L 0-220 Lab Interpretation (test code = Normal 87985-7) [facility] [id number] 01:48:58 Test Item Value Reference Range Interpretation Comments WBC (test code = See_Comment [Automated message] 8238-2) The system [employer] generated this result transmitted ref erence range: 4.20 - 1 0.70 10*3/?L. The re ference range was not u sed to interpret this result as normal/abnor mal. RBC (test code = See_Comment [Automated message] 319-8) The system [employer] generated this result transmitted ref erence range: [...] RDW-SD (test code 39.4 fL 38.5-51.6 = 66658-0) RDW-CV (test code 13.0 % 12.1-15.4 = 788-0) PLT (test code = See_Comment [Automated message] 707-3) The system [employer] generated this result transmitted ref erence range: 150 - 32 8 10*3/?L. The re ference range was not u sed to interpret this result as normal/abnor mal. MPV (test code = 11.2 fL 9.8-13.0 40574-9) NRBC/100 WBC (test See_Comment [Automat ed message] code = 7710405121) The syste m which generated this result transmitted ref erence range: 0.0 - 10 .0 /100 WBCs. The refer ence range was not u sed to interpret this result as normal/abnor mal. NRBC x10^3 (test <0.01 See_Comment [Automated message] code = 0516895543) The syste m which generated this result transmitted ref erence range: 10*3/?L. The reference range was not used to interpr et this result as normal/abnormal . GRAN MAT (NEUT) % 50.2 % (test code = 770-8) IMM GRAN % (test 0.30 % code = 5938494590) LYMPH % (test code 35.3 % = 736-9) MONO % (test code 9.9 % = 5905-5) EOS % (test code = 3.0 % 713-8) BASO % (test code 1.3 % = 706-2) GRAN MAT 3.49 10*3/uL 1.99-6.95 x10^3(ANC) (test code = 8005317087) IMM GRAN x10^3 <0.03 0.00-0.06 (test code = 9340239228) LYMPH x10^3 (test 2.45 10*3/uL 1.09-3.23 code = 731-0) MONO x10^3 (test 0.69 10*3/uL 0.36-1.02 code = 742-7) EOS x10^3 (test 0.21 10*3/uL 0.06-0.53 code = 711-2) BASO x10^3 (test 0.09 10*3/uL 0.01-0.09 code = 704-7) [facility] 00:41[facility]00 Test Item Value Reference Range Interpretation Comments GLUBED (test code = GLUBED) 197 mg/dL 70-110 H [id number] 00:41:00 Test Item Value Reference Range Interpretation Comments GLUBED (test code = GLUBED) 184 mg/dL 70-110 H [id number] 00:41:00 Test Item Value Reference Range Interpretation Comments GLUBED (test code = GLUBED) 170 mg/dL 70-110 H [id number] 06:10:00 Test Item Value Reference Range Interpretation Comments GLUBED (test code = GLUBED) 157 mg/dL 70-110 H [id number] 06:10:00 Test Item Value Reference Range Interpretation Comments GLUBED (test code = GLUBED) 206 mg/dL 70-110 H [id number] 06:10:00 Test Item Value Reference Range Interpretation Comments GLUBED (test code = GLUBED) 177 mg/dL 70-110 H [id number] 06:10:00 Test Item Value Reference Range Interpretation Comments GLUBED (test code = GLUBED) 235 mg/dL 70-110 H - CT ABD PELVIS [id number] 16:33:00 FAX: Jon Kay [phone] [place]: St: [facility] FAX: Manuela Rhodes [phone] Name: ANUEL CARR [facility] : 1975 Age/S: 43/M [address] [facility] Unit: [id number] Loc: [address] [place], [place] Phys: Manuela Basurto [address] Acct: [id number] Dis Date: Status: ADM IN PHONE #: Exam Date: 12/14/2018 1617 FAX #: [phone] Reason: LUQ pain EXAMS: CPT CODE: [id number] CT ABD PELVIS W/CONT 08699 EXAM: CT abdomen and pelvis with contrast [...] patient size, and/or utilization of iterative reconstruction technique.Total Exam DLP : 824 mGy/cm CTDI vol: [...] 1 Signed Report (CONTINUED) FAX: Jon Kay [phone] [place]: St: [facility] FAX: Manuela Rhodes [phone] Name: ANUEL CARR [facility] [place] : 1975 Age/S: 43/M [address] [facility] Unit: [id number] Loc: [address] Phys: Manuela Basurto [id number] Acct: [id number] Dis Date: Status: ADM IN PHONE #: [phone] Exam Date: 12/14/2018 1617 FAX #: [phone] Reason: LUQ pain EXAMS: CPT CODE: [id number] CT ABD PELVIS W/CONT 96129 (Continued)Left kidney: The kidneys are normal. No hydronephrosis [...] No concerning bony lesion identified. No ventral hernias.Peritoneum/Other: No extraluminal air. No extraluminal fluid. IMPRESSION: 1. Fatty liver. 2. No bowel obstruction. 3. No obstructive uropathy. 4. Severely distended urinary bladder, Santacruz catheter or u rinary bladder catheterization would be helpful. RECOMMENDATIONS: None. Internal Coding only:B3 PAGE 2 Signed Report (CONTINUED) FAX: Jon Kay [phone] [place]: St: ADM FAX: Manuela Rhodes [phone] Name: ANUEL CARR [facility] [place] : 1975 Age/S: 43/M [address] [facility] Unit: [id number] Loc: [address] Phys: Manuela Basurto [address] Acct: [id number] Dis Date: Status: ADM IN PHONE #: [phone] Exam Date: 12/14/2018 1617 FAX #: [phone] Reason: LUQ pain EXAMS: CPT CODE: [id number] CT ABD PELVIS W/CONT 72034 (Continued) at 1633 Reported and signed by: Collin Gustafson M.D. CC: Jon Mcgregor MD; Manuela JACOB Technologist: SKYLER ESTRELLA Trnscrd Dt/Tm: 12/14/2018 (5210) LexiHPToni Orig Print D/T: S: 12/14/2018 (2906 PAGE 3 Signed [id number] 16:20:00 Test Item Value Reference Range Interpretation Comments GLUBED (test code = GLUBED) 195 mg/dL 70-110 H COMPREHENSIVE METABOLIC [id number] 07:24:00 Test Item Value Reference Range Interpretation [...] 57 Units/L 50.0-136.0 N code = ALKP) [id number] 07:24:00 Test Item Value Reference Range Interpretation Comments MAGNESIUM (test code = MAG) 1.6 mg/dl 1.8-2.4 L CBC W/AUTO [id number] 07:06:00 Test Item Value Reference Range Interpretation [...] = BA#) 0.1 K/mm3 0.0-0.2 N VITAMIN [id number] 10:49:00 Test Item Value Reference Range Interpretation Comments VITAMIN B12 (test code = VITB12) 409 pg/mL 193-986 N [id number] 10:21:00 Test Item Value Reference Range Interpretation Comments HGBA1C% (test code = HGBA1C%) 8.8 %A1C 4.8-6.0 H ESTIMATED AVERAGE GLUCOSE (test 206 MG/DL code = EAG) [id number] 06:00:00 Test Item Value Reference Range Interpretation Comments TROPONIN-I (test <0.02 NG/ML 0.00-0.06 N REFERENCE R ANNIE code = TROPI) TROPONIN I HEA LTHY INDIVIDUALS: <0 .06 ng/mL R/O ISCHE SAVANA: 0.07 - 0.60 ng/ mL CUT-OFF RANGE F OR AMI: 0.60 - 1.5 ng/m L [id number] 01:25:00 Test Item Value Reference Range Interpretation Comments TROPONIN-I (test <0.02 NG/ML 0.00-0.06 N REFERENCE R ANNIE code = TROPI) TROPONIN I HEA LTHY INDIVIDUALS: <0 .06 ng/mL R/O ISCHE SAVANA: 0.07 - 0.60 ng/ mL CUT-OFF RANGE F OR AMI: 0.60 - 1.5 ng/m L - XR CHEST 1 [id number] 21:18:00 [place]: St: REG -- Name: ANUEL CARR [facility] : 1975 Age/S: 43/M [address] [facility]: [id number] Loc: [address] [place]: [place] [address] Acct: [id number] Dis Date: Status: REG ER PHONE #: [phone] Exam Date: 12/12/20182109 FAX #: [phone] Reason: SOB EXAMS: CPT CODE: [id number] XR CHEST 1 V 64792 REASON FOR EXAM: Shortness of breath and chest pain. COMPARISON: None. Chest, portable single frontal view. The lungs are well-inflated and clear. Heart size is normal. No effusion or pneumothorax can be seen. Osseous structures appear to be intact. IMPRESSION:No acute cardiopulmonary disease. Location: [facility] at [address] Reported and signed by: Humble Simpson M.D. CC: Technologist: NELA UREÑA Trnscrd Date/Time/By: 12/12/2018 (2117) : By: [facility] PAGE 1 Signed Report [place]: EMSt: REG -- Name: ANUEL CARR [facility] : 1975 Age/S: 43/M [address] [facility] Unit #: [id number] Loc: [address] Phys: [place] [address] Acct: [id number] Dis Date: Status: REG ER PHONE #: [phone] Exam Date: 12/12/20182109 FAX #: [phone] Reason: SOB EXAMS: CPT CODE: [id number] XR CHEST 1 V 59618 (Continued) Orig Print D/T: S: 12/12/2018 (2120) PAGE 2 Signed ReportBASIC METABOLIC [id number] 21:03:00 Test Item Value Reference Range Interpretation [...] CA) 9.0 mg/dl 8.0-10.5 N CBC W/AUTO [id number] 21:01:00 Test Item Value Reference Range Interpretation [...] BA#) 0.1 K/mm3 0.0-0.2 N BASIC METABOLIC [id number] 21:01:00 Test Item Value Reference Range Interpretation [...] code = CA) mg/dl 8.0-10.5 TROPONIN I [id number] 20:58:00 Test Item Value Reference Range Interpretation [...] arvind nges in troponin levels characteristic of RI.
[2022-08-03 17:44] LABS: Absolute Lymphocytes (CBC) 2.3 K/uL (0.7-4.9); Hematocrit 41.6 % (39.6-49.0); Lymphocytes % 30.9 % (15.3-44.8); MCV 83.1 fL (80-100); MPV 9.2 fL (7.6-11.3); RBC Red Blood Cell Count 5.01 M/uL (4.33-5.43)
[2022-08-03 18:01] LABS: Albumin 3.3 g/dL (3.4-5.0); Bilirubin Total 0.3 mg/dL (0.2-1.0); Protein, Total 7.3 g/dL (6.4-8.2); Troponin High Sensitivity 50.3 pg/mL (<58.9)
[2022-08-03 18:02] LABS: Magnesium 2.1 mg/dL (1.6-2.4); Potassium 4.5 mmol/L (3.5-5.1)
--- NOTE | 2022-08-03 18:02 | RAD REPORT ---
EXAM DESCRIPTION: RAD - Chest Single View - 08/03/2022 5:40 pm CLINICAL HISTORY: CHEST PAIN Chest pain. COMPARISON: Chest Pa And Lat (2 Views) dated 07/26/2022; Chest Single View dated 07/26/2022; Chest Pa And Lat (2 Views) dated 11/03/2019; Abdomen 1 View (KUB) dated 08/29/2019 FINDINGS: Portable technique limits examination quality. The lungs are grossly clear. The heart is normal in size. No displaced fractures. IMPRESSION: No acute intrathoracic process suspected.
[2022-08-03] MEDS ORDERED: NA CHLORIDE 0.9% 1,000 ML ONE (20:28)
[2022-08-03] MEDS ORDERED: PANTOPRAZOLE 40 MG INJ ONE (20:28)
[2022-08-03] MEDS ORDERED: ACETAMINOPHEN 500 MG TAB ONE (20:39)
--- NOTE | 2022-08-03 20:52 | EDPHYS ---
Physician Documentation [facility] Name: Brayden Henderson Age: 47 yrs Sex: Male : 1975 Arrival Date: 08/03/2022 Time: 17:07 Bed 15 Private MD: ED Physician Cristofer Toledo HPI: 08/03 19:58 This 47 yrs old Male presents to ER via Ambulatory with complaints of High kb Blood Pressure. 19:58 Patient reports high blood pressure, chest pain, abdominal pain, headache for 1 week. kb Reports he was seen here last week for similar symptoms but they have not gone away. Reports he did get better after last visit but then increased again yesterday. States nothing makes pain better or worse. Denies nausea, vomiting, fever, cough, congestion.. Historical: - Allergies: 17:21 NKA; ll1 - PMHx: 17:21 blood clot right eye; Hypertension; Diabetes - NIDDM; Hypothyroidism; ll1 - PSHx: 17:21 Appendectomy; Cholecystectomy; ll1 - Immunization history:: Client reports receiving the 2nd dose of the Covid vaccine. - Social history:: Smoking status: Patient/guardian denies using tobacco, the patient reports quitting approximately 3 years ago. ROS: 19:59 Constitutional: Negative for fever, chills, and weight loss. kb 19:59 Cardiovascular: Positive for chest pain. 19:59 Abdomen/GI: Positive for abdominal pain. 19:59 Neuro: Positive for headache. 19:59 All other systems are negative. Exam: 19:59 Constitutional: This is a well developed, well nourished patient who is awake, alert, kb and in no acute distress. Head/Face: Normocephalic, atraumatic. ENT: Moist Mucous membranes Cardiovascular: Regular rate and rhythm with a normal S1 and S2. No gallops, murmurs, or rubs. No pulse deficits. Respiratory: Respirations even and unlabored. No increased work of breathing. Talking in full sentences Abdomen/GI: Soft, non-tender. No distention Skin: Warm, dry with normal turgor. Normal color. MS/ Extremity: Pulses equal, no cyanosis. Neurovascular intact. Full, normal range of motion. Neuro: Awake and alert, GCS 15, oriented to person, place, time, and situation. Moves all extremities. Normal gait. 20:13 ECG was reviewed by the Attending Physician. kb Vital Signs: 17:19 BP 150 / 82; Pulse 77; Resp 18; Temp 98.1; Pulse Ox 100% ; ll1 19:16 BP 148 / 69; Pulse 74; Resp 18; Pulse Ox 99% on R/A; jb4 20:20 BP 143 / 76; Pulse 72; Resp 15; Pulse Ox 100% on R/A; jb4 20:45 BP 183 / 95; Pulse 88; Resp 21; Temp 99.0(O); Pulse Ox 100% on R/A; jb4 21:24 BP 126 / 65; Pulse 82; Resp 21; Pulse Ox 99% on R/A; jb4 MDM: 17:10 Patient medically screened. kb 19:59 Differential diagnosis: Primary hypertension, abnormal EKG, [place], CAD. Data reviewed: kb vital signs, nurses notes. Consideration of Admission/Observation Escalation of care including admission/observation considered. Care significantly affected by the following chronic conditions: Diabetes, Hypertension. 20:11 Transition of care: After a detail discussion of the patient's case, care is kb transferred to [facility]. ED course: Results reviewed from 07/26/2021. Creatinine 1.1 at that time today is 1.5. Patient educated to follow-up PCP regarding this elevation. Discussed with Dr. Cardozo who agrees with outpatient follow-up. First troponin today is similar to troponin that was done on 07/26/2021. Will repeat second troponin at 2030. If it remains normal patient can follow-up outpatient.. 20:48 External Records Reviewed: CT of aorta, no dissection in study on 12/03/2018. snw 08/03 17:15 Order name: CBC with Diff; Complete Time: 17:46 kb 08/03 17:15 Order name: Magnesium; Complete Time: 18:14 kb 08/03 17:15 Order name: NT PRO-BNP; Complete Time: 18:14 kb 08/03 17:15 Order name: Troponin HS; Complete Time: 18:14 kb 08/03 17:15 Order name: CMP; Complete Time: 18:14 kb 08/03 20:01 Order name: Troponin HS: draw at 2030; Complete Time: 20:50 kb 08/03 17:15 Order name: XRAY Chest (1 view); Complete Time: 18:14 kb 08/03 17:15 Order name: EKG; Complete Time: 17:16 kb 08/03 17:15 Order name: Cardiac monitoring; Complete Time: 19:12 kb 08/03 17:15 Order name: EKG - Nurse/Tech; Complete Time: 17:25 kb 08/03 17:15 Order name: IV Saline Lock; Complete Time: 17:25 kb 08/03 17:15 Order name: Labs collected and sent; Complete Time: 17:25 kb 08/03 17:15 Order name: O2 Per Protocol; Complete Time: 19:12 kb 08/03 17:15 Order name: O2 Sat Monitoring; Complete Time: 19:12 kb 08/03 21:25 Order name: EKG - Nurse/Tech; Complete Time: 21:38 jb4 EC:13 Rate is 75 beats/min. Rhythm is regular. Left axis deviation noted. SD interval is kb normal at 140 msec. QRS interval is normal at 98 msec. QT interval is normal at 426 msec. 21:35 Rate is 76 beats/min. Rhythm is regular. QRS [place] is Normal. Left axis deviation noted. snw SD interval is normal. QRS interval is normal. No ST changes noted. Clinical impression: NSR w/ Non-specific ST/T Changes. Administered Medications: 20:29 Drug: NS 0.9% 1000 ml Route: IV; Rate: 1000 ml; Site: right antecubital; jb4 21:38 Follow up: Response: No adverse reaction; IV Status: Completed infusion; IV Intake: jb4 1000ml 20:29 Drug: ProTONIX (pantoprazole) 40 mg Route: IVP; Site: right antecubital; jb4 21:38 Follow up: Response: No adverse reaction; Marked relief of symptoms jb4 20:40 Drug: Tylenol 1000 mg Route: PO; jb4 21:38 Follow up: Response: No adverse reaction; Marked relief of symptoms jb4 20:57 Drug: Ativan (LORazepam) 2 mg Route: PO; jb4 21:38 Follow up: Response: No adverse reaction; Marked relief of symptoms jb4 Disposition Summary: 08/03/22 20:51 Discharge Ordered Location: Home snw Condition: Stable snw Diagnosis - Chest pain, unspecified snw Followup: snw - With: Emergency Department - When: As needed - Reason: Worsening of condition Followup: snw - With: Private Physician - When: as scheduled - Reason: Recheck today's complaints, Continuance of care, Re-evaluation by your physician Discharge Instructions: - Discharge Summary Sheet snw - Nonspecific Chest Pain, Adult snw - Hypertension, Adult snw - How to Take Your Blood Pressure, [id number]-jl-[id number] snw - Aspirin and Your Heart snw - Form - Blood Pressure Record Sheet snw Forms: - Medication Reconciliation Form snw - Thank You Letter snw - Antibiotic Education snw - Prescription Opioid Use snw Signatures: Dispatcher [employer] EDAR Clau Kumar, HEARING STENOGRAPHER-C HEARING STENOGRAPHER-Ckb Constanza Mckenna HEARING STENOGRAPHER-C HEARING STENOGRAPHER-Csnw Fransisco Galicia, RN RN jb4 Mariangel Ott RN RN ll1
--- NOTE | 2022-08-03 20:52 | ER ---
Nurse's Notes [facility] Name: Brayden Henderson Age: 47 yrs Sex: Male : 1975 Arrival Date: 08/03/2022 Time: 17:07 Bed 15 Private MD: Diagnosis: Chest pain, unspecified Presentation: 08/03 17:19 Chief complaint: Patient states: High BP for "awhile". States his doctor told him to ll1 double his lisinopril. States its hard to sleep and has RICHARD. Coronavirus screen: Client denies travel out of the [place] in the last 14 days. At this time, the client does not indicate any symptoms associated with coronavirus-19. Ebola Screen: Patient denies travel to an Ebola-affected area in the 21 days before illness onset. Initial Sepsis Screen: Does the patient meet any 2 criteria? No. Patient's initial sepsis screen is negative. Does the patient have a suspected source of infection? No. Patient's initial sepsis screen is negative. Risk Assessment: Do you want to hurt yourself or someone else? Patient reports no desire to harm self or others. Onset of symptoms is unknown. 17:19 Method Of Arrival: Ambulatory ll1 17:19 Acuity: MARIA E 3 ll1 Historical: - Allergies: 17:21 NKA; ll1 - PMHx: 17:21 blood clot right eye; Hypertension; Diabetes - NIDDM; Hypothyroidism; ll1 - PSHx: 17:21 Appendectomy; Cholecystectomy; ll1 - Immunization history:: Client reports receiving the 2nd dose of the Covid vaccine. - Social history:: Smoking status: Patient/guardian denies using tobacco, the patient reports quitting approximately 3 years ago. Screenin:14 [facility] ED Fall Risk Assessment (Adult) History of falling in the last 3 months, jb4 including since admission No falls in past 3 months (0 pts) Confusion or Disorientation No (0 pts) Score/Fall Risk Level 0 - 2 = Low Risk Oriented to surroundings. Abuse screen: Denies threats or abuse. Nutritional screening: No deficits noted. Tuberculosis screening: No symptoms or risk factors identified. Assessment: 19:14 General: Appears in no apparent distress. uncomfortable, Behavior is calm, cooperative, jb4 appropriate for age. Pain: Complains of pain in base of the skull Pain does not radiate. Pain currently is 7 out of 10 on a pain scale. Neuro: Level of Consciousness is awake, alert, obeys commands, Oriented to person, place, time, situation, Reports photophobia. Cardiovascular: Patient's skin is warm and dry. Respiratory: Airway is patent Respiratory effort is even, unlabored, Respiratory pattern is regular, symmetrical. GI: No signs and/or symptoms were reported involving the gastrointestinal system. : No signs and/or symptoms were reported regarding the genitourinary system. EENT: No signs and/or symptoms were reported regarding the EENT system. Derm: Skin is intact, Skin is pink, warm \\T\\ dry. Musculoskeletal: Circulation, motion, and sensation intact. Range of motion: intact in all extremities. 20:20 Reassessment: Patient appears in no apparent distress at this time. Patient and/or jb4 family updated on plan of care and expected duration. Pain level reassessed. Patient is alert, oriented x 3, equal unlabored respirations, skin warm/dry/pink. 20:58 Reassessment: Patient appears in no apparent distress at this time. Patient and/or jb4 family updated on plan of care and expected duration. Pain level reassessed. Patient is alert, oriented x 3, equal unlabored respirations, skin warm/dry/pink. Provider notified of pt's blood pressure, notified pt reporting pain and discomfort in his abdomen, legs, and chest. See Mar for orders. 21:00 Reassessment: D/c pending further monitoring of pt. jb4 21:38 Reassessment: Patient appears in no apparent distress at this time. Patient and/or jb4 family updated on plan of care and expected duration. Pain level reassessed. Patient is alert, oriented x 3, equal unlabored respirations, skin warm/dry/pink. Pt verbalized understanding of d/c and follow up instructions. Denies questions or concerns. Patient denies pain at this time. Patient states feeling better. Patient states symptoms have improved. Vital Signs: 17:19 BP 150 / 82; Pulse 77; Resp 18; Temp 98.1; Pulse Ox 100% ; ll1 19:16 BP 148 / 69; Pulse 74; Resp 18; Pulse Ox 99% on R/A; jb4 20:20 BP 143 / 76; Pulse 72; Resp 15; Pulse Ox 100% on R/A; jb4 20:45 BP 183 / 95; Pulse 88; Resp 21; Temp 99.0(O); Pulse Ox 100% on R/A; jb4 21:24 BP 126 / 65; Pulse 82; Resp 21; Pulse Ox 99% on R/A; jb4 ED Course: 17:07 Patient arrived in ED. rg4 17:10 Clau Kumar FNP-C is PHCP. kb 17:10 Cristofer Toledo DO is Attending Physician. kb 17:21 Triage completed. ll1 17:21 Arm band placed on. ll1 17:25 Initial lab(s) drawn, by ED staff, sent to lab. EKG done, by ED staff. Inserted saline em1 lock: 20 gauge in right antecubital area, using aseptic technique. Blood collected. 17:41 XRAY Chest (1 view) In Process Unspecified. EDMS 18:23 Nataly Fink, DANILO is Primary Nurse. eh3 19:14 Patient has correct armband on for positive identification. Placed in gown. Bed in low jb4 position. Call light in reach. Side rails up X 1. Client placed on continuous cardiac and pulse oximetry monitoring. NIBP monitoring applied. cafeteria monitor on. 20:23 PHCP role handed off by Clau Kumar FNP-C snw 20:23 Constanza Mckenna FNP-C is PHCP. snw 20:23 Troponin HS: draw at 2030 Sent. bc6 21:39 No provider procedures requiring assistance completed. IV discontinued, intact, jb4 bleeding controlled, No redness/swelling at site. Pressure dressing applied. Administered Medications: 20:29 Drug: NS 0.9% 1000 ml Route: IV; Rate: 1000 ml; Site: right antecubital; jb4 21:38 Follow up: Response: No adverse reaction; IV Status: Completed infusion; IV Intake: jb4 1000ml 20:29 Drug: ProTONIX (pantoprazole) 40 mg Route: IVP; Site: right antecubital; jb4 21:38 Follow up: Response: No adverse reaction; Marked relief of symptoms jb4 20:40 Drug: Tylenol 1000 mg Route: PO; jb4 21:38 Follow up: Response: No adverse reaction; Marked relief of symptoms jb4 20:57 Drug: Ativan (LORazepam) 2 mg Route: PO; jb4 21:38 Follow up: Response: No adverse reaction; Marked relief of symptoms jb4 Intake: 21:38 IV: 1000ml; Total: 1000ml. jb4 Outcome: 20:51 Discharge ordered by . clementine 21:39 Discharged to home ambulatory. jb4 21:39 Condition: stable 21:39 Discharge instructions given to patient, Instructed on discharge instructions, follow up and referral plans. Demonstrated understanding of instructions, follow-up care. 21:39 Patient left the ED. jb4 Signatures: Dispatcher [employer] EDMS Clau Kumar, HOUSING INSPECTORS-C HOUSING INSPECTORS-CkConstanza Pena, HOUSING INSPECTORS-C HOUSING INSPECTORS-Madiw Terry Christian emCecile Guy rg4 Fransisco Galicia, RN RN jb4 Mariangel Ott RN RN ll1 Nataly Fink RN RN eh3 Johanna Otero 6
[2022-08-03] MEDS ORDERED: LORAZEPAM 1 MG TABLET ONE (20:58)
[2022-08-03 22:24] VITALS: TEMP 99
[2022-08-03 22:25] VITALS: BP 126/65; O2SAT 99
== END 2022-08-03 21:39 | disposition home or self-care (01) ==
LOC: ER 17:04
DX: R07.89 Other chest pain (principal); R51.9 Headache, unspecified; R10.9 Unspecified abdominal pain; I10 Essential (primary) hypertension; E11.9 Type 2 diabetes mellitus without complications
CPT/HCPCS: 96361; 93005; 85025; 36415; 83735; 84484 ×2; 80053; 83880; 71045; 96374; 99284; C9113; J7030